=== PATIENT | female | born 1955 | race Caucasian/White ===

== ENCOUNTER 2017-12-07 12:10 | Outpatient (REF) | payer MEDICAID, SELFPAY | END 2017-12-07 12:11 | LOC: NCHCN 12:10 | PROVIDERS: PCP Family Medicine; Visit Provider Specialist/Technologist Athletic Trainer | DX: J02.9 Acute pharyngitis, unspecified (principal) | CPT/HCPCS: 87070 ==

== ENCOUNTER 2017-12-08 08:52 | Emergency (ER) | payer MEDICAID, SELFPAY ==
[2017-12-08] VITALS (8 sets, daily range): BP systolic 107–135; BP diastolic 59–111; PULSE 76–85; RESP 12–20; TEMP 36.7–36.8; O2SAT 95–99
--- NOTE | 2017-12-08 09:26 | ED.GENADUL ---
Disposition Clinical Impression: Peritonsillar abscess Disposition: HOME Condition: Good Instructions: Peritonsillar Abscess (ED) Additional Instructions: Please continue taking the Augmentin that you are prescribed by your primary care provider yesterday. Do not miss any doses.. Please take the Tylenol and Motrin for pain. Please follow-up with Dr. Davis at your scheduled appointment on Wednesday 12/13 at 10:45 AM. If you notice any worsening of your symptoms whatsoever, any difficulty drinking, swallowing, breathing, or controlling her secretions, any fever or chills please return to the nearest emergency department immediately for reevaluation. If you notice any worsening of your symptoms, or any new symptoms such as vomiting, diarrhea, fever, chills, shortness of breath, chest pain, numbness, weakness, or fainting , please return immediately to the emergency department for reevaluation. Please follow up with your primary care provider as soon as possible for reassessment and reevaluation. As always, it was a pleasure participating in your medical care today. Prescriptions: Acetaminophen [Tylenol Extra Strength] 1,000 mg PO Q6H 5 Days #60 tab Ibuprofen [Motrin Ib] 600 mg PO Q6H 5 Days #60 tablet Referrals: Adrián Davis DO [OSTEOPATHIC DOCTOR] - Krunal Sanchez MD [ [facility]FF PHYSICIAN] - Forms: Work Release Medical Decision Making - Medical Decision Making This is a 62-year-old female with a past medical history significant for tobacco use, cervical cancer and a radical hysterectomy, as well as potential peritonsillar infections in the past, although she states she has never had surgery for peritonsillar abscess. The patient is a poor historian. Patient has had a sore throat for the last 5 days, she received Rocephin IM, and Augmentin prescription by her PCP yesterday and has had 3 doses. She has been having worsening of her pain ever since. She has difficulty swallowing any solids, but has been able to get down a small amount of liquids. Physical exam demonstrates notable erythema and some swelling in the left peritonsillar region. She did have a strep test that was negative by her PCP yesterday. And concern for potential peritonsillar abscess. We will get an IV, start the patient on Unasyn, control her pain, and get a CT scan to evaluate for abscess. 11:[address] scan does show evidence of a notable 2.7 cm x 2 cm abscess in the left peritonsillar region. These findings were conveyed to me by the radiologist. No other acute findings. Since the patient has seen Dr. Sanchez in the past, we did contact his office and discussed the case with Dr. Davis. He agreed with the need for prompt incision and drainage, and also recommended close follow-up with his clinic. We then discussed with the patient the risks and benefits of having the procedure performed here at bedside, versus potential transfer for the procedure. The patient made it very clear that she would like to have it done here in the ED rather than driving or being transferred to another location for the procedure. Unasyn was started on the patient for treatment of the infection. Procedure note: Peritonsillar abscess drainage Timeout was completed, the patient's left peritonsillar region was numbed with viscous bupivacaine, and then further anesthetized with 3 mL's of 2% lidocaine with epinephrine. Patient tolerated this well. Backups were available at bedside including tools for intubation, airway securement, respiratory therapy, to suction catheters, emergency cric capabilities, and RSI medications. These were all there as a precaution, with a low likelihood of need. After the patient achieved good anesthesia the area was incised with an 11 blade scalpel with a tape bumper attached 2 cm proximally on the shaft. A fairly large amount of purulent drainage was removed from the abscess and suctioned adequately. The area was then massaged with a soft fingertip, and continued drainage was noted. After 5 minutes of massage and suction no additional drainage was noted. Reevaluation of the posterior oropharynx demonstrated no uvular deviation, and no asymmetry in swelling between the 2 sides. Patient had near complete resolution of her initial pain and symptomatology. Patient tolerated procedure well and had no continued bleeding. Less than 3 mL's of total blood loss. The patient tolerated the procedure well. We will observe her for the next hour to note any changes, and make sure she does well post procedurally. We did contact Dr. Davis's office for follow-up with an appointment at 10:45 AM on 12/13. I had a long discussion with her regarding red flags for which to return, including signs and symptoms of infection, airway compromise, worsening difficulty with breathing or drinking. We will do a p.o. trial prior to discharge. 11:54 AM The patient is doing very well. Her pain is nearly resolved post procedurally. She feels much better at this time. I did have her drink fluids in front of me and she did this well without any complications, which is a start change from when she first arrived. With normal vital signs, reassuring labs, and he well tolerated procedure I feel that she can be safely discharged home. I again reiterated the red flags for which she would need to return the patient understands, as well as the importance of follow-up and continued antibiotics with Tylenol and Motrin. I discussed this with her the importance of a soft diet and she understands. I have extensively reviewed the treatment plan and discharge instructions with the patient and their family. I have addressed all patient concerns at this time. The patient and family was made aware of what symptoms to monitor for that would warrant a return to the emergency department. Discussed the plan with the patient and family, they demonstrate verbal understanding and agreement with our assessment and plan at this time. History of Present Illness - General Chief complaint: Sorethroat Stated complaint: SORE THROAT Time Seen by Provider: 12/08/17 09:12 - History of Present Illness Initial comments: This is a 62-year-old female with a past medical history of cervical cancer, radical hysterectomy, left knee surgery, right shoulder surgery, as well as a peritonsillar infection in the past for which she sees . She presents today for sore throat. The patient states that 4 days ago she developed symptoms of sore throat on the left hand side, her symptoms have gradually worsened. She has had a very minimal cough, and some occasional chills and subjective fever at home yesterday. She has had difficulty eating, and has been unable to swallow solids, but has been able to swallow some liquids with notable difficulty. She did see her primary care provider yesterday who gave a shot of ceftriaxone, and a prescription for Augmentin. She has taken 3 doses of Augmentin. She has been taking naproxen for home pain control, but has had no improvement of her symptoms since then. Pain is located in her left throat, and left proximal neck. She denies any headache or vision changes. She does have complaint of mild trismus on the left jaw. Patient is able to move her neck but does have some pain with this. She denies any shortness of breath, difficulty controlling secretions, posterior duct repair, vomiting, diarrhea. Patient does smoke regularly. She denies any IV or illicit drug use. She has no other complaints at this time. She denies any pertinent family history. - Related Data Duloxetine HCl [Cymbalta] 120 mg PO DAILY tab-cap 09/14/12 Calcium Carbonate [Tums] 2 tab PO PRN PRN 07/28/14 Loratadine 10 mg PO DAILY PRN 01/20/16 Acetaminophen [Tylenol Extra Strength] 1,500 mg PO PRN PRN 04/17/17 Estradiol [Estrace] 1 gm VG .1-2 X WEEK 04/17/17 Acetaminophen [Tylenol Extra Strength] 1,000 mg PO Q6H 5 Days #60 tab 12/08/17 Ibuprofen [Motrin Ib] 600 mg PO Q6H 5 Days #60 tablet 12/08/17 Allergies Allergy/AdvReac Type Severity Reaction Status Date / Time morphine Allergy Severe Swelling/Ed Verified 12/08/17 09:03 lisa Sulfa (Sulfonamide Allergy Intermediate Hives Verified 12/08/17 09:03 Antibiotics) azithromycin Allergy Unknown Unverified 12/08/17 09:03 nitrofurantoin Allergy Unknown Unverified 12/08/17 09:03 [From Macrobid] fentanyl AdvReac Severe go crazy Unverified 12/08/17 09:03 nicotine [From Nicorette] AdvReac Intermediate Vomiting Unverified 12/08/17 09:03 bupropion HCl AdvReac Verified 12/08/17 09:03 [From Wellbutrin] prednisone AdvReac Verified 12/08/17 09:03 Review of Systems Other: 10 point review of systems was performed, pertinent positives and negatives are noted in the history of present illness. Past Medical History - Past Medical History Medical history: GERD seehpi Surgical history: hysterectomy, other (TKA, right shoulder surgery) - Social History Alcohol use: occasionally Drug use: none General Exam - Other Other exam information: 1.Const: Well-nourished, Well-developed, appearing stated age 2.Eyes: PERRL, no conjunctival injection, and symmetrical lids. 3.ENT: Atraumatic external nose and ears. Dry MM. Trachea is midline. The patient does demonstrate notable erythema in the left peritonsillar region. Uvula does appear to be midline. There is some swelling in the left peritonsillar region. Tenderness on the left submandibular region. No significant swelling. No evidence of otitis media or externa. Mild trismus on exam. Airway is clear and patent. Secretions are well controlled. 4.CVS: +S1/S2, No murmurs or gallops. Peripheral pulses 2+ and equal in all extremities. Brisk capillary refill in all extremities. 5.RESP: Unlabored respiratory effort. Clear to auscultation bilaterally. No wheezes rales or rhonchi 6.GI: Soft, Nontender/Nondistended, No hepatosplenomegaly. No guarding or rebound. 7.MSK: Normocephalic/Atraumatic, Extremities w/o deformity or ttp No cyanosis or clubbing, Normal movement of all extremities 8.Skin: Warm, Dry. No rashes or lesions. 9.Neuro: waste cotton cleaner II-XII grossly intact. Sensation grossly intact, no focal neurologic deficits. 10.Psych: (AAO) x3. Appropriate mood and affect Course Vital Signs - 24 hr 12/08/17 08:57 Temperature 36.8 C Pulse 81 Respiratory 16 Rate Blood Pressure 131/84 Pulse Oximetry 96
[2017-12-08] MEDS: Ketorolac 30 MG/ML VIAL IM (09:33)
[2017-12-08 09:35] LABS: Abs Immature Grans 0.01 k/cumm (0.0-0.09); Absolute Basophil Count 0.02 k/cumm (0.0-0.2); Absolute Eosinophil Count 0.29 k/cumm (0.0-0.7); Absolute Lymphocyte Count 1.34 k/cumm (1.2-3.4); Absolute Neutrophil Count 7.58 k/cumm (1.2-6.7); Basophils % 0.2; Eosinophils % 2.9; HCT 45.7 % (36.0-46.0); Immature Grans % 0.1; Lymphocytes % 13.2; Mean Corp. HGB Concentration 32.8 g/dL (32.0-36.0); Mean Corpuscular Hemoglobin 29.6 pg (27.0-33.0); Mean Corpuscular Volume 90.1 fL (80-95); Mean Platelet Volume 10.9 fL (8.0-11.0); Monocytes % 8.9; Neutrophils % 74.7; Platelet Count 173 x1000/uL (130-400); RBC 5.07 m/cumm (4.00-5.20); RBC Distribution Width 13.2 % (11.7-14.6); White Blood Cell Count 10.14 k/cumm (4.4-10.8)
[2017-12-08] MEDS: Lidocaine 2% Viscous 15 ML CUP PO (09:35)
[2017-12-08 09:50] LABS: ALT 27 U/L (12-78); AST 23 U/L (15-37); Albumin 3.9 g/dL (3.4-5.0); Alkaline Phosphatase 100 U/L (46-116); Anion Gap 6.3 mmol/L (3-11); BUN 18 mg/dL (7-18); Bilirubin, Total 0.9 mg/dL (0.2-1.0); CO2 27.7 mmol/L (21.0-32.0); CREATININE 0.75 mg/dL (0.55-1.02); Calcium 9.2 mg/dL (8.5-10.1); Chloride 104 mmol/L (98-107); Glucose 104 mg/dL (70-100); Potassium 3.8 mmol/L (3.5-5.1); Sodium 138 mmol/L (136-145); Total Protein 7.9 g/dL (6.4-8.2)
--- NOTE | 2017-12-08 09:56 | DI.RPTCT_ITS ---
SYMPTOM/DIAGNOSIS: LT PERITONSILLAR SWELLING, ? ABSCESS NECK CT: CT scan of the neck was performed following the uneventful administration of intravenous contrast material. Comparison is made with 11/29/15. There is a 2.7 by 2 by 1.9 cm. rim enhancing fluid collection in the left peritonsillar region most consistent with a peritonsillar abscess. There is mild narrowing of the airway at this level and rightward displacement of the uvula. The nasopharynx, oropharynx, hypopharynx and larynx are otherwise unremarkable. The retropharyngeal space is unremarkable. The thyroid gland is enlarged with multiple hypodense lesions present, the largest appears to be on the right and measures 1.6 cm. Mildly enlarged lymph nodes are seen in the left neck. The largest lies posterior to the left submandibular gland and measures 1.5 cm. These are likely reactive. The submandibular and parotid glands are unremarkable. No other focal fluid collections are seen in the neck. The visualized intracranial structures are unremarkable as are the orbits and retro-orbital soft tissues. The visualized paranasal sinuses are clear. The mastoid air cells are well pneumatized. Mild centrilobular emphysematous changes are seen in the lung apices. There is a 2 mm. calcification seen in the soft tissues inferior to the peritonsillar abscess. This may represent a ductal stone/tonsilolith. IMPRESSION: 1. 2.7 cm. left rim enhancing fluid collection most suggestive of a left peritonsillar abscess. 2. Multiple thyroid nodules. Outpatient non emergent follow up is recommended. 3. There is a 2 mm. calcification seen in the soft tissues inferior to the peritonsillar abscess. This may represent a ductal stone/tonsilolith. These findings were discussed with Dr Ragsdale of the ER on the date of the examination.
[2017-12-08] MEDS: ACETAMINOPHEN 1,000 MG/100 ML BTL 400 MG IVPB (10:02)
[2017-12-08] MEDS: Omnipaque 350 MG/ML 100 ML BTL IJ (10:03)
[2017-12-08] MEDS: AMPICILLIN/SULBACTAM 3 GM in Normal Saline 100 ML IVPB (10:13)
[2017-12-08] MEDS: Normal Saline 1,000 ML 1000 ML IV (10:30)
[2017-12-08] MEDS: Benzocaine 20% Gel 30 GM JAR MM (10:30)
[2017-12-08] MEDS: Benzocaine 20% 60 ML CAN (10:40)
[2017-12-08] MEDS: LORazepam 2 MG/ML VIAL 0.5 MG IVP (10:44)
--- NOTE | 2017-12-08 10:52 | NUR.NOTE ---
Addendum entered by Elvira Vergara 12/08/17 11:17: Staff present at time of Time Out were: Matilde Schneider RN, Vandana RT, Marcel Vergara RN (insurance writer), Dr. Ragsdale. present during timeout and procedure Original Note: Nursing Note: Time out conducted by Dr. Ragsdale at 1050; procedure drainage of peritonsilar abscess
--- NOTE | 2017-12-08 11:17 | RESPIRATORY ---
This RT was at bedside for airway management, if needed, during incision and drainage of peritonsilar abscess. Pt tolerated well, no intervention needed.
--- NOTE | 2017-12-08 14:28 | NUR.NOTE ---
Nursing Note: Faxed to [facility], [place], [place] the physician note and the CT report. Patient has follow up appt. Dec.13 @ 10:45. . Muna Lassiter.
== END 2017-12-08 12:22 | disposition home or self-care (01) ==
LOC: ER 12-09 10:14
PROVIDERS: Emergency Provider Student in an Organized Health Care Education/Training Program; PCP Family Medicine
DX: J36 Peritonsillar abscess (principal)
CPT/HCPCS: 36415; 42700; 70491; 80053; 96361; 96365; 96375; 99285; 85025; J0131; J0295; J1885; J2060; J3490

== ENCOUNTER 2018-01-30 12:37 | Outpatient (REF) | payer OTHER, SELFPAY ==
[2018-01-30 20:06] LABS: Alkaline Phosphatase 97 U/L (46-116); C-Reactive Protein 0.23 mg/dL (0.0-0.3); Glucose 87 mg/dL (70-100); TSH (W/Ref FT4) 0.53 uIU/mL (0.358-3.74)
[2018-01-30 20:38] LABS: Abs Immature Grans 0.01 k/cumm (0.0-0.09); Absolute Basophil Count 0.04 k/cumm (0.0-0.2); Absolute Eosinophil Count 0.21 k/cumm (0.0-0.7); Absolute Lymphocyte Count 2.11 k/cumm (1.2-3.4); Absolute Monocyte Count 0.42 k/cumm (0.11-0.7); Absolute Neutrophil Count 1.92 k/cumm (1.2-6.7); Basophils % 0.8; Eosinophils % 4.5; HCT 44.4 % (36.0-46.0); HGB 14.7 g/dL (12.0-15.5); Immature Grans % 0.2; Lymphocytes % 44.8; Mean Corp. HGB Concentration 33.1 g/dL (32.0-36.0); Mean Corpuscular Hemoglobin 29.6 pg (27.0-33.0); Mean Corpuscular Volume 89.3 fL (80-95); Mean Platelet Volume 12.2 fL (8.0-11.0); Monocytes % 8.9; Neutrophils % 40.8; Platelet Count 219 x1000/uL (130-400); RBC 4.97 m/cumm (4.00-5.20); RBC Distribution Width 13.3 % (11.7-14.6); White Blood Cell Count 4.71 k/cumm (4.4-10.8)
[2018-01-30 22:03] LABS: ESR 23 MM/HR (0-30)
[2018-02-01 13:58] LABS: ANA Interpretation Positive (NEGAT); ANA Titer Pattern 1:80 Speckled
== END 2018-01-30 12:57 ==
LOC: NCHCN 12:37
PROVIDERS: PCP Family Medicine; Visit Provider Family Medicine
DX: M25.50 Pain in unspecified joint (principal); M79.669 Pain in unspecified lower leg
CPT/HCPCS: 82947; 85652; 84075; 84443; 85025; 86038; 86140

== ENCOUNTER 2018-03-29 15:31 | Outpatient (REF) | payer OTHER, SELFPAY | END 2018-03-29 15:51 | LOC: NCHCN 15:31 | PROVIDERS: PCP Family Medicine; Visit Provider Family Medicine | DX: R30.0 Dysuria (principal) | CPT/HCPCS: 87086 ==

== ENCOUNTER 2018-07-05 10:31 | Outpatient (CLI) | payer OTHER, SELFPAY ==
--- NOTE | 2018-07-05 10:34 | DI.RAD_ITS ---
SYMPTOMS/DIAGNOSIS: F/U LT TOTAL KNEE LEFT KNEE: The patient is status post TKR. The prosthesis in good position surrounding bone intact with no appreciable interval change when compared with the post operative examination dating back to 01/20/16.
== END 2018-07-05 10:51 ==
PROVIDERS: PCP Family Medicine; Visit Provider Orthopaedic Surgery
DX: Z96.652 Presence of left artificial knee joint (principal); Z47.1 Aftercare following joint replacement surgery
CPT/HCPCS: 73560

== ENCOUNTER 2018-07-05 10:59 | Outpatient (CLI) | payer OTHER, SELFPAY ==
[2018-07-05 12:34] LABS: C-Reactive Protein 0.28 mg/dL (0.0-0.3)
[2018-07-05 12:46] LABS: ESR 18 MM/HR (0-30)
[2018-07-06 11:10] LABS: ANA Interpretation Positive (NEGAT); ANA Titer Pattern 1:80 Speckled
[2018-07-06 11:17] LABS: Rheumatoid Factor 8 IU/mL (<12.5)
== END 2018-07-05 11:19 ==
PROVIDERS: PCP Family Medicine; Visit Provider Orthopaedic Surgery
DX: M25.50 Pain in unspecified joint (principal)
CPT/HCPCS: 36415; 85652; 86038; 86140; 86431

== ENCOUNTER 2018-07-30 11:56 | Outpatient (CLI) | payer OTHER, SELFPAY ==
--- NOTE | 2018-07-30 11:36 | DI.RAD_ITS ---
SYMPTOMS/DIAGNOSIS: ACUTE BRONCHIECTASIS WITH BRONCHOSPASM, J20.9 PA AND LATERAL CHEST: Comparison is made with . The heart size is normal. The lungs appear clear. No infiltrate, effusion or pulmonary edema is seen. IMPRESSION: Negative chest x-ray.
== END 2018-07-30 12:16 ==
PROVIDERS: PCP Family Medicine; Visit Provider Physician Assistant Medical
DX: J20.9 Acute bronchitis, unspecified (principal); J47.0 Bronchiectasis with acute lower respiratory infection
CPT/HCPCS: 71046

== ENCOUNTER 2018-08-24 15:10 | Outpatient (REF) | payer OTHER, SELFPAY | END 2018-08-24 15:30 | LOC: NCHCN 15:10 | PROVIDERS: PCP Family Medicine; Visit Provider Physician Assistant Medical | DX: R30.0 Dysuria (principal) | CPT/HCPCS: 87077; 87086; 87186 ==

== ENCOUNTER 2018-12-17 13:19 | Outpatient (REF) | payer MEDICAID, SELFPAY | END 2018-12-17 13:39 | LOC: NCHCN 13:19 | PROVIDERS: PCP Family Medicine; Visit Provider Physician Assistant Medical | DX: N39.0 Urinary tract infection, site not specified (principal) | CPT/HCPCS: 87086 ==

== ENCOUNTER 2018-12-20 00:57 | Outpatient (CLI) | payer MEDICAID, SELFPAY ==
--- NOTE | 2018-12-20 14:44 | DI.US_ITS ---
SYMPTOMS/DIAGNOSIS: DYSURIA, R30.0, H/O CHRONIC BLADDER INFECTIONS, MIDLINE BLADDER PAIN S/P BLADDER SLING, S/P HYSTERECTOMY RENAL ULTRASOUND: The kidneys are normal in size and shape and there is no evidence of hydronephrosis or nephrolithiasis. Urinary bladder is grossly unremarkable in appearance with prevoid and postvoid urinary bladder volume measurements 99 cc and 22 cc. Ureteral jets were visualized bilaterally. Incidental note is made of increased hepatic echogenicity consistent with hepatic steatosis.
--- NOTE | 2018-12-20 15:13 | DI.RAD_ITS ---
SYMPTOMS/DIAGNOSIS: RIGHT HIP PAIN, M25.551 RIGHT HIP AND PELVIS: Two views were obtained. There are multiple vascular clips of the pelvis. Cartilaginous joint spaces of both hips are fairly well maintained. Mild hypertrophic changes of the acetabula noted bilaterally. No other significant bony abnormality seen. CONCLUSION: Mild DJD, both hips.
== END 2018-12-20 01:17 ==
PROVIDERS: PCP Family Medicine; Visit Provider Physician Assistant Medical
DX: R30.0 Dysuria (principal); R39.89 Other symptoms and signs involving the genitourinary system; K76.0 Fatty (change of) liver, not elsewhere classified; Z98.890 Other specified postprocedural states; M25.551 Pain in right hip; M16.0 Bilateral primary osteoarthritis of hip
CPT/HCPCS: 76770; 73502

== ENCOUNTER 2019-01-15 12:16 | Outpatient (CLI) | payer MEDICAID, SELFPAY ==
--- NOTE | 2019-01-15 13:00 | DI.US_ITS ---
EXAM: US PELVIS AND TRANSVAGINAL CLINICAL HISTORY: right pelvic pain R10.2. TECHNIQUE: Ultrasound performed using standard protocol. COMPARISON: US renal from 12/20/2018 FINDINGS: The patient is status post hysterectomy and left oophorectomy. The right ovary measures 1.4 x 0.9 x 0.9 cm. No free fluid is seen. There is no evidence of right ovarian mass or cyst. IMPRESSION: Normal right ovary. Status post hysterectomy and left oophorectomy.
== END 2019-01-15 12:36 ==
PROVIDERS: PCP Family Medicine; Visit Provider Nurse Practitioner Gerontology
DX: R10.2 Pelvic and perineal pain (principal); Z90.721 Acquired absence of ovaries, unilateral; Z90.710 Acquired absence of both cervix and uterus
CPT/HCPCS: 76830; 76856

== ENCOUNTER 2019-01-15 12:27 | Outpatient (REF) | payer MEDICAID, SELFPAY | END 2019-01-15 12:47 | LOC: LBN 12:27 | PROVIDERS: PCP Family Medicine; Visit Provider Nurse Practitioner Gerontology | DX: N39.0 Urinary tract infection, site not specified (principal) | CPT/HCPCS: 87077; 87086; 87186 ==

== ENCOUNTER 2019-02-01 16:12 | Outpatient (REF) | payer MEDICAID, SELFPAY | END 2019-02-01 16:32 | LOC: LBN 16:12 | PROVIDERS: PCP Family Medicine; Visit Provider Nurse Practitioner Gerontology | DX: N30.10 Interstitial cystitis (chronic) without hematuria (principal); N39.0 Urinary tract infection, site not specified; R10.2 Pelvic and perineal pain | CPT/HCPCS: 87086 ==

== ENCOUNTER 2019-04-17 20:50 | Outpatient (REF) | payer MEDICAID, SELFPAY ==
[2019-04-17 20:59] LABS: Abs Immature Grans 0.01 k/cumm (0.0-0.09); Absolute Basophil Count 0.06 k/cumm (0.0-0.2); Absolute Eosinophil Count 0.36 k/cumm (0.0-0.7); Absolute Lymphocyte Count 2.47 k/cumm (1.2-3.4); Absolute Monocyte Count 0.59 k/cumm (0.11-0.7); Absolute Neutrophil Count 3.41 k/cumm (1.2-6.7); Basophils % 0.9; Eosinophils % 5.2; HCT 46.2 % (36.0-46.0); HGB 15.1 g/dL (12.0-15.5); Immature Grans % 0.1 %; Lymphocytes % 35.8; Mean Corp. HGB Concentration 32.7 g/dL (32.0-36.0); Mean Corpuscular Hemoglobin 29.5 pg (27.0-33.0); Mean Corpuscular Volume 90.4 fL (80-95); Mean Platelet Volume 11.9 fL (8.0-11.0); Monocytes % 8.6; Neutrophils % 49.4; Platelet Count 243 x1000/uL (130-400); RBC 5.11 m/cumm (4.00-5.20); RBC Distribution Width 13.3 % (11.7-14.6)
[2019-04-17 21:08] LABS: ALT 33 U/L (14-59); AST 33 U/L (15-37); Albumin 4.2 g/dL (3.4-5.0); Alkaline Phosphatase 106 U/L (46-116); Amylase 84 U/L (25-115); BUN 23 mg/dL (7-18); Bilirubin, Total 0.2 mg/dL (0.2-1.0); Calcium 9.6 mg/dL (8.5-10.1); Chloride 105 mmol/L (98-107); Glucose 100 mg/dL (74-106); Lipase 204 U/L (73-393); Magnesium 1.9 mg/dL (1.8-2.4); Potassium 4.1 mmol/L (3.5-5.1); Sodium 142 mmol/L (136-145); Total Protein 7.4 g/dL (6.4-8.2)
== END 2019-04-17 21:10 ==
LOC: NCHCN 20:50
PROVIDERS: PCP Family Medicine; Visit Provider Physician Assistant Medical
DX: R19.02 Left upper quadrant abdominal swelling, mass and lump (principal); N30.10 Interstitial cystitis (chronic) without hematuria; M79.605 Pain in left leg
CPT/HCPCS: 80053; 83690; 82150; 83735; 85025

== ENCOUNTER 2019-05-06 01:36 | Outpatient (CLI) | payer MEDICAID, SELFPAY ==
[2019-05-06] MEDS: Breeza Beverage 473 ML BTL PO ×2 (07:29)
[2019-05-06] MEDS: Omnipaque 350 MG/ML 50 ML BTL IJ (07:30)
[2019-05-06] MEDS: Omnipaque 350 MG/ML 100 ML BTL IJ (08:35)
--- NOTE | 2019-05-06 08:36 | DI.CT_ITS ---
EXAM: CT ABDOMEN PELVIS W CLINICAL HISTORY: LUQ ABD MASS, R19.02, INTERSTITIAL CYSTITIS, N30.10 TECHNIQUE: Post IV and oral contrast. COMPARISON: No exams were available for comparison FINDINGS: The liver shows mild fatty infiltration. The spleen is normal in size. The gallbladder, pancreas, adrenals, and kidneys are unremarkable. The patient is status post hysterectomy. There is contour d eformity of the bladder which may be secondary to surgery. The right ovary appears normal. Multiple surgical clips are seen along the spine and iliac vessels. No adenopathy is seen. There is no evid ence of a left upper quadrant mass. The aorta shows mild calcification and is normal in diameter. T here is a minimal amount of fat in the umbilicus. No left upper quadrant hernias are seen. The lung bases show minimal scarring or atelectasis. There is no bowel dilatation or inflammatory change. T here is a moderate quantity of stool. There are a few sigmoid diverticula. Degenerative changes are seen in the spine. IMPRESSION: No acute abnormality. No evidence of left upper quadrant mass.
== END 2019-05-06 01:56 ==
PROVIDERS: PCP Family Medicine; Visit Provider Physician Assistant Medical
DX: R19.02 Left upper quadrant abdominal swelling, mass and lump (principal); N30.10 Interstitial cystitis (chronic) without hematuria; K76.0 Fatty (change of) liver, not elsewhere classified
CPT/HCPCS: 74177; J3490; Q9967

== ENCOUNTER 2019-08-19 16:36 | Outpatient (REF) | payer MEDICAID, SELFPAY ==
[2019-08-19 19:59] LABS: Bilirubin Negative (Negative); Blood Negative (Negative); Clarity Clear (Clear); Glucose Negative (Negative); Ketones Negative (Negative); Leukocyte Esterase Negative (Negative); Nitrite Negative (Negative); Specific Gravity 1.025 (1.005-1.025); Urobilinogen 0.2 EU/dL (Up TO 0.2); pH 5.5 (5-8)
== END 2019-08-19 16:56 ==
LOC: NCHCN 16:36
PROVIDERS: PCP Family Medicine; Visit Provider Family Medicine
DX: R30.0 Dysuria (principal)
CPT/HCPCS: 81003; 87086

== ENCOUNTER 2019-10-15 07:49 | Outpatient (CLI) | payer MEDICAID, SELFPAY ==
[2019-10-15 22:41] LABS: COVID-19 RT-PCR UVMMC Result Negative (Negative)
== END 2019-10-15 08:09 ==
PROVIDERS: PCP Family Medicine; Visit Provider Podiatrist
DX: Z01.818 Encounter for other preprocedural examination (principal); Z11.59 Encounter for screening for other viral diseases
CPT/HCPCS: U0003

== ENCOUNTER 2019-10-21 15:54 | Outpatient (REF) | payer MEDICAID, SELFPAY ==
[2019-10-23 11:43] LABS: Lyme Ab w Rflx to Lyme Confirm Negative (Negative)
[2019-10-24 01:50] LABS: Anaplasma phagocytophilum Negative (Negative); B. miyamotoi PCR Negative (Negative); Babesia divergens/MO-1 Negative (Negative); Babesia duncani Negative (Negative); Babesia microti Negative (Negative); Ehrlichia chaffeensis Negative (Negative); Ehrlichia ewingii/canis Negative (Negative); Ehrlichia muris eauclairensis Negative (Negative)
== END 2019-10-21 16:14 ==
LOC: NCHCN 15:54
PROVIDERS: PCP Family Medicine; Visit Provider Nurse Practitioner Family
DX: R21 Rash and other nonspecific skin eruption (principal)
CPT/HCPCS: 87798; 86618

== ENCOUNTER 2019-11-15 15:06 | Outpatient (REF) | payer MEDICAID, SELFPAY | END 2019-11-15 15:26 | LOC: NCHCN 15:06 | PROVIDERS: PCP Family Medicine; Visit Provider Family Medicine | DX: R35.0 Frequency of micturition (principal) | CPT/HCPCS: 87077; 87086; 87186 ==

== ENCOUNTER 2019-12-10 17:14 | Outpatient (REF) | payer MEDICAID, SELFPAY ==
[2019-12-10 19:35] LABS: Bilirubin Negative (Negative); Blood Negative (Negative); Clarity Clear (Clear); Glucose Negative (Negative); Ketones Negative (Negative); Leukocyte Esterase Large (Negative); Nitrite Negative (Negative); Specific Gravity 1.015 (1.005-1.025); Urobilinogen 0.2 EU/dL (Up TO 0.2); pH 5.5 (5-8)
[2019-12-10 20:04] LABS: Bacteria Rare HPF (Negative); C & S Indicated? Yes; Crystals Negative HPF (Negative); Epithelial Cells Many HPF (Negative); Mucus Negative (Negative); Other Cells Mod Transitional (Negative); RBC 0-2 HPF (0-2)
== END 2019-12-10 17:34 ==
LOC: NCHCN 17:14
PROVIDERS: PCP Family Medicine; Visit Provider Family Medicine
DX: R35.0 Frequency of micturition (principal); N30.10 Interstitial cystitis (chronic) without hematuria
CPT/HCPCS: 81003; 81015; 87086

== ENCOUNTER 2019-12-23 16:13 | Outpatient (REF) | payer MEDICAID, SELFPAY ==
--- NOTE | 2019-12-23 15:52 | SKI_PTH ---
PATIENT: Dana Muñiz LOC: [facility] U#:[id number] AGE/SX: 64/F ROOM: RE12/23/[address]: Adrián Davis DO : 1955 BED: DIS: 12/23/2019 SPEC #: [id number] RECD: 12/23/19 18:31 STATUS: LUIZ REMango #: [id number] MONTY: 12/23/19 15:[address]: Adrián Davis DEPT: Surgical Specimen RECD BY: Mirlande Sweeney ENTERED: 12/23/19 18:31 SP TYPE: MAURICE DE PAZ DR: Juana Syed V Tissues: 1 - SKIN BIOPSY(SHAVE/PUNCH) Procedures: SKIN LEVEL 4 Comments: [id number]
== END 2019-12-23 16:33 ==
LOC: LBN 16:13
PROVIDERS: PCP Family Medicine; Visit Provider Otolaryngology Otolaryngology/Facial Plastic Surgery
DX: L57.0 Actinic keratosis (principal)
CPT/HCPCS: 88305

== ENCOUNTER 2019-12-30 02:50 | Outpatient (CLI) | payer MEDICAID, SELFPAY ==
--- NOTE | 2019-12-30 11:00 | NS.NUTBLAN_ITS ---
Dana presented for Medical Nutrition Therapy for weight loss and recoccuring interstitial cystitis. 5'2 190 lbs 34.5 IBW: 120-130 lbs, Goal Wt: 160 lbs. Reports has UTI every other month for last year. Diet recall indicates erratic meal schedule, low amount of lean protein and high amounts of simple sugars. Poor intake of fluid reported. Reviewed ways to follow balanced meal plan with emphasis on lean protein, non starchy vegetables, fruits, complex carbs and adequate fluid. Reviewed need to consume yogurt on regular basis if taking abx to provide healthy probiotics s/p abx dosage. Explained relationship with diet and immune system. Goal is for 5 lbs weight loss per month to goal weight of 160 lbs. Follow up planned on 01/28/20 at 11 am.
== END 2019-12-30 03:10 ==
PROVIDERS: PCP Family Medicine; Visit Provider Dietitian, Registered
DX: E66.3 Overweight (principal); N30.10 Interstitial cystitis (chronic) without hematuria; Z71.3 Dietary counseling and surveillance
CPT/HCPCS: 97802

== ENCOUNTER 2020-01-02 10:56 | Outpatient (CLI) | payer MEDICAID, SELFPAY ==
--- NOTE | 2020-01-02 10:15 | DI.RAD_ITS ---
EXAM: XR KNEE LT 2V AP,LAT CLINICAL HISTORY: left TKA; pain. TECHNIQUE: 2D digital imaging was performed. COMPARISON: CR XR CHEST 2V PA LATERAL from 07/30/2018 FINDINGS: BONES: There are stable post operative changes present. No fracture or dislocation. JOINTS: The joint spaces are well maintained. Small joint effusion. SOFT TISSUE: Normal. IMPRESSION: Stable postoperative changes. DATA REPOSITORY: RADIATION DOSE DELIVERED:
--- NOTE | 2020-01-02 10:15 | DI.RAD_ITS ---
EXAM: XR HIP RT COMPLETE AP PELVIS INDICATION: right hip pain. COMPARISON: CR XR hip RT complete AP pelvis from 12/20/2018 TECHNIQUE: 2D digital imaging was performed. FINDINGS: There are mild degenerative changes of the right hip. The bones are intact and normally mineralized. Surgical clips are seen in the pelvis. The soft tissues are otherwise unremarkable. IMPRESSION: DATA REPOSITORY: RADIATION DOSE DELIVERED:
== END 2020-01-02 11:16 ==
PROVIDERS: PCP Family Medicine; Referring Provider Family Medicine; Visit Provider Physician Assistant
DX: M25.562 Pain in left knee (principal); Z96.652 Presence of left artificial knee joint; M16.11 Unilateral primary osteoarthritis, right hip
CPT/HCPCS: 73502; 73560

== ENCOUNTER 2020-01-08 01:59 | Outpatient (CLI) | payer MEDICAID, SELFPAY ==
--- NOTE | 2020-01-08 06:45 | DI.NM_ITS ---
EXAM: NM BONE SCAN 3 PHASE CLINICAL HISTORY: painful L TKA,T84.84XA,Z96.652,PAIN. TECHNIQUE: Injected Dose: 25 mCi Tc-99m MDP COMPARISON: CR XR KNEE LT 2V AP,LAT from 01/02/2020 FINDINGS: Perfusion: Symmetric. Blood Pool: Symmetric. Delayed: 3.5 hours. Whole body images and spot views of the knees were performed. There is increase d activity seen in the medial and posterior tibial plateau directly adjacent to the prosthesis of the left knee. There is also increased activity in the patella and a small amount of increased activity in the distal femur. There is a small focus of increased activity in the left distal femoral shaft corresponding to the enchondroma seen on plain films. Minimally increased activity is noted in the right knee and left 1st MTP joint. IMPRESSION: 1. Areas of increased activity surrounding the left knee prosthesis, greatest at the medial tibial pl ateau, suspicious for loosening. DATA REPOSITORY:
== END 2020-01-08 02:19 ==
PROVIDERS: PCP Family Medicine; Visit Provider Student in an Organized Health Care Education/Training Program
DX: T84.84XA Pain due to internal orthopedic prosthetic devices, implants and grafts, initial encounter (principal); Z96.652 Presence of left artificial knee joint
CPT/HCPCS: 78315

== ENCOUNTER 2020-01-08 05:29 | Outpatient (CLI) | payer MEDICAID, SELFPAY ==
[2020-01-08 08:59] LABS: C-Reactive Protein 0.13 mg/dL (0.0-0.3)
[2020-01-08 09:27] LABS: ESR 18 mm/hr (0-30)
== END 2020-01-08 05:49 ==
PROVIDERS: PCP Family Medicine; Visit Provider Student in an Organized Health Care Education/Training Program
DX: T84.84XA Pain due to internal orthopedic prosthetic devices, implants and grafts, initial encounter (principal); Z96.652 Presence of left artificial knee joint
CPT/HCPCS: 85652; 86140

== ENCOUNTER 2020-01-23 01:37 | Outpatient (CLI) | payer MEDICAID, SELFPAY ==
--- NOTE | 2020-01-23 08:15 | DI.RAD_ITS ---
EXAM: RF JOINT INJECTION FLUORO GUID CLINICAL HISTORY: RT HIP TROCHANTERIC BURSITIS,M70.61 TECHNIQUE: 2D and realtime digital imaging was performed. CONTRAST MATERIAL: Refer to procedure report. COMPARISON: No exams were available for comparison FINDINGS: Fluoroscopy was provided for Dr. Sarmiento during the performance of a right hip injection. Please r efer to the procedure report for complete details. Fluoro time: 6 seconds IMPRESSION:
[2020-01-23] MEDS: Bupivacaine 0.5% Pres-Free 10 ML VIAL 5 ML IJ (15:02)
[2020-01-23] MEDS: methylPREDNISolone ACETATE 80 MG/ML VIAL IM (15:03)
--- NOTE | 2020-01-23 22:48 | W.PROCNOTE ---
Date of service: 01/23/20 Time of Service: 14:01 Procedure Note Date of procedure: 01/23/20 Procedure: Right Hip Injection with Fluoroscopic Guidance Surgeon/Proceduralist/Physician: Santos Sarmiento Procedure Diagnosis: Right Hip Pain Procedure Indications: Dana has had persistent pain of the RIGHT hip and groin. Noninvasive measures have been tried. To serve as both diagnostic and therapeutic, an injection under fluoroscopy was recommended. I had discussed the risks of the procedure and the patient elected to proceed. Procedure Description: Dana was greeted in the flouroscopy room. The correct side was identified and the consent was reviewed with the patient and signed. The patient was then placed in the supine position on the fluoroscopy table. The RIGHT hip was then prepped with Chloraprep. The anterolateral injection starting point was identiifed by bony landmarks and fluoroscopy. The skin and soft tissue in the tract of the injection was anesthetized with 1% Lidocaine. A spinal needle was then inserted deep into the hip joint at the level of the lateral femoral neck under fluoroscopic guidance. A small amount of Omnipaque solution was injected to confirm intraarticular placement. Once confirmed, the hip was injected with 6cc of 0.5% Bupivicaine and 80mg of Depo-Medrol. A bandaid was placed on the injection site. The patient tolerated the procedure well and noted improvement in pre-injection pain.
== END 2020-01-23 01:57 ==
PROVIDERS: PCP Family Medicine; Visit Provider Student in an Organized Health Care Education/Training Program
DX: M25.551 Pain in right hip (principal); R10.31 Right lower quadrant pain
CPT/HCPCS: 20610; 77002; J1040

== ENCOUNTER 2020-02-06 18:45 | Outpatient (REF) | payer MEDICAID, SELFPAY ==
[2020-02-06 19:14] LABS: Bilirubin Negative (Negative); Blood Negative (Negative); Clarity Clear (Clear); Glucose Negative (Negative); Ketones Negative (Negative); Leukocyte Esterase Trace (Negative); Nitrite Negative (Negative); Specific Gravity 1.025 (1.005-1.025); Urobilinogen 0.2 EU/dL (Up TO 0.2); pH 5.5 (5-8)
[2020-02-06 19:31] LABS: Bacteria Rare HPF (Negative); C & S Indicated? Yes; Casts Negative LPF (Negative); Crystals Negative HPF (Negative); Epithelial Cells Few HPF (Negative); Mucus Negative (Negative); Other Cells Rare Renal (Negative); RBC Negative HPF (0-2)
== END 2020-02-06 19:05 ==
LOC: NCHCN 18:45
PROVIDERS: PCP Family Medicine; Visit Provider Family Medicine
DX: N30.10 Interstitial cystitis (chronic) without hematuria (principal)
CPT/HCPCS: 81003; 81015; 87086

== ENCOUNTER 2020-05-27 19:21 | Outpatient (REF) | payer MEDICAID, SELFPAY ==
[2020-05-27 20:13] LABS: Abs Immature Grans 0.01 10^3/uL (0.0-0.06); Absolute Basophil Count 0.11 10^3/uL (0.0-0.2); Absolute Eosinophil Count 0.36 10^3/uL (0.0-0.7); Absolute Lymphocyte Count 2.27 10^3/uL (1.2-3.4); Absolute Monocyte Count 0.44 10^3/uL (0.1-0.8); Absolute Neutrophil Count 3.72 10^3/uL (1.2-6.7); Basophils % 1.6; Eosinophils % 5.2; HGB 15.4 g/dL (11.2-15.7); Immature Grans % 0.1; Lymphocytes % 32.9; MCHC 32.1 % (32.0-36.0); MCV 90.4 fL (80-95); MPV 12.2 fL (8.0-11.0); Monocytes % 6.4; Neutrophils % 53.8; Nucleated RBC 0 %; Platelet Count 211 10^3/uL (130-400); RBC 5.31 10^6/uL (3.93-5.22); RDW 12.5 % (11.7-14.6); RDW-SD 41.5 fL; WBC 6.91 10^3/uL (4.4-10.8)
[2020-05-27 20:30] LABS: Anion Gap 7.3 mmol/L (3-11); BUN 21 mg/dL (7-18); CO2 27.7 mmol/L (21.0-32.0); CREATININE 0.8 mg/dL (0.55-1.02); Calcium 9.4 mg/dL (8.5-10.1); Chloride 107 mmol/L (98-107); Glucose 97 mg/dL (74-106); HDL Cholesterol 66 mg/dL (40-60); LDL CHOLESTEROL 102 mg/dL (<100); Potassium 4.3 mmol/L (3.5-5.1); Sodium 142 mmol/L (136-145); TSH 0.33 uIU/mL (0.36-3.74)
[2020-05-29 15:31] LABS: COVID-19 RT-PCR UVMMC Result Negative (Negative)
== END 2020-05-27 19:22 | disposition home or self-care (01) ==
LOC: NCHCN 19:21
PROVIDERS: PCP Family Medicine; Visit Provider Nurse Practitioner Family
DX: R06.02 Shortness of breath (principal); R05 Cough; R30.0 Dysuria
CPT/HCPCS: 80048; 83721; U0003; 83718; 84443; 85025; 87086

== ENCOUNTER 2020-06-11 20:29 | Outpatient (REF) | payer MEDICAID, SELFPAY ==
[2020-06-11 19:15] LABS: FREE T4 1.01 ng/dL (0.76-1.46); TSH 0.33 uIU/mL (0.36-3.74)
== END 2020-06-11 20:30 | disposition home or self-care (01) ==
LOC: NCHCN 20:29
PROVIDERS: PCP Family Medicine; Visit Provider Family Medicine
DX: E23.0 Hypopituitarism (principal)
CPT/HCPCS: 84439; 84443

== ENCOUNTER 2020-06-17 02:39 | Outpatient (CLI) | payer MEDICAID, SELFPAY ==
--- NOTE | 2020-06-17 | DI.MAMMO_ITS ---
EXAM: MG MAMMO SCREENING CLINICAL HISTORY: SCREENING,[facility],Z00.00 TECHNIQUE: Bilateral full field digital CC and MLO mammographic images were obtained with 3D tomosyn thesis and utilizing computer aided detection (CAD). COMPARISON: Available for comparison. FINDINGS: Masses/Architectural Distortion: None seen. Microcalcifications: No suspicious pleomorphic-type are seen. Skin Thickening/Nipple Retraction: None. IMPRESSION: 1. No significant interval change with no specific features of malignancy noted. 2. Unless there is more urgent need, screening mammography is recommended, as per [employer] guidelines. BI-RADS Category 1 - Negative Breast Density - Category B - Scattered areas of fibroglandular density Breast density category C or D implies that the patient has dense breast tissue. Dense breast tissue is very common and is not abnormal but dense breast tissue can make it harder to find cancer on a ma mmogram. Also, dense breast tissue may increase their breast cancer risk. This information about the result of the mammogram report was provided to the patient to raise their awareness. Use this report when you speak with the patient about their risks for breast cancer, which includes their family hist ory. At that time, you may recommend for more screening tests (Ultrasound or MRI) as they might be us eful based on their risk. A negative radiographic report should not delay biopsy if a dominant or clinically suspicious mass is present. Up to ten percent of cancers are not identified on mammography. A negative report may reinforce clinical impression. Adenosis and dense breasts may obscure an underlying neoplasm. False positive reports average 6 to 10%. Patient will receive a letter notifying them of these results.
--- NOTE | 2020-06-17 | DI.US_ITS ---
EXAM: US ABDOMEN CLINICAL HISTORY: UPPER ABD PAIHN, R10.10, INTERMITTENT TECHNIQUE: Ultrasound abdomen performed using standard protocol. COMPARISON: No exams were available for comparison FINDINGS: ABDOMINAL AORTA AND IVC: Visualized portions normal caliber. PANCREAS: Normal where visualized. LIVER: Increased echogenicity of the liver consistent with fatty infiltration. The liver measures 16 .3 cm in length. Hepatopedal flow in the Portal Vein. GALLBLADDER: Cholelithiasis. No evidence of wall thickening. No pericholecystic fluid identified. BILIARY SYSTEM: Common bile duct measures < 7 mm. No intrahepatic biliary ductal dilation. WRIGHT'S SIGN: Negative. KIDNEYS: Kidneys are symmetric in size. No evidence of renal calculi. No evidence of hydronephrosis. No renal mass or cyst identified. SPLEEN: Not enlarged. ASCITES: None seen. IMPRESSION: 1. Hepatic steatosis. 2. Cholelithiasis. No evidence of acute cholecystitis. DATA REPOSITORY:
== END 2020-06-17 02:59 ==
PROVIDERS: PCP Family Medicine; Visit Provider Family Medicine
DX: Z12.31 Encounter for screening mammogram for malignant neoplasm of breast (principal); R10.10 Upper abdominal pain, unspecified; K76.0 Fatty (change of) liver, not elsewhere classified; K80.20 Calculus of gallbladder without cholecystitis without obstruction
CPT/HCPCS: 77063; 77067; 76700

== ENCOUNTER 2020-06-17 02:39 | Outpatient (CLI) | payer MEDICAID, SELFPAY ==
--- NOTE | 2020-06-17 08:00 | DI.US_ITS ---
EXAM: US PELVIS TRANSVAGINAL CLINICAL HISTORY: right pelvic pain,R10.2. TECHNIQUE: Transabdominal and transvaginal pelvic ultrasound was performed using standard protocol. COMPARISON: US US PELVIS TRANSVAGINAL from 01/15/2019 FINDINGS: UTERUS: Status post hysterectomy. OVARIES: Status post left oophorectomy. Right: 2.1 x 1.2 x 1.1 cm Cyst or mass: None. DOPPLER: Color: Symmetric and uniform flow to the right ovary. No hyperemia. No evidence of torsion. Duplex: Normal ovarian arterial waveform visualized. CUL-DE-SAC: Free fluid: None. Other: None. IMPRESSION: 1. Status post hysterectomy and left oophorectomy. 2. Unremarkable right ovary. No evidence of torsion. DATA REPOSITORY:
== END 2020-06-17 02:59 ==
PROVIDERS: PCP Family Medicine; Visit Provider Nurse Practitioner Gerontology
DX: R10.2 Pelvic and perineal pain (principal); Z90.710 Acquired absence of both cervix and uterus; Z90.721 Acquired absence of ovaries, unilateral
CPT/HCPCS: 76830; 76856

== ENCOUNTER 2020-07-06 02:37 | Outpatient (CLI) | payer MEDICAID, SELFPAY ==
--- NOTE | 2020-07-06 08:15 | DI.MRI_ITS ---
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 COMPARISON: CR XR knee LT 2V AP,lat from 07/05/2018 CR XR HIP RT COMPLETE AP PELVIS from 01/02/2020 CR XR KNEE LT 2V AP,LAT from 01/02/2020 FINDINGS: MARROW:There is bunion artifact from the components of the left knee prosthesis. In the distal femoral diaphysis there is benign-appearing intraosseous signal abnormality at the junc tion of the diaphysis and metaphysis and corresponding to finding on the recent x-rays. Appearance i s probably that of a bone infarct or other benign entity, given that there is minimal if any signific ant surrounding marrow edema. No cortical breakthrough. MUSCLES: There is no evidence of abnormal signal nor mass in the visualized muscles. EXTRAMUSCULAR SOFT TISSUES: No abnormal signal, mass, or fluid collection. OTHER: None. IMPRESSION: 1. Probable benign-appearing bone lesion versus infarct in the distal diaphysis of the femur.. This is no surrounding marrow edema. 2. Appropriate follow-up is repeat MRI in 6 months to ensure stability 3. Artifact from the ipsilateral knee prosthesis noted. DATA REPOSITORY:
== END 2020-07-06 02:57 ==
PROVIDERS: PCP Family Medicine; Visit Provider Student in an Organized Health Care Education/Training Program
DX: D16.22 Benign neoplasm of long bones of left lower limb (principal); M85.862 Other specified disorders of bone density and structure, left lower leg; Z96.652 Presence of left artificial knee joint
CPT/HCPCS: 73718

== ENCOUNTER 2020-07-13 04:11 | Outpatient (CLI) | payer MEDICAID, SELFPAY ==
[2020-07-13 09:30] LABS: Source Nasal/Nares
[2020-07-13 12:13] LABS: COVID-19 PCR Negative (Negative)
== END 2020-07-13 04:12 | disposition home or self-care (01) ==
LOC: LBO 04:11
PROVIDERS: PCP Family Medicine; Visit Provider Surgery
DX: Z20.822 Contact with and (suspected) exposure to COVID-19 (principal); Z01.818 Encounter for other preprocedural examination
CPT/HCPCS: 87635

== ENCOUNTER 2020-07-13 04:49 | Outpatient (CLI) | payer MEDICAID, SELFPAY ==
--- NOTE | 2020-07-13 10:00 | NS.NUTBLAN_ITS ---
Dana returns for medical nutrition therapy for fatty liver disease. Wt: 188 lbs, down 10 lbs in last 6 months. recent labs indicate normal liver function tests and lipids, glucose wnl. Dana reports having gall bladder removed tomorrow and that she has been having a lot of GI symptoms and abdominal pain in last couple of weeks. Session today reviewed types of foods to eat and avoid s/p lap dieudonne. Provided written material. Dana scheduled appt. for 07/28/20 to discuss digestion and how to maximize optimal nutrition and continue to lose weight. Goal is to lose 5-10 lbs per month, with goal weight of 150 lbs. Encouraged continued walking daily with goal of 7 miles per week.
== END 2020-07-13 04:50 | disposition home or self-care (01) ==
LOC: DS 04:49
PROVIDERS: PCP Family Medicine; Visit Provider Dietitian, Registered
DX: K76.0 Fatty (change of) liver, not elsewhere classified (principal); Z71.3 Dietary counseling and surveillance
CPT/HCPCS: 97803

== ENCOUNTER 2020-07-14 16:10 | Observation (INO) | payer MEDICAID, SELFPAY ==
[2020-07-14] VITALS (14 sets, daily range): BP systolic 94–125; BP diastolic 50–75; PULSE 51–66; RESP 12–18; TEMP 36–36.4; O2SAT 92–99
[2020-07-14] MEDS: Acetaminophen 500 MG TAB 1000 MG PO (09:41)
[2020-07-14] MEDS: Gabapentin 300 MG CAP PO (09:41)
[2020-07-14] MEDS: Lactated Ringers 1,000 ML 100 ML IV (09:41)
[2020-07-14] MEDS: CLINDAMYCIN 600 MG/50 ML BAG 100 MG IVPB (12:46)
[2020-07-14] MEDS: Bupivacaine 0.25% Pres-Free 30 ML VIAL (12:56)
[2020-07-14] MEDS: Tranexamic Acid 1,000 MG/10 ML VIAL 1000 MG (13:26)
--- NOTE | 2020-07-14 13:53 | GB_PTH ---
PATIENT: Dana Muñiz LOC: U#:[id number] AGE/SX: 64/F ROOM: RE07/14/[address]: Bernie Lin : 1955 BED: A DIS: 07/15/2020 SPEC #: [id number] RECD: 07/14/20 16:39 STATUS: LUIZ REQ #: [id number] MONTY: 07/14/20 13:[address]: Bernie Lin DEPT: Surgical Specimen RECD BY: Mirlande Sweeney ENTERED: 07/14/20 16:40 SP TYPE: GB OTHR DR: Juana Syed V Tissues: 1 - GALLBLADDER Procedures: GROSS AND MICRO LEVEL 3 Comments: [id number]
[2020-07-14] MEDS: Lactated Ringers 1,000 ML 80 ML IV (14:30)
[2020-07-14] MEDS: Ketorolac 15 MG/ML VIAL IVP ×2 (15:23→22:29)
--- NOTE | 2020-07-14 15:24 | W.PM.DSUDISC ---
Discharge Plan Disposition Patient Disposition: HOME Condition: Good Discharge Details Reason For Visit: gallbladder removal Attending Provider: Bernie Lin Primary Care Provider: Juana Syed V Home Meds and New Rx's Prescriptions: New ibuprofen 600 mg tablet 600 mg PO Q6H PRNQty: 90 RF: 3 tramadol [Ultram] 50 mg tablet 50 mg PO Q4H PRNQty: 14 RF: 0 ondansetron HCl [Zofran] 4 mg tablet 4 mg PO Q6H PRN (Reason: nausea and vomiting) Qty: 4 RF: 0 Continued oxybutynin chloride 5 mg tablet extended release 24hr 5 mg PO DAILY Qty: 90 RF: 0 duloxetine [Cymbalta] 60 MG capsule,delayed release(DR/EC) 120 mg PO DAILY RF: 0 cholecalciferol (vitamin D3) 50 mcg (2,000 unit) capsule 50 mcg PO DAILY RF: 0 nicotine (polacrilex) [Nicorette] 2 mg gum 2 mg buccal Q2H RF: 0 ascorbic acid (vitamin C) 1,000 mg tablet 1 g PO DAILY RF: 0 famotidine 20 mg tablet 20 mg PO DAILY RF: 0 triamcinolone acetonide 0.1 % cream 1 applic topical BID PRNRF: 0 calcium carbonate [Tums] 200 MG tablet,chewable 2 tab PO PRN PRNRF: 0 acetaminophen [Mapap Extra Strength] 500 MG tablet 1,000 mg PO Q6H 5 Days Qty: 60 RF: 0 Discharge Instructions Additional Instructions: Care after Gallbladder Surgery -You should walk frequently, gradually, increasing the distance. You may climb stairs, just go slowly. -You can take Advil 600mg 4 times a day with food for the first week for pain; you may take your prescription medication as prescribed-in addition to the Advil. Discontinue Advil if it hurts your stomach. Do not take Advil if you are intolerant to aspirin products or have stomach problems. ? Use an ice bag for the first 72 hours. This helps to decrease swelling, which causes pain. It is normal to be more sore/painful and swollen towards the end of the day and first thing in the morning. ? Gallbladder surgery can make you very nauseated; use Zofran for nausea, for the first 24 hours. The nausea generally stops after 24 hours. ? Use milk of magnesia or prune juice to prevent constipation (this is a particular side effect of pain medication). Do not allow yourself to become constipated. ? Avoid fatty or greasy foods; introduce these slowly, with care, after about 1 month. Follow the low-fat diet sheet that will be given to you at the office or hospital. ? Start out eating very small, bland amounts of food. Do not take pain pills on an empty stomach. - You can remove the Band-Aids and take a shower 24 hours after surgery. There will be some narrow white strips of tape across your incisions (under the Band-Aids). DO NOT REMOVE THESE. It is all right if they get wet. They will be removed in the doctor?s office. ? Do not go swimming or sit in a hot tube for two weeks. ? There are no stitches to remove. ? Do not drive your car x72hrs and then only if you have no pain and can move freely. Do not drive if you are taking pain narcotic pain medications. ? You may resume sexual activity whenever pain and soreness subside, usually in 2 weeks. ? Do no lift anything over 5 lbs. for the first 10 days. Minimize strenuous activity for the next two weeks. ? You may return to work in one week, or when you feel able, provided you do not have to do any heavy lifting or prolonged standing. ? You should return to Dr. Lin?s office for a post-op appointment about two week after surgery. Please call the Surgical [facility] at: [phone] to schedule an appointment. My Medications for pain and nausea are: ibuprofen and ultram and zofran When to Call the Office: ? If the incision becomes red or swollen, or there is more than a little drainage from it. ? If you develop a temperature higher than 100.5 F. ? If your eyes turn yellow ? Vomiting and can?t keep fluids down Activity:: see above Remove Dressings/Wound Care:: 24 hours Shower/Bathe:: 24 hours Diet:: low fat for the next 2 weeks Discharge Orders Discharge Orders: Discharge Order (Routine); Ordered 07/14/20 Ordered By: Bernie Lin DS: Diagnosis Discharge Diagnosis (1) Smoker: Status: Acute
[2020-07-14] MEDS: Scopolamine 1 MG/3 DAYS PATCH TD (15:35)
[2020-07-14] MEDS: Ondansetron 4 MG/2 ML VIAL (15:49)
--- NOTE | 2020-07-14 16:06 | W.PM.OP ---
Date of service: 07/14/20 Time of Service: 16:06 Operative Note Operative Note DATE OF PROCEDURE: 07/14/20 PRE-OP DIAGNOSIS: symp gallstones POST-OP DIAGNOSIS: same PROCEDURE: lap dieudonne SURGEON: Bernie Booker DOCUMENTATION SPECIALIST: Candida Suarez ANESTHESIA TYPE: Local By Surgeon and General LMA/ETT Refer to Anesthesia Record ESTIMATED BLOOD LOSS: 10 PATHOLOGY: other COMPLICATIONS: None Patient was transported to: PACU Patient's condition: stable Procedure Description: INDICATIONS: The pt is seen at the request of there PCP regarding acute on chronic cholecystitis, cholelithiasis. The pt has failed outpt conservative medical measures and is here today for laparoscopic cholecystectomy. Informed consent was obtained, explaining risks and benefits of the procedure including but not limited to bleeding, infection, pneumonia, blood clots, possible damage to bowel, bladder, blood vessels, bile ducts, possible open procedure, complications of general anesthesia and other unforetold complications. PROCEDURE: The patient agrees and is brought to the operative room suite and placed in supine position. Anesthesia was administered per the Department of Anesthesia. The patient did receive IV antibiotics. NG tube and Shepherd catheter are placed. The patient was prepped and draped in the usual sterile fashion using DuraPrep scrub solution. Pause for the cause was done. 20 mL of quarter percent Marcaine plain is used for local esthesia. She has had 2 previous laparotomy incisions. A 1 inch incision is made in the through the old vertical midline incision at the umbilicus. Electrocautery is used to provide hemostasis. She has very dense adhesions from the omentum up to the anterior abdominal wall and there is no bowel. These are taken down with a combination of cautery and blunt dissection. Stay sutures were placed in the fascia with 0 Vicryl. Clark is inserted into the abdomen and secured. Insufflation is begun. Visualization of this area once pneumoperitoneum is established does indeed show that all the adhesions are omentum and there is no bowel that is adhesed up to the anterior abdominal wall. She still has extremely dense adhesions from the omentum along the underside of her old laparotomy incision. The camera was inserted through the port and shows no damage to underlying structures. A 10 mm port was then placed in the epigastric position under direct visualization following creation of local field blocks as well as two 5 mm ports in the right upper quadrant. There is omentum dense Slee adhered up to the gallbladder. This is taken down with a combination of blunt dissection and electrocautery. The gallbladder fundus was grasped and retracted towards the right shoulder. Infundibulum was grasped and retracted laterally. The hepat-duodenal ligament is entered. The cystic duct and artery are dissected out and the most inferior portion of the gallbladder plate is removed from the liver and the critical view of safety was obtained after clearing away all fatty material. Endo Clips were placed across the duct and artery and these structures are divided. The remainder of the gallbladder was excised from the liver bed. The gallbladder was placed in a bag and brought out. Examination of the gallbladder shows indeed the cystic duct and artery to have been divided. The remainder of the abdomen was copiously irrigated with a liter of saline. All saline is removed. There is no bleeding or bile leakage from the liver bed or the clips sites. An EndoClose needle was used to close the 10 mm port site with an 0 Vicryl. All ports and instruments are removed. SPonge and needle counts are correct. Pneumoperitoneum is evacuated and the port sites are monitored to make sure there is no bleeding at the time of desufflation. The fascia is closed under the Clark port with figure 8-0 Vicryl. The deep tissues approximated with 0 Vicryl as well. Skin is closed with Monocryl in a running subcuticular pattern. All port sites are irrigated prior to closure. Port sites are irrigated and the skin is closed with 4-0 Monocryl in a running subcuticular fashion. Skin glue sterile dressings are applied. The patient tolerated the procedure well without complications, transferred to the recovery room in stable condition. BERNIE BOOKER DO
[2020-07-14] MEDS: Droperidol 5 MG/2 ML VIAL 1.25 MG IVP ×2 (17:02→22:29)
[2020-07-14] MEDS: Normal Saline Flush 10 ML SYR IV ×2 (17:03→22:30)
[2020-07-14] MEDS: Lactated Ringers 1,000 ML 125 ML IV (21:11)
--- NOTE | 2020-07-14 21:32 | W.PM.PROGNOT ---
Date of Service Date of service: 07/14/20 Time of Service: 16:30 Assessment and Plan Assessment and plan (1) Gallstones: Status: Acute Assessment and plan: (2) Fatty liver disease, nonalcoholic: Status: Acute (3) Smoker: Status: Acute Subjective Subjective Interval history since last seen: The patient is doing well post-op. Their pain is well controlled. She is still very nauceous.. The pt is not having any chest pain or SOB, productive cough; no calf pain or swelling. She is also c/o shoulder pain- we d/w the importance of walking postOP. The pt is making good urine. The pt pain is adequately controlled. The case was discussed with nursing and patient?s progress reviewed. All of the pt's home medications were addressed and adjusted accordingly for their oral intact status. HEENT: no jaundice. no eye pain/drainage/redness/swelling. Mild sore throat Cardio- NSR no chest pain, BP stable. Pulm: no sob or productive cough. no hemoptysis Incision- clean/dry. Dressing intact no excessive bleeding or drainage I discussed with the patient about the findings in surgery and the pt's progress. We reviewed expectations for progress in the hospital; what the pt could expect for recovery time and length of stay. We discussed the importance of walking and pulmonary toilet to avoid blood clots and pneumonia. Continue current plans for pulmonary toilet, GI and DVT prophylaxis. We shall continue the current plan for pain management as it is at an appropriate level, and working well for the pt. Appropriate measures will be taken for constipation prevention, and this was also reviewed with the pt. The wound care plan was reviewed with nursing as well. see orders Objective Last Vital Signs Temp 36 C L 07/14/20 16:52 Pulse 56 L 07/14/20 16:52 Resp 18 07/14/20 16:52 BP 97/57 L 07/14/20 16:52 Pulse Ox 94 07/14/20 16:52
[2020-07-15] MEDS: Acetaminophen 325 MG TAB 1000 MG PO (00:20)
[2020-07-15] MEDS: Droperidol 5 MG/2 ML VIAL 1.25 MG IVP ×2 (04:14→09:09)
[2020-07-15] MEDS: Normal Saline Flush 10 ML SYR IV (04:15)
[2020-07-15] MEDS: Ketorolac 15 MG/ML VIAL IVP ×2 (04:15→09:08)
[2020-07-15] MEDS: Lactated Ringers 1,000 ML 125 ML IV (05:04)
[2020-07-15 07:32] VITALS: BP 113/74; PULSE 50; RESP 18; TEMP 36.5; O2SAT 94
--- NOTE | 2020-07-15 09:00 | W.PM.PROGNOT ---
Documented by User: MYRA Mackey 07/15/20 09:03 Date of Service Date of service: 07/15/20 Time of Service: 09:00 Assessment and Plan Assessment and plan (1) Gallstones: Status: Acute Assessment and plan: POD #1 s/p laparoscopic Cholecystectomy. Tolerating regular diet. Pain is well controlled. Nausea and vomiting has resolved. Will ensure she tolerates breakfast this morning. D/C home later today. (2) Fatty liver disease, nonalcoholic: Status: Acute (3) Smoker: Status: Acute Subjective Subjective Interval history since last seen: Patient reports feeling very well this morning. Denies having any nausea, vomiting or abdominal pain this morning. She states she is hungry. Exam Const General: cooperative, healthy appearing and comfortable Orientation: alert, awake and oriented x3 Resp Effort & Inspection: normal respiratory effort, no audible wheezes and no cough GI Inspection: normal to inspection Palpation: soft, not firm, no guarding and nontender Objective Last Vital Signs Temp 36.5 C 07/15/20 07:32 Pulse 50 L 07/15/20 07:32 Resp 18 07/15/20 07:32 BP 113/74 07/15/20 07:32 Pulse Ox 94 07/15/20 07:32 Documented by User: Jennifer Ovalle MD 07/15/20 11:11
--- NOTE | 2020-07-15 09:04 | DSE_ITS ---
Documented by User: MYRA Mackey 07/15/20 09:07 Date of service: 07/15/20 Time of Service: 09:04 DS: Diagnosis Discharge Diagnosis (1) Gallstones: Status: Acute (2) Fatty liver disease, nonalcoholic: Status: Acute (3) Smoker: Status: Acute Discharge Plan Disposition Patient Disposition: HOME Condition: Good Discharge Details Reason For Visit: S/P LAP DAGMAR. PONV/LOW SATS Admit Date/Time: 07/14/20 16:10 Admit Provider: Bernie Lin Attending Provider: Bernie Lin Primary Care Provider: Juana Syed V Hospital Course Hospital Course: 64 y/o female with a history of gallstones was admitted overnight following laparoscopic cholecystectomy secondary to post-operative nausea and vomiting. These symptoms resolved over night and was able to tolerate a post-op diet. Her pain has been well controlled as well. No fevers overnight. She will d/c home and be seen in the Surgical Clinic in follow up with Dr. Lin in 1-2 weeks. Home Meds and New Rx's Prescriptions: New ibuprofen 600 mg tablet 600 mg PO Q6H PRNQty: 90 RF: 3 tramadol [Ultram] 50 mg tablet 50 mg PO Q4H PRNQty: 14 RF: 0 ondansetron HCl [Zofran] 4 mg tablet 4 mg PO Q6H PRN (Reason: nausea and vomiting) Qty: 4 RF: 0 Continued oxybutynin chloride 5 mg tablet extended release 24hr 5 mg PO DAILY Qty: 90 RF: 0 duloxetine [Cymbalta] 60 MG capsule,delayed release(DR/EC) 120 mg PO DAILY RF: 0 cholecalciferol (vitamin D3) 50 mcg (2,000 unit) capsule 50 mcg PO DAILY RF: 0 nicotine (polacrilex) [Nicorette] 2 mg gum 2 mg buccal Q2H RF: 0 ascorbic acid (vitamin C) 1,000 mg tablet 1 g PO DAILY RF: 0 famotidine 20 mg tablet 20 mg PO DAILY RF: 0 triamcinolone acetonide 0.1 % cream 1 applic topical BID PRNRF: 0 calcium carbonate [Tums] 200 MG tablet,chewable 2 tab PO PRN PRNRF: 0 acetaminophen [Mapap Extra Strength] 500 MG tablet 1,000 mg PO Q6H 5 Days Qty: 60 RF: 0 Discharge Instructions Instructions: Laparoscopic Cholecystectomy (DC) Additional Instructions: Care after Gallbladder Surgery -You should walk frequently, gradually, increasing the distance. You may climb stairs, just go slowly. -You can take Advil 600mg 4 times a day with food for the first week for pain; you may take your prescription medication as prescribed-in addition to the Advil. Discontinue Advil if it hurts your stomach. Do not take Advil if you are intolerant to aspirin products or have stomach problems. ? Use an ice bag for the first 72 hours. This helps to decrease swelling, which causes pain. It is normal to be more sore/painful and swollen towards the end of the day and first thing in the morning. ? Gallbladder surgery can make you very nauseated; use Zofran for nausea, for the first 24 hours. The nausea generally stops after 24 hours. ? Use milk of magnesia or prune juice to prevent constipation (this is a particular side effect of pain medication). Do not allow yourself to become constipated. ? Avoid fatty or greasy foods; introduce these slowly, with care, after about 1 month. Follow the low-fat diet sheet that will be given to you at the office or hospital. ? Start out eating very small, bland amounts of food. Do not take pain pills on an empty stomach. - You can remove the Band-Aids and take a shower 24 hours after surgery. There will be some narrow white strips of tape across your incisions (under the Band-Aids). DO NOT REMOVE THESE. It is all right if they get wet. They will be removed in the doctor?s office. ? Do not go swimming or sit in a hot tube for two weeks. ? There are no stitches to remove. ? Do not drive your car x72hrs and then only if you have no pain and can move freely. Do not drive if you are taking pain narcotic pain medications. ? You may resume sexual activity whenever pain and soreness subside, usually in 2 weeks. ? Do no lift anything over 5 lbs. for the first 10 days. Minimize strenuous activity for the next two weeks. ? You may return to work in one week, or when you feel able, provided you do not have to do any heavy lifting or prolonged standing. ? You should return to Dr. Lin?s office for a post-op appointment about two week after surgery. Please call the Surgical Clinic at: [phone] to schedule an appointment. My Medications for pain and nausea are: ibuprofen and ultram and zofran When to Call the Office: ? If the incision becomes red or swollen, or there is more than a little drainage from it. ? If you develop a temperature higher than 100.5 F. ? If your eyes turn yellow ? Vomiting and can?t keep fluids down Stand Alone Forms: Nursing Discharge Form Referrals: Bernie Lin, [OSTEOPATHIC DOCTOR] - 07/30/20 10:00 am Activity:: Activity as Tolerated Equipment/Supplies:: No Equipment Needed Diet:: low fat for the next 2 weeks Discharge Orders Discharge Orders: Discharge Order (Routine); Ordered 07/14/20 Ordered By: Bernie Lin DS: Summary Time Spent with Patient providing and/or coordinating discharge services: Less than 30 minutes Status at Discharge Functional status at discharge: independent ambulation Overall status at discharge: patient is back to baseline Mental Status: mental status grossly normal Speech and Movement: speech and movement normal Mood: congruent mood Affect: normal affect Exam Psych Mental Status: mental status grossly normal Speech and Movement: speech and movement normal Mood: congruent mood Affect: normal affect DS: Data Vitals/I&O Vitals and I&O: Vital Signs Temperature 36.5 C 07/15/20 07:32 Temperature Source Tympanic 07/15/20 07:32 Pulse 50 L 07/15/20 07:32 Pulse Rhythm Regular 07/15/20 02:59 Respiratory Rate 18 07/15/20 07:32 Respiratory Effort 07/15/20 02:59 Respiratory Depth Shallow 07/15/20 02:59 Respiratory Pattern Normal 07/15/20 02:59 Blood Pressure 113/74 07/15/20 07:32 Pulse Oximetry 94 07/15/20 07:32 Respiratory End-tidal CO2 32 07/14/20 16:10 Oxygen Delivery Method Room Air 07/15/20 07:32 Oxygen Flow Rate 0 07/15/20 07:32 Pain Level 4 07/15/20 04:15 Intake & Output 07/14/20 07/15/20 07/15/20 18:59 06:59 18:59 Intake Total 1311.667 / 3282.501 1970.834 / 3282.501 Output Total 1100 / 1100 Balance 1311.667 / 2182.501 870.834 / 2182.501 Weight 84.1 kg Intake: IV 831.667 / 2802.501 1969.834 / 2802.501 Oral 480 / 480 Output: Urine 1100 / 1100 Other: Urine Color Yellow Urine Appearance Clear Urine Odor Normal Emesis Description None Voiding Methods Toilet PFSH Medical History Abdominal pain Acne rosacea Allergic rhinitis due to allergen cervical carcinoma Chronic cough Chronic maxillary sinusitis Chronic rhinitis Fatty liver disease, nonalcoholic Gallstones GERD (gastroesophageal reflux disease) Hypertension Interstitial cystitis Left upper quadrant pain Low TSH level OAB (overactive bladder) Painful total knee replacement, left Pelvic pain Recurrent UTI Smoker Surgical History Abdominal hysterectomy Arthroplasty of knee Colonoscopy - IV Sedation Hx of rotator cuff surgery Hx of tonsillectomy Oophrectomy, Left Replacement of total knee joint (01/20/16) LEFT/DR. PIERRE S/P total abdominal hysterectomy TOT (Incontinence sling) Social History Smoking/Tobacco Use Status: Current every day Tobacco Type: cigarettes Smoking risk assessment performed?: Yes Alcohol Intake: current Alcohol Intake frequency: a few times a month Alcohol type: wine Drug use: Occasionally Substance use type: marijuana Current gender identity: female Do you feel safe at home: Yes Do you feel safe in your relationship?: Yes Documented by User: Jennifer Ovalle MD 07/15/20 11:11 Discharge Plan Disposition Patient Disposition: HOME Condition: Good Discharge Details Reason For Visit: S/P VIOLA DAGMAR. PONV/NETO SATS Admit Date/Time: 07/14/20 16:10 Admit Provider: Bernie Lin Attending Provider: Bernie Lin Primary Care Provider: Juana Syed V Hospital Course Hospital Course: 64 y/o female with a history of gallstones was admitted overnight following laparoscopic cholecystectomy secondary to post-operative nausea and vomiting. These symptoms resolved over night and was able to tolerate a post-op diet. Her pain has been well controlled as well. No fevers overnight. She will d/c home and be seen in the Surgical Clinic in follow up with Dr. Lin in 1-2 weeks. Home Meds and New Rx's Prescriptions: New ibuprofen 600 mg tablet 600 mg PO Q6H PRNQty: 90 RF: 3 tramadol [Ultram] 50 mg tablet 50 mg PO Q4H PRNQty: 14 RF: 0 ondansetron HCl [Zofran] 4 mg tablet 4 mg PO Q6H PRN (Reason: nausea and vomiting) Qty: 4 RF: 0 Continued oxybutynin chloride 5 mg tablet extended release 24hr 5 mg PO DAILY Qty: 90 RF: 0 duloxetine [Cymbalta] 60 MG capsule,delayed release(DR/EC) 120 mg PO DAILY RF: 0 cholecalciferol (vitamin D3) 50 mcg (2,000 unit) capsule 50 mcg PO DAILY RF: 0 nicotine (polacrilex) [Nicorette] 2 mg gum 2 mg buccal Q2H RF: 0 ascorbic acid (vitamin C) 1,000 mg tablet 1 g PO DAILY RF: 0 famotidine 20 mg tablet 20 mg PO DAILY RF: 0 triamcinolone acetonide 0.1 % cream 1 applic topical BID PRNRF: 0 calcium carbonate [Tums] 200 MG tablet,chewable 2 tab PO PRN PRNRF: 0 acetaminophen [Mapap Extra Strength] 500 MG tablet 1,000 mg PO Q6H 5 Days Qty: 60 RF: 0 Discharge Instructions Instructions: Laparoscopic Cholecystectomy (DC) Additional Instructions: Care after Gallbladder Surgery -You should walk frequently, gradually, increasing the distance. You may climb stairs, just go slowly. -You can take Advil 600mg 4 times a day with food for the first week for pain; you may take your prescription medication as prescribed-in addition to the Advil. Discontinue Advil if it hurts your stomach. Do not take Advil if you are intolerant to aspirin products or have stomach problems. ? Use an ice bag for the first 72 hours. This helps to decrease swelling, which causes pain. It is normal to be more sore/painful and swollen towards the end of the day and first thing in the morning. ? Gallbladder surgery can make you very nauseated; use Zofran for nausea, for the first 24 hours. The nausea generally stops after 24 hours. ? Use milk of magnesia or prune juice to prevent constipation (this is a particular side effect of pain medication). Do not allow yourself to become constipated. ? Avoid fatty or greasy foods; introduce these slowly, with care, after about 1 month. Follow the low-fat diet sheet that will be given to you at the office or hospital. ? Start out eating very small, bland amounts of food. Do not take pain pills on an empty stomach. - You can remove the Band-Aids and take a shower 24 hours after surgery. There will be some narrow white strips of tape across your incisions (under the Band-Aids). DO NOT REMOVE THESE. It is all right if they get wet. They will be removed in the doctor?s office. ? Do not go swimming or sit in a hot tube for two weeks. ? There are no stitches to remove. ? Do not drive your car x72hrs and then only if you have no pain and can move freely. Do not drive if you are taking pain narcotic pain medications. ? You may resume sexual activity whenever pain and soreness subside, usually in 2 weeks. ? Do no lift anything over 5 lbs. for the first 10 days. Minimize strenuous activity for the next two weeks. ? You may return to work in one week, or when you feel able, provided you do not have to do any heavy lifting or prolonged standing. ? You should return to Dr. Lin?s office for a post-op appointment about two week after surgery. Please call the Surgical Clinic at: [phone] to schedule an appointment. My Medications for pain and nausea are: ibuprofen and ultram and zofran When to Call the Office: ? If the incision becomes red or swollen, or there is more than a little draina ge from it. ? If you develop a temperature higher than 100.5 F. ? If your eyes turn yellow ? Vomiting and can?t keep fluids down Stand Alone Forms: Nursing Discharge Form Referrals: Bernie Lin DO [OSTEOPATHIC DOCTOR] - 07/30/20 10:00 am Activity:: Activity as Tolerated Equipment/Supplies:: No Equipment Needed Diet:: low fat for the next 2 weeks Discharge Orders Discharge Orders: Discharge Order (Routine); Ordered 07/14/20 Ordered By: Bernie Lin [facility] Medical History Abdominal pain Acne rosacea Allergic rhinitis due to allergen cervical carcinoma Chronic cough Chronic maxillary sinusitis Chronic rhinitis Fatty liver disease, nonalcoholic Gallstones GERD (gastroesophageal reflux disease) Hypertension Interstitial cystitis Left upper quadrant pain Low TSH level OAB (overactive bladder) Painful total knee replacement, left Pelvic pain Recurrent UTI Smoker Surgical History Abdominal hysterectomy Arthroplasty of knee Colonoscopy - IV Sedation Hx of rotator cuff surgery Hx of tonsillectomy Oophrectomy, Left Replacement of total knee joint (01/20/16) LEFT/DR. PIERRE S/P total abdominal hysterectomy TOT (Incontinence sling) Social History Smoking/Tobacco Use Status: Current every day Tobacco Type: cigarettes Smoking risk assessment performed?: Yes Alcohol Intake: current Alcohol Intake frequency: a few times a month Alcohol type: wine Drug use: Occasionally Substance use type: marijuana Current gender identity: female Do you feel safe at home: Yes Do you feel safe in your relationship?: Yes
[2020-07-15] MEDS: Acetaminophen 500 MG TAB 1000 MG PO (09:10)
[2020-07-15] MEDS: Milk of Magnesia 30 ML CUP PO (09:11)
[2020-07-15] MEDS: Oxybutynin-CR 5 MG TABCR PO (09:11)
[2020-07-15] MEDS: DULoxetine 30 MG CAP 120 MG PO (09:11)
[2020-07-15] MEDS: Famotidine 20 MG TAB PO (09:11)
== END 2020-07-15 11:27 | disposition home or self-care (01) ==
LOC: MS 16:39
PROVIDERS: Admitting Provider Surgery; PCP Family Medicine; Visit Provider Surgery
PROC: 0FT44ZZ Resection of Gallbladder, Percutaneous Endoscopic Approach (ICD-10-PCS; CPT 47562; principal; 2020-07-14 11:00)
DX: K80.10 Calculus of gallbladder with chronic cholecystitis without obstruction (principal); K76.0 Fatty (change of) liver, not elsewhere classified; F17.210 Nicotine dependence, cigarettes, uncomplicated; F41.9 Anxiety disorder, unspecified; F32.9 Major depressive disorder, single episode, unspecified; R05 Cough
CPT/HCPCS: 47562; 99232; 99238; NC; 88304; G0378; J1100; J1790; J1885; J2001; J2370; J2405; J2704; J3490

== ENCOUNTER 2020-07-28 03:07 | Outpatient (CLI) | payer MEDICAID, SELFPAY ==
--- NOTE | 2020-07-28 14:00 | NS.NUTBLAN_ITS ---
Dana returns for Medical Nutrition Therapy for weight loss and fatty liver disease s/p lap dieudonne. Wt: 182 lbs, down another 6 lbs in last month. Diet record indicates erratic meals, continues to follow very low fat diet with intakes of popsicles, rice cakes and cereal with skim milk. Reports no appetite, regular BM daily, some bloating and fullness. Encouraged Dana to start including more variety into meal plan and to increase calorie intake to [id number] kcal, with 50-60 g protein, 40-50 g fat. Meal plans provided. Reviewed importance of exercise daily- 30min walk to increase lean body mass while she continues to lose weight. Reviewed importance of meeting nutrient and fluid requirements for overall wellness. Goal: 5-10 lbs weight loss per month with goal weight of 150 lbs follow up appt. scheduled for 08/25/20 at 10 am.
== END 2020-07-28 03:08 | disposition home or self-care (01) ==
LOC: DS 03:07
PROVIDERS: PCP Family Medicine; Visit Provider Dietitian, Registered
DX: K76.0 Fatty (change of) liver, not elsewhere classified (principal); E66.3 Overweight; Z71.3 Dietary counseling and surveillance
CPT/HCPCS: 97803

== ENCOUNTER 2020-08-06 15:09 | Outpatient (REF) | payer MEDICAID, SELFPAY ==
[2020-08-06 15:34] LABS: HCT 44.8 % (36.0-46.0); HGB 14.6 g/dL (11.2-15.7); MCH 28.6 pg (27.0-33.0); MCHC 32.6 % (32.0-36.0); MCV 87.8 fL (80-95); MPV 12.1 fL (8.0-11.0); Platelet Count 245 10^3/uL (130-400); RDW 12.3 % (11.7-14.6)
[2020-08-06 16:45] LABS: ALT 31 U/L (14-59); AST 26 U/L (15-37); Alkaline Phosphatase 109 U/L (46-116); Anion Gap 10.4 mmol/L (3-11); BUN 24 mg/dL (7-18); Bilirubin, Total 0.4 mg/dL (0.2-1.0); CO2 27.6 mmol/L (21.0-32.0); CREATININE 0.8 mg/dL (0.55-1.02); Calcium 9.5 mg/dL (8.5-10.1); Chloride 104 mmol/L (98-107); Glucose 87 mg/dL (74-106); Lipase 90 U/L (73-393); Potassium 4.4 mmol/L (3.5-5.1); Sodium 142 mmol/L (136-145)
== END 2020-08-06 15:10 | disposition home or self-care (01) ==
LOC: LBN 15:09
PROVIDERS: PCP Family Medicine; Visit Provider Surgery
DX: F17.200 Nicotine dependence, unspecified, uncomplicated (principal); R05 Cough; R07.89 Other chest pain; K76.0 Fatty (change of) liver, not elsewhere classified; Z90.49 Acquired absence of other specified parts of digestive tract
CPT/HCPCS: 80053; 83690; 85027

== ENCOUNTER 2020-08-25 03:40 | Outpatient (CLI) | payer MEDICAID, SELFPAY ==
--- NOTE | 2020-08-25 11:00 | NS.NUTBLAN_ITS ---
Dana returns for Medical Nutrition Therapy for follow up on weight management for non alcoholic fatty liver disease and s/p lap dieudonne. Wt: 178 lbs, down 12 lbs in last 6 months. Dana reports diarrhea/digestive problems with high fat foods continues, unable to tolerate red meat, cheese, mclaughlin and full fat dairy. Has made improvements in eating multiple times daily and incorporating more protein, complex carbs and non starchy vegetables. Continues to walk daily 30-45 minutes. Goal weight: 150 lbs Overall, Dana has lost significant amount of weight to help improve non fatty liver disease and continues to need to limit fat intake s/p lap dieudonne. Expect should be able to include higher fat foods going foward. No follow at this time. Will be available prn.
== END 2020-08-25 03:41 | disposition home or self-care (01) ==
LOC: DS 03:40
PROVIDERS: PCP Family Medicine; Visit Provider Dietitian, Registered
DX: E66.3 Overweight (principal); K76.0 Fatty (change of) liver, not elsewhere classified; Z90.49 Acquired absence of other specified parts of digestive tract; Z71.3 Dietary counseling and surveillance
CPT/HCPCS: 97803

== ENCOUNTER 2020-09-21 02:20 | Outpatient (CLI) | payer MEDICAID, SELFPAY ==
[2020-09-21 08:55] LABS: HCT 47.4 % (36.0-46.0); HGB 15.3 g/dL (11.2-15.7); MCH 28.7 pg (27.0-33.0); MCHC 32.3 % (32.0-36.0); MCV 88.9 fL (80-95); MPV 10.8 fL (8.0-11.0); Platelet Count 202 10^3/uL (130-400); RBC 5.33 10^6/uL (3.93-5.22); RDW 12.9 % (11.7-14.6); RDW-SD 42.5 fL; WBC 6.16 10^3/uL (4.4-10.8)
[2020-09-21 09:41] LABS: Anion Gap 11.6 mmol/L (3-11); BUN 20 mg/dL (7-18); CO2 25.4 mmol/L (21.0-32.0); CREATININE 0.7 mg/dL (0.55-1.02); Calcium 9.6 mg/dL (8.5-10.1); Chloride 105 mmol/L (98-107); Glucose 98 mg/dL (74-106); Potassium 4.3 mmol/L (3.5-5.1); Sodium 142 mmol/L (136-145)
[2020-09-21 11:32] LABS: Source Nasal/Nares
[2020-09-21 17:56] LABS: COVID-19 PCR Negative (Negative)
== END 2020-09-21 02:21 | disposition home or self-care (01) ==
LOC: LBO 02:20
PROVIDERS: PCP Family Medicine; Visit Provider Student in an Organized Health Care Education/Training Program
DX: T84.033A Mechanical loosening of internal left knee prosthetic joint, initial encounter (principal); Z20.822 Contact with and (suspected) exposure to COVID-19; Z01.818 Encounter for other preprocedural examination; Z01.812 Encounter for preprocedural laboratory examination; Z96.652 Presence of left artificial knee joint
CPT/HCPCS: 36415; 80048; 85027; 87635

== ENCOUNTER 2020-09-22 13:17 | Inpatient (IN) | payer MEDICAID, SELFPAY ==
[2020-09-22] VITALS (9 sets, daily range): BP systolic 87–130; BP diastolic 47–80; PULSE 60–73; RESP 14–23; TEMP 36.1–36.7; O2SAT 92–95; BMI 34.2
--- NOTE | 2020-09-22 10:32 | PDOC.DSDIS_ITS ---
Discharge Plan Disposition Patient Disposition: HOME Condition: Stable Discharge Details Reason For Visit: Left Total Knee Revision Admit Date/Time: 09/22/20 13:17 Admit Provider: Santos Sarmiento Attending Provider: Santos Sarmiento Primary Care Provider: Juana Syed V Hospital Course Hospital Course: Patient was admitted to the medical/surgical floor following the procedure. The surgery was tolerated well without any notable medical, surgical, or anesthetic complications. Mobilization began postoperatively. She was voiding spontaneously. Vitals were stable. Physical therapy worked with the patient and was cleared for discharge home. No acute medical issues. Pain was controlled on oral regimen. Home Meds and New Rx's Prescriptions: New aspirin 81 mg tablet,delayed release (DR/EC) 81 mg PO BID Qty: 60 RF: 0 celecoxib [Celebrex] 200 mg capsule 200 mg PO BID Qty: 60 RF: 0 gabapentin 300 mg capsule 300 mg PO QHS Qty: 14 RF: 0 pantoprazole [Protonix] 40 mg tablet,delayed release (DR/EC) 40 mg PO DAILY Qty: 30 RF: 0 acetaminophen [Tylenol Extra Strength] 500 mg tablet 500 mg PO Q6H PRNQty: 90 RF: 0 tramadol 50 mg tablet 50 mg PO Q6H PRNQty: 18 RF: 0 Continued duloxetine [Cymbalta] 60 MG capsule,delayed release(DR/EC) 120 mg PO DAILY RF: 0 cholecalciferol (vitamin D3) 50 mcg (2,000 unit) capsule 50 mcg PO DAILY RF: 0 ascorbic acid (vitamin C) 1,000 mg tablet 1 g PO DAILY RF: 0 famotidine 20 mg tablet 20 mg PO DAILY RF: 0 triamcinolone acetonide 0.1 % cream 1 applic topical BID PRNRF: 0 calcium carbonate [Tums] 200 MG tablet,chewable 2 tab PO PRN PRNRF: 0 multivitamin Tablet 1 tab PO DAILY RF: 0 fiber Capsule 3 cap PO DAILY RF: 0 Discontinued acetaminophen [Mapap Extra Strength] 500 MG tablet 1,000 mg PO Q6H 5 Days Qty: 60 RF: 0 ibuprofen 600 mg tablet 600 mg PO Q6H PRNQty: 90 RF: 3 Discharge Instructions Additional Instructions: Total Knee Discharge Instructions Activity: The most important activity is to walk. You should try to take short walks a few times a day. It is important that when resting you work on keeping the knee straight. Avoid putting a pillow behind the knee as this will encourage flexion. Work on range of motion exercises as provided by Physical Therapy. - Start outpatient physical therapy within 2 weeks. - You should wear the GRIFFIN hose on both legs for 2 weeks. You may remove these at night. You may also use any compression sock in place of the GRIFFIN hose. Dressing: You may remove the Lenin wrap on your leg 2 days after your surgery and put on the GRIFFIN stocking given to you from the hospital. Keep the surgical dressing (underneath the LENIN wrap) in place for at least one week. After the first week it may be removed and replaced with light gauze and tape or nothing. The wound and dressing may get wet after 3 days but avoid soaking the dressing or otherwise it will need to be changed. Many people prefer covering the dressing with cling wrap (saran wrap) to minimize it from getting soaked. If it gets wet, just pat dry. If it starts to peel off then it will need to be changed. Medications: - You should take Tylenol and anti-inflammatory Celebrex as your primary pain control medications. If the Celebrex is too expensive or not covered, please call the office for another alternative (Advil/Ibuprofen or Naproxen/Aleve) - You have been prescribed a stronger pain medication Tramadol for breakthrough pain, take as needed as prescribed. - You have also been prescribed a stomach acid reduction agent Pantoprozole to help reduce stomach acid and reflux. - You have been prescribed Gabapentin to take at night for restlessness and n erve pain. - You will be taking Aspirin 81mg twice a day for DVT prevention unless instructed otherwise. - If you have constipation you should take Colace or Miralax (both [id number]). It takes most people 3-4 days to have a bowel movement. Follow-up: 2 weeks If you have any acute concerns or questions, please do not hesitate to contact the office at [phone]. You may contact Dr. Sarmiento with any questions after hours through the hospital at [phone] or on his cell phone at [phone]. Stand Alone Forms: Nursing Discharge Form Referrals: Santos Sarmiento MD [ [facility] STAFF PHYSICIAN] - 10/05/20 10:00 am Activity:: Activity as Tolerated Equipment/Supplies:: Walker Diet:: As Tolerated Discharge Orders Discharge Orders: Discharge Order (Routine); Ordered 09/23/20 Ordered By: Luiz Valentin Discharge Data Discharge Date/Time-TO BE ENTERED AT DEPARTURE: 09/23/20 15:00 DS: Diagnosis Discharge Diagnosis (1) Loosening of prosthesis of left total knee replacement: Status: Acute
[2020-09-22] MEDS: Celecoxib 200 MG CAP 400 MG PO (11:29)
[2020-09-22] MEDS: Acetaminophen 500 MG TAB 1000 MG PO ×2 (11:29→21:51)
[2020-09-22] MEDS: Gabapentin 300 MG CAP PO ×2 (11:30→21:50)
[2020-09-22] MEDS: Lactated Ringers 1,000 ML 80 ML IV ×2 (11:39→15:31)
--- NOTE | 2020-09-22 11:54 | W.ANESPRE ---
General Info Date of Service Date Performed: 09/22/20 Height: 5 ft 0.5 in Weight: 80.739 kg Body Mass Index (BMI): 34.2 Surgical Procedure: Operation Date: 09/22/20 14:10 Proposed Procedures Side Surgeon p Knee Total Revision Left Santos Sarmiento MD Meds Allergies and Home Medications Allergies Allergy/AdvReac Type Severity Reaction Status Date / Time morphine Allergy Severe Swelling/Ed Verified 09/22/20 10:57 lisa sulfamethoxazole Allergy Severe Hives Unverified 09/22/20 10:57 [From Bactrim] trimethoprim [From Bactrim] Allergy Severe Hives Unverified 09/22/20 10:57 amoxicillin [From Augmentin] Allergy Intermediate nausea, Unverified 09/22/20 10:57 hives clavulanic acid Allergy Intermediate Other (See Unverified 09/22/20 10:57 [From Augmentin] Comment) Sulfa (Sulfonamide Allergy Intermediate Hives Verified 09/22/20 10:57 Antibiotics) levofloxacin [From Levaquin] Allergy Unknown Other (See Unverified 09/22/20 10:57 Comment) fentanyl AdvReac Severe go crazy Verified 09/22/20 10:57 nicotine [From Nicorette] AdvReac Intermediate Vomiting Verified 09/22/20 10:57 azithromycin AdvReac Unknown Nausea Verified 09/22/20 10:57 nitrofurantoin AdvReac Unknown Nausea Verified 09/21/20 11:08 [From Macrobid] bupropion HCl AdvReac Nausea, Verified 09/21/20 11:08 [From Wellbutrin] thought I was going crazy prednisone AdvReac Nausea, Verified 09/21/20 11:08 thought I was going crazy I get get Home Medication Medication Instructions Recorded duloxetine [Cymbalta] 120 mg PO DAILY tab-cap 09/14/12 calcium carbonate [Tums] 2 tab PO PRN PRN 07/28/14 ascorbic acid (vitamin C) 1,000 mg 1 g PO DAILY tab 02/24/20 tablet cholecalciferol (vitamin D3) 50 50 mcg PO DAILY 02/24/20 mcg (2,000 unit) capsule famotidine 20 mg tablet 20 mg PO DAILY 02/24/20 triamcinolone acetonide 0.1 % 1 applic TOPICAL BID PRN 02/24/20 topical cream fiber 3 cap PO DAILY 09/21/20 multivitamin 1 tab PO DAILY 09/21/20 acetaminophen [Tylenol Extra 500 mg PO Q6H PRN #90 tab 09/22/20 Strength] aspirin 81 mg PO BID #60 tab 09/22/20 celecoxib [Celebrex] 200 mg PO BID #60 cap 09/22/20 gabapentin 300 mg PO QHS #14 cap 09/22/20 pantoprazole [Protonix] 40 mg PO DAILY #30 tab 09/22/20 tramadol 50 mg PO Q6H PRN #18 tab 09/22/20 Current Visit Medications: Current Medications Generic Name Dose Route Start Last Admin Trade Name Freq PRN Reason Stop Dose Admin Acetaminophen 1,000 mg 09/22/20 06:00 09/22/20 11:29 Acetaminophen 500 Mg Tab PO 09/22/20 23:59 1,000 mg PREOP JUAN Administration Acetaminophen 1,000 mg 09/22/20 16:00 Acetaminophen 500 Mg Tab PO TID JUAN Aspirin 81 mg 09/22/20 20:00 Aspirin E.C. 81 Mg Tabec PO BID JUAN Celecoxib 400 mg 09/22/20 06:00 09/22/20 11:29 Celecoxib 200 Mg Cap PO 09/22/20 23:59 400 mg PREOP JUAN Administration Celecoxib 200 mg 09/22/20 20:00 Celecoxib 200 Mg Cap PO BID JUAN Gabapentin 300 mg 09/22/20 06:00 09/22/20 11:30 Gabapentin 300 Mg Cap PO 09/22/20 23:59 300 mg PREOP JUAN Administration Gabapentin 300 mg 09/22/20 22:00 Gabapentin 300 Mg Cap PO HS JUAN Hydromorphone HCl 0.5 mg 09/22/20 10:29 Hydromorphone 2 Mg/Ml Vial IVP Q2H PRN PRN Tranexamic Acid 1,000 mg/ 60 mls @ 360 mls/hr 09/22/20 06:00 Sodium Chloride IVPB 09/22/20 23:59 PREOP JUAN Tranexamic Acid 1,000 mg/ 60 mls @ 360 mls/hr 09/22/20 06:00 Sodium Chloride IVPB 09/22/20 23:59 DIRECTED JUAN Ringer's Solution 1,000 mls @ 80 mls/hr 09/22/20 06:00 09/22/20 11:39 IV 10/21/20 23:59 80 mls/hr INFUSION JUAN Administration Cefazolin Sodium/Dextrose 2 gm in 50 mls @ 100 mls/hr 09/22/20 06:00 Ancef Duplex IVPB 09/22/20 23:59 PREOP JUAN Cefazolin Sodium/Dextrose 1 gm in 50 mls @ 100 mls/hr 09/22/20 19:00 Ancef Duplex IVPB 09/23/20 11:29 Q8H JUAN IV Miscellaneous Supplies 1 each 09/22/20 06:00 Iv Access IV 10/21/20 23:59 DIRECTED JUAN Ondansetron HCl 4 mg 09/22/20 10:29 Ondansetron 4 Mg/2 Ml Vial IVP Q6H PRN PRN Nausea Oxycodone HCl 0 mg 09/22/20 10:29 Oxycodone 5 Mg Tab PO Q3H PRN PRN Pain Sodium Chloride 0 ml 09/22/20 06:00 Normal Saline Flush 10 Ml Syr IV 10/21/20 23:59 PRN PRN Sodium Chloride 0 ml 09/22/20 06:00 Normal Saline 10 Ml Vial IJ 10/21/20 23:59 DIRECTED PRN Sterile Water 0 ml 09/22/20 06:00 Water,Injection,Sterile 10 Ml Vial IJ 10/21/20 23:59 DIRECTED PRN PFSH Active Problems Active Problems: Problem Status Onset Code Primary osteoarthritis of right knee 04/23/15 M17.11 Peritonsillar cellulitis 12/03/15 J36 Aftercare following joint replacement surgery Z47.1 Pelvic pain in female R10.2 Trochanteric bursitis, right hip M70.61 Femoroacetabular impingement of right hip M25.851 Post-nasal drip R09.82 Actinic keratosis L57.0 Loosening of prosthesis of left total knee replacement T84.033A S/P laparoscopic cholecystectomy Z90.49 Right-sided chest wall pain R07.89 Fatty liver disease, nonalcoholic K76.0 Allergic rhinitis due to allergen J30.9 Smoker F17.200 Chronic cough R05 Interstitial cystitis N30.10 Painful total knee replacement, left T84.84XA, Z96.652 Chronic rhinitis J31.0 Chronic maxillary sinusitis J32.0 OAB (overactive bladder) N32.81 Medical History Medical History Abdominal pain Acne rosacea Allergic rhinitis due to allergen cervical carcinoma Chronic cough Chronic maxillary sinusitis Chronic rhinitis Fatty liver disease, nonalcoholic Fibromyalgia GERD (gastroesophageal reflux disease) Hypertension pt. denies this Interstitial cystitis Left upper quadrant pain Low TSH level OAB (overactive bladder) Painful total knee replacement, left Pelvic pain Recurrent UTI Smoker Surgical History Surgical History Abdominal hysterectomy Arthroplasty of knee Colonoscopy - IV Sedation Hx of rotator cuff surgery Hx of tonsillectomy Oophrectomy, Left Replacement of total knee joint (01/20/16) LEFT/DR. PIERRE S/P total abdominal hysterectomy Status post cholecystectomy (~07/14/20) TOT (Incontinence sling) Tobacco Smoking/Tobacco Use Status: Current every day Tobacco Type: cigarettes Alcohol Alcohol Intake: current Alcohol intake frequency: a few times a month Alcohol type: wine Substance Use Substance use: Occasionally Substance use type: marijuana Vital Signs and Lab Results Vital Signs Most Recent Vital Signs in EMR: Most Recent Vital Signs Temp Pulse Resp BP Pulse Ox 36.4 C L 60 16 130/80 95 09/22/20 11:00 09/22/20 11:00 09/22/20 11:00 09/22/20 11:00 09/22/20 11:00 Lab Results Blood Type / Crossmatch: No Data to Display Complete Blood Count: White Blood Count 6.16 10^3/uL (4.4-10.8) 09/21/20 07:41 09/21/20 Red Blood Count 5.33 10^6/uL (3.93-5.22) H 09/21/20 07:41 09/21/20 Hemoglobin 15.3 g/dL (11.2-15.7) 09/21/20 07:41 09/21/20 Hematocrit 47.4 % (36.0-46.0) H 09/21/20 07:41 09/21/20 Platelet Count 202 10^3/uL (130-400) 09/21/20 07:41 09/21/20 Complete Metabolic Panel: Sodium Level 142 mmol/L (136-145) 09/21/20 07:41 09/21/20 Potassium Level 4.3 mmol/L (3.5-5.1) 09/21/20 07:41 09/21/20 Chloride Level 105 mmol/L (98-107) 09/21/20 07:41 09/21/20 Carbon Dioxide Level 25.4 mmol/L (21.0-32.0) 09/21/20 07:41 09/21/20 Blood Urea Nitrogen 20 mg/dL (7-18) H 09/21/20 07:41 09/21/20 Creatinine 0.7 mg/dL (0.55-1.02) 09/21/20 07:41 09/21/20 Calcium Level 9.6 mg/dL (8.5-10.1) 09/21/20 07:41 09/21/20 Glucose Level 98 mg/dL (74-106) 09/21/20 07:41 09/21/20 Liver Function Panel: No Data to Display Coagulation Panel: No Data to Display Cardiac Panel: No Data to Display Arterial Blood Gas: No Data to Display Venous Blood Gas: No Data to Display Pancreas Panel: No Data to Display Thyroid Panel: No Data to Display Infectious Disease: Coronavirus (COVID-19)(PCR) Negative (Negative) 09/21/20 08:51 09/21/20 Coronavirus 2019 Source Nasal/nares 09/21/20 08:51 09/21/20 Blood Cultures: No Data to Display Toxicology Panel: No Data to Display Anesthesia Assessment and Plan Anesthesia History Personal History: PONV Family History: No Family History of Anesthesia Complications Exercise Tolerance Exercise Tolerance: Metabolic Equivalents>4 Pertinent Negatives Pertinent Negatives: No Symptoms of GERD Cardiac & Pulmonary Exam Cardiac Exam: Normal S1/S2 Heart Sounds Pulmonary Exam: Clear Bilateral Breath Sounds Airway Exam Known Difficult Airway: No Mallampati Class: 2 Mouth Opening: Normal (> 3cm) Thyromental Distance: Greater than 3 cm Neck Range of Motion: Full ROM Neck Circumference: Normal Teeth Condition: Normal Dentition ASA Classification ASA Score: ASA 2 Emergency Case?: No NPO Status NPO Status: NPO Clears >2 hours, Solids >8 hours Anesthesia Plan Resuscitation Status: Full Code Anesthesia Technique: Spinal Anesthesia Airway Planned: Natural Airway Pain Management: Surgeon and patient request nerve block Monitors Used: Standard Monitors
[2020-09-22] MEDS: ceFAZolin 2 GM/50 ML BAG IVPB (13:36)
--- NOTE | 2020-09-22 13:58 | W.ANESNERVE ---
Nerve Block Single Injection Procedure Date and Time Date Performed: 09/22/20 Procedure Start: 12:54 Location Where Procedure Performed Procedure Location: PACU Reason Performed: Postoperative Analgesia Requesting Provider: Santos Sarmiento Timeout Performed Timeout Performed: Yes Monitoring Used ECG, Blood Pressure and SpO2 Sterility Sterility: Hand Hygiene, Surgical Cap, Surgical Mask, Sterile Gloves and Chlorhexidine Sedation Given During Procedure Sedation Given (Indicate Dose Given): No Sedation given Patient Mental Status Patient Mental Status: Awake Nerve Block 1st Nerve Block: Laterality: Left Block Type: Adductor Canal Needle / Catheter Used: 100mm SonoPlex II Local Anesthetic Bolus (Indicate Dose Given): Lidocaine used for local infiltration of skin, Injected in 3-5ml increments after negative blood aspiration and Bupivacaine 0.25% Dose:: 20 cc Additives (Indicate Dose Given): None Ultrasound: Sterile probe cover and gel used Ultrasound Image Saved?: Yes Nerve Stimulator: Not Used Paresthesia: None Procedure Tolerated: No Complications and Patient tolerated well Procedure Outcome: Successful Performed By: Serina Churchill Supervised By: Gildardo Moreno
[2020-09-22] MEDS: Normal Saline 20 ML VIAL (14:14)
[2020-09-22] MEDS: Ketorolac 30 MG/ML VIAL (14:14)
[2020-09-22] MEDS: Bupivacaine 0.25% Pres-Free 30 ML VIAL (14:14)
--- NOTE | 2020-09-22 17:38 | W.ANESPOSTOP ---
Postoperative Evaluation Date, Time and Location Date Performed: 09/22/20 Time Performed: 17:38 Patient Location: PACU Vital Signs Most Recent Imported Vital Signs: Most Recent Vital Signs Temp Pulse Resp BP Pulse Ox 36.5 C 64 16 87/47 L 94 09/22/20 17:37 09/22/20 17:37 09/22/20 17:37 09/22/20 17:37 09/22/20 17:37 Pain Score Most Recent Pain Score: Most Recent Pain Score Pain Level 0 09/22/20 17:37 Assessment Mental Status: Awake (Alert & Oriented to Patient Baseline) Airway and Respiratory Function: Patent airway with normal (patient baseline) respiratory exam Cardiovascular Function: Hemodynamically Stable Hydration Status: Adequately Hydrated Nausea & Vomiting: No Nausea or Vomiting Pain: Pt. Denies Any Pain Peripheral Nerve Block: Patient did not receive a nerve block
--- NOTE | 2020-09-22 17:45 | DI.RAD_ITS ---
Exam(s) EXAM: CLINICAL HISTORY: . TECHNIQUE: 2D digital imaging was performed. COMPARISON: CR XR KNEE LT 2V AP,LAT from 01/02/2020 FINDINGS: Postop portable AP and cross-table lateral views of the left knee compared to 01/02/2020. There has been revision. Longer stem femoral and tibial components are now evident. No fracture or loosening evident. No radiographic evidence of osteomyelitis. Signature IMPRESSION: DATA REPOSITORY: RADIATION DOSE DELIVERED:
--- NOTE | 2020-09-22 20:02 | W.PM.OP ---
Date of service: 09/22/20 Time of Service: 17:03 Operative Note Operative Note DATE OF PROCEDURE: 09/22/20 PRE-OP DIAGNOSIS: Painful Left Prosthetic Knee with Loosening POST-OP DIAGNOSIS: same PROCEDURE: Left Knee Revision Arthroplasty SURGEON: Santos Sarmiento DISTILLERY LABORER: Juana Majano ANESTHESIA TYPE: Spinal Refer to Anesthesia Record ESTIMATED BLOOD LOSS: 250 PATHOLOGY: none sent TOURNIQUET TIME: 44 COMPLICATIONS: None Patient was transported to: PACU Patient's condition: stable Implants: FEMUR: Depuy Attune Revision Femoral Component, Size 5 4mm Posterior Augment, Medial AND Lateral [id number] Pressfit Stem TIBIA: Depuy Attune Revision Rotating Platform Tibial Component, Size 4 29mm Pressfit Sleeve [id number] Pressfit Stem 5x12mm CRS, Rotating Poly Indications: I have seen Dana in clinic for symptoms of RIGHT knee pain after knee replacement. Infection was ruled out and bone scan with serial xrays confirmed loosening as likely diagnosis. She has exhausted nonoperative methods and was having significant limitations in daily function and desired better function and less pain. I discussed the technical details of a revision knee replacement. I explained the risks of the procedure to include, but not limited to, bleeding, infection, pain, stiffness, fracture, damage to nerves and vessels, damage to muscles and tendons, loosening, need for repeat procedure, blood clot and cardiopulmonary demise. Despite these risks, Dana elected to proceed. Findings: The tibial component had apparently subsided and there was loosening of the tibial component. The posterior aspect of the femur also appeared to be loose but otherwise was well fixed anteriorly. In removing the implants the majority the cement stayed with the bone indicative of poor cement integration onto the implant. A revision arthroplasty was performed with a stem component on the femur and the stem and sleeve construct on the tibia. Procedure Description: Dana was greeted in the preoperative holding area where the correct side was identified and marked. The consent was reviewed with the patient and signed. The history and physical was updated. All questions were answered. Preoperative mediacations were administered: Acetaminophen 1000mg, Celebrex 400mg, and Gabapentin 300mg. An adductor canal block was then administered by the anesthesia team in the PACU. She was taken back to the operating room. A spinal anesthestic was then administered. The patient was placed into the supine position on the operating room table. A nonsterile tourniquet was placed high onto the leg but only used for cementing. Posts were placed for positioning during the procedure. All bony prominences were well padded. Prophylactic antibiotics in the form of Cefazolin were administered. 1g of Tranxemic Acid was given intravenously within 30 minutes of incision. The left leg was then prepped with Chloraprep and draped in a standard fashion with impervious stockinette. A second prep with Chloraprep was performed prior to application of Iodine impregnated skin protection. A timeout to confirm correct identity, side and site, procedure, allergies, anesthesia, and medical concerns was performed. With the knee in some flexion, a midline incision was made overlying the knee using the previous incision. Full thickness skin flaps were raised once the extensor mechanism was encountered. These were raised medially and laterally. Any bleeding was controlled with electrocautery. Once the extensor mechanism was fully exposed, a medial parapatellar arthrotomy was performed in a flexed position. All bleeding from the arthrotomy and the geniculate arteries was coagulated. A medial subperiosteal peel was performed with electrocautery to the midcoronal plane. There was notable prominence of bone over the medial tibia covering the medial aspect of the implant. This bone was removed with a rongeur for better visualization. The fat pad was removed while keeping the patellar tendon protected. The anterior distal femur synovium was removed for later visualization. The remaining contents of the notch were also removed with electrocautery. The knee was then flexed with the patella everted. Starting with the tibia remove any bone obscuring the interface between the cement and the implant. I used a series of chisels to separate the bone cement interface. The medial aspect of the tibia was notably loose. There was some mild shuck of the tibia. However, there seem to be some fixation as it was not grossly loose and able to remove without some work. Using the chisels I all of the interface to the implant. I also performed an aggressive debridement and resection of soft tissue surrounding the tibia implant such that the entire periphery of the implant was visible. Once was completed the tibia subluxed forward and was able to be removed out difficulty. There is very minimal bone that came with the implant. The majority the cement was left on the bone. Using the chisels I then marked the cement in cruciate form which help separate the cement from the underlying bone. The cement was removed. The intramedullary space the tibia was cannulated. The knee was irrigated multiple times to ensure that all the cement was removed. There is no significant bone loss seen and there is no unconstrained defects. Attention was then turned to the femur. Using flexible chisels I was able to remove the implant without any significant difficulty. There is some minor bone loss at the anterior flange medially. The posterior part of the implant had no significant adherence to the bone. Using a bone tamp I was able to remove the implant with minimal bone still attached. Any excess cement remaining on the femur was removed with the flexible osteotome and a rongeur. Turning back to the tibia, I then began the preparation process by reaming. The plan was for a 60 mm stem with sleeve. The 16mm reamer provided good cortical contact and engagement. Using this I then prepared the proximal tibia with a reamer and then with the broach up to the 29 mm sleeve. This was left in place and a freshening cut was made over the proximal tibia using the broach as the cut guide. A trial size 4 attune revision tibial tray was then placed, rotated to the medial one third of the tibial tubercle, and locked in position. The flanges were prepped and punched. Attention was then turned to the femur. The femoral canal was cannulated. Once again, the plan was for a press-fit stem, 110 mm, and no sleeve given that there was intact bone. The reaming was performed up to a size 18 mm stem. I then used this to make the distal cut, removing approximate 2 mm medially set at a 5 degree valgus angle. The conventional cut guide was then placed against the distal end of the femur. Using the gap director career services tool I brought the leg out into extension where 12 mm seem to provide excellent extension is also good tension of the medial collateral ligaments. There is no significant asymmetry. Bring the leg back into flexion, there seem to be some laxity both medially and laterally with a 12 mm. Therefore, I increased to the size 5 femur to gain more implant posteriorly. With this placed, I checked the gaps which tightened up significantly by going to the size 5 femur with the 12 mm spacer block. I pinned the conventional cut guide in place with the spacer block placed on the tibia at 90 degrees to set rotation. This seemed to provide increase in external rotation when compared to the previous implant. Inspecting the posterior cut, neither posterior condyle was close to the 0 cut so I placed 2 - 4 mm augments by cutting through the 4 mm posterior slot. The posterior chamber is also prepared. The anterior cut was also made. Additionally, the notch guide was placed and the notch was performed with the reciprocating saw. The trial components were assembled for the femur and this was impacted onto the surface with excellent fixation into the femur. The knee was taken through range of motion had excellent range of motion. The patella was tracking without any lateral pole. The knee had full extension and greater than 125 degrees of flexion. Controlling for rotation, the gaps appear to be nicely balanced and firm 125 degrees. There may been some slight lateral opening and flexion and therefore I decided to use the CRS polyethylene. The trial components were removed. The final components, except for the polyethylene were opened on the back table. On the back table, the implants were assembled with a stem and sleeve of the tibia and a sleeve for the femur. The periosteal and capsular tissues, especially posteriorly, around the knee were then systematically injected with a periarticular cocktail consisting of 50cc 0.25% Marcaine, 30mg Ketorolac, 20cc of Exparal and 50cc of injectable saline. The tourniquet was then inflated to 275mmHg. The knee was thoroughly irrigated with a pulse lavage and dried. Once the implants were prepared, the cement was mixed. 1 batch of antibiotic laden high viscosity cement were prepared with vacuum assistance. After the cement was ready a small amount was placed on to the backside of the tibial component at the keel. A small amount was placed onto the posterior flange of the femur. Cement was manual pressurized and impregnated into the cut surface of the tibia. The tibial component was then inserted into the cut surface and impacted into position making sure to have the sleeve perfectly lined up before implanting. Excess cement was removed and the component was reimpacted. Again, excess cement was removed and our attention was then turned to the femur. The femoral cut surface was once again dried and cement was manually impacted into the cut surface. The femoral component was lined and impacted. Excess cement was removed. It was ensured to be down against the cut surface. The trial polyethylene was then inserted and the leg was brought out into full extension for the duration of the cement curing process, approximately 15min. While the cement was hardening, the knee was irrigated with Irrisept chlorhexadine solution. This was allowed to sit in the knee for 3 minutes. After the cement had finally cured, the knee was taken through range of motion. A size 12mm CRS polyethylene component provided the best range of motion and stability with less than 2mm gapping with medial and lateral stress and full extension without significant hyperextension. The patella was tracking with a no-thumbs technique. The trial poly was removed and once again the knee was checked for any loose, excess, or errant cement. The poly component was then inserted into position after cleaning and drying the tibial tray. The capsule was then reapproximated with a No. 1 Vicryl at multiple locations. The capsule was finally closed with a No. 2 Stratafix, barbed suture. The tourniquet was then released and the arthrotomy appeared watertight without significant bleeding. The second dose of 1g TXA was started. Deep tissues were then reapproximated with 0 Vicryl and 2-0 Vicryl. The skin was closed with a running 3-0 Monocryl in a subcuticular fashion. This was reinforced with skin glue. A Mepilex silver dressing was applied along with a [id number] BOBBY wrap. A CryoCuff was applied. Dana was transferred to the hospital bed without difficulty an suffering no apparent complication. She has a good prognosis. Physical therapy will start today and without restrictions, weight-bearing as tolerated. Aspirin 81mg BID will be used for DVT prophylaxis.
[2020-09-22] MEDS: ceFAZolin 1 GM/50 ML BAG IVPB (21:45)
[2020-09-22] MEDS: Aspirin E.C. 81 MG TABEC PO (21:50)
[2020-09-22] MEDS: Celecoxib 200 MG CAP PO (21:50)
[2020-09-23] MEDS: Lactated Ringers 1,000 ML 80 ML IV (02:39)
[2020-09-23 03:22] VITALS: BP 103/61; PULSE 65; RESP 17; TEMP 36.3; O2SAT 94
[2020-09-23] MEDS: ceFAZolin 1 GM/50 ML BAG IVPB ×2 (04:49→12:00)
[2020-09-23 07:29] VITALS: BP 109/65; PULSE 53; RESP 20; TEMP 36.4; O2SAT 94
[2020-09-23] MEDS: Acetaminophen 500 MG TAB 1000 MG PO ×2 (08:13→13:54)
[2020-09-23] MEDS: Celecoxib 200 MG CAP PO (08:14)
[2020-09-23] MEDS: Aspirin E.C. 81 MG TABEC PO (08:14)
--- NOTE | 2020-09-23 09:52 | IN_ITS ---
Date of service: 09/23/20 Time of Service: 09:52 PT Notes Visit Reasons: Left Total Knee Revision Physical Therapy Inpatient Initial Evaluation Date: 09/23/2020 Referring Doctor: MYRA Liu PT Orders: PT CONSULT: Status post Ortho surgery Precautions: Fall. Standard. WBAT on left LE with AD. Patient Profile/Admitting Diagnosis: Noemi is a 64-year-old female who is status post revision total knee arthroplasty on the left side due to left TKA prosthesis loosening on postoperative day 1. PMHX: Medical History Abdominal pain Acne rosacea Allergic rhinitis due to allergen cervical carcinoma Chronic cough Chronic maxillary sinusitis Chronic rhinitis Fatty liver disease, nonalcoholic GERD (gastroesophageal reflux disease) Hypertension Interstitial cystitis Left upper quadrant pain Low TSH level OAB (overactive bladder) Painful total knee replacement, left Pelvic pain Recurrent UTI Smoker Surgical History Abdominal hysterectomy Arthroplasty of knee Colonoscopy - IV Sedation Hx of rotator cuff surgery Hx of tonsillectomy Oophrectomy, Left Replacement of total knee joint (01/20/16) LEFT/DR. PIERRE S/P total abdominal hysterectomy Status post cholecystectomy (~07/14/20) TOT (Incontinence sling) Social History/Home Situation: Lives with family in a private home with 1-2 steps to enter with 1 rail. is has a L BKA but is independent with mobility performance. Patient does a lot of gardening. 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 Complains of stretching and burning sensation in the back of her L knee during ambulation activity. Objective: General Observation: Supine in bed. Cryocuff in L knee. BOBBY wraps to L knee. Mental Status: Alert and oriented as to person, place, time, and purpose. Able to pay attention, focus, and respond appropriately. Pain: 3-4/10 in L knee after ambulation activities ROM: Right Upper Extremity: Shoulder Flexion WFL. Shoulder abduction WFL. Shoulder ER/IR WFL. Elbow flexion WFL. Forearm pronation/supination WFL. Wrist flexion WFL. Opening and closing of hand WFL. Left Upper Extremity: Shoulder Flexion WFL. Shoulder abduction WFL. Shoulder ER/IR WFL. Elbow flexion WFL. Forearm pronation/supination WFL. Wrist flexion WFL. Opening and closing of hand WFL. Right Lower Extremity: Hip flexion WFL. Hip abduction WFL. Hip ER/IR WFL. Knee flexion WFL. Knee extension. Ankle dorsiflexion/eversion WFL. Ankle plantarflexion/inversion WFL. Left Lower Extremity: Hip flexion WFL. Hip abduction WFL. Hip ER/IR WFL. Knee flexion 20 degrees to 110 degrees. Knee extension -20 degrees. Ankle dorsiflexion WFL. Ankle plantarflexion WFL. Strength: Right Upper Extremity: Shoulder flexors 5/5. Shoulder abductors 5/5. Shoulder ER 5/5. Shoulder IR 5/5. Forearm pronators 5/5. Forearm supinators 5/5. Elbow flexors 5/5. Elbow extensors 5/5. Ct Technologist strong. Left Upper Extremity: Shoulder flexors 5/5. Shoulder abductors 5/5. Shoulder ER 5/5/ Shoulder IR 5/5. Forearm pronators 5/5. Forearm supinators 5/5. Elbow flexors 5/5. Elbow extensors 5/5. Ct Technologist strong. Right Lower Extremity: Hip flexors 5/5. Hip abductors 5/5. Hip external rotators 5/5. Hip internal rotators 5/5. Knee flexors 5/5. Knee extensors 5/5. Ankle dorsiflexors/evertors 5/5. Ankle plantarflexors/invertors 5/5. Left Lower Extremity: Hip flexors 4/5. Hip abductors 4/5. Hip external rotators 4/5. HIp internal rotators 4/5. Knee flexors 3-/5. Knee extensors 3-/5. Ankle dorsiflexors/evertors 5/5. Ankle plantarflexors/invertors 5/5. Bed Mobility/Transfers: Rolling independent Supine to sit independent Sit to supine independent Sit to stand contact-guard assist Stand to sit standby assist Bed to chair standby assist Chair to bed standby assist Gait: Distance of 260 feet +40 feet requiring standby assist. Cynthia decreased. Step height on the left side decreased. Step length on the left side decreased. Reports stretching and burning sensation and left popliteal area with ambulation that subsided with rest. Minimal verbal cues for gait pattern provided. Balance: Static Sitting: Normal Dynamic Sitting: Normal Static Standing: Fair Dynamic Standing: Fair Special Tests: Mobility Limitations Standardized Measure [facility] AM-PAC 6 clicks Basic Mobility Inpatient Short Form: Raw Score: 22 CMS Score: 21% deficit Informed Consent/Education: Patient was instructed in purpose of PT consult and plan of care. Agreeable to proceed with established PT POC to achieve personal goals. Assessment: Noemi requires the use of a front wheeled walker for all mobility ADL performance in order to maximize independence and reduce fall risk. Patient presents with clinical signs and symptoms consistent with current/admitting diagnoses that have resulted to mobility limitations, gait instability, generalized weakness, and impairment of motor control as demonstrated by the following impairment level findings: 1. Decreased strength to left knee major muscle groups 2. Impaired sitting/standing balance 3. Impaired activity tolerance 4. Limitation of joint range of motion in left knee Impairments are contributing to the following functional limitations: 1. Inability to safely ambulate without assistive device 2. Increase completion time for mobility ADL performance 3. Increased fall risk 4. Inability to negotiate steps alone safely 5. Inability to return to prior living environment at this time Patient is assessed as a 26959 moderate complexity based on the following: History: 64-year-old female with past medical history as indicated above Examination: Demonstrable impairment in strength, balance, and mobility level with underlying impairments and functional limitations as exhibited above as well as deficit score of 21% utilizing the [facility] Mobility Inpatient Short Form Presentation: Stable Decision Makin moderate complexity Goals: Goals X1 week 1. Supine-Sit independent 2. Sit-Supine independent 3. Sit-Stand independent 4. Stand-Sit independent 5. Bed-Chair independent 6. Chair-Bed independent 7. Independent gait on level surface with use of front wheeled walker for at least 500 feet without report of pain nor dyspnea 8. Independent stair negotiation while holding onto 1 rail for at least 3 steps without report of pain nor dyspnea 9. Independent with home exercise program 10. Good static and dynamic standing balance/tolerance Plan of Care/Treatment Plan: 1-2x/day, 7 days/week x 1 week. Plan of care has been reviewed with the DUMPSTER OPERATOR providing the service under Physical Therapy direction. Initiate Physical Therapy intervention for pain management as needed, strengthening, bed mobility, transfers, gait, stairs, balance training, and use of assistive device. DISCHARGE RECOMMENDATIONS: Home when medically cleared by orthopedic surgeon. Outpatient PT services in order to regain independent community ambulation without an assistive device. TREATMENT CODE/TIME: 88139 x 25 minutes, 57173 x 25 minutes beginning at 9:52 AM. Thank you for the opportunity to participate in the care of this patient. Cindy Alcala PT, DPT, CLT [facility] [place], [place]
--- NOTE | 2020-09-23 10:52 | W.PM.PROGNOT ---
Date of Service Date of service: 09/23/20 Time of Service: 10:41 Assessment and Plan Assessment and plan (1) Loosening of prosthesis of left total knee replacement: Status: Acute Assessment and plan: Dana is a 64-year-old who is postop day #1 status post revision left knee arthroplasty. She is doing well. Preoperative pain that she had is much better. She already is happy with her range of motion. She has no signs of complication. Her pain seems to be controlled. Therefore, we will discharge her to home today. Remove Shepherd catheter and DC IV fluids. Follow with me in 2 weeks. Restart physical therapy in the next 1 to 2 weeks. Qualifiers: Encounter type: subsequent encounter Qualified Code(s): T84.033D - Mechanical loosening of internal left knee prosthetic joint, subsequent encounter Subjective Subjective Interval history since last seen: Dana reports be doing very well. She is very happy with the early progress she has made. She no longer has the same pain in her knee that she had before. She also feels that she is able to bend the knee already better than she was from before the surgery. She has had minimal pain, controlled with tramadol. She has been up with nursing as well as with physical therapy. No chest pain or shortness of breath. No fevers or chills. Vital signs been stable overnight. Exam Narrative Exam Narrative: Walking with physical therapy. Stable on the left leg. Lenin wrap is clean dry and intact. Objective Last Vital Signs Temp 36.6 C 09/23/20 11:03 Pulse 59 L 09/23/20 11:03 Resp 20 09/23/20 11:03 BP 100/65 09/23/20 11:03 Pulse Ox 94 09/23/20 11:03
[2020-09-23] MEDS: traMADol 50 MG TAB PO (11:01)
[2020-09-23 11:03] VITALS: BP 100/65; PULSE 59; RESP 20; TEMP 36.6; O2SAT 94
--- NOTE | 2020-09-23 11:25 | DSE_ITS ---
Documented by User: MYRA Haider 09/23/20 11:30 DS: Diagnosis Discharge Diagnosis (1) Loosening of prosthesis of left total knee replacement: Status: Acute Discharge Plan Disposition Patient Disposition: HOME Condition: Stable Discharge Details Reason For Visit: Left Total Knee Revision Admit Date/Time: 09/22/20 10:28 Admit Provider: Santos Sarmiento Attending Provider: Santos Sarmiento Primary Care Provider: Juana Syed V Hospital Course Hospital Course: Patient was admitted to the medical/surgical floor following the procedure. The surgery was tolerated well without any notable medical, surgical, or anesthetic complications. Mobilization began postoperatively. She was voiding spontaneously. Vitals were stable. Physical therapy worked with the patient and was cleared for discharge home. No acute medical issues. Pain was controlled on oral regimen. Home Meds and New Rx's Prescriptions: New aspirin 81 mg tablet,delayed release (DR/EC) 81 mg PO BID Qty: 60 RF: 0 celecoxib [Celebrex] 200 mg capsule 200 mg PO BID Qty: 60 RF: 0 gabapentin 300 mg capsule 300 mg PO QHS Qty: 14 RF: 0 pantoprazole [Protonix] 40 mg tablet,delayed release (DR/EC) 40 mg PO DAILY Qty: 30 RF: 0 acetaminophen [Tylenol Extra Strength] 500 mg tablet 500 mg PO Q6H PRNQty: 90 RF: 0 tramadol 50 mg tablet 50 mg PO Q6H PRNQty: 18 RF: 0 Continued duloxetine [Cymbalta] 60 MG capsule,delayed release(DR/EC) 120 mg PO DAILY RF: 0 cholecalciferol (vitamin D3) 50 mcg (2,000 unit) capsule 50 mcg PO DAILY RF: 0 ascorbic acid (vitamin C) 1,000 mg tablet 1 g PO DAILY RF: 0 famotidine 20 mg tablet 20 mg PO DAILY RF: 0 triamcinolone acetonide 0.1 % cream 1 applic topical BID PRNRF: 0 calcium carbonate [Tums] 200 MG tablet,chewable 2 tab PO PRN PRNRF: 0 multivitamin Tablet 1 tab PO DAILY RF: 0 fiber Capsule 3 cap PO DAILY RF: 0 Discontinued acetaminophen [Mapap Extra Strength] 500 MG tablet 1,000 mg PO Q6H 5 Days Qty: 60 RF: 0 ibuprofen 600 mg tablet 600 mg PO Q6H PRNQty: 90 RF: 3 Discharge Instructions Additional Instructions: Total Knee Discharge Instructions Activity: The most important activity is to walk. You should try to take short walks a few times a day. It is important that when resting you work on keeping the knee straight. Avoid putting a pillow behind the knee as this will encourage flexion. Work on range of motion exercises as provided by Physical Therapy. - Start outpatient physical therapy within 2 weeks. - You should wear the GRIFFIN hose on both legs for 2 weeks. You may remove these at night. You may also use any compression sock in place of the GRIFFIN hose. Dressing: You may remove the Lenin wrap on your leg 2 days after your surgery and put on the GRIFFIN stocking given to you from the hospital. Keep the surgical dressing (underneath the LENIN wrap) in place for at least one week. After the first week it may be removed and replaced with light gauze and tape or nothing. The wound and dressing may get wet after 3 days but avoid soaking the dressing or otherwise it will need to be changed. Many people prefer covering the dressing with cling wrap (saran wrap) to minimize it from getting soaked. If it gets wet, just pat dry. If it starts to peel off then it will need to be changed. Medications: - You should take Tylenol and anti-inflammatory Celebrex as your primary pain control medications. If the Celebrex is too expensive or not covered, please call the office for another alternative (Advil/Ibuprofen or Naproxen/Aleve) - You have been prescribed a stronger pain medication Tramadol for breakthrough pain, take as needed as prescribed. - You have also been prescribed a stomach acid reduction agent Pantoprozole to help reduce stomach acid and reflux. - You have been prescribed Gabapentin to take at night for restlessness and nerve pain. - You will be taking Aspirin 81mg twice a day for DVT prevention unless instructed otherwise. - If you have constipation you should take Colace or Miralax (both [id number]). It takes most people 3-4 days to have a bowel movement. Follow-up: 2 weeks If you have any acute concerns or questions, please do not hesitate to contact the office at [phone]. You may contact Dr. Sarmiento with any questions after hours through the hospital at [phone] or on his cell phone at [phone]. Stand Alone Forms: Nursing Discharge Form Referrals: Santos Sarmiento MD [ [facility] STAFF PHYSICIAN] - 10/05/20 10:00 am Activity:: Activity as Tolerated Equipment/Supplies:: Walker Diet:: As Tolerated Discharge Orders Discharge Orders: Discharge Order (Routine); Ordered 09/23/20 Ordered By: Luiz Valentin DS: Summary Time Spent with Patient providing and/or coordinating discharge services: Less than 30 minutes Status at Discharge Functional status at discharge: independent ambulation Overall status at discharge: patient is progressing back to baseline Mental Status: mental status grossly normal Speech and Movement: speech and movement normal Mood: congruent mood Affect: normal affect Exam Psych Mental Status: mental status grossly normal Speech and Movement: speech and movement normal Mood: congruent mood Affect: normal affect DS: Data Vitals/I&O Vitals and I&O: Vital Signs Temperature 97.9 F 09/23/20 11:03 Temperature Source Tympanic 09/23/20 11:03 Pulse 59 L 09/23/20 11:03 Pulse Rhythm Regular 09/23/20 06:00 Respiratory Rate 20 09/23/20 11:03 Respiratory Effort Non-Labored 09/23/20 06:00 Respiratory Depth Normal 09/23/20 06:00 Respiratory Pattern Normal 09/23/20 06:00 Blood Pressure 100/65 09/23/20 11:03 Pulse Oximetry 94 09/23/20 11:03 Respiratory End-tidal CO2 33 09/22/20 17:52 Oxygen Delivery Method Room Air 09/23/20 11:03 Oxygen Flow Rate 0 09/23/20 11:03 Pain Level 5 09/23/20 11:01 Intake & Output 09/22/20 09/23/20 09/23/20 18:59 06:59 18:59 Intake Total 1210 / 2288 1078 / 2288 240 / 240 Output Total 450 / 1325 875 / 1325 800 / 800 Balance 760 / 963 203 / 963 -560 / -560 Weight 177 lb 15.984 oz Intake: IV 1210 / 2048 838 / 2048 Oral 240 / 240 240 / 240 Output: Urine 200 / 1075 875 / 1075 800 / 800 Estimated Blood Loss 250 / 250 Other: Urine Color Yellow Yellow Urine Appearance Clear Clear Emesis Description None PFSH Medical History Abdominal pain Acne rosacea Allergic rhinitis due to allergen cervical carcinoma Chronic cough Chronic maxillary sinusitis Chronic rhinitis Fatty liver disease, nonalcoholic Fibromyalgia GERD (gastroesophageal reflux disease) Hypertension pt. denies this Interstitial cystitis Left upper quadrant pain Low TSH level OAB (overactive bladder) Painful total knee replacement, left Pelvic pain Recurrent UTI Smoker Surgical History Abdominal hysterectomy Arthroplasty of knee Colonoscopy - IV Sedation Hx of rotator cuff surgery Hx of tonsillectomy Oophrectomy, Left Replacement of total knee joint (01/20/16) LEFT/DR. PIERRE S/P total abdominal hysterectomy Status post cholecystectomy (~07/14/20) TOT (Incontinence sling) Social History Smoking/Tobacco Use Status: Current every day Tobacco Type: cigarettes Smoking risk assessment performed?: Yes Alcohol Intake: current Alcohol Intake frequency: a few times a month Alcohol type: wine Drug use: Occasionally Substance use type: marijuana Current gender identity: female Do you feel safe at home: Yes Do you feel safe in your relationship?: Yes Documented by User: Santos Sarmiento MD 09/23/20 13:35 Date of service: 09/23/20 Time of Service: 13:34 Discharge Plan Disposition Patient Disposition: HOME Condition: Stable Discharge Details Reason For Visit: Left Total Knee Revision Admit Date/Time: 09/22/20 10:28 Admit Provider: Santos Sarmiento Attending Provider: Santos Sarmiento Primary Care Provider: Juana Syed V Hospital Course Hospital Course: Patient was admitted to the medical/surgical floor following the procedure. The surgery was tolerated well without any notable medical, surgical, or anesthetic complications. Mobilization began postoperatively. She was voiding spontaneously. Vitals were stable. Physical therapy worked with the patient and was cleared for discharge home. No acute medical issues. Pain was controlled on oral regimen. Home Meds and New Rx's Prescriptions: New aspirin 81 mg tablet,delayed release (DR/EC) 81 mg PO BID Qty: 60 RF: 0 celecoxib [Celebrex] 200 mg capsule 200 mg PO BID Qty: 60 RF: 0 gabapentin 300 mg capsule 300 mg PO QHS Qty: 14 RF: 0 pantoprazole [Protonix] 40 mg tablet,delayed release (DR/EC) 40 mg PO DAILY Qty: 30 RF: 0 acetaminophen [Tylenol Extra Strength] 500 mg tablet 500 mg PO Q6H PRNQty: 90 RF: 0 tramadol 50 mg tablet 50 mg PO Q6H PRNQty: 18 RF: 0 Continued duloxetine [Cymbalta] 60 MG capsule,delayed release(DR/EC) 120 mg PO DAILY RF: 0 cholecalciferol (vitamin D3) 50 mcg (2,000 unit) capsule 50 mcg PO DAILY RF: 0 ascorbic acid (vitamin C) 1,000 mg tablet 1 g PO DAILY RF: 0 famotidine 20 mg tablet 20 mg PO DAILY RF: 0 triamcinolone acetonide 0.1 % cream 1 applic topical BID PRNRF: 0 calcium carbonate [Tums] 200 MG tablet,chewable 2 tab PO PRN PRNRF: 0 multivitamin Tablet 1 tab PO DAILY RF: 0 fiber Capsule 3 cap PO DAILY RF: 0 Discontinued acetaminophen [Mapap Extra Strength] 500 MG tablet 1,000 mg PO Q6H 5 Days Qty: 60 RF: 0 ibuprofen 600 mg tablet 600 mg PO Q6H PRNQty: 90 RF: 3 Discharge Instructions Additional Instructions: Total Knee Discharge Instructions Activity: The most important activity is to walk. You should try to take short walks a few times a day. It is important that when resting you work on keeping the knee straight. Avoid putting a pillow behind the knee as this will encourage flexion. Work on range of motion exercises as provided by Physical Therapy. - Start outpatient physical therapy within 2 weeks. - You should wear the GRIFFIN hose on both legs for 2 weeks. You may remove these at night. You may also use any compression sock in place of the GRIFFIN hose. Dressing: You may remove the Lenin wrap on your leg 2 days after your surgery and put on the GRIFFIN stocking given to you from the hospital. Keep the surgical dressing (underneath the LENIN wrap) in place for at least one week. After the first week it may be removed and replaced with light gauze and tape or nothing. The wound and dressing may get wet after 3 days but avoid soaking the dressing or otherwise it will need to be changed. Many people prefer covering the dressing with cling wrap (saran wrap) to minimize it from getting soaked. If it gets wet, just pat dry. If it starts to peel off then it will need to be changed. Medications: - You should take Tylenol and anti-inflammatory Celebrex as your primary pain control medications. If the Celebrex is too expensive or not covered, please call the office for another alternative (Advil/Ibuprofen or Naproxen/Aleve) - You have been prescribed a stronger pain medication Tramadol for breakthrough pain, take as needed as prescribed. - You have also been prescribed a stomach acid reduction agent Pantoprozole to help reduce stomach acid and reflux. - You have been prescribed Gabapentin to take at night for restlessness and nerve pain. - You will be taking Aspirin 81mg twice a day for DVT prevention unless instructed otherwise. - If you have constipation you should take Colace or Miralax (both [id number]). It takes most people 3-4 days to have a bowel movement. Follow-up: 2 weeks If you have any acute concerns or questions, please do not hesitate to contact the office at [phone]. You may contact Dr. Sarmiento with any questions after hours through the hospital at [phone] or on his cell phone at [phone]. Stand Alone Forms: Nursing Discharge Form Referrals: Santos Sarmiento MD [ [facility] STAFF PHYSICIAN] - 10/05/20 10:00 am Activity:: Activity as Tolerated Equipment/Supplies:: Walker Diet:: As Tolerated Discharge Orders Discharge Orders: Discharge Order (Routine); Ordered 09/23/20 Ordered By: Luiz Valentin REPLACED BY [facility] Medical History Abdominal pain Acne rosacea Allergic rhinitis due to allergen cervical carcinoma Chronic cough Chronic maxillary sinusitis Chronic rhinitis Fatty liver disease, nonalcoholic Fibromyalgia GERD (gastroesophageal reflux disease) Hypertension pt. denies this Interstitial cystitis Left upper quadrant pain Low TSH level OAB (overactive bladder) Painful total knee replacement, left Pelvic pain Recurrent UTI Smoker Surgical History Abdominal hysterectomy Arthroplasty of knee Colonoscopy - IV Sedation Hx of rotator cuff surgery Hx of tonsillectomy Oophrectomy, Left Replacement of total knee joint (01/20/16) LEFT/DR. PIERRE S/P total abdominal hysterectomy Status post cholecystectomy (~07/14/20) TOT (Incontinence sling) Social History Smoking/Tobacco Use Status: Current every day Tobacco Type: cigarettes Smoking risk assessment performed?: Yes Alcohol Intake: current Alcohol Intake frequency: a few times a month Alcohol type: wine Drug use: Occasionally Substance use type: marijuana Current gender identity: female Do you feel safe at home: Yes Do you feel safe in your relationship?: Yes
--- NOTE | 2020-09-23 13:16 | PT.INTREAT ---
Date of service: 09/23/20 Time of Service: 12:50 PT Notes Visit Reasons: Left Total Knee Revision Inpatient Physical Therapy Treatment Note [facility] Date: 09/23/2020 PRECAUTIONS: Fall, WBAT L SUBJECTIVE: Dana states that she is feeling ready to discharge to home. She reports increased pain in popliteal area of left knee during PT session. OBJECTIVE: PAIN: Patient reports L popliteal pain with ther ex and gait training BED MOBILITY/TRANSFERS Sit-stand: S Stand-sit: S GAIT Assistive Device: FWW Weight bearing: WBAT L Assist: S Distance: 200' Deviation: Step-to - step-through, pain in popliteal area THEREX: Patient was instructed in a LE strengthening and stabilization program, completed in both long-sitting and seated positions, as per flow sheet. Issued and reviewed knee packet, including HEP for LE strengthening and stabilization. ASSESSMENT: Patient tolerated session well, although with c/o increase pain in popliteal region of L knee. PLAN: Patient to discharge to home today, with outpatient PT follow up. TREATMENT CODE/TIME: 25 minutes; 11698, [id number] (12:50)
--- NOTE | 2020-09-23 14:19 | CHAPLAIN ---
Dana was sitting up the chair when I visited. She had walked with PT and was looking forward to more work with PT and then going home.
--- NOTE | 2020-09-25 08:17 | PT.INDS ---
Date of service: 09/25/20 Time of Service: 08:17 PT Notes Visit Reasons: Left Total Knee Revision Physical Therapy Inpatient Discharge Summary Date: 09/25/2020 Dates of Service: 09/23/2020 only This is a clinical summary of care provided for the duration of dates listed above. No charge was made in the completion of this documentation. Referring Doctor: MYRA Liu PT Orders: PT CONSULT: Status post Ortho surgery Precautions: Fall. Standard. WBAT on left LE with AD. Patient Profile/Admitting Diagnosis: Noemi is a 64-year-old female who is status post revision total knee arthroplasty on the left side due to left TKA prosthesis loosening on postoperative day 1. PMHX: Medical History Abdominal pain Acne rosacea Allergic rhinitis due to allergen cervical carcinoma Chronic cough Chronic maxillary sinusitis Chronic rhinitis Fatty liver disease, nonalcoholic GERD (gastroesophageal reflux disease) Hypertension Interstitial cystitis Left upper quadrant pain Low TSH level OAB (overactive bladder) Painful total knee replacement, left Pelvic pain Recurrent UTI Smoker Surgical History Abdominal hysterectomy Arthroplasty of knee Colonoscopy - IV Sedation Hx of rotator cuff surgery Hx of tonsillectomy Oophrectomy, Left Replacement of total knee joint (01/20/16) LEFT/DR. PIERRE S/P total abdominal hysterectomy Status post cholecystectomy (~07/14/20) TOT (Incontinence sling) Social History/Home Situation: Lives with family in a private home with 1-2 steps to enter with 1 rail. is has a L BKA but is independent with mobility performance. Patient does a lot of gardening. Equipment Owned/DME: [facility], [facility] Subjective: NT. See most recent [facility] [employer] notes. Objective: General Observation: NT. See most recent [facility] [employer] notes. Mental Status: NT. See most recent [facility] notes. Pain: NT. See most recent [employer] notes. ROM: Right Upper Extremity: Shoulder Flexion WFL. Shoulder abduction WFL. Shoulder ER/IR WFL. Elbow flexion WFL. Forearm pronation/supination WFL. Wrist flexion WFL. Opening and closing of hand WFL. Left Upper Extremity: Shoulder Flexion WFL. Shoulder abduction WFL. Shoulder ER/IR WFL. Elbow flexion WFL. Forearm pronation/supination WFL. Wrist flexion WFL. Opening and closing of hand WFL. Right Lower Extremity: Hip flexion WFL. Hip abduction WFL. Hip ER/IR WFL. Knee flexion WFL. Knee extension. Ankle dorsiflexion/eversion WFL. Ankle plantarflexion/inversion WFL. Left Lower Extremity: Hip flexion WFL. Hip abduction WFL. Hip ER/IR WFL. Knee flexion 20 degrees to 110 degrees. Knee extension -20 degrees. Ankle dorsiflexion WFL. Ankle plantarflexion WFL. Strength: Right Upper Extremity: Shoulder flexors 5/5. Shoulder abductors 5/5. Shoulder ER 5/5. Shoulder IR 5/5. Forearm pronators 5/5. Forearm supinators 5/5. Elbow flexors 5/5. Elbow extensors 5/5. Site Leader strong. Left Upper Extremity: Shoulder flexors 5/5. Shoulder abductors 5/5. Shoulder ER 5/5/ Shoulder IR 5/5. Forearm pronators 5/5. Forearm supinators 5/5. Elbow flexors 5/5. Elbow extensors 5/5. Site Leader strong. Right Lower Extremity: Hip flexors 5/5. Hip abductors 5/5. Hip external rotators 5/5. Hip internal rotators 5/5. Knee flexors 5/5. Knee extensors 5/5. Ankle dorsiflexors/evertors 5/5. Ankle plantarflexors/invertors 5/5. Left Lower Extremity: Hip flexors 4/5. Hip abductors 4/5. Hip external rotators 4/5. HIp internal rotators 4/5. Knee flexors 3-/5. Knee extensors 3-/5. Ankle dorsiflexors/evertors 5/5. Ankle plantarflexors/invertors 5/5. Bed Mobility/Transfers: Rolling independent Supine to sit independent Sit to supine independent Sit to stand supervision Stand to sit supervision Bed to chair supervision Chair to bed supervision Gait: Distance of 200 feet requiring supervisiont. Cynthia decreased. Step height on the left side decreased. Step length on the left side decreased. Reports stretching and burning sensation and left popliteal area with ambulation that subsided with rest. Minimal verbal cues for gait pattern provided. Balance: Static Sitting: Normal Dynamic Sitting: Normal Static Standing: Fair Dynamic Standing: Fair Assessment: Noemi requires the use of a front wheeled walker for all mobility ADL performance in order to maximize independence and reduce fall risk. Patient presents with clinical signs and symptoms consistent with current/admitting diagnoses that have resulted to mobility limitations, gait instability, generalized weakness, and impairment of motor control as demonstrated by the following impairment level findings: 1. Decreased strength to left knee major muscle groups 2. Impaired standing balance 3. Impaired activity tolerance 4. Limitation of joint range of motion in left knee Impairments are contributing to the following functional limitations: 1. Inability to safely ambulate without assistive device 2. Increase completion time for mobility ADL performance 3. Increased fall risk 4. Inability to negotiate steps alone safely 5. Inability to return to prior living environment at this time Goals: Goals X1 week 1. Supine-Sit independent NOT MET 2. Sit-Supine independent NOT MET 3. Sit-Stand independent NOT MET 4. Stand-Sit independent NOT MET 5. Bed-Chair independent NOT MET 6. Chair-Bed independent NOT MET 7. Independent gait on level surface with use of front wheeled walker for at least 500 feet without report of pain nor dyspnea NOT MET 8. Independent stair negotiation while holding onto 1 rail for at least 3 steps without report of pain nor dyspnea NOT MET 9. Independent with home exercise program NOT MET 10. Good static and dynamic standing balance/tolerance NOT MET DISCHARGE RECOMMENDATIONS: Home when medically cleared by orthopedic surgeon. Outpatient PT services in order to regain independent community ambulation without an assistive device. TREATMENT CODE/TIME: MI Thank you for the opportunity to participate in the care of this patient. Cindy Alcala PT, DPT, CLT [facility] [place], [place]
== END 2020-09-23 15:00 | disposition home or self-care (01) | DRG 468 ==
LOC: MS 09-23 11:34 → SUR 09-23 16:46 → PDS 09-23 16:47 → SUR 09-23 16:48 → MS 09-23 16:48 → SUR 09-23 16:49 → MS 09-23 16:50
PROVIDERS: Admitting Provider Student in an Organized Health Care Education/Training Program; PCP Family Medicine; Visit Provider Student in an Organized Health Care Education/Training Program
PROC: 0SPD0JZ Removal of Synthetic Substitute from Left Knee Joint, Open Approach (ICD-10-PCS; CPT 27487; principal; 2020-09-22 14:00)
DX: T84.033A Mechanical loosening of internal left knee prosthetic joint, initial encounter (principal); J32.0 Chronic maxillary sinusitis; L71.9 Rosacea, unspecified; J30.89 Other allergic rhinitis; K75.81 Nonalcoholic steatohepatitis (NASH); K21.9 Gastro-esophageal reflux disease without esophagitis; I10 Essential (primary) hypertension; N32.81 Overactive bladder; F17.210 Nicotine dependence, cigarettes, uncomplicated
CPT/HCPCS: 27487; 76942; 97110; 97162; 97530; 73560; 94667; J0690; J1100; J1885; J2001; J2250; J2370; J2405

== ENCOUNTER 2020-10-05 10:16 | Outpatient (CLI) | payer MEDICAID, SELFPAY ==
--- NOTE | 2020-10-05 09:45 | DI.RAD_ITS ---
Exam(s) XR KNEE LT 2V AP,LAT EXAM: XR KNEE LT 2V AP,LAT CLINICAL HISTORY: Revision LTKA. TECHNIQUE: 2D digital imaging was performed. COMPARISON: CR XR KNEE LT 2V AP,LAT from 09/22/2020 FINDINGS: There is satisfactory position alignment of the recently placed longstanding components of the left k nee prosthesis. There is no fracture or loosening. No radiographic evidence of osteomyelitis. IMPRESSION: DATA REPOSITORY: RADIATION DOSE DELIVERED:
== END 2020-10-05 10:17 | disposition home or self-care (01) ==
LOC: DIORS 10:17
PROVIDERS: PCP Family Medicine; Referring Provider Family Medicine; Visit Provider Physician Assistant
DX: Z96.651 Presence of right artificial knee joint (principal)
CPT/HCPCS: 73560

== ENCOUNTER 2020-12-17 10:53 | Outpatient (CLI) | payer MEDICAID, SELFPAY ==
--- NOTE | 2020-12-17 10:30 | DI.RAD_ITS ---
Exam(s) XR KNEE LT 2V AP,LAT EXAM: XR KNEE LT 2V AP,LAT CLINICAL HISTORY: s/p revision of left TKA. TECHNIQUE: 2D digital imaging was performed. COMPARISON: CR XR KNEE LT 2V AP,LAT from 10/05/2020 FINDINGS: There is continued satisfactory position alignment of long stem components of the left knee prosthesi s. No fracture or loosening evident. No radiographic evidence of osteomyelitis. Appearance is basi jaycob unchanged from 10/05/2020. IMPRESSION: DATA REPOSITORY: RADIATION DOSE DELIVERED:
== END 2020-12-17 10:54 | disposition home or self-care (01) ==
LOC: DIORS 10:54
PROVIDERS: PCP Family Medicine; Referring Provider Family Medicine; Visit Provider Physician Assistant
DX: Z96.652 Presence of left artificial knee joint (principal); Z98.890 Other specified postprocedural states
CPT/HCPCS: 73560

== ENCOUNTER 2021-02-10 09:38 | Outpatient (CLI) | payer MEDICAID, SELFPAY ==
--- NOTE | 2021-02-10 09:30 | DI.RAD_ITS ---
Exam(s) XR SHOULDER RT COMPLETE 2+V EXAM: XR SHOULDER RT COMPLETE 2+V CLINICAL HISTORY: right shoulder pain. TECHNIQUE: 2D digital imaging was performed. COMPARISON: CR LEFT SHOULDER COMPLETE from 06/05/2013 FINDINGS: Limited two view study of the right shoulder submitted for interpretation. Grashey view and axillary view. There is no evidence of fracture nor dislocation. No calcifications in the subacromial space. There are some degenerative changes in the glenohumeral joint. Small osteophyte is noted on the inferior articular surface of the humeral head. There is a 6 x 5 millimeter lucency in the proximal diaphysis of the humerus. This may be a biceps tenodesis site or small peripherally sclerotic bone lesion. C orrelation with past surgical history recommended. Some degenerative cysts are noted in the posterio r lateral humeral head. IMPRESSION: Findings as above. Correlation any past history including biceps tenodesis is recommended. DATA REPOSITORY: RADIATION DOSE DELIVERED:
== END 2021-02-10 09:39 | disposition home or self-care (01) ==
LOC: DIORS 09:39
PROVIDERS: PCP Family Medicine; Referring Provider Family Medicine; Visit Provider Student in an Organized Health Care Education/Training Program
DX: M25.511 Pain in right shoulder (principal); M85.811 Other specified disorders of bone density and structure, right shoulder
CPT/HCPCS: 73030

== ENCOUNTER 2021-04-24 17:48 | Emergency (ER) | payer MEDICAID, SELFPAY ==
[2021-04-24 17:54] VITALS: BP 158/84; PULSE 76; RESP 16; TEMP 36.2; O2SAT 97
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
--- NOTE | 2021-04-24 18:15 | RT.EKG_ITS ---
APPROVED REPORT Exam: Resting ECG Reason for Exam: epigastric pain Patient Location: E HR:67 bpm ECG Measurements Heart Rate 67 AXIS AR 131 P 66 QRSd 86 QRS 58 QT 399 T 43 QTc 422 Conclusion Sinus rhythm...normal P axis, V-rate 60- 99. Sinus. No STEMI. I have reviewed and interpreted ECG and agree with software generated interpretation.
--- NOTE | 2021-04-24 18:15 | DI.CT_ITS ---
Exam(s) CT THORAX ABD/PEL CTA EXAM: CT THORAX ABD/PEL CTA CLINICAL HISTORY: epigastric abd pain, rad to back, r/o AAA rupture. TECHNIQUE: Imaging Protocol: Axial computed tomography images with coronal and sagittal reformatted images were created and reviewed CONTRAST MATERIAL: Intravenous: Omnipaque 350 Contrast volume:100 ml Oral: None COMPARISON: CT CT ABDOMEN PELVIS W from 05/06/2019 FINDINGS: CHEST: AORTA: Thoracic aorta appears unremarkable. Aortic arch anatomy is conventional. No tight stenosis at the origin the great vessels off of the aortic arch. Mild calcified plaque on the anterior aspect of rig ht brachia 0 cephalic artery origin but no tight stenosis at this level. Diameter of the ascending t horacic aorta is normal, measuring 3 cm. There is no dissection. No intramural hematoma. Diameter of the aortic arch and descending thoracic aorta are normal. Diameter of the descending thoracic aor ta is 2.2 cm. And does not appear ectatic. There is no evidence of aortic dissection. No pericardi al effusion. In the abdomen the aorta exhibits normal diameter. No aneurysm nor dissection. Maximum diameter is 2.2 cm. There is no evidence of significant atherosclerotic narrowing at the origin of the celiac an d SMA vessels nor of the renal arteries. The inferior mesenteric artery is also patent. There is no evidence of significant atherosclerotic narrowing of the aortic bifurcation nor of the aortoiliac se gments. Both common femoral arteries are also unremarkable and both SFA origins are also patent. LUNGS: Mild infiltrates are noted in anterior segments of both upper lobes as well as in the medial s egment of the right middle lobe and lingular segment of the left lung. Also platelike atelectasis in the anterior basal segment of the right lower lobe. No ominous pulmonary nodules. There are no ple ural effusions.. There are no significant focal findings in the trachea and mainstem bronchi. MEDIASTINUM: There is no hilar nor mediastinal adenopathy. There are multiple nodules in both thyroid lobes. CARDIAC: Heart size is normal. There is no pericardial effusion. ABDOMEN: There is no evidence of abdominal aortic aneurysm nor dissection.There is no aneurysmal dilatation of the common iliac arteries.The celiac and superior mesenteric arteries are patent. There is no ascites. LIVER: Liver is hypodense implying steatosis but there are no discrete focal hepatic lesions. GALLBLADDER/BILIARY: Gallbladder surgically absent. CBD is not dilated. PANCREAS: No evidence of pancreatic mass nor dilatation of the pancreatic duct. SPLEEN: Spleen is not enlarged. There are no intrasplenic lesions. Splenic and portal veins are beltran nt. ADRENALS: There are no significant adrenal masses. KIDNEYS: No cysts evident. No calculi nor hydronephrosis. No solid renal masses. LYMPH NODES: There is no retroperitoneal nor para-aortic adenopathy. No obvious mesenteric masses. ABDOMINAL WALL: No evidence of significant anterior abdominal wall hernia. GI: There is no evidence of bowel obstruction, free air, nor abscess. PELVIS: Multiple surgical clips are again noted in both sides of the pelvis. There is no intrapelvic adenopa thy. There are again noted a few slightly enlarged lymph nodes in the left inguinal region which rem ain unchanged. Largest of these is again noted be just medial to the left common femoral vein and me asures 1.6 x 1.2 cm, unchanged. No lymph nodes evident in the right groin. LYMPH NODES: As above. GI: No evidence of appendicitis.There sigmoid diverticuli but no evidence of acute diverticulitis. URINARY BLADDER: No calculi nor masses evident REPRODUCTIVE: The uterus is again noted be surgically absent. OSSEOUS: No significant osseous lesions. IMPRESSION: 1. There is no evidence of thoracic nor abdominal aneurysm. No dissection. Aortoiliac segments also appear unremarkable. 2. Increased lung markings bilaterally as described above, not associated with pleural effusions nor intrathoracic adenopathy. 2. Slightly prominent shoddy left inguinal lymph nodes which are unchanged from 05/06/2019 CT scan. No enlarged lymph nodes in the right groin. 3. Uterus is again noted be surgically absent. Ovaries are not identified and presumed to also be corado rgically absent. No abnormal adnexal masses nor free fluid in the pelvis nor in the abdomen. 4. Sigmoid diverticuli but no evidence of acute diverticulitis. 5. Gallbladder surgically absent. No dilatation of the biliary tree evident. Hepatic steatosis evident. No discrete focal hepatic lesions. Multiple surgical clips in the pelvis both sides. No intrapelvic adenopathy evident. No para-aortic adenopathy. RADIATION DOSE DELIVERED: 1,098.24mGy.cm Total DLP DATA REPOSITORY: All CT scans at this facility are submitted to the National Radiology Data Registry (NRDR) Dose Index Registry (DIR) with the [employer] (ACR). RADIATION OPTIMIZATION: All CT scans at this facility use at least one of these dose optimization te chniques: automated exposure control; mA and/or kV adjustment per patient size (includes targeted exa ms where dose is matched to clinical indication); or iterative reconstruction.
[2021-04-24 18:20] LABS: Abs Immature Grans 0.02 10^3/uL (0.0-0.06); Absolute Basophil Count 0.08 10^3/uL (0.0-0.2); Absolute Eosinophil Count 0.34 10^3/uL (0.0-0.7); Absolute Lymphocyte Count 2.13 10^3/uL (1.2-3.4); Absolute Monocyte Count 0.54 10^3/uL (0.1-0.8); Absolute Neutrophil Count 5.08 10^3/uL (1.2-6.7); Eosinophils % 4.2; HCT 46.4 % (36.0-46.0); HGB 14.9 g/dL (11.2-15.7); Immature Grans % 0.2; MCH 29.3 pg (27.0-33.0); MCHC 32.1 % (32.0-36.0); MCV 91.3 fL (80-95); MPV 10.3 fL (8.0-11.0); Monocytes % 6.6; Nucleated RBC 0 %; Platelet Count 210 10^3/uL (130-400); RBC 5.08 10^6/uL (3.93-5.22); RDW 13.2 % (11.7-14.6); RDW-SD 45.4 fL; WBC 8.19 10^3/uL (4.4-10.8)
[2021-04-24 18:38] LABS: ALT 30 U/L (14-59); AST 36 U/L (15-37); Alkaline Phosphatase 120 U/L (46-116); Anion Gap 5.7 mmol/L (3-11); BUN 22 mg/dL (7-18); Bilirubin, Total 0.4 mg/dL (0.2-1.0); CO2 31.3 mmol/L (21.0-32.0); CREATININE 0.7 mg/dL (0.55-1.02); Calcium 9.5 mg/dL (8.5-10.1); Chloride 102 mmol/L (98-107); Glucose 111 mg/dL (74-106); Lipase 376 U/L (73-393); Magnesium 1.6 mg/dL (1.8-2.4); Potassium 3.2 mmol/L (3.5-5.1); Sodium 139 mmol/L (136-145); Total Protein 7.7 g/dL (6.4-8.2); Troponin I < 50 ng/L (<or=60)
[2021-04-24] MEDS: Omnipaque 350 MG/ML 100 ML BTL IJ (18:49)
[2021-04-24] MEDS: Ondansetron 4 MG/2 ML VIAL IVP (18:51)
[2021-04-24] MEDS: Normal Saline 250 ML IV (18:59)
[2021-04-24] MEDS: FAMOTIDINE 20 MG/50 ML BAG 200 MG IVPB (18:59)
--- NOTE | 2021-04-24 19:20 | DI.VRAD_ITS ---
PROCEDURE INFORMATION: Exam: CTA Chest With Contrast Exam date and time: 04/24/2021 6:22 PM Age: 65 years old Clinical indication: Other: Epigastric abd pain, rad to back, R/O aaa rupture TECHNIQUE: Imaging protocol: Computed tomographic angiography of the chest with contrast. 3D rendering (Not supervised by radiologist): MIP and/or 3D reconstructed images were created by the technologist. Contrast material: 350; Contrast volume: 80 ml; Contrast route: INTRAVENOUS (IV); COMPARISON: CT ABDOMEN PELVIS W 05/06/2019 8:36 AM FINDINGS: Pulmonary arteries: Normal caliber main pulmonary artery. No large central pulmonary emboli; phase of contrast injection/scanning precludes optimal evaluation. Aorta: Motion and streak artifact partially obscure the ascending aorta; within limits of the exam, no thoracic aortic aneurysm, pseudoaneurysm, intramural hematoma, penetrating atherosclerotic ulcer, or dissection. Little or no calcified atherosclerosis. Thyroid: Nodular thyroid gland, which can be further assessed by ultrasound when clinically appropriate. Lungs: Unremarkable. No consolidation. No masses. Pleural spaces: Unremarkable. No pneumothorax. No pleural effusion. Heart: Unremarkable. No cardiomegaly. No pericardial effusion. Mediastinal space: No mediastinal hematoma. No periaortic fluid. Lymph nodes: Unremarkable. No enlarged lymph nodes. Bones/joints: Degenerative change of the spine Soft tissues: Unremarkable. IMPRESSION: 1. Motion and streak artifact partially obscures the ascending aorta; within limits of the exam, no thoracic aortic aneurysm, pseudoaneurysm, intramural hematoma, penetrating atherosclerotic ulcer, or dissection. 2. Nodular thyroid gland, which can be further assessed by ultrasound when clinically appropriate. PROCEDURE INFORMATION: Exam: CTA Abdomen and Pelvis With Contrast Exam date and time: 04/24/2021 6:22 PM Age: 65 years old Clinical indication: Other: Epigastric abd pain, rad to back, R/O aaa rupture TECHNIQUE: Imaging protocol: Computed tomographic angiography of the abdomen and pelvis with contrast material. 3D rendering (Not supervised by radiologist): MIP and/or 3D reconstructed images were created by the technologist. Contrast material: 350; Contrast volume: 80 ml; Contrast route: INTRAVENOUS (IV); COMPARISON: CT ABDOMEN PELVIS W 05/06/2019 8:36 AM FINDINGS: Limitations: Assessment of solid organs is limited by arterial phase timing of contrast bolus. Abdominal examination is markedly limited by motion. Aorta: No thoracic aortic aneurysm, pseudoaneurysm, intramural hematoma, penetrating atherosclerotic ulcer, or dissection. Little or no calcified atherosclerosis. Celiac trunk and mesenteric arteries: No occlusion or significant stenosis. Renal arteries: No occlusion or significant stenosis. Right iliac arteries: No occlusion or significant stenosis. Left iliac arteries: No occlusion or significant stenosis. Liver: The liver is unremarkable. Gallbladder and bile ducts: Post cholecystectomy. No abnormal biliary ductal dilation. Pancreas: The pancreas is unremarkable. Spleen: The spleen is unremarkable. Adrenal glands: The adrenal glands are unremarkable. Kidneys and ureters: No hydronephrosis or nephrolithiasis. Stomach and bowel: No evidence of bowel obstruction. No pericolonic inflammatory stranding. Minimal colonic diverticulosis. Appendix: No evidence of appendicitis. Intraperitoneal space: Pelvic surgical clips. Lymph nodes: Top-normal sized left inguinal nodes, nonspecific, may be reactive. Urinary bladder: No focal wall thickening of the urinary bladder. Reproductive: Post hysterectomy. Bones/joints: Degenerative change of the spine The sclerosis of the superior L4 vertebral body endplate evident on the April 2019 study has increased, likely degenerative. Mild degenerative change of the hips. Soft tissues: Rectus diastasis. IMPRESSION: 1. No thoracic aortic aneurysm, pseudoaneurysm, intramural hematoma, penetrating atherosclerotic ulcer, or dissection. 2. No acute abdominopelvic process or detectable etiology for radiating epigastric pain. Motion artifact on the abdominal exam and particular likely limits sensitivity for detection gastric antral and duodenal inflammatory change. 3. Top-normal sized left inguinal nodes, nonspecific, may be reactive. 4. The findings were verbally communicated via telephone conference at 7:16 PM EST on 04/24/2021 with gerri champion. 5. The findings were acknowledged and understood. Dictated and Authenticated by: Jenifer Maldonado MD. Ordering:ESPERANZA Hanson MD
[2021-04-24] MEDS: Magnesium Oxide 400 MG TAB PO (20:13)
--- NOTE | 2021-04-24 20:13 | NUR.NOTE ---
Referral faxed to [facility] to be seen in two weeks for epigastric pain and consideration of egd.Nursing Note:
[2021-04-24] MEDS: Sucralfate 1 GM TAB PO (20:14)
[2021-04-24] MEDS: Potassium Chloride 20 MEQ TABCR 40 MEQ PO (20:14)
[2021-04-24] MEDS: Ondansetron O.D.T. 4 MG TABEF, 3 TABS/BTL PO (20:15)
[2021-04-24 20:23] VITALS: BP 111/62; PULSE 66; RESP 16; TEMP 36.2; O2SAT 97
[2021-04-24] MEDS: Sucralfate 1 GM TAB 3 GM PO (20:25)
== END 2021-04-24 20:34 | disposition home or self-care (01) ==
PROVIDERS: Emergency Provider Physician Assistant; PCP Family Medicine
DX: R10.13 Epigastric pain (principal); R11.0 Nausea; M54.9 Dorsalgia, unspecified
CPT/HCPCS: 36415; 71275; 74177; 80053; 83690; 93005; 96361; 96365; 96375; 99285; 83735; 84484; 85025; 93010; 99284; J2405; J3490

== ENCOUNTER 2021-05-03 02:09 | Outpatient (CLI) | payer MEDICAID, SELFPAY ==
--- NOTE | 2021-05-03 06:54 | DI.MRI_ITS ---
Exam(s) MR UPPER JOINT RT WO EXAM: MR UPPER JOINT RT WO CLINICAL HISTORY: R SHOULDER PAIN,primary oa,bursitis,m19.011,m75.51 TECHNIQUE: Multiplanar multisequence MRI of the shoulder was performed. COMPARISON: CR XR SHOULDER RT COMPLETE 2+V from 02/10/2021 FINDINGS: MARROW:No evidence of fracture, Hill-Sachs deformity bony Bankart lesion nor ominous osseous lesions. There are fastener channels in the lateral humeral head consistent with prior rotator cuff surgery. Degenerative subarticular cysts are seen in the greater tuberosity ROTATOR CUFF MECHANISM: AC JOINT/ACROMIUM: No prominent degenerative changes the AC joint. There is no evidence of os acromiale. Supraspinatus: There is atrophy of the supraspinatus muscle. However, the tendon still appears intac t. No high-grade tear. No retraction. Infraspinatus: Intact. No evidence of tear nor muscle atrophy. Teres Minor: Intact. No evidence of tear nor muscle atrophy. Subscapularis/anterior cuff: Intact. No abnormal signal at the level of the multipennate insertional fibers. No significant tear nor atrophy. BICEPS TENDON: Not evident within the intertubercular groove. Also not evident at the level of the a nchor. Either related to tenodesis which is not seen in the field of view this study 4 tear with significant retraction at of the field of view. LABRUM: Biceps tendon is not seen attaching to the anterosuperior labrum. No prominent labral tearin g. No evidence of paralabral cyst. No bony Bankart lesion seen. GLENOHUMERAL JOINT: There are moderate degenerative changes in the glenohumeral joint including some cartilage loss and osteophyte on the inferior articular surface of humeral [id number]. No d egenerative subarticular cysts in the osseous glenoid. No evidence of capsular tear. The inferior g lenohumeral ligament is intact. QUADRILATERAL SPACE: No evidence of mass in the region of the axillary nerve and dorsal circumflex hu meral vessels. Visualized triceps muscle at this level appears unremarkable. IMPRESSION: 1. Evidence of previous rotator cuff surgery. There is atrophy of the supraspinatus muscle belly but no high-grade tear of the supraspinatus tendon. Contains only mild increased signal. Infraspinatus and other muscles rotator cuff mechanism appear unremarkable and without atrophy. 2. Degenerative changes in the AC joint. 3. Biceps tendon not seen consistent with prior tear. Cannot identify tenodesis site on this study. 4. There are moderate degenerative changes of glenohumeral joint, including osteophyte on the inferi or articular surface of the humeral head. DATA REPOSITORY:
== END 2021-05-03 02:29 ==
PROVIDERS: PCP Family Medicine; Visit Provider Student in an Organized Health Care Education/Training Program
DX: M19.011 Primary osteoarthritis, right shoulder (principal); M75.51 Bursitis of right shoulder; M25.511 Pain in right shoulder; Z98.890 Other specified postprocedural states
CPT/HCPCS: 73221

== ENCOUNTER 2021-05-31 01:49 | Outpatient (CLI) | payer MEDICAID, SELFPAY ==
--- NOTE | 2021-05-31 14:00 | DI.US_ITS ---
Exam(s) US THYROID EXAM: US THYROID CLINICAL HISTORY: THYROID NODULE, E04.1. TECHNIQUE: Ultrasound thyroid performed using standard protocol. COMPARISON: CT scan 04/24/2021 was reviewed FINDINGS: Thyroid lobes are upper normal size, right slightly larger than left. Numerous bilateral nodules in both thyroid lobes. There are 6 nodules in the right lobe, 1 in the right side of the isthmus, and 7 nodules in left lobe. RIGHT THYROID LOBE: Measures 2.4 cm AP x 0.4 cm wide x 5.4 cm craniocaudal. Will first discussed the largest nodule in the right thyroid lobe which will require ultrasound-guide d FNA. This dominant nodule measures 3.3 cm in largest dimension (craniocaudal). In the transverse plane it measures 2.4 cm wide by 2 cm AP and is therefore wider than taller in the transverse plane (no point s) Composition: Mixed [id number]-[id number]-9 point Echogenicity: Solid components of this nodule are hypoechoic compared to surrounding parenchyma (2 po ints) Shape: Wider than taller-0 points Margin: Lobulated-2 point Echogenic Foci: None-0 points Total Points for this nodule: 5 ACR Ti-Rads Category: TR4. This nodule will require ultrasound-guided FNA as it is greater than 1.5 cm size. The 2nd nodule worth mentioning is located laterally in the right lobe. In the transverse plane it is wider than tall (0 points), measuring 1.1 cm wide by 0.6 cm AP by 0.8 c m craniocaudal. Composition: Solid-2 points Echogenicity: Hypoechoic- 2 points Shape: Wider than taller- 0 points Margin: Margins are irregular-3 points Echogenic Foci: None-0 points Total points for this nodule: 7 ACR Ti-Rads Category: TR5 This nodule will require ultrasound-guided FNA as it measures slightly larger than 1 cm Other nodules in the right lobe can be followed. ISTHMUS: There is a solid nodule in the right side of the isthmus which is wider than taller in the t ransverse plane, measuring 8 millimeters wide by 5 millimeters AP by 9 millimeters craniocaudal. Thi s nodule is solid (2 points). It is isoechoic compared to surrounding parenchyma (1 point). It does not contain echogenic foci (0 points). However, it is slightly elevates the anterior contour of the gland (3 points). Total points for this nodule= 6 TiRads 4 This can be followed given that it measures less than 1.5 cm. LEFT THYROID LOBE: Measures 1.8 cm AP x 1.9 wide x 4.4 cm craniocaudal There are multiple nodules in the left lobe. Will discuss the dominant 2 nodules. Nodule #1 . this is a solid nodule which measures 1.5 cm AP by 1.3 cm wide, being taller than wider in the transverse plane (3 points). It measures 1.3 cm craniocaudal. Composition: Solid-2 points Echogenicity: Isoechoic to surrounding parenchyma-1 points Margin: Mildly irregular-2 points Echogenic Foci: None-0 points Total points for this nodule: 8 ACR Ti-Rads Category: 5 This nodule requires ultrasound-guided FNA at this it is greater than 1 cm. The 2nd nodule is located just below the above nodules and measures 1.6 cm craniocaudal by 1.1 cm AP by 1.1 cm wide. Is not taller than wider in the transverse plane (0 points) Composition: Mixed solid-cystic (1 point) Echogenicity: Very hypoechoic-3 point Margin: Smooth-0 points Echogenic Foci: Contains punctate echogenic foci (3 points) Total Points for this nodule: 7 ACR Ti-Rads Category: 5 This nodule also requires ultrasound-guided FNA as it is larger than 1 cm. LYMPH NODES: There is no significant adenopathy. IMPRESSION: 1. There are multiple (greater than 10) thyroid nodules in the thyroid lobes as well as a single nodu le in the right side of the isthmus. The dominant nodules are discussed above. Two nodules in the right lobe will require ultrasound-guided FNA Two nodules in left lobe will require ultrasound-guided FNA. 2. The nodule in the right side of the isthmus is TiRads 4 classification and can be followed, given that it measures less than 1.5 cm. 3. There is no significant lymphadenopathy. DATA REPOSITORY:
== END 2021-05-31 02:09 ==
PROVIDERS: PCP Family Medicine; Visit Provider Family Medicine
DX: E04.2 Nontoxic multinodular goiter (principal); E07.89 Other specified disorders of thyroid
CPT/HCPCS: 76536

== ENCOUNTER 2021-07-16 08:32 | Emergency (ER) | payer MEDICAID, SELFPAY ==
[2021-07-16 09:16] VITALS: BP 126/80; PULSE 79; RESP 18; TEMP 36.4; O2SAT 95
[2021-07-16 09:30] LABS: Bilirubin Negative (Negative); Blood Trace-intact (Negative); Clarity Cloudy (Clear); Glucose Negative (Negative); Ketones Negative (Negative); Leukocyte Esterase Large (Negative); Nitrite Positive (Negative); Specific Gravity 1.025 (1.005-1.025); Urobilinogen 0.2 EU/dL (Up TO 0.2)
[2021-07-16 09:36] LABS: Bacteria Moderate HPF (Negative); C & S Indicated? Yes; Casts 0-2 Hyaline LPF (Negative); Crystals Negative HPF (Negative); Epithelial Cells Few HPF (Negative); Mucus Negative (Negative); RBC 0-2 HPF (0-2); WBC >50 HPF (0-5)
--- NOTE | 2021-07-16 10:01 | W.ED.GENAD ---
Discharge Plan Disposition Patient Disposition: HOME Condition: Stable Discharge Details Clinical Impression: UTI (urinary tract infection) Primary Care Provider: Juana Syed V ED Provider: Paris Sanchez Home Meds and New Rx's Prescriptions: New ciprofloxacin HCl 500 mg tablet 500 mg PO BID 7 Days Qty: 14 0RF phenazopyridine [Pyridium] 100 mg tablet 100 mg PO TID PRNQty: 6 0RF No Action pantoprazole [Protonix] 40 mg tablet,delayed release (DR/EC) 40 mg PO DAILY Qty: 30 12RF zinc sulfate [Orazinc] 50 mg zinc (220 mg) capsule 50 mg PO DAILY 0RF duloxetine [Cymbalta] 60 MG capsule,delayed release(DR/EC) 120 mg PO DAILY 0RF cholecalciferol (vitamin D3) 50 mcg (2,000 unit) capsule 50 mcg PO DAILY 0RF ascorbic acid (vitamin C) 1,000 mg tablet 1 g PO DAILY 0RF Label Comments: not taking triamcinolone acetonide 0.1 % cream 1 applic topical BID PRN0RF calcium carbonate [Tums] 200 MG tablet,chewable 2 tab PO PRN PRN0RF Label Comments: not taking multivitamin Tablet 1 tab PO DAILY 0RF Label Comments: not currently taking acetaminophen [Tylenol Extra Strength] 500 mg tablet 500 mg PO Q6H PRNQty: 90 0RF ondansetron 4 mg tablet,disintegrating 4 mg PO TID PRN (Reason: nausea and vomiting) Qty: 6 0RF Discharge Instructions Instructions: Urinary Tract Infection in Women (ED) Additional Instructions: 1. At this time it is unclear why she is having recurrent urinary tract infections may be related to be interstitial cystitis. Please take the full course of the antibiotic as prescribed twice daily for the next 7 days. You are given the first dose here in the IV. Take the Pyridium only as needed. It will turn your urine bright orange and may stain your clothes. Follow up with primary care provider in 3-5 days. Return to ED sooner if any worsening or concerns. Increase oral fluids. Please take Tylenol or Ibuprofen with food every 4-6 hours as needed for pain and swelling. Referrals: Juana Syde MD [Primary Care Provider] - Discharge Data Discharge Date/Time-TO BE ENTERED AT DEPARTURE: 07/16/21 13:48 Medical Decision Making 65 year old female with a past medical history of interstitial cystitis, recurrent UTIs, pelvic pain, fibromyalgia, GERD, hypertension presents to ED with CC of suprapubic tenderness, dysuria, frequency, nausea which began 6 days ago. She reports that she did take Zofran prior to arrival today. She denies any other associated symptoms. She reports that pain is constant waxes and wanes no radiation. Upon medical chart review it is noted that she was prescribed doxycycline on May 2021, was prescribed Cipro February 2021 and Cipro again August 2020. She reports that she is due to take the antibiotic intermittently for symptoms. She also states that she began taking surgery antibiotic she has adverse reaction so she will stop. Patient is requesting IV antibiotic. Ciprofloxacin for mammogram IV piggyback ordered, patient was given Pyridium per milligrams here in department and a prescription for Pyridium. She was prescribed ciprofloxacin time 7 days. Patient was instructed to take a higher course of antibiotic even when feeling better. She verbalizes understanding and is in agreement with the plan. Discussed follow-up care And strict return should. She remained hemodynamically stable throughout stay. This text was generated using [employer] system, please disregard any oddities of phrase or misspellings. Medical Records Medical records reviewed: Yes I reviewed the patient's medical records. HPI General Mode of arrival: ambulatory. Date/Time Provider Initiated Documentation: 07/16/21 09:17. Limitations to Documentation: no limitations. Information obtained by: patient, RN notes reviewed and old records reviewed. HPI Narrative: 65 year old female with a past medical history of interstitial cystitis, recurrent UTIs, pelvic pain, fibromyalgia, GERD, hypertension presents to ED with CC of suprapubic tenderness, dysuria, frequency, nausea which began 6 days ago. She reports that she did take Zofran prior to arrival today. She denies any other associated symptoms. She reports that pain is constant waxes and wanes no radiation. Upon medical chart review it is noted that she was prescribed doxycycline on May 2021, was prescribed Cipro February 2021 and Cipro again August 2020. She reports that she is due to take the antibiotic intermittently for symptoms. She also states that she began taking surgery antibiotic she has adverse reaction so she will stop. Related Data Home Medications Medication Instructions Recorded Confirmed duloxetine 60 mg capsule,delayed 120 mg PO DAILY tab-cap 09/14/12 07/16/21 release (Cymbalta) calcium carbonate 200 mg calcium 2 tab PO PRN PRN 07/28/14 05/24/21 (500 mg) chewable tablet (Tums) ascorbic acid (vitamin C) 1,000 mg 1 g PO DAILY tab 02/24/20 05/24/21 tablet cholecalciferol (vitamin D3) 50 50 mcg PO DAILY 02/24/20 07/16/21 mcg (2,000 unit) capsule triamcinolone acetonide 0.1 % 1 applic TOPICAL BID PRN 02/24/20 07/16/21 topical cream multivitamin 1 tab PO DAILY 09/21/20 05/24/21 acetaminophen 500 mg tablet 500 mg PO Q6H PRN #90 tab 09/22/20 07/16/21 (Tylenol Extra Strength) zinc sulfate 50 mg zinc (220 mg) 50 mg PO DAILY 02/10/21 05/24/21 capsule (Orazinc) ondansetron 4 mg disintegrating 4 mg PO TID PRN #6 tab 04/24/21 07/16/21 tablet pantoprazole 40 mg tablet,delayed 40 mg PO DAILY #30 tab 05/10/21 07/16/21 release (Protonix) ciprofloxacin HCl 500 mg tablet 500 mg PO BID 7 Days #14 tab 07/16/21 phenazopyridine 100 mg tablet 100 mg PO TID PRN #6 tab 07/16/21 (Pyridium) Previous Rx's Medication Instructions Recorded acetaminophen 500 mg tablet 500 mg PO Q6H PRN #90 tab 09/22/20 (Tylenol Extra Strength) ondansetron 4 mg disintegrating 4 mg PO TID PRN #6 tab 04/24/21 tablet pantoprazole 40 mg tablet,delayed 40 mg PO DAILY #30 tab 05/10/21 release (Protonix) ciprofloxacin HCl 500 mg tablet 500 mg PO BID 7 Days #14 tab 07/16/21 phenazopyridine 100 mg tablet 100 mg PO TID PRN #6 tab 07/16/21 (Pyridium) Allergies Allergy/AdvReac Type Severity Reaction Status Date / Time morphine Allergy Severe Swelling/Ed Verified 07/16/21 09:29 lisa sulfamethoxazole Allergy Severe Hives Unverified 07/16/21 09:29 [From Bactrim] trimethoprim [From Bactrim] Allergy Severe Hives Unverified 07/16/21 09:29 amoxicillin [From Augmentin] Allergy Intermediate nausea, Unverified 07/16/21 09:29 hives clavulanic acid Allergy Intermediate nausea and Unverified 07/16/21 09:29 [From Augmentin] hives Sulfa (Sulfonamide Allergy Intermediate Hives Verified 07/16/21 09:29 Antibiotics) levofloxacin [From Levaquin] Allergy Unknown Other (See Unverified 07/16/21 09:29 Comment) fentanyl AdvReac Severe go crazy Verified 07/16/21 09:29 doxycycline AdvReac Intermediate headache Unverified 07/16/21 09:29 and vomiting nicotine [From Nicorette] AdvReac Intermediate Vomiting Verified 07/16/21 09:29 azithromycin AdvReac Unknown Nausea Verified 07/16/21 09:29 nitrofurantoin AdvReac Unknown Nausea Verified 07/16/21 09:29 [From Macrobid] bupropion HCl AdvReac Nausea, Verified 07/16/21 09:29 [From Wellbutrin] thought I was going crazy prednisone AdvReac Nausea, Verified 07/16/21 09:29 thought I was going crazy I get get General Stated Complaint: Urinary CAROL: 3 Review of Systems All systems reviewed & are unremarkable except as noted in HPI and below Gastrointestinal Gastrointestinal: Denies diarrhea, Reports nausea and Denies vomiting Genitourinary Genitourinary: Reports as per HPI, Reports difficulty voiding and Reports urinary urgency PFSH All Active Problems (Updated 07/16/21 @ 11:12 by Paris Sanchez) UTI (urinary tract infection) (Acute) Rotator cuff tear, right (Acute) Chemical gastritis (Acute) Chronic GERD (Acute) Status post arthroscopy of right shoulder (Acute 11/03/08) Debridement, PASTA repair, subacromial decompression with acromioplasty, distal clavicle resection, open subpectoral biceps tenodesis Bursitis of right shoulder (Acute) Primary osteoarthritis, right shoulder (Acute) Superficial laceration of skin (Acute 10/31/20) left mccray History of revision of total replacement of left knee joint (Acute 09/22/20) History of total left knee replacement (Acute) Primary osteoarthritis of right knee (Acute 04/23/15) Peritonsillar cellulitis (Acute 12/03/15) Aftercare following joint replacement surgery (Acute) Pelvic pain in female (Acute) Trochanteric bursitis, right hip (Acute) Femoroacetabular impingement of right hip (Acute) Post-nasal drip (Acute) Actinic keratosis (Acute) Loosening of prosthesis of left total knee replacement (Acute) S/P laparoscopic cholecystectomy (Acute) Right-sided chest wall pain (Acute) Fatty liver disease, nonalcoholic (Acute) Allergic rhinitis due to allergen (Acute) Smoker (Acute) Chronic cough (Acute) Interstitial cystitis (Acute) Painful total knee replacement, left (Acute) Chronic rhinitis (Acute) Chronic maxillary sinusitis (Acute) OAB (overactive bladder) (Acute) Medical History (Updated 07/16/21 @ 11:12 by Paris Sanchez) Abdominal pain Acne rosacea cervical carcinoma Fibromyalgia GERD (gastroesophageal reflux disease) Hypertension pt. denies this Left upper quadrant pain Low TSH level Pelvic pain Recurrent UTI Surgical History (Updated 04/27/21 @ 14:11 by Bernie Davenport) Abdominal hysterectomy Arthroplasty of knee Colonoscopy - IV Sedation Hx of rotator cuff surgery Hx of tonsillectomy Oophrectomy, Left S/P total abdominal hysterectomy Status post cholecystectomy (~07/14/20) TOT (Incontinence sling) Social History Smoking/Tobacco Use Status: Current every day Tobacco Type: cigarettes Smoking risk assessment performed?: Yes Alcohol Intake: current Alcohol Intake frequency: holidays/special occasions only Alcohol type: wine Drug use: Occasionally Substance use type: marijuana Details: currently on a quit smoking program Current gender identity: female Do you feel safe at home: Yes Do you feel safe in your relationship?: Yes Exam Narrative Exam Narrative: Constitutional: Alert and oriented x3. Appears stated age. Normal body habitus. Head: Normocephalic, no trauma. Eyes: Pupils PERRL, EOM's intact. Eyelids symmetrical without lesions, discharge, or swelling. Chest: RRR, Normal S1, S2, distal pulses intact. Resp: Lungs clear to auscultation bilaterally, no wheezes, rales, or rhonchi. Abdomen: Soft, non-distended, Normoactive bowel sounds all 4 quads. Musculoskeletal: Normal gait, 5/5 strength to all four extremities. Skin: No suspicious rashes or lesions. Capillary refill less than 2 sec. Neurologic: Cranial nerves II-XII intact. Alert and oriented x 3. Motor: No deficits noted. Sensory: Intact bilaterally all 4 extremities. Hematologic/Lymphatic: No ecchymosis, no lymphadenopathy. Course Vital Signs Vital signs: Vital Signs Temperature 36.4 C L 07/16/21 09:16 Pulse 79 07/16/21 09:16 Respiratory Rate 18 07/16/21 09:16 Blood Pressure 126/80 07/16/21 09:16 Pulse Oximetry 95 07/16/21 09:16 Temperature 36.4 C L 07/16/21 09:16 Temperature Source Skin 07/16/21 09:16 Pulse 79 07/16/21 09:16 Respiratory Rate 18 07/16/21 09:16 Respiratory Effort 07/16/21 09:33 Blood Pressure 126/80 07/16/21 09:16 Blood Pressure Position Supine 07/16/21 09:16 Pulse Oximetry 95 07/16/21 09:16 Oxygen Delivery Method Room Air 07/16/21 09:16 Oxygen Flow Rate 0 07/16/21 09:16 Pain Level 5 07/16/21 09:16 Comment 07/16/21 09:16 Lab/Test Results Lab/Test Results: 07/16/21 09:20 Urine - Reflex from Ua Urine Culture - Pending Laboratory Tests Range/Units 07/16/21 09:20 Urine Color (Yellow) Yellow Urine Clarity (Clear) Cloudy Urine pH (5-8) 6.0 Ur Specific Red [place] (1.005-1.025) 1.025 Urine Protein (Negative) mg/dL Trace H Urine Ketones (Negative) mg/dL Negative Urine Blood (Negative) Trace-intact H Urine Nitrite (Negative) Positive H Urine Bilirubin (Negative) Negative Urine Urobilinogen (Up TO 0.2) EU/dL 0.2 Ur Leukocyte Esterase (Negative) Large H Urine RBC (0-2) HPF 0-2 Urine WBC (0-5) HPF >50 H Ur Epithelial Cells (Negative) HPF Few Urine Crystals (Negative) HPF Negative Urine Bacteria (Negative) HPF Moderate Urine Casts (Negative) LPF 0-2 Hyaline Urine Mucus (Negative) Negative Ur Culture Indicated? Yes Urine Glucose (Negative) mg/dL Negative PAWSS Have you Been Recently Intoxicated or Drunk Within the Last 30 days?: No Have you Ever Experienced Previous Episodes of Alcohol Withdrawal?: No Have you ever Experienced Withdrawal Seizures?: No Have you ever Experienced Delirium Tremens(DT)s?: No Have you ever undergone Alcohol Rehabilitation Treatment (i.e, inpt ot outpatient treatment programs)?: No Have you ever Experienced Blackouts?: No Have you ever Combined Alcohol with other Downers within the last 90 days?: No Have you ever Combined Alcohol with any other Substance of Abuse during the last 90 days?: No Positive Blood Alcohol level on Presentation? [PCS.BAL]: No Evidence of Increased Autonomic Activity (i.e. HR>120, tremor, sweating, agitation, nausea)?: No Result: 0
[2021-07-16] MEDS: Phenazopyridine 100 MG TAB PO (10:41)
[2021-07-16] MEDS: CIPROFLOXACIN 400 MG/200 ML BAG 200 MG IVPB (10:41)
[2021-07-16] MEDS: Phenazopyridine 100 MG TAB, 2 TABS/BTL PO (12:03)
[2021-07-16 12:15] VITALS: BP 121/83; PULSE 70; RESP 17; TEMP 36.8; O2SAT 95
== END 2021-07-16 13:48 | disposition home or self-care (01) ==
PROVIDERS: Emergency Provider Registered Nurse Emergency; PCP Family Medicine
DX: N39.0 Urinary tract infection, site not specified (principal); B96.20 Unspecified Escherichia coli [E. coli] as the cause of diseases classified elsewhere; I10 Essential (primary) hypertension
CPT/HCPCS: 87077; 96365; 99284; 81003; 81015; 87086; 87186; J0744

== ENCOUNTER 2021-09-23 10:45 | Outpatient (CLI) | payer MEDICAID, SELFPAY ==
--- NOTE | 2021-09-23 10:30 | DI.RAD_ITS ---
Exam(s) XR KNEE LT 2V AP,LAT EXAM: XR KNEE LT 2V AP,LAT CLINICAL HISTORY: ANNUAL F/U REVISION L TKA. TECHNIQUE: 2D digital imaging was performed. COMPARISON: CR XR KNEE LT 2V AP,LAT from 12/17/2020 FINDINGS: Two views Stable position alignment of the components of the prosthesis. No fracture or loosening. IMPRESSION: DATA REPOSITORY: RADIATION DOSE DELIVERED:
== END 2021-09-23 10:46 | disposition home or self-care (01) ==
LOC: DIORS 10:45
PROVIDERS: PCP Family Medicine; Referring Provider Family Medicine; Visit Provider Student in an Organized Health Care Education/Training Program
DX: Z96.652 Presence of left artificial knee joint (principal)
CPT/HCPCS: 73560

== ENCOUNTER 2021-10-28 19:23 | Outpatient (REF) | payer MEDICAID, SELFPAY ==
[2021-10-30 10:36] LABS: COVID-19 RT-PCR UVMMC Result Negative (Negative)
== END 2021-10-28 19:24 | disposition home or self-care (01) ==
LOC: LBN 19:23
PROVIDERS: PCP Family Medicine; Visit Provider Nurse Practitioner Family
DX: R09.89 Other specified symptoms and signs involving the circulatory and respiratory systems (principal); Z20.822 Contact with and (suspected) exposure to COVID-19
CPT/HCPCS: U0003

== ENCOUNTER 2021-11-27 12:23 | Emergency (ER) | payer MEDICAID, SELFPAY ==
[2021-11-27] VITALS (7 sets, daily range): BP systolic 92–143; BP diastolic 62–86; PULSE 66–72; RESP 11–21; TEMP 36.2–37; O2SAT 95–99
--- NOTE | 2021-11-27 12:30 | RT.EKG_ITS ---
APPROVED REPORT Exam: Resting ECG Reason for Exam: low calcium Patient Location: E HR:71 bpm ECG Measurements Heart Rate 71 AXIS OR 115 P -24 QRSd 68 QRS 52 QT 397 T 41 QTc 421 Conclusion Sinus rhythm...normal P axis, V-rate 60- 99 Ventricular premature complex...V complex w/ short R-R interval. Sinus. Normal axis. PVCs. No STEMI. I have reviewed and interpreted ECG and agree with software generated interpretation.
[2021-11-27 13:24] LABS: Abs Immature Grans 0.03 10^3/uL (0.0-0.06); Absolute Basophil Count 0.09 10^3/uL (0.0-0.2); Absolute Eosinophil Count 0.73 10^3/uL (0.0-0.7); Absolute Lymphocyte Count 2.85 10^3/uL (1.2-3.4); Absolute Monocyte Count 0.66 10^3/uL (0.1-0.8); Absolute Neutrophil Count 5.05 10^3/uL (1.2-6.7); Eosinophils % 7.8; HCT 43.9 % (36.0-46.0); HGB 14.4 g/dL (11.2-15.7); Immature Grans % 0.3; Lymphocytes % 30.3; MCH 29.1 pg (27.0-33.0); MCHC 32.8 % (32.0-36.0); MCV 89 fL (80-95); MPV 10.3 fL (8.0-11.0); Neutrophils % 53.6; Platelet Count 221 10^3/uL (130-400); RBC 4.94 10^6/uL (3.93-5.22); RDW 13.5 % (11.7-14.6); RDW-SD 43.8 fL; WBC 9.41 10^3/uL (4.4-10.8)
[2021-11-27 13:49] LABS: ALT 518 U/L (14-59); AST 186 U/L (15-37); Albumin 3.6 g/dL (3.4-5.0); Alkaline Phosphatase 133 U/L (46-116); Anion Gap 9.5 mmol/L (3-11); BUN 22 mg/dL (7-18); Bilirubin, Total 0.3 mg/dL (0.2-1.0); CO2 29.5 mmol/L (21.0-32.0); CREATININE 0.7 mg/dL (0.55-1.02); Calcium 7.9 mg/dL (8.5-10.1); Chloride 102 mmol/L (98-107); Glucose 95 mg/dL (74-106); Magnesium 1.4 mg/dL (1.8-2.4); PHOSPHORUS 5.4 mg/dL (2.6-4.7); Potassium 3.8 mmol/L (3.5-5.1); Sodium 141 mmol/L (136-145); Total Protein 7.7 g/dL (6.4-8.2)
--- NOTE | 2021-11-27 14:03 | ED.GENADUL_ITS ---
Discharge Plan Disposition Patient Disposition: HOME Condition: Stable Discharge Details Clinical Impression: Hypocalcemia, Hypomagnesemia, Elevated LFTs Primary Care Provider: Juana Syed V ED Provider: Joseph Prasad Home Meds and New Rx's Prescriptions: New Calcium 600 + D(3) 600 mg-5 mcg (200 unit) capsule 1 cap PO DAILY AM Qty: 30 0RF Continued duloxetine [Cymbalta] 60 MG capsule,delayed release(DR/EC) 120 mg PO DAILY triamcinolone acetonide 0.1 % cream 1 applic topical BID PRN ondansetron 4 mg tablet,disintegrating 4 mg PO TID PRN (Reason: nausea and vomiting) Qty: 6 0RF Held cholecalciferol (vitamin D3) 50 mcg (2,000 unit) capsule 50 mcg PO DAILY Hold Instructions: Until you meet with your software configuration analyst calcium carbonate [Tums] 200 MG tablet,chewable 2 tab PO PRN PRN Hold Instructions: Until you meet with your software configuration analyst Label Comments: not taking acetaminophen [Tylenol Extra Strength] 500 mg tablet 500 mg PO Q6H PRNQty: 90 0RF Hold Instructions: Due to your elevated liver function test please limit the amount of acetaminophen and you may do a small trial of ibuprofen/Motrin to see if this helps your pain and discomfort. Discontinued phenazopyridine [Pyridium] 100 mg tablet 100 mg PO TID PRNQty: 6 0RF No Action levothyroxine [Euthyrox] 112 mcg tablet 112 mcg QDAY Label Comments: TAKE 1 TABLET BY MOUTH ONCE DAILY Nicotrol 10 mg Cartridge 10 mg inhalation Q2H PRN PRNQty: 168 0RF calcium citrate 200 mg (950 mg) Tablet 1,425 mg PO TID Qty: 90 0RF Mag 64 64 mg Tablet,Delayed Release (Dr/Ec) 64 mg PO BID Qty: 60 0RF lorazepam 1 mg tablet 1 mg PO TID PRNQty: 20 0RF calcitriol 0.25 mcg Capsule 0.5 mcg PO TID Qty: 180 0RF Discharge Instructions Instructions: Hypocalcemia (ED), Hypomagnesemia (ED) Additional Instructions: Take medication as discussed and please follow-up with your software configuration analyst at [facility] within the next week. If you develop any new or significant worsening of your symptoms return immediately to the emergency department for recheck of your labs. Referrals: [facility] [Outside] - 1 week (Please call the software configuration analyst office on Monday for arrangement of your follow-up appointment.) Discharge Data Discharge Date/Time-TO BE ENTERED AT DEPARTURE: 11/27/21 15:27 Medical Decision Making Patient presenting to the emergency department for concern of elevated calcium. Patient had thyroidectomy 2 days ago and this morning she is now stating some slight tingling around her mouth and both of her hands. She does report history of anxiety but also was informed that this could be a symptom of low calcium. Patient has been in contact with her surgeon at [facility] who increased her oral calcium at home but due to persistent symptoms recommended her to come to the emergency department. Patient denies any chest pain or discomfort, abdominal pain, muscle spasms, headache, confusion. Physical exam is unremarkable except for positive for bilateral hand spasms finding with blood pressure cuff application. We will plan on checking labs and EKG. Please see physician interpretation note for full EKG report but patient is in sinus rhythm, no prolonged QT is noted, no obvious worrisome ST changes are appreciated on my review. Reviewed patient's labs and CBC is unremarkable, CMP does show calcium of 7.9, magnesium of 1.4, and elevated phosphorus. Patient also has elevated LFTs. Discussed with patient the elevated liver function test which she states that she has been taking acetaminophen after her surgery but states no more than 3000 mg in 1 day, does report history of fatty liver disease and that she has been told her labs were abnormal in the past. Patient continues to deny any abdominal pain. Encourage patient to reduce amount of Tylenol, avoid alcohol, and take Motrin as needed for pain. I did page [facility] and spoke to patient's software configuration analyst. Reviewed all of patient's labs and was given the recommendation for patient to be started on 600 mg elemental calcium with vitamin D3 otherwise at this time labs are none worrisome. Did inform the endocrinology of patient physical exam finding but they stated that this was not worrisome at this time due to patient lab level but they give patient a call return precautions and have patient check in with endocrinology office on Monday for arranging follow-up appointment. Discussed these recommendations with patient and also gave patient oral magnesium and calcium. Patient was agreeable to this recommendation and she stated preference to go home but clearly understood to return for any new or worsening symptoms. I did add on send out for parathyroid hormone and vitamin D3 level. Patient otherwise have repeat labs performed by endocrinology later this week. After discussion of diagnosis and plan of care patient has no further needs, questions, or concerns and states clear understanding to return to the emergency department for any worsening symptoms. This documentation was generated using [employer] dictation system, please disregard any oddities of phrase or misspellings. Lab Data Lab results reviewed: Yes I reviewed the patient's lab results. HPI General Mode of arrival: ambulatory . Date/Time Provider Initiated Documentation: 11/27/21 12:34 . Limitations to Documentation: no limitations . Information obtained by: patient and RN notes reviewed . History of Present Illness 65 year old F presents to the emergency department with the chief complaint of Low Ca, Quality is described as other (denies pain), Patient started experiencing this day(s) (1) and it has been constant. No relieving factors improve symptom(s), No exacerbating factors reported . Patient notes no other symptoms.. Patient did receive the following treatments prior to arrival, other (Ca tablets) Related Data Home Medications Medication Instructions Recorded Confirmed duloxetine 60 mg capsule,delayed 120 mg PO DAILY 09/14/12 11/28/21 release (Cymbalta) calcium carbonate 200 mg calcium 2 tab PO PRN PRN 07/28/14 11/28/21 (500 mg) chewable tablet (Tums) cholecalciferol (vitamin D3) 50 50 mcg PO DAILY 02/24/20 11/28/21 mcg (2,000 unit) capsule triamcinolone acetonide 0.1 % 1 applic topical BID PRN 02/24/20 09/29/21 topical cream acetaminophen 500 mg tablet 500 mg PO Q6H PRN #90 tabs 09/22/20 11/28/21 (Tylenol Extra Strength) ondansetron 4 mg disintegrating 4 mg PO TID PRN nausea and 04/24/21 11/28/21 tablet vomiting #6 tabs calcium carbonate 600 mg-vitamin 1 cap PO DAILY AM #30 caps 11/27/21 11/28/21 D3 5 mcg (200 unit) capsule (Calcium 600 + D(3)) levothyroxine 112 mcg tablet 112 mcg QDAY 11/28/21 11/28/21 (Euthyrox) calcium citrate 200 mg (950 mg) 1,425 mg PO TID #90 tabs 11/29/21 tablet lorazepam 1 mg tablet 1 mg PO TID PRN #20 tabs 11/29/21 magnesium chloride 64 mg 64 mg PO BID #60 tabs 11/29/21 (magnesium chloride) tablet,delayed release (Mag 64) nicotine 10 mg inhalation 10 mg inhalation Q2H PRN PRN #168 11/29/21 cartridge (Nicotrol) ea calcitriol 0.25 mcg capsule 0.5 mcg PO TID #180 caps 11/30/21 Previous Rx's Medication Instructions Recorded acetaminophen 500 mg tablet 500 mg PO Q6H PRN #90 tabs 09/22/20 (Tylenol Extra Strength) ondansetron 4 mg disintegrating 4 mg PO TID PRN nausea and 04/24/21 tablet vomiting #6 tabs calcium carbonate 600 mg-vitamin 1 cap PO DAILY AM #30 caps 11/27/21 D3 5 mcg (200 unit) capsule (Calcium 600 + D(3)) calcium citrate 200 mg (950 mg) 1,425 mg PO TID #90 tabs 11/29/21 tablet lorazepam 1 mg tablet 1 mg PO TID PRN #20 tabs 11/29/21 magnesium chloride 64 mg 64 mg PO BID #60 tabs 11/29/21 (magnesium chloride) tablet,delayed release (Mag 64) nicotine 10 mg inhalation 10 mg inhalation Q2H PRN PRN #168 11/29/21 cartridge (Nicotrol) ea calcitriol 0.25 mcg capsule 0.5 mcg PO TID #180 caps 11/30/21 Allergies Allergy/AdvReac Type Severity Reaction Status Date / Time morphine Allergy Severe Swelling/Ed Verified 11/28/21 05:48 lisa sulfamethoxazole Allergy Severe Hives Unverified 11/28/21 05:48 [From Bactrim] trimethoprim [From Bactrim] Allergy Severe Hives Unverified 11/28/21 05:48 amoxicillin [From Augmentin] Allergy Intermediate nausea, Unverified 11/28/21 05:48 hives clavulanic acid Allergy Intermediate nausea and Unverified 11/28/21 05:48 [From Augmentin] hives Sulfa (Sulfonamide Allergy Intermediate Hives Verified 11/28/21 05:48 Antibiotics) levofloxacin [From Levaquin] Allergy Unknown Other (See Unverified 11/28/21 05:48 Comment) fentanyl AdvReac Severe go crazy Verified 11/28/21 05:48 doxycycline AdvReac Intermediate headache Unverified 11/28/21 05:48 and vomiting nicotine [From Nicorette] AdvReac Intermediate Vomiting Verified 11/28/21 05:48 azithromycin AdvReac Unknown Nausea Verified 11/28/21 05:48 nitrofurantoin AdvReac Unknown Nausea Verified 11/28/21 05:48 [From Macrobid] bupropion HCl AdvReac Nausea, Verified 11/28/21 05:48 [From Wellbutrin] thought I was going crazy prednisone AdvReac Nausea, Verified 11/28/21 05:48 thought I was going crazy I get get General Stated Complaint: GenMedical CAROL: 2 Review of Systems Constitutional Constitutional: Denies body ache(s), Denies chills and Denies fever(s) Cardiovascular Cardiovascular: Denies chest pain and Denies dyspnea Respiratory Respiratory: Denies dyspnea Gastrointestinal Gastrointestinal: Denies abdominal pain, Denies nausea and Denies vomiting Musculoskeletal Musculoskeletal: Denies muscle cramps and Reports tingling (bilateral hands and around mouth) Integumentary/Breasts Skin/Breast: Denies rash Neurologic Neurologic: Denies confusion, Denies sensory deficit and Reports tingling (bilateral hands and around mouth) Psychiatric Psychiatric: Denies confusion PFSH All Active Problems Hypocalcemia (Acute) Hypomagnesemia (Acute) Elevated LFTs (Acute) Generalized weakness (Acute) Chronic GERD (Acute) Fatty liver disease, nonalcoholic (Acute) Allergic rhinitis due to allergen (Acute) Smoker (Acute) Chronic cough (Acute) Medical History Abdominal pain Acne rosacea Actinic keratosis Aftercare following joint replacement surgery Bursitis of right shoulder cervical carcinoma Chemical gastritis Chronic maxillary sinusitis Chronic rhinitis Femoroacetabular impingement of right hip Fibromyalgia GERD (gastroesophageal reflux disease) 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 denies this Interstitial cystitis Left upper quadrant pain Loosening of prosthesis of left total knee replacement Low TSH level OAB (overactive bladder) Painful total knee replacement, left Pelvic pain Pelvic pain in female Peritonsillar cellulitis (12/03/15) Post-nasal drip Primary osteoarthritis of right knee (04/23/15) Primary osteoarthritis, right shoulder Recurrent UTI Right-sided chest wall pain Rotator cuff tear, right Superficial laceration of skin (10/31/20) left mccray Trochanteric bursitis, right hip DEPO MEDROL 09/23/21 Surgical History Abdominal hysterectomy Arthroplasty of knee Colonoscopy - IV Sedation History of total left knee replacement Hx of rotator cuff surgery Hx of tonsillectomy Oophrectomy, Left Replacement of total knee joint (01/20/16) LEFT/DR. PIERRE S/P laparoscopic cholecystectomy S/P total abdominal hysterectomy Status post arthroscopy of right shoulder (11/03/08) Debridement, PASTA repair, subacromial decompression with acromioplasty, distal clavicle resection, open subpectoral biceps tenodesis Status post cholecystectomy (~07/14/20) TOT (Incontinence sling) Social History Smoking/Tobacco Use Status: Current every day Tobacco Type: cigarettes Smoking risk assessment performed?: Yes Alcohol Intake: current Alcohol Intake frequency: holidays/special occasions only Alcohol type: wine Drug use: Occasionally Substance use type: marijuana Details: currently on a quit smoking program Current gender identity: female Do you feel safe at home: Yes Do you feel safe in your relationship?: Yes Exam Const General: cooperative, no acute distress and not ill appearing Orientation: alert, awake and oriented x3 HENMT Mouth: moist mucous membranes Resp Effort & Inspection: normal respiratory effort, able to speak in complete sentences and no respiratory distress Cardio Rate: regular rate Rhythm: regular rhythm Heart Sounds: S1 normal and S2 normal Pulses: normal peripheral pulses Skin General skin exam: no rashes or lesions noted Neuro General: patient alert, patient awake, patient oriented x3, moves all extremities and no focal motor deficits Sensory Exam: no sensory deficits noted Extrem General: normal exam except as noted and other (Positive Trousseau sign with blood pressure cuff) Course Vital Signs Vital signs: Vital Signs Temperature 37 C 11/27/21 12:34 Pulse 70 11/27/21 12:34 Respiratory Rate 18 11/27/21 12:34 Blood Pressure 92/62 L 11/27/21 12:34 Pulse Oximetry 99 11/27/21 12:34 Temperature 37 C 11/27/21 12:34 Temperature Source Temporal Artery Scan 11/27/21 12:34 Pulse 68 11/27/21 13:27 Pulse 66 11/27/21 13:30 Respiratory Rate 16 11/27/21 13:30 Respiratory Effort 11/27/21 13:34 Respiratory Depth Normal 11/27/21 13:28 Respiratory Pattern Normal 11/27/21 13:28 Blood Pressure 143/85 H 11/27/21 13:27 Blood Pressure Mean 100 11/27/21 13:27 Blood Pressure Position Supine 11/27/21 12:34 Pulse Oximetry 96 11/27/21 13:30 Oxygen Delivery Method Room Air 11/27/21 12:34 Oxygen Flow Rate 0 11/27/21 12:34 Pain Level 0 11/27/21 12:34 Lab/Test Results Lab/Test Results: Laboratory Tests Range/Units 11/27/21 11/27/21 13:14 13:14 WBC (4.4-10.8) 10^3/uL 9.41 RBC (3.93-5.22) 10^6/uL 4.94 Hgb (11.2-15.7) g/dL 14.4 Hct (36.0-46.0) % 43.9 MCV (80-95) fL 89 MCH (27.0-33.0) pg 29.1 MCHC (32.0-36.0) % 32.8 RDW (11.7-14.6) % 13.5 Plt Count (130-400) 10^3/uL 221 MPV (8.0-11.0) fL 10.3 Immature Gran % 0.3 Neutrophils % 53.6 Lymphocytes % 30.3 Monocytes % 7.0 Eosinophils % 7.8 Basophils % 1.0 Nucleated RBC % (0.0-0.3) % 0.0 Absolute Neutrophils (1.2-6.7) 10^3/uL 5.05 Absolute Lymphocytes (1.2-3.4) 10^3/uL 2.85 Absolute Monocytes (0.1-0.8) 10^3/uL 0.66 Absolute Eosinophils (0.0-0.7) 10^3/uL 0.73 H Absolute Basophils (0.0-0.2) 10^3/uL 0.09 Sodium (136-145) mmol/L 141 Potassium (3.5-5.1) mmol/L 3.8 Chloride (98-107) mmol/L 102 Carbon Dioxide (21.0-32.0) mmol/L 29.5 Anion Gap (3-11) mmol/L 9.5 BUN (7-18) mg/dL 22 H Creatinine (0.55-1.02) mg/dL 0.7 Estimated GFR/1.73 m2 (mL/min/1.73m2) >= 60.00 Glucose (74-106) mg/dL 95 Calcium (8.5-10.1) mg/dL 7.9 L Phosphorus (2.6-4.7) mg/dL 5.4 H Magnesium (1.8-2.4) mg/dL 1.4 L Total Bilirubin (0.2-1.0) mg/dL 0.3 AST (15-37) U/L 186 H ALT (14-59) U/L 518 H Alkaline Phosphatase (46-116) U/L 133 H Total Protein (6.4-8.2) g/dL 7.7 Albumin (3.4-5.0) g/dL 3.6 PAWSS Have you Been Recently Intoxicated or Drunk Within the Last 30 days?: No Have you Ever Experienced Previous Episodes of Alcohol Withdrawal?: No Have you ever Experienced Withdrawal Seizures?: No Have you ever Experienced Delirium Tremens(DT)s?: No Have you ever undergone Alcohol Rehabilitation Treatment (i.e, inpt ot outpatient treatment programs)?: No Have you ever Experienced Blackouts?: No Have you ever Combined Alcohol with other Downers within the last 90 days?: No Have you ever Combined Alcohol with any other Substance of Abuse during the last 90 days?: No Positive Blood Alcohol level on Presentation? [PCS.BAL]: No Evidence of Increased Autonomic Activity (i.e. HR>120, tremor, sweating, agitation, nausea)?: No Result: 0
[2021-11-27] MEDS: Magnesium Oxide 400 MG TAB PO ×2 (14:49→15:24)
[2021-11-27] MEDS: Calcium 600mg/Vit D 200U TAB 1 TAB PO (14:50)
[2021-11-29 13:27] LABS: Parathyroid Hormone,Intact <6 pg/mL (19-88)
[2021-12-03 13:12] LABS: 25-Hydroxy D Total 43 ng/mL; 25-Hydroxy D2 <4.0 ng/mL; 25-Hydroxy D3 43 ng/mL
== END 2021-11-27 15:27 | disposition home or self-care (01) ==
PROVIDERS: Emergency Provider Nurse Practitioner Family; PCP Family Medicine
DX: E83.51 Hypocalcemia (principal); E83.42 Hypomagnesemia; E83.39 Other disorders of phosphorus metabolism; R79.89 Other specified abnormal findings of blood chemistry; I10 Essential (primary) hypertension; F17.210 Nicotine dependence, cigarettes, uncomplicated; Z79.899 Other long term (current) drug therapy
CPT/HCPCS: 80053; 82306; 93005; 99283; 83735; 83970; 84100; 84443; 85025; 93010; 99284

== ENCOUNTER 2021-11-28 05:39 | Observation (INO) | payer MEDICAID, SELFPAY ==
[2021-11-28] VITALS (26 sets, daily range): BP systolic 115–136; BP diastolic 73–99; PULSE 60–96; RESP 15–21; TEMP 35.9–36.9; O2SAT 92–96
--- NOTE | 2021-11-28 05:45 | RT.EKG_ITS ---
APPROVED REPORT Exam: Resting ECG Reason for Exam: electrolyte abnormality Patient Location: E HR:67 bpm ECG Measurements Heart Rate 67 AXIS OK 126 P -9 QRSd 67 QRS 56 QT 403 T 40 QTc 425 Conclusion Sinus rhythm...normal P axis, V-rate 60- 99 Physician: no stemi, intervals stable, no Qt or QRS prolongation
--- NOTE | 2021-11-28 06:05 | W.ED.GENAD ---
Discharge Plan Disposition Patient Disposition: STILL A PATIENT Discharge Details Clinical Impression: Hypomagnesemia, Hypocalcemia, Weakness, Tetany Primary Care Provider: Juana Syed V ED Provider: Joe Ragsdale Home Meds and New Rx's Prescriptions: No Action pantoprazole [Protonix] 40 mg tablet,delayed release (DR/EC) 40 mg PO DAILY Qty: 30 12RF duloxetine [Cymbalta] 60 MG capsule,delayed release(DR/EC) 120 mg PO DAILY cholecalciferol (vitamin D3) 50 mcg (2,000 unit) capsule 50 mcg PO DAILY Hold Instructions: Until you meet with your gas appliance servicer triamcinolone acetonide 0.1 % cream 1 applic topical BID PRN calcium carbonate [Tums] 200 MG tablet,chewable 2 tab PO PRN PRN Hold Instructions: Until you meet with your gas appliance servicer Label Comments: not taking acetaminophen [Tylenol Extra Strength] 500 mg tablet 500 mg PO Q6H PRNQty: 90 0RF Hold Instructions: Due to your elevated liver function test please limit the amount of acetaminophen and you may do a small trial of ibuprofen/Motrin to see if this helps your pain and discomfort. ondansetron 4 mg tablet,disintegrating 4 mg PO TID PRN (Reason: nausea and vomiting) Qty: 6 0RF Calcium 600 + D(3) 600 mg-5 mcg (200 unit) capsule 1 cap PO DAILY AM Qty: 30 0RF Medical Decision Making This is a 65-year-old female with a past medical history of GERD, hypertension, recent partial thyroidectomy now on levothyroxine, hysterectomy, appendectomy, cholecystectomy, previous peritonsillar abscess, who presents today for evaluation of weakness, and feeling generally ill. Patient states that she has been feeling slightly ill since her thyroidectomy 3 days ago at [facility]. She presented to the ER just yesterday, where she was evaluated and found to be hypomagnesemic, and hypocalcemic, in conjunction with transaminitis which is new for her. Unfortunately at the time of this ED visit the emergency department note from the prior visit was not completed, and so no additional history can be ascertained from there. However the patient does state that she was given oral magnesium and calcium and was feeling better after that. However she returns now after still feeling very poorly, and is requesting assistance. She denies any chest pain or shortness of breath. She admits to generalized feelings of weakness, tremor, and fatigue. She denies any other complaints at this time. Physical exam demonstrates a subjectively poorly feeling female, however clinically she does not demonstrate toxic appearance currently. Vital signs are stable, no focal neurologic deficits. She does have a negative Chvostek sign, but does have a positive Trousseau sign. Since she was given oral medications, I suspect that her electrolyte values are still low and potentially causative for her symptoms. We will evaluate for thyroid function as well. Patient did have notable hepatitis on her earlier visit, and she was scheduled for close follow-up with this. We will add a viral hepatitis panel. Uncertain as to why she has this as she is not seemingly had any significant elevation in her transaminases on review of her labs here. The patient is on Cymbalta, this could be a potential causative agent. Screening EKG that has been performed here stable with stable intervals. We will recheck the patient's electrolyte status, give IV magnesium and calcium, monitor closely and reassess. 7:12 AM Patient's calcium is unfortunately lower, corrected calcium level is 7.0. Magnesium is 1.5. Transaminases are slightly improving. TSH level normal. Potassium and sodium normal. Phosphorus level stable. Symptoms likely secondary to parathyroid hormone disruption secondary to surgery. Supplemental calcium has been administered 4.65 mill equivalents of IV calcium and 2 g of magnesium are still being administered. Patient is feeling better. The spasms and tingling has improved. We will get repeat levels of calcium and magnesium once supplementation is completed. My colleague Dr. Hurst will follow up on this for reassessment. HPI General Date/Time Provider Initiated Documentation: 11/28/21 05:42. HPI Narrative: This is a 65-year-old female with a past medical history of GERD, hypertension, recent partial thyroidectomy now on levothyroxine, hysterectomy, appendectomy, cholecystectomy, previous peritonsillar abscess, who presents today for evaluation of weakness, and feeling generally ill. Patient states that she has been feeling slightly ill since her thyroidectomy 3 days ago at [facility]. She presented to the ER just yesterday, where she was evaluated and found to be hypomagnesemic, and hypocalcemic, in conjunction with transaminitis which is new for her. Unfortunately at the time of this ED visit the emergency department note from the prior visit was not completed, and so no additional history can be ascertained from there. However the patient does state that she was given oral magnesium and calcium and was feeling better after that. However she returns now after still feeling very poorly, and is requesting assistance. She denies any chest pain or shortness of breath. She admits to generalized feelings of weakness, tremor, and fatigue. She denies any other complaints at this time. Related Data Home Medications Medication Instructions Recorded Confirmed duloxetine 60 mg capsule,delayed 120 mg PO DAILY 09/14/12 11/28/21 release (Cymbalta) calcium carbonate 200 mg calcium 2 tab PO PRN PRN 07/28/14 11/28/21 (500 mg) chewable tablet (Tums) cholecalciferol (vitamin D3) 50 50 mcg PO DAILY 02/24/20 11/28/21 mcg (2,000 unit) capsule triamcinolone acetonide 0.1 % 1 applic topical BID PRN 02/24/20 09/29/21 topical cream acetaminophen 500 mg tablet 500 mg PO Q6H PRN #90 tabs 09/22/20 11/28/21 (Tylenol Extra Strength) ondansetron 4 mg disintegrating 4 mg PO TID PRN nausea and 04/24/21 11/28/21 tablet vomiting #6 tabs pantoprazole 40 mg tablet,delayed 40 mg PO DAILY #30 tabs 05/10/21 11/28/21 release (Protonix) calcium carbonate 600 mg-vitamin 1 cap PO DAILY AM #30 caps 11/27/21 11/28/21 D3 5 mcg (200 unit) capsule (Calcium 600 + D(3)) Previous Rx's Medication Instructions Recorded acetaminophen 500 mg tablet 500 mg PO Q6H PRN #90 tabs 09/22/20 (Tylenol Extra Strength) ondansetron 4 mg disintegrating 4 mg PO TID PRN nausea and 04/24/21 tablet vomiting #6 tabs pantoprazole 40 mg tablet,delayed 40 mg PO DAILY #30 tabs 05/10/21 release (Protonix) calcium carbonate 600 mg-vitamin 1 cap PO DAILY AM #30 caps 11/27/21 D3 5 mcg (200 unit) capsule (Calcium 600 + D(3)) Allergies Allergy/AdvReac Type Severity Reaction Status Date / Time morphine Allergy Severe Swelling/Ed Verified 11/28/21 05:48 lisa sulfamethoxazole Allergy Severe Hives Unverified 11/28/21 05:48 [From Bactrim] trimethoprim [From Bactrim] Allergy Severe Hives Unverified 11/28/21 05:48 amoxicillin [From Augmentin] Allergy Intermediate nausea, Unverified 11/28/21 05:48 hives clavulanic acid Allergy Intermediate nausea and Unverified 11/28/21 05:48 [From Augmentin] hives Sulfa (Sulfonamide Allergy Intermediate Hives Verified 11/28/21 05:48 Antibiotics) levofloxacin [From Levaquin] Allergy Unknown Other (See Unverified 11/28/21 05:48 Comment) fentanyl AdvReac Severe go crazy Verified 11/28/21 05:48 doxycycline AdvReac Intermediate headache Unverified 11/28/21 05:48 and vomiting nicotine [From Nicorette] AdvReac Intermediate Vomiting Verified 11/28/21 05:48 azithromycin AdvReac Unknown Nausea Verified 11/28/21 05:48 nitrofurantoin AdvReac Unknown Nausea Verified 11/28/21 05:48 [From Macrobid] bupropion HCl AdvReac Nausea, Verified 11/28/21 05:48 [From Wellbutrin] thought I was going crazy prednisone AdvReac Nausea, Verified 11/28/21 05:48 thought I was going crazy I get get General Stated Complaint: Recheck CAROL: 3 Review of Systems All systems reviewed & are unremarkable except as noted in HPI and below PFSH All Active Problems (Updated 11/28/21 @ 07:18 by Joe Rgasdale DO) Hypocalcemia (Acute) Hypomagnesemia (Acute) Elevated LFTs (Acute) Hypomagnesemia (Acute) Hypocalcemia (Acute) Weakness (Acute) Tetany (Acute) Rotator cuff tear, right (Acute) Chemical gastritis (Acute) Chronic GERD (Acute) Status post arthroscopy of right shoulder (Acute 11/03/08) Debridement, PASTA repair, subacromial decompression with acromioplasty, distal clavicle resection, open subpectoral biceps tenodesis Bursitis of right shoulder (Acute) Primary osteoarthritis, right shoulder (Acute) Superficial laceration of skin (Acute 10/31/20) left mccray History of revision of total replacement of left knee joint (Acute 09/22/20) History of total left knee replacement (Acute) Primary osteoarthritis of right knee (Acute 04/23/15) Peritonsillar cellulitis (Acute 12/03/15) Aftercare following joint replacement surgery (Acute) Pelvic pain in female (Acute) Trochanteric bursitis, right hip (Acute) DEPO MEDROL 09/23/21 Femoroacetabular impingement of right hip (Acute) Post-nasal drip (Acute) Actinic keratosis (Acute) Loosening of prosthesis of left total knee replacement (Acute) S/P laparoscopic cholecystectomy (Acute) Right-sided chest wall pain (Acute) Fatty liver disease, nonalcoholic (Acute) Allergic rhinitis due to allergen (Acute) Smoker (Acute) Chronic cough (Acute) Interstitial cystitis (Acute) Painful total knee replacement, left (Acute) Chronic rhinitis (Acute) Chronic maxillary sinusitis (Acute) OAB (overactive bladder) (Acute) Medical History Abdominal pain Acne rosacea cervical carcinoma Fibromyalgia GERD (gastroesophageal reflux disease) Hypertension pt. denies this Left upper quadrant pain Low TSH level Pelvic pain Recurrent UTI Surgical History Abdominal hysterectomy Arthroplasty of knee Colonoscopy - IV Sedation Hx of rotator cuff surgery Hx of tonsillectomy Oophrectomy, Left S/P total abdominal hysterectomy Status post cholecystectomy (~07/14/20) TOT (Incontinence sling) Social History Smoking/Tobacco Use Status: Current every day Tobacco Type: cigarettes Smoking risk assessment performed?: Yes Alcohol Intake: current Alcohol Intake frequency: holidays/special occasions only Alcohol type: wine Drug use: Occasionally Substance use type: marijuana Details: currently on a quit smoking program Current gender identity: female Do you feel safe at home: Yes Do you feel safe in your relationship?: Yes Exam Narrative Exam Narrative: 1.Const: Well-nourished, Well-developed, appearing stated age 2.Eyes: PERRL, no conjunctival injection, and symmetrical lids. 3.ENT: Atraumatic external nose and ears. Moist MM. Neck: Symmetric, trachea midline, No thyromegaly. 4.CVS: +S1/S2, No murmurs or gallops. Peripheral pulses 2+ and equal in all extremities. Brisk capillary refill in all extremities. 5.RESP: Unlabored respiratory effort. Clear to auscultation bilaterally. No wheezes rales or rhonchi 6.GI: Soft, Nontender/Nondistended, No hepatosplenomegaly. No guarding or rebound. 7.MSK: Normocephalic/Atraumatic, Extremities w/o deformity or ttp No cyanosis or clubbing, Normal movement of all extremities. Patient does have a positive Trousseau sign, but a negative Chvostek sign. No hyperreflexia. Patellar reflexes are +1 bilaterally. No clonus. No asterixis. 8.Skin: Warm, Dry. No rashes or lesions. 9.Neuro: wet washer machine II-XII grossly intact. Sensation grossly intact, no focal neurologic deficits. 10.Psych: (AAO) x3. Appropriate mood and affect Course Vital Signs Vital signs: Vital Signs Temperature 36.1 C L 11/28/21 05:45 Pulse 79 11/28/21 05:45 Respiratory Rate 16 11/28/21 05:45 Blood Pressure 118/99 H 11/28/21 05:45 Pulse Oximetry 96 11/28/21 05:45 Temperature 36.1 C L 11/28/21 05:45 Temperature Source Skin 11/28/21 05:45 Pulse 79 11/28/21 05:45 Respiratory Rate 16 11/28/21 05:45 Respiratory Effort Non-Labored 11/28/21 05:50 Blood Pressure 118/99 H 11/28/21 05:45 Blood Pressure Position Sitting 11/28/21 05:45 Pulse Oximetry 96 11/28/21 05:45 Oxygen Delivery Method Room Air 11/28/21 05:45 Oxygen Flow Rate 0 11/28/21 05:45
[2021-11-28] MEDS: Normal Saline 50 ML 200 ML (06:27)
[2021-11-28] MEDS: MAGNESIUM SULFATE 2 GM/50 ML BAG IVPB (06:27)
[2021-11-28] MEDS: Calcium Gluconate 4.65 MEQ/10 ML VIAL 4.65 MG IVP ×3 (06:27→23:40)
[2021-11-28 06:31] LABS: Abs Immature Grans 0.02 10^3/uL (0.0-0.06); Absolute Eosinophil Count 0.77 10^3/uL (0.0-0.7); Absolute Lymphocyte Count 2.04 10^3/uL (1.2-3.4); Absolute Monocyte Count 0.77 10^3/uL (0.1-0.8); Absolute Neutrophil Count 4.48 10^3/uL (1.2-6.7); Basophils % 1.2; Eosinophils % 9.4; HCT 44.2 % (36.0-46.0); HGB 14.7 g/dL (11.2-15.7); Immature Grans % 0.2; Lymphocytes % 24.9; MCH 29.5 pg (27.0-33.0); MCHC 33.3 % (32.0-36.0); MCV 89 fL (80-95); MPV 10.3 fL (8.0-11.0); Monocytes % 9.4; Neutrophils % 54.9; Platelet Count 219 10^3/uL (130-400); RBC 4.99 10^6/uL (3.93-5.22); RDW 13.6 % (11.7-14.6); RDW-SD 44.2 fL; WBC 8.18 10^3/uL (4.4-10.8)
[2021-11-28 06:48] LABS: Ammonia 20 umol/L (11-32)
[2021-11-28 06:50] LABS: ALT 393 U/L (14-59); AST 99 U/L (15-37); Albumin 3.6 g/dL (3.4-5.0); Alkaline Phosphatase 132 U/L (46-116); Anion Gap 8.3 mmol/L (3-11); BUN 23 mg/dL (7-18); Bilirubin, Total 0.3 mg/dL (0.2-1.0); CO2 31.7 mmol/L (21.0-32.0); CREATININE 0.7 mg/dL (0.55-1.02); Calcium 7.1 mg/dL (8.5-10.1); Chloride 102 mmol/L (98-107); Glucose 113 mg/dL (74-106); Lipase 104 U/L (73-393); Magnesium 1.5 mg/dL (1.8-2.4); PHOSPHORUS 4.8 mg/dL (2.6-4.7); Potassium 3.9 mmol/L (3.5-5.1); Sodium 142 mmol/L (136-145); Total Protein 7.5 g/dL (6.4-8.2)
[2021-11-28 06:55] LABS: Troponin I < 50 ng/L (<or=60)
[2021-11-28 07:00] LABS: TSH (W/Ref FT4) 0.82 uIU/mL (0.36-3.74)
[2021-11-28] MEDS: Normal Saline 500 ML IV (07:40)
[2021-11-28 07:57] LABS: Anion Gap 8.6 mmol/L (3-11); BUN 24 mg/dL (7-18); CO2 28.4 mmol/L (21.0-32.0); CREATININE 0.6 mg/dL (0.55-1.02); Calcium 7.7 mg/dL (8.5-10.1); Chloride 103 mmol/L (98-107); Glucose 110 mg/dL (74-106); Magnesium 2.5 mg/dL (1.8-2.4); Potassium 4.1 mmol/L (3.5-5.1); Sodium 140 mmol/L (136-145)
--- NOTE | 2021-11-28 08:16 | ED.PROG_ITS ---
Date of service: 11/28/21 Time of Service: 08:00 Medical Decision Making 0800 -- please see Dr. Ragsdale's note for initial presentation, exam and plan. Patient is a 65-year-old female who is 3 days status post total thyroidectomy at [facility] for thyroid neoplasm who has now presented 2 days in a row here to the ED for feeling generally unwell with generalized weakness, nausea and tingling in her head, back and extremities. She was noted to have hypocalcemia of 7.9 and hypomagnesemia of 1.4 on yesterday's ED visit and was given oral supplementation of both calcium and magnesium and was discharged home. She represented this morning for continuing to feel unwell with tingling in her back and legs. Positive Trousseau's sign on exam. On repeat labs in the ED this morning, calcium 7.1 and magnesium 1.5. She was given IV supplementation of both calcium and magnesium and plan is to follow-up on repeat labs after supplementation. Per discussion with Dr. Ragsdale, recommended likely admission for continued monitoring of electrolytes and replenishment as needed. 929 --Case discussed with patient's endocrinology surgeon Dr. Link --she is recommending a loading dose of Tums at 4000 mg in addition to calcium citrate or carbonate p.o. 1500 mg 3 times daily and calcitriol 0.5 mcg p.o. twice daily. S he is recommended to continue the calcium citrate and calcitriol upon discharge until her post-op appointment. 944 --Case discussed with hospitalist who accepts patient for admission. Medical Records Medical records reviewed: Yes I reviewed the patient's medical records. Lab Data Lab results reviewed: Yes I reviewed the patient's lab results. ECG Data Attestation: I personally reviewed and interpreted this ECG (s) as follows: Interpretation: rate of 67, sinus, normal axis, normal QRS and QT, no stemi. Sign Out Sign Out Data: Sign Out Comment: Recently here yesterday, returned because of feeling unwell. Hypomagnesemia and hypocalcemia present. Follow-up on repeat labs. Last updated by Joe Ragsdale DO at 11/28/21 07:44 Discharge Plan Disposition Patient Disposition: [facility] INPAT[facility] Discharge Details Clinical Impression: Hypocalcemia, Hypomagnesemia, Tetany, Paresthesias, Generalized weakness, Transaminitis Primary Care Provider: Juana Syed V ED Provider: Margie Hurst Home Meds and New Rx's Prescriptions: No Action pantoprazole [Protonix] 40 mg tablet,delayed release (DR/EC) 40 mg PO DAILY Qty: 30 12RF duloxetine [Cymbalta] 60 MG capsule,delayed release(DR/EC) 120 mg PO DAILY cholecalciferol (vitamin D3) 50 mcg (2,000 unit) capsule 50 mcg PO DAILY Hold Instructions: Until you meet with your boatwright triamcinolone acetonide 0.1 % cream 1 applic topical BID PRN calcium carbonate [Tums] 200 MG tablet,chewable 2 tab PO PRN PRN Hold Instructions: Until you meet with your boatwright Label Comments: not taking acetaminophen [Tylenol Extra Strength] 500 mg tablet 500 mg PO Q6H PRNQty: 90 0RF Hold Instructions: Due to your elevated liver function test please limit the amount of acetaminophen and you may do a small trial of ibuprofen/Motrin to see if this helps your pain and discomfort. ondansetron 4 mg tablet,disintegrating 4 mg PO TID PRN (Reason: nausea and vomiting) Qty: 6 0RF Calcium 600 + D(3) 600 mg-5 mcg (200 unit) capsule 1 cap PO DAILY AM Qty: 30 0RF
[2021-11-28] MEDS: Calcium Citrate 950 MG TAB 1425 MG PO ×2 (09:59→17:28)
[2021-11-28] MEDS: Calcitriol 0.25 MCG CAP 0.5 MCG PO ×2 (09:59→17:16)
[2021-11-28] MEDS: Calcium Carbonate *TUMS* 500 MG CHEW 4000 MG PO (10:16)
[2021-11-28] MEDS: Acetaminophen 325 MG TAB PO (10:17)
[2021-11-28 10:29] LABS: Source Nasal/Nares
[2021-11-28 11:11] LABS: COVID-19 PCR Negative (Negative)
[2021-11-28 11:15] LABS: Acetaminophen < 2 ug/mL (10-30)
[2021-11-28] MEDS: Ondansetron O.D.T. 4 MG TABEF PO (11:49)
[2021-11-28 16:16] LABS: Anion Gap 7.2 mmol/L (3-11); BUN 22 mg/dL (7-18); CO2 30.8 mmol/L (21.0-32.0); CREATININE 0.8 mg/dL (0.55-1.02); Calcium 7.4 mg/dL (8.5-10.1); Chloride 101 mmol/L (98-107); Glucose 96 mg/dL (74-106); Sodium 139 mmol/L (136-145)
--- NOTE | 2021-11-28 17:07 | W.PM.HP.N ---
Date of service: 11/28/21 Time of Service: 17:07 Assessment and Plan Assessment and plan (1) Hypocalcemia: Status: Acute Assessment and plan: Thyroidectomy 11/25 @ [facility] - Calcium returned to the ED today 7.1 - rec'd 1 gm calcium gluconate; 0.5 mcg calcitriol; and calcium citrate 1425 mg. Recheck was 7.7. Rechecked at 1600 -7.4 - repeated calcium gluconate 1 gm, calcitriol 0.5 mcg, and calcium citrate 1425 mg. (2) Tetany: Status: Acute Assessment and plan: Monitor calcium - as above (3) Generalized weakness: Status: Acute Assessment and plan: as above (4) Elevated LFTs: Status: Acute Assessment and plan: Hx fatty liver; AST 99 [id number] Alk Phos 132 Will recheck 11/29 (5) Chronic GERD: Status: Acute Assessment and plan: Stable - continue pantoprazole History of Present Illness History of Present Illness Chief Complaint: Low calcium Narrative: This is a 65-year-old female patient with a past medical history of thyroidectomy on 11/25/2021, GERD, chronic cough, and fatty liver disease, presented to the [facility] emergency room on 11/27/2021 with the chief complaint of feeling weak and slight tingling around her mouth and both hands. She had already spoken with her surgeon at [facility] [place], who advised her to increase her oral calcium at home, which she did. Due to persistent symptoms, her surgeon recommended she come to the emergency department. The patient denied any chest pain or discomfort, abdominal pain, headache, or confusion. Physical exam was unremarkable except for positive bilateral hand spasms with blood pressure cuff application. EKG was sinus rhythm, no prolonged QT, and no noticeable worrisome ST changes. CBC was unremarkable; CMP did show calcium of 7.9, magnesium of 1.4, and elevated phosphorus. The patient also had elevated LFTs. The ED provider discussed the elevated liver function test with the patient, in which she stated she has been taking acetaminophen after her surgery but states no more than 3000 mg in 1 day; she has been told her liver labs were abnormal in the past and she has a fatty liver. The patient continued to deny any abdominal pain. The provider in the emergency department contacted her java lead developer and was given the recommendation for the patient to be started on 600 mg elemental calcium with vitamin D3; otherwise, at that time, labs were not worrisome. She was discharged home. She returned today with the chief complaint of continued weakness and overall feeling of not well. The patient's calcium was, unfortunately, lower. The corrected calcium level was 7.0. Magnesium was 1.5. Transaminases are slightly improving. TSH level normal. Potassium and sodium are normal?phosphorus levels are stable. Symptoms are likely secondary to parathyroid hormone disruption secondary to surgery. Supplemental calcium was administered 1 gram of IV calcium gluconate, and 2 g of magnesium was also administered. The patient was feeling better. The spasms and tingling improved. Repeat labs weren't much better. She was placed on observation on the medical unit to monitor and treat hypocalcemia. Discussed with Dr Holm Review of Systems All systems reviewed & are unremarkable except as noted in HPI and below PFSH All Active Problems (Updated 11/28/21 @ 17:23 by Jayna Roman NP) Hypocalcemia (Acute) Hypomagnesemia (Acute) Elevated LFTs (Acute) Tetany (Acute) Paresthesias (Acute) Generalized weakness (Acute) Transaminitis (Acute) Chronic GERD (Acute) Fatty liver disease, nonalcoholic (Acute) Allergic rhinitis due to allergen (Acute) Smoker (Acute) Chronic cough (Acute) Medical History (Updated 11/28/21 @ 17:23 by Jayna Roman NP) Abdominal pain Acne rosacea Actinic keratosis Aftercare following joint replacement surgery Bursitis of right shoulder cervical carcinoma Chemical gastritis Chronic maxillary sinusitis Chronic rhinitis Femoroacetabular impingement of right hip Fibromyalgia GERD (gastroesophageal reflux disease) 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 denies this Interstitial cystitis Left upper quadrant pain Loosening of prosthesis of left total knee replacement Low TSH level OAB (overactive bladder) Painful total knee replacement, left Pelvic pain Pelvic pain in female Peritonsillar cellulitis (12/03/15) Post-nasal drip Primary osteoarthritis of right knee (04/23/15) Primary osteoarthritis, right shoulder Recurrent UTI Right-sided chest wall pain Rotator cuff tear, right Superficial laceration of skin (10/31/20) left mccray Trochanteric bursitis, right hip DEPO MEDROL 09/23/21 Surgical History (Updated 11/28/21 @ 17:23 by Jayna Roman NP) Abdominal hysterectomy Arthroplasty of knee Colonoscopy - IV Sedation History of total left knee replacement Hx of rotator cuff surgery Hx of tonsillectomy Oophrectomy, Left Replacement of total knee joint (01/20/16) LEFT/DR. PIERRE S/P laparoscopic cholecystectomy S/P total abdominal hysterectomy Status post arthroscopy of right shoulder (11/03/08) Debridement, PASTA repair, subacromial decompression with acromioplasty, distal clavicle resection, open subpectoral biceps tenodesis Status post cholecystectomy (~07/14/20) TOT (Incontinence sling) Social History Smoking/Tobacco Use Status: Current every day Tobacco Type: cigarettes Smoking risk assessment performed?: Yes Alcohol Intake: current Alcohol Intake frequency: holidays/special occasions only Alcohol type: wine Drug use: Occasionally Substance use type: marijuana Details: currently on a quit smoking program Current gender identity: female Do you feel safe at home: Yes Do you feel safe in your relationship?: Yes Meds Allergies and Home Medications Allergies Allergy/AdvReac Type Severity Reaction Status Date / Time morphine Allergy Severe Swelling/Ed Verified 11/28/21 05:48 lisa sulfamethoxazole Allergy Severe Hives Unverified 11/28/21 05:48 [From Bactrim] trimethoprim [From Bactrim] Allergy Severe Hives Unverified 11/28/21 05:48 amoxicillin [From Augmentin] Allergy Intermediate nausea, Unverified 11/28/21 05:48 hives clavulanic acid Allergy Intermediate nausea and Unverified 11/28/21 05:48 [From Augmentin] hives Sulfa (Sulfonamide Allergy Intermediate Hives Verified 11/28/21 05:48 Antibiotics) levofloxacin [From Levaquin] Allergy Unknown Other (See Unverified 11/28/21 05:48 Comment) fentanyl AdvReac Severe go crazy Verified 11/28/21 05:48 doxycycline AdvReac Intermediate headache Unverified 11/28/21 05:48 and vomiting nicotine [From Nicorette] AdvReac Intermediate Vomiting Verified 11/28/21 05:48 azithromycin AdvReac Unknown Nausea Verified 11/28/21 05:48 nitrofurantoin AdvReac Unknown Nausea Verified 11/28/21 05:48 [From Macrobid] bupropion HCl AdvReac Nausea, Verified 11/28/21 05:48 [From Wellbutrin] thought I was going crazy prednisone AdvReac Nausea, Verified 11/28/21 05:48 thought I was going crazy I get get Home Medications Medication Instructions Recorded Confirmed Type duloxetine 60 mg capsule,delayed 120 mg PO DAILY 09/14/12 11/28/21 History release (Cymbalta) calcium carbonate 200 mg calcium 2 tab PO PRN PRN 07/28/14 11/28/21 History (500 mg) chewable tablet (Tums) cholecalciferol (vitamin D3) 50 50 mcg PO DAILY 02/24/20 11/28/21 History mcg (2,000 unit) capsule triamcinolone acetonide 0.1 % 1 applic topical BID PRN 02/24/20 09/29/21 History topical cream acetaminophen 500 mg tablet 500 mg PO Q6H PRN #90 tabs 09/22/20 11/28/21 Rx (Tylenol Extra Strength) ondansetron 4 mg disintegrating 4 mg PO TID PRN nausea and 04/24/21 11/28/21 Rx tablet vomiting #6 tabs pantoprazole 40 mg tablet,delayed 40 mg PO DAILY #30 tabs 05/10/21 11/28/21 Rx release (Protonix) calcium carbonate 600 mg-vitamin 1 cap PO DAILY AM #30 caps 11/27/21 11/28/21 Rx D3 5 mcg (200 unit) capsule (Calcium 600 + D(3)) levothyroxine 112 mcg tablet 112 mcg QDAY 11/28/21 11/28/21 History (Euthyrox) Exam Narrative Exam Narrative: 1.Const: Well-nourished, Well-developed, appearing stated age 2.Eyes: PERRL, no conjunctival injection, and symmetrical lids. 3.ENT: Atraumatic external nose and ears. Moist MM. Neck: Symmetric, trachea midline, bandage over incision from thyroidectomy 11/25 - clean and dry - not removed. 4.CVS: +S1/S2, No murmurs or gallops. Peripheral pulses 2+ and equal in all extremities. Brisk capillary refill in all extremities. 5.RESP: Unlabored respiratory effort. Clear to auscultation bilaterally. No wheezes rales or rhonchi occasional smokers cough 6.GI: Soft, Nontender/Nondistended, No hepatosplenomegaly. No guarding or rebound. 7.MSK: Normocephalic/Atraumatic, Extremities w/o deformity, No cyanosis or clubbing, Normal movement of all extremities. Patient does have a positive Trousseau sign, but a negative Chvostek sign. No hyperreflexia. Patellar reflexes are +2 bilaterally. No clonus. No asterixis. 8.Skin: Warm, Dry. No rashes or lesions. 9.Neuro: merchant tailor II-XII grossly intact. Sensation grossly intact, no focal neurologic deficits. 10.Psych: (AAO) x3. Appropriate mood and affect Results Labs Result diagrams: 11/28/21 06:23 11/28/21 15:59 Labs: Laboratory Results - last 24 hr 11/28/21 11/28/21 11/28/21 06:23 06:23 06:23 WBC 8.18 RBC 4.99 Hgb 14.7 Hct 44.2 MCV 89 MCH 29.5 MCHC 33.3 RDW 13.6 Plt Count 219 MPV 10.3 Immature Gran % 0.2 Neutrophils % 54.9 Lymphocytes % 24.9 Monocytes % 9.4 Eosinophils % 9.4 Basophils % 1.2 Nucleated RBC % 0.0 Absolute Neutrophils 4.48 Absolute Lymphocytes 2.04 Absolute Monocytes 0.77 Absolute Eosinophils 0.77 H Absolute Basophils 0.10 Sodium 142 Potassium 3.9 Chloride 102 Carbon Dioxide 31.7 Anion Gap 8.3 BUN 23 H Creatinine 0.7 Estimated GFR/1.73 m2 >= 60.00 Glucose 113 H Calcium 7.1 L Phosphorus 4.8 H Magnesium 1.5 L Total Bilirubin 0.3 AST 99 H ALT 393 H Alkaline Phosphatase 132 H Ammonia 20 Troponin I Total Protein 7.5 Albumin 3.6 Lipase 104 TSH Acetaminophen COVID-19 Source SARS-CoV-2 (PCR) 11/28/21 11/28/21 11/28/21 06:23 06:23 07:43 WBC RBC Hgb Hct MCV MCH MCHC RDW Plt Count MPV Immature Gran % Neutrophils % Lymphocytes % Monocytes % Eosinophils % Basophils % Nucleated RBC % Absolute Neutrophils Absolute Lymphocytes Absolute Monocytes Absolute Eosinophils Absolute Basophils Sodium 140 Potassium 4.1 Chloride 103 Carbon Dioxide 28.4 Anion Gap 8.6 BUN 24 H Creatinine 0.6 Estimated GFR/1.73 m2 >= 60.00 Glucose 110 H Calcium 7.7 L Phosphorus Magnesium 2.5 H Total Bilirubin AST ALT Alkaline Phosphatase Ammonia Troponin I < 50 Total Protein Albumin Lipase TSH 0.82 Acetaminophen COVID-19 Source SARS-CoV-2 (PCR) 11/28/21 11/28/21 11/28/21 10:20 10:27 15:59 WBC RBC Hgb Hct MCV MCH MCHC RDW Plt Count MPV Immature Gran % Neutrophils % Lymphocytes % Monocytes % Eosinophils % Basophils % Nucleated RBC % Absolute Neutrophils Absolute Lymphocytes Absolute Monocytes Absolute Eosinophils Absolute Basophils Sodium 139 Potassium 4.0 Chloride 101 Carbon Dioxide 30.8 Anion Gap 7.2 BUN 22 H Creatinine 0.8 Estimated GFR/1.73 m2 >= 60.00 Glucose 96 Calcium 7.4 L Phosphorus Magnesium Total Bilirubin AST ALT Alkaline Phosphatase Ammonia Troponin I Total Protein Albumin Lipase TSH Acetaminophen < 2 COVID-19 Source Nasal/Nares SARS-CoV-2 (PCR) Negative Last Vital Signs Temp 36.9 C 11/28/21 15:40 Pulse 72 11/28/21 15:40 Resp 16 11/28/21 15:40 BP 115/77 11/28/21 15:40 Pulse Ox 96 11/28/21 15:40
[2021-11-28] MEDS: Normal Saline 50 ML 400 ML (18:07)
[2021-11-28 22:25] LABS: Calcium 7.5 mg/dL (8.5-10.1)
[2021-11-28] MEDS: Normal Saline 50 ML 100 ML (23:43)
[2021-11-29] VITALS (17 sets, daily range): BP systolic 121–150; BP diastolic 75–94; PULSE 60–71; RESP 16–18; TEMP 36.3–37.1; O2SAT 92–96
[2021-11-29] MEDS: Levothyroxine 112 MCG TAB PO (05:48)
[2021-11-29 06:47] LABS: ALT 261 U/L (14-59); AST 55 U/L (15-37); Albumin 3.3 g/dL (3.4-5.0); Alkaline Phosphatase 116 U/L (46-116); Anion Gap 7.6 mmol/L (3-11); BUN 19 mg/dL (7-18); Bilirubin, Direct 0.1 mg/dL (0.0-0.2); Bilirubin, Total 0.5 mg/dL (0.2-1.0); CO2 32.4 mmol/L (21.0-32.0); CREATININE 0.7 mg/dL (0.55-1.02); Calcium 7.7 mg/dL (8.5-10.1); Chloride 102 mmol/L (98-107); Glucose 99 mg/dL (74-106); Magnesium 1.6 mg/dL (1.8-2.4); Potassium 4.1 mmol/L (3.5-5.1); Sodium 142 mmol/L (136-145); Total Protein 7.2 g/dL (6.4-8.2)
[2021-11-29] MEDS: Calcium Citrate 950 MG TAB 1425 MG PO ×4 (07:35→20:11)
[2021-11-29] MEDS: DULoxetine 30 MG CAP 120 MG PO (07:36)
[2021-11-29] MEDS: Cholecalciferol (Vitamin D3) 1,000 UNIT TAB 2000 UNITS PO (07:36)
[2021-11-29] MEDS: Calcitriol 0.25 MCG CAP 0.5 MCG PO ×2 (07:37→20:12)
[2021-11-29] MEDS: Magnesium Chloride 64 MG TABCR PO ×2 (08:02→20:11)
[2021-11-29] MEDS: Normal Saline Flush 10 ML SYR IVP ×4 (08:04→17:33)
[2021-11-29] MEDS: MAGNESIUM SULFATE 2 GM/50 ML BAG IVPB (08:04)
[2021-11-29] MEDS: Pantoprazole 40 MG TABCR PO (08:04)
--- NOTE | 2021-11-29 09:20 | W.PM.PROGNOT ---
Date of Service Date of service: 11/29/21 Time of Service: 09:21 Assessment and Plan Assessment and plan (1) Hypocalcemia: Status: Acute Assessment and plan: Thyroidectomy 11/25 @ [facility] [place] - today her corrected calcium is 8.0 (2) [place]: Status: Resolved Assessment and plan: Monitor calcium - as above continues to have intermittant carpopedal spasm ; upper extremity > lower (3) Generalized weakness: Status: Acute Assessment and plan: as above Continues to feel weak, however is able to walk independently in the matos without dizziness or need for a rest. She has no diff breathing and no chest pain. (4) Elevated LFTs: Status: Acute Assessment and plan: Hx fatty liver; Normalizing (5) Chronic GERD: Status: Acute Assessment and plan: Stable - discontinued pantroprazole at direction of needleworker at [facility] [place] Dr Link Subjective Subjective Patient reports: no new complaints Interval history since last seen: Continues to have tetany and anxiety, no chest pain, no difficulty breathing. I spoke with Dr Link endocrinology @ [facility] [place]; she recommended increasing calcitriol to three times a day and calcium citrate three times a day - I called her pharmacy and changed the prescription to three times a day Exam Narrative Exam Narrative: Const General: no acute distress Nutritional Appearance: average body habitus [facility] Head: normocephalic Ears: external ears normal and no periauricular adenopathy General nose exam: nasal mucous membranes and turbinates normal Face and sinus: sinuses nontender Mouth: oropharynx normal and moist mucous membranes Teeth and gingiva: dentition normal Eyes General: appearance normal, both eyes and all related structures Pupils: PERRL Neck Neck: normal visual inspection and no lymphadenopathy Chest Chest: normal inspection of the chest Resp Effort & Inspection: normal respiratory effort Auscultation: no rales, no rhonchi and no wheezes Cardio Rate: 70's Rhythm: regular rhythm Heart Sounds: S1 normal, S2 normal and no murmurs Pulses: radial pulses present bilaterally GI Inspection: normal to inspection BS present x 4 Palpation: soft Skin General skin exam: no rashes or lesions noted Neuro General: patient alert, patient awake and patient oriented x3 Extrem General: no clubbing, cyanosis or edema, positive trousseau's sign, negative Chvotstek's Psych Mental Status: mental status grossly normal Affect: normal affect Attitude: cooperative Objective Last Vital Signs Temp 36.6 C 11/29/21 07:29 Pulse 66 11/29/21 07:29 Resp 16 11/29/21 07:29 BP 121/79 11/29/21 07:29 Pulse Ox 93 11/29/21 07:29 Laboratory Results - last 24 hr 11/28/21 11/28/21 11/28/21 10:20 10:27 15:59 Sodium 139 Potassium 4.0 Chloride 101 Carbon Dioxide 30.8 Anion Gap 7.2 BUN 22 H Creatinine 0.8 Estimated GFR/1.73 m2 >= 60.00 Glucose 96 Calcium 7.4 L Magnesium Total Bilirubin Conjugated Bilirubin AST ALT Alkaline Phosphatase Total Protein Albumin Acetaminophen < 2 COVID-19 Source Nasal/Nares SARS-CoV-2 (PCR) Negative 11/28/21 11/29/21 22:12 05:45 Sodium 142 Potassium 4.1 Chloride 102 Carbon Dioxide 32.4 H Anion Gap 7.6 BUN 19 H Creatinine 0.7 Estimated GFR/1.73 m2 >= 60.00 Glucose 99 Calcium 7.5 L 7.7 L Magnesium 1.6 L Total Bilirubin 0.5 Conjugated Bilirubin 0.1 AST 55 H ALT 261 H Alkaline Phosphatase 116 Total Protein 7.2 Albumin 3.3 L Acetaminophen COVID-19 Source SARS-CoV-2 (PCR)
[2021-11-29 12:38] LABS: Albumin 3.6 g/dL (3.4-5.0); Anion Gap 7.1 mmol/L (3-11); BUN 18 mg/dL (7-18); CO2 33.9 mmol/L (21.0-32.0); CREATININE 0.7 mg/dL (0.55-1.02); Calcium 7.5 mg/dL (8.5-10.1); Chloride 100 mmol/L (98-107); Glucose 102 mg/dL (74-106); Potassium 3.6 mmol/L (3.5-5.1); Sodium 141 mmol/L (136-145)
[2021-11-29] MEDS: LORazepam 20 MG/10 ML VIAL IVP (14:06)
--- NOTE | 2021-11-29 14:38 | W.PM.DS.N ---
Date of service: 11/30/21 Time of Service: 10:00 DS: Diagnosis Discharge Diagnosis (1) Hypocalcemia: Status: Acute (2) [place]: Status: Acute (3) Generalized weakness: Status: Acute (4) Elevated LFTs: Status: Acute (5) Chronic GERD: Status: Acute (6) DVT prophylaxis: Status: Acute (7) Discharge planning issues: Status: Acute Discharge Plan Disposition Patient Disposition: HOME Condition: Improving Discharge Details Reason For Visit: Symptomatic Hypocalcemia Admit Date/Time: 11/28/21 09:54 Admit Provider: Yuly Holm Attending Provider: Yuly Holm Primary Care Provider: Juana Syed V Home Meds and New Rx's Prescriptions: New calcitriol 0.25 mcg Capsule 0.5 mcg PO BID Qty: 60 0RF Nicotrol 10 mg Cartridge 10 mg inhalation Q2H PRN PRNQty: 168 0RF calcium citrate 200 mg (950 mg) Tablet 1,425 mg PO TID Qty: 90 0RF Mag 64 64 mg Tablet,Delayed Release (Dr/Ec) 64 mg PO BID Qty: 60 0RF lorazepam 1 mg tablet 1 mg PO TID PRNQty: 20 0RF Continued duloxetine [Cymbalta] 60 MG capsule,delayed release(DR/EC) 120 mg PO DAILY cholecalciferol (vitamin D3) 50 mcg (2,000 unit) capsule 50 mcg PO DAILY Hold Instructions: Until you meet with your retail training manager triamcinolone acetonide 0.1 % cream 1 applic topical BID PRN calcium carbonate [Tums] 200 MG tablet,chewable 2 tab PO PRN PRN Hold Instructions: Until you meet with your retail training manager Label Comments: not taking acetaminophen [Tylenol Extra Strength] 500 mg tablet 500 mg PO Q6H PRNQty: 90 0RF Hold Instructions: Due to your elevated liver function test please limit the amount of acetaminophen and you may do a small trial of ibuprofen/Motrin to see if this helps your pain and discomfort. levothyroxine [Euthyrox] 112 mcg tablet 112 mcg QDAY Label Comments: TAKE 1 TABLET BY MOUTH ONCE DAILY ondansetron 4 mg tablet,disintegrating 4 mg PO TID PRN (Reason: nausea and vomiting) Qty: 6 0RF Calcium 600 + D(3) 600 mg-5 mcg (200 unit) capsule 1 cap PO DAILY AM Qty: 30 0RF Discontinued pantoprazole [Protonix] 40 mg tablet,delayed release (DR/EC) 40 mg PO DAILY Qty: 30 12RF Discharge Instructions Instructions: Hypocalcemia (DC), Hypothyroidism (DC) Additional Instructions: [facility] [place] you to set up an appointment. If you haven't heard from them by Monday, give them a call. Referrals: Juana Syed MD [Primary Care Provider] - 12/14/21 9:00 am (Also keep your telephone visit with Dr. Syed tomorrow.) Activity:: Activity as Tolerated Equipment/Supplies:: No Equipment Needed Diet:: As Tolerated DS: Data Vitals/I&O Vitals and I&O: Vital Signs Temperature 36.7 C 11/29/21 11:45 Temperature Source Tympanic 11/29/21 11:45 Pulse 61 11/29/21 11:45 Pulse Rhythm Regular 11/29/21 09:22 Pulse 64 11/28/21 07:10 Respiratory Rate 17 11/29/21 11:45 Respiratory Effort Non-Labored 11/29/21 09:22 Respiratory Depth Normal 11/29/21 09:22 Respiratory Pattern Normal 11/29/21 09:22 Blood Pressure 138/79 11/29/21 11:45 Blood Pressure Position Sitting 11/28/21 05:45 Pulse Oximetry 93 11/29/21 11:45 Oxygen Delivery Method Room Air 11/29/21 11:45 Oxygen Flow Rate 0 11/29/21 11:45 Pain Level 0 11/29/21 04:50 Intake & Output 11/28/21 11/29/21 11/29/21 23:59 11:59 23:59 Intake Total 250 / 813.75 50 / 50 Balance 250 / 813.75 50 / 50 Intake: IV 50 / 50 Oral 250 / 250 Other: Urine Color Yellow Urine Appearance Clear Comment patient voids independently Voiding Methods Toilet Toilet Data Completed and Pending Labs on day of discharge: Labs from last 24 hours 11/29/21 11/29/21 11/28/21 12:20 05:45 22:12 Sodium 141 142 Potassium 3.6 4.1 Chloride 100 102 Carbon Dioxide 33.9 H 32.4 H Anion Gap 7.1 7.6 BUN 18 19 H Creatinine 0.7 0.7 Estimated GFR/1.73 m2 >= 60.00 >= 60.00 Glucose 102 99 Calcium 7.5 L 7.7 L 7.5 L Magnesium 1.6 L Total Bilirubin 0.5 Conjugated Bilirubin 0.1 AST 55 H ALT 261 H Alkaline Phosphatase 116 Total Protein 7.2 Albumin 3.6 3.3 L 11/28/21 15:59 Sodium 139 Potassium 4.0 Chloride 101 Carbon Dioxide 30.8 Anion Gap 7.2 BUN 22 H Creatinine 0.8 Estimated GFR/1.73 m2 >= 60.00 Glucose 96 Calcium 7.4 L Magnesium Total Bilirubin Conjugated Bilirubin AST ALT Alkaline Phosphatase Total Protein Albumin PFSH All Active Problems (Updated 11/29/21 @ 10:35 by Jayna Roman NP) Discharge planning issues (Acute) DVT prophylaxis (Acute) Hypocalcemia (Acute) Hypomagnesemia (Acute) Elevated LFTs (Acute) Tetany (Acute) Paresthesias (Acute) Generalized weakness (Acute) Transaminitis (Acute) Chronic GERD (Acute) Fatty liver disease, nonalcoholic (Acute) Allergic rhinitis due to allergen (Acute) Smoker (Acute) Chronic cough (Acute) Medical History (Updated 11/29/21 @ 10:35 by Jayna Roman NP) Abdominal pain Acne rosacea Actinic keratosis Aftercare following joint replacement surgery Bursitis of right shoulder cervical carcinoma Chemical gastritis Chronic maxillary sinusitis Chronic rhinitis Femoroacetabular impingement of right hip Fibromyalgia GERD (gastroesophageal reflux disease) 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 denies this Interstitial cystitis Left upper quadrant pain Loosening of prosthesis of left total knee replacement Low TSH level OAB (overactive bladder) Painful total knee replacement, left Pelvic pain Pelvic pain in female Peritonsillar cellulitis (12/03/15) Post-nasal drip Primary osteoarthritis of right knee (04/23/15) Primary osteoarthritis, right shoulder Recurrent UTI Right-sided chest wall pain Rotator cuff tear, right Superficial laceration of skin (10/31/20) left mccray Trochanteric bursitis, right hip DEPO MEDROL 09/23/21 Surgical History (Updated 11/28/21 @ 17:23 by Jayna Roman NP) Abdominal hysterectomy Arthroplasty of knee Colonoscopy - IV Sedation History of total left knee replacement Hx of rotator cuff surgery Hx of tonsillectomy Oophrectomy, Left Replacement of total knee joint (01/20/16) LEFT/DR. PIERRE S/P laparoscopic cholecystectomy S/P total abdominal hysterectomy Status post arthroscopy of right shoulder (11/03/08) Debridement, PASTA repair, subacromial decompression with acromioplasty, distal clavicle resection, open subpectoral biceps tenodesis Status post cholecystectomy (~07/14/20) TOT (Incontinence sling) Social History Smoking/Tobacco Use Status: Current every day Tobacco Type: cigarettes Smoking risk assessment performed?: Yes Alcohol Intake: current Alcohol Intake frequency: holidays/special occasions only Alcohol type: wine Drug use: Occasionally Substance use type: marijuana Details: currently on a quit smoking program Current gender identity: female Do you feel safe at home: Yes Do you feel safe in your relationship?: Yes
--- NOTE | 2021-11-29 15:55 | PDOC.CMIN ---
- If Service Date Differs Date of service: 11/29/21 Time of Service: 15:55 Care Management Initial Assess REASON FOR HOSPITALIZATION:: symptomatic hypocalcemia PAST MEDICAL HISTORY/PAST SURGICAL HISTORY:: All Active Problems. Hypocalcemia (Acute). Hypomagnesemia (Acute). Elevated LFTs (Acute). Tetany (Acute). Paresthesias (Acute). Generalized weakness (Acute). Transaminitis (Acute). Chronic GERD (Acute). Fatty liver disease, nonalcoholic (Acute). Allergic rhinitis due to allergen (Acute). Smoker (Acute). Chronic cough (Acute). Medical History. Abdominal pain. Acne rosacea. Actinic keratosis. Aftercare following joint replacement surgery. Bursitis of right shoulder. cervical carcinoma. Chemical gastritis. Chronic maxillary sinusitis. Chronic rhinitis. Femoroacetabular impingement of right hip. Fibromyalgia. GERD (gastroesophageal reflux disease). 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 Hypertension. pt. denies this. Interstitial cystitis. Left upper quadrant pain. Loosening of prosthesis of left total knee replacement. Low TSH level. OAB (overactive bladder). Painful total knee replacement, left. Pelvic pain. Pelvic pain in female. Peritonsillar cellulitis (12/03/15). Post-nasal drip. Primary osteoarthritis of right knee (04/23/15). Primary osteoarthritis, right shoulder. Recurrent UTI. Right-sided chest wall pain. Rotator cuff tear, right. Superficial laceration of skin (10/31/20). left mccray. Trochanteric bursitis, right hip. DEPO MEDROL 09/23/21. Surgical History. Abdominal hysterectomy. Arthroplasty of knee. Colonoscopy - IV Sedation. History of total left knee replacement. Hx of rotator cuff surgery. Hx of tonsillectomy. Oophrectomy, Left. Replacement of total knee joint (01/20/16). LEFT/DR. PIERRE. S/P laparoscopic cholecystectomy. S/P total abdominal hysterectomy. Status post arthroscopy of right shoulder (11/03/08). Debridement, PASTA repair, subacromial decompression with acromioplasty, distal clavicle resection, open subpectoral biceps tenodesis. Status post cholecystectomy (~07/14/20). TOT (Incontinence sling) PREVIOUS FUNCTIONAL STATUS/SOCIAL/FAMILY SUPPORTS:: Dana lives in [place] with her , Johnny. 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. She is independent at baseline. CURRENT FUNCTIONAL STATUS:: Dana was lying in bed when CM met with her. She reported that the provider is contacting her MD at [facility] to consult about her plan. Depending on the outcome of that conversation, she may be able to return home today. She expressed frustration about being in the hospital, and stated that she is hoping to return home soon. She does not anticipate the need of any services at this time. CM will continue to follow. ADVANCE DIRECTIVES:: Not on file. Has patient been provided with info about the portal/API?: Yes Did the patient sign up for the portal?: Yes (active) CODE STATUS:: Full Code INSURANCE COVERAGE / FINANCIAL ISSUES:: [employer] CURRENT HOME/COMMUNITY SERVICES/EQUIPMENT:: No current services or equipment. PRIMARY CARE PHYSICIAN:: Juana Syed POTENTIAL DISCHARGE NEEDS:: follow up appointments. PATIENT/FAMILY EDUCATION NEEDS:: Review discharge instructions and limitations, discussion of self care needs including ask me three. ANTICIPATED BARRIERS TO DISCHARGE:: None. TRANSPORTATION:: via private vehicle by her . PLAN:: Anticipate Dana will return home when medically cleared. Her spouse will drive her home via private vehicle. She will follow up with her PCP and discharge plan of care. CM will continue to follow.
--- NOTE | 2021-11-29 16:15 | PDOC.CMDIS ---
- If Service Date Differs Date of service: 11/29/21 Time of Service: 16:15 LACE Index Scoring Tool - Questions: Length of Stay (in days): 1 Acuity (Admit via E.D.?): Yes E.D. Visits: 4 - Answers: Total Score: 8 Risk of Readmission: Low Risk Care Management Discharge Reason for Hospitalization: symptomatic hypocalcemia Discharge Plan: Dana will return home today with no additional services. Her spouse will drive her home via private vehicle. She will follow up with her PCP and discharge plan of care. CM called her pharmacy at the provider's request, and found that the Calcitriol will have a $1 copay. She is happy to be going home. Patient/Family Education Needs: Review discharge instructions and limitations, discussion of self care needs including ask me three.
[2021-11-29 17:10] LABS: Anion Gap 9.5 mmol/L (3-11); BUN 19 mg/dL (7-18); CO2 30.5 mmol/L (21.0-32.0); CREATININE 0.9 mg/dL (0.55-1.02); Calcium 7.6 mg/dL (8.5-10.1); Chloride 100 mmol/L (98-107); Glucose 121 mg/dL (74-106); Potassium 4.2 mmol/L (3.5-5.1); Sodium 140 mmol/L (136-145)
[2021-11-29 17:32] LABS: Lab Add On Test DONE
[2021-11-29] MEDS: CALCIUM GLUCONATE in NaCl 1 GM/50 ML BAG IVPB (17:33)
[2021-11-29 17:52] LABS: Albumin 3.5 g/dL (3.4-5.0); PHOSPHORUS 7.2 mg/dL (2.6-4.7)
[2021-11-30 03:20] VITALS: BP 134/75; PULSE 63; RESP 18; TEMP 36.7; O2SAT 94
[2021-11-30] MEDS: Normal Saline Flush 10 ML SYR IVP ×4 (03:27→11:41)
[2021-11-30] MEDS: LORazepam 20 MG/10 ML VIAL IVP ×2 (03:27→10:38)
[2021-11-30] MEDS: Levothyroxine 112 MCG TAB PO (05:45)
[2021-11-30 07:09] VITALS: PULSE 61
[2021-11-30] MEDS: Cholecalciferol (Vitamin D3) 1,000 UNIT TAB 2000 UNITS PO (07:52)
[2021-11-30] MEDS: DULoxetine 30 MG CAP 120 MG PO (07:52)
[2021-11-30] MEDS: Calcium Citrate 950 MG TAB 1425 MG PO ×2 (07:53→13:37)
[2021-11-30] MEDS: Calcitriol 0.25 MCG CAP 0.5 MCG PO ×2 (07:53→13:37)
[2021-11-30] MEDS: Magnesium Chloride 64 MG TABCR PO (07:53)
[2021-11-30 08:04] VITALS: BP 110/71; PULSE 68; RESP 14; TEMP 36.8; O2SAT 95
[2021-11-30 08:14] LABS: Lab Add On Test DONE
[2021-11-30 08:20] LABS: Albumin 3.4 g/dL (3.4-5.0); Anion Gap 8.6 mmol/L (3-11); BUN 19 mg/dL (7-18); CO2 31.4 mmol/L (21.0-32.0); CREATININE 0.6 mg/dL (0.55-1.02); Calcium 7.8 mg/dL (8.5-10.1); Chloride 100 mmol/L (98-107); Glucose 91 mg/dL (74-106); Magnesium 1.6 mg/dL (1.8-2.4); Potassium 3.8 mmol/L (3.5-5.1); Sodium 140 mmol/L (136-145)
[2021-11-30 10:44] VITALS: BP 143/84; PULSE 76; RESP 16; TEMP 37.3; O2SAT 93
[2021-11-30 10:59] LABS: Hepatitis A Antibody IgM Negative (Negative); Hepatitis B Core Antibody Negative (Negative); Hepatitis B surface Ag Negative (Negative); Hepatitis C Ab w Rflx HCV PCR Negative (Negative)
[2021-11-30] MEDS: MAGNESIUM SULFATE 2 GM/50 ML BAG IVPB (11:40)
[2021-11-30] MEDS: Normal Saline 500 ML 30 ML IV (11:41)
--- NOTE | 2021-11-30 13:16 | DSE_ITS ---
Date of service: 11/30/21 Time of Service: 13:16 DS: Diagnosis Discharge Diagnosis (1) Hypocalcemia: Status: Acute (2) Tetany: Status: Resolved (3) Generalized weakness: Status: Acute (4) Elevated LFTs: Status: Acute (5) Chronic GERD: Status: Acute Discharge Plan Disposition Patient Disposition: HOME Condition: Improving Discharge Details Reason For Visit: Symptomatic Hypocalcemia Admit Date/Time: 11/28/21 09:54 Admit Provider: Yuly Holm Attending Provider: Yuly Holm Primary Care Provider: Juana Syed V Hospital Course Hospital Course: This is a 65-year-old female patient with a past medical history of thyroidectomy on 11/25/2021, GERD, chronic cough, and fatty liver disease,? presented to the [facility] emergency room on 11/27/2021 with the chief complaint of feeling weak and slight tingling around her mouth and both hands. she was found to be hypocalcemic and hypomagnesemic. Her case was discussed with her naphtha washing system operator and repletion recommendations and medication changes provided. She was referred to observation and her symptoms improved. She continued to remain very anxious and depressed and should follow up with her pcp for further management of these symptoms. She will follow up outpatient with endocrinology or return here sooner for new or worsening symptoms. They have placed order for outpatient labs on Dec 04, 2021. discussed with DR Holm Home Meds and New Rx's Prescriptions: New Nicotrol 10 mg Cartridge 10 mg inhalation Q2H PRN PRNQty: 168 0RF calcium citrate 200 mg (950 mg) Tablet 1,425 mg PO TID Qty: 90 0RF Mag 64 64 mg Tablet,Delayed Release (Dr/Ec) 64 mg PO BID Qty: 60 0RF lorazepam 1 mg tablet 1 mg PO TID PRNQty: 20 0RF calcitriol 0.25 mcg Capsule 0.5 mcg PO TID Qty: 180 0RF Continued duloxetine [Cymbalta] 60 MG capsule,delayed release(DR/EC) 120 mg PO DAILY cholecalciferol (vitamin D3) 50 mcg (2,000 unit) capsule 50 mcg PO DAILY Hold Instructions: Until you meet with your naphtha washing system operator triamcinolone acetonide 0.1 % cream 1 applic topical BID PRN calcium carbonate [Tums] 200 MG tablet,chewable 2 tab PO PRN PRN Hold Instructions: Until you meet with your naphtha washing system operator Label Comments: not taking acetaminophen [Tylenol Extra Strength] 500 mg tablet 500 mg PO Q6H PRNQty: 90 0RF Hold Instructions: Due to your elevated liver function test please limit the amount of acetaminophen and you may do a small trial of ibuprofen/Motrin to see if this helps your pain and discomfort. levothyroxine [Euthyrox] 112 mcg tablet 112 mcg QDAY Label Comments: TAKE 1 TABLET BY MOUTH ONCE DAILY ondansetron 4 mg tablet,disintegrating 4 mg PO TID PRN (Reason: nausea and vomiting) Qty: 6 0RF Calcium 600 + D(3) 600 mg-5 mcg (200 unit) capsule 1 cap PO DAILY AM Qty: 30 0RF Discontinued pantoprazole [Protonix] 40 mg tablet,delayed release (DR/EC) 40 mg PO DAILY Qty: 30 12RF Discharge Instructions Instructions: Hypothyroidism (DC), Hypocalcemia (DC) Additional Instructions: [facility] [place] will call you to set up an appointment. If you haven't heard from them by Monday, give them a call. Stand Alone Forms: Nursing Discharge Form Referrals: Alayna Link [ NON-[facility] STAFF PHYSICIAN] - (OFFICE WILL CALL YOU WITH APPOINTMENT) Juana Syed MD [Primary Care Provider] - 12/14/21 9:00 am (Also keep your telephone visit with Dr. Syed tomorrow.) Activity:: Activity as Tolerated Equipment/Supplies:: No Equipment Needed Diet:: As Tolerated Discharge Orders Discharge Orders: Discharge Order (Routine); Ordered 11/30/21 Ordered By: Josi Dixon Other Ambulatory Orders: Comprehensive Metabolic Panel (Routine) Timeframe: 20211207 Location: None Selected Ordered By: Josi Dixon Magnesium (Routine) Timeframe: 20211207 Location: None Selected Ordered By: Josi Dixon Discharge Data Discharge Date/Time-TO BE ENTERED AT DEPARTURE: 11/30/21 15:19 DS: Summary Time Spent with Patient providing and/or coordinating discharge services: Less than 30 minutes Status at Discharge Functional status at discharge: independent ambulation Overall status at discharge: patient is back to baseline Mental Status: mental status grossly normal Speech and Movement: speech and movement normal Mood: anxious mood Affect: blunted Exam Const General: cooperative, healthy appearing, comfortable and no acute distress Nutritional Appearance: overweight Orientation: alert, awake and oriented x3 HENMT Head: normal to inspection, normocephalic and atraumatic Mouth: oral mucosae normal Neck Neck: full ROM Thyroid: other (dressing intact, no drainage, no surrounding erythema) Resp Effort & Inspection: normal respiratory effort Auscultation: clear to auscultation bilaterally Cardio Rate: regular rate Rhythm: regular rhythm Skin Lesions: lesion noted (surgical wound over anterior neck with dry dressing, no surrounding redness) Rashes: no rashes Neuro General: patient alert, patient awake, patient oriented x3, tone normal, moves all extremities and no focal motor deficits Extrem General: normal to inspection, full ROM and no pedal edema Psych Appearance: grossly normal Mental Status: mental status grossly normal Speech and Movement: speech and movement normal Mood: anxious mood Affect: blunted Attitude: cooperative Insight: fair Judgment: fair DS: Data Vitals/I&O Vitals and I&O: Vital Signs Temperature 37.3 C 11/30/21 10:44 Temperature Source Tympanic 11/30/21 10:44 Pulse 76 11/30/21 10:44 Pulse Rhythm Regular 11/30/21 08:05 Pulse 64 11/28/21 07:10 Respiratory Rate 16 11/30/21 10:44 Respiratory Effort Non-Labored 11/30/21 08:05 Respiratory Depth Normal 11/30/21 08:05 Respiratory Pattern Normal 11/30/21 08:05 Blood Pressure 143/84 H 11/30/21 10:44 Blood Pressure Position Sitting 11/28/21 05:45 Pulse Oximetry 93 11/30/21 10:44 Oxygen Delivery Method Room Air 11/30/21 10:44 Oxygen Flow Rate 0 11/30/21 10:44 Pain Level 0 11/30/21 10:44 Intake & Output 11/29/21 11/30/21 11/30/21 23:59 11:59 23:59 Intake Total 250 / 300 Balance 250 / 300 Intake: Oral 250 / 250 Other: Urine Appearance Clear Clear Comment patient voids independently Voiding Methods Toilet Toilet Data Completed and Pending Labs on day of discharge: Labs from last 24 hours 11/30/21 11/30/21 11/30/21 06:15 06:15 06:15 Sodium 140 Potassium 3.8 Chloride 100 Carbon Dioxide 31.4 Anion Gap 8.6 BUN 19 H Creatinine 0.6 Estimated GFR/1.73 m2 >= 60.00 Glucose 91 Calcium 7.8 L Phosphorus Magnesium 1.6 L Albumin Cancelled 3.4 Hepatitis A IgM Ab Hep Bs Antigen Hep B Core Total Ab Hepatitis C Antibody Add-On Test Request DONE 11/29/21 11/29/21 11/29/21 16:54 16:54 16:54 Sodium 140 Potassium 4.2 Chloride 100 Carbon Dioxide 30.5 Anion Gap 9.5 BUN 19 H Creatinine 0.9 Estimated GFR/1.73 m2 >= 60.00 Glucose 121 H Calcium 7.6 L Phosphorus 7.2 H Magnesium Albumin 3.5 Hepatitis A IgM Ab Hep Bs Antigen Hep B Core Total Ab Hepatitis C Antibody Add-On Test Request DONE 11/28/21 06:23 Sodium Potassium Chloride Carbon Dioxide Anion Gap BUN Creatinine Estimated GFR/1.73 m2 Glucose Calcium Phosphorus Magnesium Albumin Hepatitis A IgM Ab Negative Hep Bs Antigen Negative Hep B Core Total Ab Negative Hepatitis C Antibody Negative Add-On Test Request PFSH All Active Problems Hypocalcemia (Acute) Hypomagnesemia (Acute) Elevated LFTs (Acute) Generalized weakness (Acute) Chronic GERD (Acute) Fatty liver disease, nonalcoholic (Acute) Allergic rhinitis due to allergen (Acute) Smoker (Acute) Chronic cough (Acute) Medical History Abdominal pain Acne rosacea Actinic keratosis Aftercare following joint replacement surgery Bursitis of right shoulder cervical carcinoma Chemical gastritis Chronic maxillary sinusitis Chronic rhinitis Femoroacetabular impingement of right hip Fibromyalgia GERD (gastroesophageal reflux disease) 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 denies this Interstitial cystitis Left upper quadrant pain Loosening of prosthesis of left total knee replacement Low TSH level OAB (overactive bladder) Painful total knee replacement, left Pelvic pain Pelvic pain in female Peritonsillar cellulitis (12/03/15) Post-nasal drip Primary osteoarthritis of right knee (04/23/15) Primary osteoarthritis, right shoulder Recurrent UTI Right-sided chest wall pain Rotator cuff tear, right Superficial laceration of skin (10/31/20) left mccray Trochanteric bursitis, right hip DEPO MEDROL 09/23/21 Surgical History Abdominal hysterectomy Arthroplasty of knee Colonoscopy - IV Sedation History of total left knee replacement Hx of rotator cuff surgery Hx of tonsillectomy Oophrectomy, Left Replacement of total knee joint (01/20/16) LEFT/DR. PIERRE S/P laparoscopic cholecystectomy S/P total abdominal hysterectomy Status post arthroscopy of right shoulder (11/03/08) Debridement, PASTA repair, subacromial decompression with acromioplasty, distal clavicle resection, open subpectoral biceps tenodesis Status post cholecystectomy (~07/14/20) TOT (Incontinence sling) Social History Smoking/Tobacco Use Status: Current every day Tobacco Type: cigarettes Smoking risk assessment performed?: Yes Alcohol Intake: current Alcohol Intake frequency: holidays/special occasions only Alcohol type: wine Drug use: Occasionally Substance use type: marijuana Details: currently on a quit smoking program Current gender identity: female Do you feel safe at home: Yes Do you feel safe in your relationship?: Yes
== END 2021-11-30 15:19 | disposition home or self-care (01) ==
LOC: ER 10:07 → MS 11:18
PROVIDERS: Nurse Practitioner Family; Student in an Organized Health Care Education/Training Program; Admitting Provider Internal Medicine; Emergency Provider Physician Assistant; PCP Family Medicine; Visit Provider Internal Medicine
DX: E83.51 Hypocalcemia (principal); E83.42 Hypomagnesemia; I10 Essential (primary) hypertension; K21.9 Gastro-esophageal reflux disease without esophagitis; E89.0 Postprocedural hypothyroidism; R53.1 Weakness; R74.01 Elevation of levels of liver transaminase levels; Z96.652 Presence of left artificial knee joint; K76.0 Fatty (change of) liver, not elsewhere classified; J30.89 Other allergic rhinitis; F17.210 Nicotine dependence, cigarettes, uncomplicated; R05.3 Chronic cough; J32.0 Chronic maxillary sinusitis; N32.81 Overactive bladder; Z20.822 Contact with and (suspected) exposure to COVID-19; Z79.899 Other long term (current) drug therapy
CPT/HCPCS: 36415; 80048; 80053; 80076; 83690; 86704; 86709; 86803; 87340; 87635; 93005; 96361; 96365; 96366; 96374; 96375; 96376; 99285; 80329; 82040; 82140; 82310; 83735; 84100; 84443; 84484; 85025; 93010; 99217; 99219; 99225; G0378; J0610; J3490

== ENCOUNTER 2021-12-06 11:00 | Emergency (ER) | payer MEDICAID, SELFPAY ==
[2021-12-06] VITALS (10 sets, daily range): BP systolic 111–152; BP diastolic 77–114; PULSE 79–90; RESP 12–17; TEMP 36.4–36.9; O2SAT 90–95
--- NOTE | 2021-12-06 11:39 | W.ED.GENAD ---
Discharge Plan Disposition Patient Disposition: HOME Condition: Stable Discharge Details Clinical Impression: Hypomagnesemia Primary Care Provider: Juana Syed V ED Provider: Natacha Vergara Home Meds and New Rx's Prescriptions: Continued duloxetine [Cymbalta] 60 MG capsule,delayed release(DR/EC) 120 mg PO DAILY cholecalciferol (vitamin D3) 50 mcg (2,000 unit) capsule 50 mcg PO DAILY Hold Instructions: Until you meet with your emergency medical service coordinator triamcinolone acetonide 0.1 % cream 1 applic topical BID PRN calcium carbonate [Tums] 200 MG tablet,chewable 2 tab PO PRN PRN Hold Instructions: Until you meet with your emergency medical service coordinator Label Comments: not taking acetaminophen [Tylenol Extra Strength] 500 mg tablet 500 mg PO Q6H PRNQty: 90 0RF Hold Instructions: Due to your elevated liver function test please limit the amount of acetaminophen and you may do a small trial of ibuprofen/Motrin to see if this helps your pain and discomfort. levothyroxine [Euthyrox] 112 mcg tablet 112 mcg QDAY Label Comments: TAKE 1 TABLET BY MOUTH ONCE DAILY Nicotrol 10 mg Cartridge 10 mg inhalation Q2H PRN PRNQty: 168 0RF calcium citrate 200 mg (950 mg) Tablet 1,425 mg PO TID Qty: 90 0RF Mag 64 64 mg Tablet,Delayed Release (Dr/Ec) 64 mg PO BID Qty: 60 0RF lorazepam 1 mg tablet 1 mg PO TID PRNQty: 20 0RF calcitriol 0.25 mcg Capsule 0.5 mcg PO TID Qty: 180 0RF ondansetron 4 mg tablet,disintegrating 4 mg PO TID PRN (Reason: nausea and vomiting) Qty: 6 0RF Calcium 600 + D(3) 600 mg-5 mcg (200 unit) capsule 1 cap PO DAILY AM Qty: 30 0RF Discharge Instructions Instructions: Hypomagnesemia (ED) Additional Instructions: Your labs were signficant for slightly low magnesium. However, this level does not account for all of your symptoms. Calcium was within normal limits. Your symptoms may be associated with postoperative changes, medications, stress/anxiety, fatigue. Please keep you appointments with endocrinology and general surgery. Please follow up with primary care in [facility] next week. Please keep a journal of your symptoms and what tends to worsen them or improve them. Please encourage hydration. If you develop dificulty breathing, shortness of breath, worsening spasms or other new/worsening symptoms please seek care urgently once again. Referrals: Juana Syed MD [Primary Care Provider] - Discharge Data Discharge Date/Time-TO BE ENTERED AT DEPARTURE: 12/06/21 15:33 Medical Decision Making Patient is a pleasant 66-year-old female, accompanied by significant other, presenting today with chief complaint of lethargy, cramping, diminished appetite. Patient was recently admitted with hypomagnesemia and hypocalcemia patient reports that the symptoms remain the same. She underwent thyroidectomy at [facility] on the . Was admitted here for the electrolyte abnormalities on the . She has not yet followed up with her general surgeon. She reports her general surgery team is scheduled to see her in January. Patient not have repeat laboratory evaluation. When patient was admitted here last time her calcium was 7.1, magnesium 1.4. When admitted, she was having some tetany. At the time she was discharged, her symptoms had greatly improved. She reports the symptoms that she is experiencing today are the same as when she had them last time. on exam, patient appears anxious and fatigued. Initial blood pressure seems abnormal with a narrow pulse pressure but repeat seems much more likely. Normal cardiac exam, lungs are clear. Normal reflexes but with the blood pressure cuff on patient does have some abduction of the thumb and patient reports is involuntary. Kd presents with having cramping in the lower extremities. She does have some erythema in the posterior oropharynx and 1 small area of exudate, no midline shift or any evidence of abscess. She states that she has been having some pain with swallowing. Will obtain a rapid strep test. She also has very focal area of urticaria which patient reports is nontender and quite itchy around the incision from her recent thyroidectomy. She reports that this was covered with adhesive which came off yesterday. Labs reviewed. No leukocytosis, stable H&H. Magnesium is barely low at 1.6, her calcium is high normal at 9.7. Her mag has been low historically. Discussed fidnings with the patient. Will discus with PCP. Questioning if this is associated with her transition to synthroid in kulwant postoperative period. Waiting call back from PCP. quesitoning if this could be panic attacks. He states that she has hx of anxiety, gets very anxious and has numbness in hands and associated with cramping in the hands. This certainly could be the cause. She and her would like to go home and do not want to wait for call back. At this time, there is no evidence of emergent pathology. She has normal electrolytes- the mag was slightly low and replenished. She has a benign exam. No evidence of ACS with normal ECG and troponin. I advised that she f/u with PCP and general surgery team. She has scheduled f/u appointments with both. Encouraged journaling of symptoms for continued discussions. Advised she focus on MH as well as general health. She was given strict return precautions. All of her quesitons and cocnerns were addressed, she is in agreement with this plan. Spoke with PCP after she was d/c'ed, Mary Heath, who is covering for Dr. Syed. [facility] General Date/Time Provider Initiated Documentation: 12/06/21 11:39. Limitations to Documentation: no limitations. Information obtained by: patient, family () and RN notes reviewed. History of Present Illness 66 year old F presents to the emergency department with the chief complaint of cramping, fatigue, described as moderate and similar to prior episodes, Quality is described as other (not endorsing pain currently), and is localized to the lower extremity (cramping more in feet/calf, some in hands). Patient started experiencing this week(s) and it has been constant (has been worsening since recent discharge). No relieving factors improve symptom(s), No exacerbating factors reported . Patient notes loss of appetite and malaise; denies confusion (fatigued and spacy but not frankly confused), chest pain, cough, diaphoresis, fever/chills, nausea/vomiting, rash, shortness of breath, syncope and weakness (no focal weakness). Patient did receive the following treatments prior to arrival, other (on mag and calcium supplementation) Related Data Home Medications Medication Instructions Recorded Confirmed duloxetine 60 mg capsule,delayed 120 mg PO DAILY 09/14/12 12/06/21 release (Cymbalta) calcium carbonate 200 mg calcium 2 tab PO PRN PRN 07/28/14 12/06/21 (500 mg) chewable tablet (Tums) cholecalciferol (vitamin D3) 50 50 mcg PO DAILY 02/24/20 12/06/21 mcg (2,000 unit) capsule triamcinolone acetonide 0.1 % 1 applic topical BID PRN 02/24/20 12/06/21 topical cream acetaminophen 500 mg tablet 500 mg PO Q6H PRN #90 tabs 09/22/20 12/06/21 (Tylenol Extra Strength) ondansetron 4 mg disintegrating 4 mg PO TID PRN nausea and 04/24/21 12/06/21 tablet vomiting #6 tabs calcium carbonate 600 mg-vitamin 1 cap PO DAILY AM #30 caps 11/27/21 12/06/21 D3 5 mcg (200 unit) capsule (Calcium 600 + D(3)) levothyroxine 112 mcg tablet 112 mcg QDAY 11/28/21 12/06/21 (Euthyrox) calcium citrate 200 mg (950 mg) 1,425 mg PO TID #90 tabs 11/29/21 12/06/21 tablet lorazepam 1 mg tablet 1 mg PO TID PRN #20 tabs 11/29/21 12/06/21 magnesium chloride 64 mg 64 mg PO BID #60 tabs 11/29/21 12/06/21 (magnesium chloride) tablet,delayed release (Mag 64) nicotine 10 mg inhalation 10 mg inhalation Q2H PRN PRN #168 11/29/21 12/06/21 cartridge (Nicotrol) ea calcitriol 0.25 mcg capsule 0.5 mcg PO TID #180 caps 11/30/21 12/06/21 Previous Rx's Medication Instructions Recorded acetaminophen 500 mg tablet 500 mg PO Q6H PRN #90 tabs 09/22/20 (Tylenol Extra Strength) ondansetron 4 mg disintegrating 4 mg PO TID PRN nausea and 04/24/21 tablet vomiting #6 tabs calcium carbonate 600 mg-vitamin 1 cap PO DAILY AM #30 caps 11/27/21 D3 5 mcg (200 unit) capsule (Calcium 600 + D(3)) calcium citrate 200 mg (950 mg) 1,425 mg PO TID #90 tabs 11/29/21 tablet lorazepam 1 mg tablet 1 mg PO TID PRN #20 tabs 11/29/21 magnesium chloride 64 mg 64 mg PO BID #60 tabs 11/29/21 (magnesium chloride) tablet,delayed release (Mag 64) nicotine 10 mg inhalation 10 mg inhalation Q2H PRN PRN #168 11/29/21 cartridge (Nicotrol) ea calcitriol 0.25 mcg capsule 0.5 mcg PO TID #180 caps 11/30/21 Allergies Allergy/AdvReac Type Severity Reaction Status Date / Time morphine Allergy Severe Swelling/Ed Verified 12/06/21 11:24 lisa sulfamethoxazole Allergy Severe Hives Unverified 12/06/21 11:24 [From Bactrim] trimethoprim [From Bactrim] Allergy Severe Hives Unverified 12/06/21 11:24 amoxicillin [From Augmentin] Allergy Intermediate nausea, Unverified 12/06/21 11:24 hives clavulanic acid Allergy Intermediate nausea and Unverified 12/06/21 11:24 [From Augmentin] hives Sulfa (Sulfonamide Allergy Intermediate Hives Verified 12/06/21 11:24 Antibiotics) levofloxacin [From Levaquin] Allergy Unknown Other (See Unverified 12/06/21 11:24 Comment) fentanyl AdvReac Severe go crazy Verified 12/06/21 11:24 doxycycline AdvReac Intermediate headache Unverified 12/06/21 11:24 and vomiting nicotine [From Nicorette] AdvReac Intermediate Vomiting Verified 12/06/21 11:24 azithromycin AdvReac Unknown Nausea Verified 12/06/21 11:24 nitrofurantoin AdvReac Unknown Nausea Verified 12/06/21 11:24 [From Macrobid] bupropion HCl AdvReac Nausea, Verified 12/06/21 11:24 [From Wellbutrin] thought I was going crazy prednisone AdvReac Nausea, Verified 12/06/21 11:24 thought I was going crazy I get get General Stated Complaint: GenMedical CAROL: 3 Review of Systems Constitutional Constitutional: Reports as per HPI Cardiovascular Cardiovascular: Reports as per HPI, Denies dyspnea and Denies dyspnea on exertion Respiratory Respiratory: Reports as per HPI, Denies cough, Denies dyspnea and Denies dyspnea on exertion Gastrointestinal Gastrointestinal: Reports as per HPI, Denies abdominal pain, Denies diarrhea, Denies nausea and Denies vomiting Musculoskeletal Musculoskeletal: Reports as per HPI Integumentary/Breasts Skin/Breast: Reports as per HPI and Denies rash Neurologic Neurologic: Reports as per HPI PFSH All Active Problems (Updated 12/06/21 @ 15:24 by MYRA Segovia) Hypocalcemia (Acute) Hypomagnesemia (Acute) Elevated LFTs (Acute) Generalized weakness (Acute) Chronic GERD (Acute) Fatty liver disease, nonalcoholic (Acute) Allergic rhinitis due to allergen (Acute) Smoker (Acute) Chronic cough (Acute) Medical History Abdominal pain Acne rosacea Actinic keratosis Aftercare following joint replacement surgery Bursitis of right shoulder cervical carcinoma Chemical gastritis Chronic maxillary sinusitis Chronic rhinitis Femoroacetabular impingement of right hip Fibromyalgia GERD (gastroesophageal reflux disease) 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 denies this Interstitial cystitis Left upper quadrant pain Loosening of prosthesis of left total knee replacement Low TSH level OAB (overactive bladder) Painful total knee replacement, left Pelvic pain Pelvic pain in female Peritonsillar cellulitis (12/03/15) Post-nasal drip Primary osteoarthritis of right knee (04/23/15) Primary osteoarthritis, right shoulder Recurrent UTI Right-sided chest wall pain Rotator cuff tear, right Superficial laceration of skin (10/31/20) left mccray Trochanteric bursitis, right hip DEPO MEDROL 09/23/21 Surgical History Abdominal hysterectomy Arthroplasty of knee Colonoscopy - IV Sedation History of total left knee replacement Hx of rotator cuff surgery Hx of tonsillectomy Oophrectomy, Left Replacement of total knee joint (01/20/16) LEFT/DR. PIERRE S/P laparoscopic cholecystectomy S/P total abdominal hysterectomy Status post arthroscopy of right shoulder (11/03/08) Debridement, PASTA repair, subacromial decompression with acromioplasty, distal clavicle resection, open subpectoral biceps tenodesis Status post cholecystectomy (~07/14/20) TOT (Incontinence sling) Social History Smoking/Tobacco Use Status: Current every day Tobacco Type: cigarettes Smoking risk assessment performed?: Yes Alcohol Intake: current Alcohol Intake frequency: holidays/special occasions only Alcohol type: wine Drug use: Occasionally Substance use type: marijuana Details: currently on a quit smoking program Current gender identity: female Do you feel safe at home: Yes Do you feel safe in your relationship?: Yes Exam Const General: cooperative, healthy appearing, comfortable, no acute distress and well developed Nutritional Appearance: average body habitus and well nourished Orientation: alert, awake and oriented x3 HENMT Head: normal to inspection Ears: hearing grossly normal bilaterally Mouth: moist mucous membranes Resp Effort & Inspection: normal respiratory effort, able to speak in complete sentences and no respiratory distress Auscultation: clear to auscultation bilaterally, no rales, no rhonchi and no wheezes Cardio Rate: regular rate Rhythm: regular rhythm Heart Sounds: S1 normal and S2 normal GI Inspection: normal to inspection, no edema and non-distended Palpation: soft, no hepatosplenomegaly, not firm, no guarding, not rigid and nontender Auscultation: normal bowel sounds Skin General skin exam: no rashes or lesions noted Trauma: no lacerations or abrasions Neuro General: patient alert, patient awake and patient oriented x3 Cranial Nerves: CN's II-XI intact bilaterally Cognition: normal cognition Speech: speech normal Gait: normal gait Motor: muscle tone normal throughout and strength 5/5 throughout DTR's: Rt Biceps: 2+, Lt Biceps: 2+, Rt Brachioradialis: 2+, Lt Brachioradialis: 2+, Rt Patellar: 2+ and Lt Patellar: 2+ Extrem General: normal to inspection, capillary refill normal, no pedal edema, no calf tenderness and normal gait Psych Appearance: grossly normal and well kempt Mental Status: mental status grossly normal Speech and Movement: speech and movement normal Course Vital Signs Vital signs: Vital Signs Temperature 36.9 C 12/06/21 11:19 Pulse 84 12/06/21 11:19 Respiratory Rate 17 12/06/21 11:19 Blood Pressure 129/114 H 12/06/21 11:19 Pulse Oximetry 93 12/06/21 11:19 Temperature 36.9 C 12/06/21 11:19 Temperature Source Temporal Artery Scan 12/06/21 11:19 Pulse 84 12/06/21 11:19 Respiratory Rate 17 12/06/21 11:19 Respiratory Effort Non-Labored 12/06/21 11:23 Blood Pressure 129/114 H 12/06/21 11:19 Blood Pressure Position Sitting 12/06/21 11:19 Pulse Oximetry 93 12/06/21 11:19 Oxygen Delivery Method Room Air 12/06/21 11:19 Oxygen Flow Rate 0 12/06/21 11:19 Pain Level 0 12/06/21 11:19 PAWSS Have you Been Recently Intoxicated or Drunk Within the Last 30 days?: No Have you Ever Experienced Previous Episodes of Alcohol Withdrawal?: No Have you ever Experienced Withdrawal Seizures?: No Have you ever Experienced Delirium Tremens(DT)s?: No Have you ever undergone Alcohol Rehabilitation Treatment (i.e, inpt ot outpatient treatment programs)?: No Have you ever Experienced Blackouts?: No Have you ever Combined Alcohol with other Downers within the last 90 days?: No Have you ever Combined Alcohol with any other Substance of Abuse during the last 90 days?: No Result: 0
--- NOTE | 2021-12-06 12:00 | RT.EKG_ITS ---
APPROVED REPORT Exam: Resting ECG Reason for Exam: electrolyte abnormalities Patient Location: E HR:80 bpm ECG Measurements Heart Rate 80 AXIS MI 121 P -32 QRSd 71 QRS 55 QT 361 T 38 QTc 416 Conclusion Sinus rhythm...normal P axis, V-rate 60- 99 no STEMI I have reviewed and interpreted ECG and agree with software generated interpretation.
[2021-12-06 13:08] LABS: TSH (W/Ref FT4) 1.18 uIU/mL (0.36-3.74); Troponin I < 50 ng/L (<or=60)
[2021-12-06 13:15] LABS: ALT 53 U/L (14-59); AST 23 U/L (15-37); Albumin 3.5 g/dL (3.4-5.0); Alkaline Phosphatase 114 U/L (46-116); Anion Gap 9.1 mmol/L (3-11); BUN 26 mg/dL (7-18); Bilirubin, Total 0.3 mg/dL (0.2-1.0); CO2 28.9 mmol/L (21.0-32.0); CREATININE 0.7 mg/dL (0.55-1.02); Calcium 9.7 mg/dL (8.5-10.1); Chloride 103 mmol/L (98-107); Estimated GFR 96.52 (mL/min/1.73m2); Glucose 102 mg/dL (74-106); Magnesium 1.6 mg/dL (1.8-2.4); Sodium 141 mmol/L (136-145); Total Protein 7.8 g/dL (6.4-8.2)
[2021-12-06 13:20] LABS: FREE T4 1.16 ng/dL (0.76-1.46)
[2021-12-06 13:31] LABS: HCT 42.8 % (36.0-46.0); HGB 14.2 g/dL (11.2-15.7); MCH 29.1 pg (27.0-33.0); MCHC 33.2 % (32.0-36.0); MCV 88 fL (80-95); MPV 11.4 fL (8.0-11.0); Platelet Count 245 10^3/uL (130-400); RBC 4.88 10^6/uL (3.93-5.22); RDW 12.6 % (11.7-14.6); RDW-SD 40.3 fL; WBC 8.59 10^3/uL (4.4-10.8)
[2021-12-06 13:33] LABS: Vitamin D 25 Total 36.1 ng/mL (30-100)
[2021-12-06] MEDS: Magnesium Oxide 400 MG TAB PO (14:22)
[2021-12-08 11:18] LABS: Parathyroid Hormone,Intact 8 pg/mL (19-88)
== END 2021-12-06 15:33 | disposition home or self-care (01) ==
PROVIDERS: Emergency Provider Physician Assistant; PCP Family Medicine
DX: E83.42 Hypomagnesemia (principal); E83.51 Hypocalcemia; L50.0 Allergic urticaria; J39.2 Other diseases of pharynx; I10 Essential (primary) hypertension; F17.210 Nicotine dependence, cigarettes, uncomplicated
CPT/HCPCS: 80053; 82306; 85027; 87880; 93005; 99283; 83735; 83970; 84439; 84443; 84484; 87081; 93010; 99284

== ENCOUNTER 2021-12-14 17:20 | Outpatient (REF) | payer MEDICAID, SELFPAY ==
[2021-12-14 16:01] LABS: ALT 25 U/L (14-59); AST 22 U/L (15-37); Albumin 3.7 g/dL (3.4-5.0); Alkaline Phosphatase 114 U/L (46-116); Anion Gap 7.2 mmol/L (3-11); BUN 27 mg/dL (7-18); Bilirubin, Total 0.2 mg/dL (0.2-1.0); CO2 29.8 mmol/L (21.0-32.0); CREATININE 0.9 mg/dL (0.55-1.02); Calcium 9.9 mg/dL (8.5-10.1); Chloride 104 mmol/L (98-107); Estimated GFR 71.39 (mL/min/1.73m2); Glucose 100 mg/dL (74-106); Magnesium 1.8 mg/dL (1.8-2.4); Potassium 4.3 mmol/L (3.5-5.1); Sodium 141 mmol/L (136-145); Total Protein 7.8 g/dL (6.4-8.2)
[2021-12-14 16:22] LABS: Hemoglobin A1C 5.9 % (<5.7)
== END 2021-12-14 17:21 | disposition home or self-care (01) ==
LOC: NCHCN 17:20
PROVIDERS: PCP Family Medicine; Visit Provider Physician Assistant Medical
DX: E83.51 Hypocalcemia (principal); E83.42 Hypomagnesemia
CPT/HCPCS: 80053; 83036; 83735

== ENCOUNTER 2021-12-21 16:21 | Outpatient (CLI) | payer MEDICAID, SELFPAY ==
[2021-12-21 15:51] LABS: ALT 24 U/L (14-59); AST 31 U/L (15-37); Albumin 3.8 g/dL (3.4-5.0); Alkaline Phosphatase 108 U/L (46-116); Anion Gap 8.2 mmol/L (3-11); BUN 27 mg/dL (7-18); Bilirubin, Total 0.3 mg/dL (0.2-1.0); CO2 29.8 mmol/L (21.0-32.0); CREATININE 0.8 mg/dL (0.55-1.02); Calcium 10.4 mg/dL (8.5-10.1); Chloride 100 mmol/L (98-107); Estimated GFR 82.23 (mL/min/1.73m2); FREE T4 1.21 ng/dL (0.76-1.46); Glucose 91 mg/dL (74-106); Magnesium 1.6 mg/dL (1.8-2.4); Potassium 3.7 mmol/L (3.5-5.1); Sodium 138 mmol/L (136-145)
[2021-12-22 12:33] LABS: Parathyroid Hormone,Intact 13 pg/mL (19-88)
[2021-12-23 10:05] LABS: Vitamin D 25 Total 37.8 ng/mL (30-100)
== END 2021-12-21 16:22 | disposition home or self-care (01) ==
LOC: LBO 16:23
PROVIDERS: PCP Family Medicine; Visit Provider Student in an Organized Health Care Education/Training Program
DX: D49.7 Neoplasm of unspecified behavior of endocrine glands and other parts of nervous system (principal); E83.51 Hypocalcemia
CPT/HCPCS: 36415; 80053; 82306; 83735; 83970; 84439; 84443

== ENCOUNTER 2022-02-17 04:41 | Outpatient (CLI) | payer MEDICAID, SELFPAY ==
[2022-02-17 12:49] LABS: FREE T4 1.28 ng/dL (0.76-1.46); TSH 0.97 uIU/mL (0.36-3.74)
[2022-02-17 22:09] LABS: T3,Free 3.4 pg/mL (2.8-5.3)
== END 2022-02-17 04:42 | disposition home or self-care (01) ==
LOC: LBO 04:41
PROVIDERS: PCP Family Medicine; Visit Provider Surgery
DX: E89.0 Postprocedural hypothyroidism (principal)
CPT/HCPCS: 36415; 84439; 84443; 84481

== ENCOUNTER 2022-02-20 15:10 | Emergency (ER) | payer MEDICAID, SELFPAY ==
[2022-02-20 15:14] VITALS: BP 143/88; PULSE 79; RESP 18; TEMP 36; O2SAT 98
--- NOTE | 2022-02-20 15:38 | W.ED.GENAD ---
Discharge Plan Disposition Patient Disposition: HOME Condition: Stable Discharge Details Clinical Impression: Conjunctival hemorrhage, right eye Primary Care Provider: Juana Syed V ED Provider: Josue Taylor Home Meds and New Rx's Prescriptions: Continued duloxetine [Cymbalta] 60 MG capsule,delayed release(DR/EC) 120 mg PO DAILY cholecalciferol (vitamin D3) 50 mcg (2,000 unit) capsule 50 mcg PO DAILY Hold Instructions: Until you meet with your wheel cleaner triamcinolone acetonide 0.1 % cream 1 applic topical BID PRN calcium carbonate [Tums] 200 MG tablet,chewable 2 tab PO PRN PRN Hold Instructions: Until you meet with your wheel cleaner Label Comments: not taking acetaminophen [Tylenol Extra Strength] 500 mg tablet 500 mg PO Q6H PRNQty: 90 0RF Hold Instructions: Due to your elevated liver function test please limit the amount of acetaminophen and you may do a small trial of ibuprofen/Motrin to see if this helps your pain and discomfort. levothyroxine [Euthyrox] 112 mcg tablet 112 mcg QDAY Label Comments: TAKE 1 TABLET BY MOUTH ONCE DAILY Nicotrol 10 mg Cartridge 10 mg inhalation Q2H PRN PRNQty: 168 0RF calcium citrate 200 mg (950 mg) Tablet 1,425 mg PO TID Qty: 90 0RF Mag 64 64 mg Tablet,Delayed Release (Dr/Ec) 64 mg PO BID Qty: 60 0RF lorazepam 1 mg tablet 1 mg PO TID PRNQty: 20 0RF calcitriol 0.25 mcg Capsule 0.5 mcg PO TID Qty: 180 0RF ondansetron 4 mg tablet,disintegrating 4 mg PO TID PRN (Reason: nausea and vomiting) Qty: 6 0RF Calcium 600 + D(3) 600 mg-5 mcg (200 unit) capsule 1 cap PO DAILY AM Qty: 30 0RF Discharge Instructions Additional Instructions: You appear to have a subconjunctival hemorrhage on exam which is a self limited bleeding of the surface of the eye if not starting to improve within a week have the eye evaluated with your interactive digital media specialist if you have severe changes in vision, severe worsening pain or if you feel more ill return to the emergency department Medical Decision Making 66 yo female with hx of thyroidectomy in November, who comes in with cc of right eye redness. She states she noticed it on the right lateral eye when she woke up yesterday, denies any trauma or known foreign bodies. She feels the redness worsened today and has some discomfort in the eye so came here. She arrives stable, caox4 speaking clearly. She has redness of her right lateral conjunctiva that appears to be a subconjunctival hemorrhage, perrl, eomi, no pain with eye movements, no periorbital swelling. She has no visible foreign body on the surface of the eye and none under the eyelids. Her vision is 20/50 in both eyes. She has a history of macular degeneration and cataracts and states vision feels at baseline. She has no corneal abrasions on fluorescein staining and no evidence of globe rupture, negative aurora's sign. Discussed findings with pt and she understands this normally resolves and is self limited. She will f/u with her interactive digital media specialist if not improving and return precautions given Differential Diagnosis Differential Diagnosis: subconjunctival hemorrhage, corneal abrasion HPI General Mode of arrival: ambulatory. Date/Time Provider Initiated Documentation: 02/20/22 15:11. Limitations to Documentation: no limitations. Information obtained by: patient. History of Present Illness 66 year old F presents to the emergency department with the chief complaint of right eye redness, Patient started experiencing this day(s) (1) and it has been constant. No relieving factors improve symptom(s), No exacerbating factors reported . Patient did receive the following treatments prior to arrival, none Related Data Home Medications Medication Instructions Recorded Confirmed duloxetine 60 mg capsule,delayed 120 mg PO DAILY 09/14/12 12/06/21 release (Cymbalta) calcium carbonate 200 mg calcium 2 tab PO PRN PRN 07/28/14 12/06/21 (500 mg) chewable tablet (Tums) cholecalciferol (vitamin D3) 50 50 mcg PO DAILY 02/24/20 12/06/21 mcg (2,000 unit) capsule triamcinolone acetonide 0.1 % 1 applic topical BID PRN 02/24/20 12/06/21 topical cream acetaminophen 500 mg tablet 500 mg PO Q6H PRN #90 tabs 09/22/20 12/06/21 (Tylenol Extra Strength) ondansetron 4 mg disintegrating 4 mg PO TID PRN nausea and 04/24/21 12/06/21 tablet vomiting #6 tabs calcium carbonate 600 mg-vitamin 1 cap PO DAILY AM #30 caps 11/27/21 12/06/21 D3 5 mcg (200 unit) capsule (Calcium 600 + D(3)) levothyroxine 112 mcg tablet 112 mcg QDAY 11/28/21 12/06/21 (Euthyrox) calcium citrate 200 mg (950 mg) 1,425 mg PO TID #90 tabs 11/29/21 12/06/21 tablet lorazepam 1 mg tablet 1 mg PO TID PRN #20 tabs 11/29/21 12/06/21 magnesium chloride 64 mg 64 mg PO BID #60 tabs 11/29/21 12/06/21 (magnesium chloride) tablet,delayed release (Mag 64) nicotine 10 mg inhalation 10 mg inhalation Q2H PRN PRN #168 11/29/21 12/06/21 cartridge (Nicotrol) ea calcitriol 0.25 mcg capsule 0.5 mcg PO TID #180 caps 11/30/21 12/06/21 Previous Rx's Medication Instructions Recorded acetaminophen 500 mg tablet 500 mg PO Q6H PRN #90 tabs 09/22/20 (Tylenol Extra Strength) ondansetron 4 mg disintegrating 4 mg PO TID PRN nausea and 04/24/21 tablet vomiting #6 tabs calcium carbonate 600 mg-vitamin 1 cap PO DAILY AM #30 caps 11/27/21 D3 5 mcg (200 unit) capsule (Calcium 600 + D(3)) calcium citrate 200 mg (950 mg) 1,425 mg PO TID #90 tabs 11/29/21 tablet lorazepam 1 mg tablet 1 mg PO TID PRN #20 tabs 11/29/21 magnesium chloride 64 mg 64 mg PO BID #60 tabs 11/29/21 (magnesium chloride) tablet,delayed release (Mag 64) nicotine 10 mg inhalation 10 mg inhalation Q2H PRN PRN #168 11/29/21 cartridge (Nicotrol) ea calcitriol 0.25 mcg capsule 0.5 mcg PO TID #180 caps 11/30/21 Allergies Allergy/AdvReac Type Severity Reaction Status Date / Time morphine Allergy Severe Swelling/Ed Verified 12/06/21 11:24 lisa sulfamethoxazole Allergy Severe Hives Unverified 12/06/21 11:24 [From Bactrim] trimethoprim [From Bactrim] Allergy Severe Hives Unverified 12/06/21 11:24 amoxicillin [From Augmentin] Allergy Intermediate nausea, Unverified 12/06/21 11:24 hives clavulanic acid Allergy Intermediate nausea and Unverified 12/06/21 11:24 [From Augmentin] hives Sulfa (Sulfonamide Allergy Intermediate Hives Verified 12/06/21 11:24 Antibiotics) levofloxacin [From Levaquin] Allergy Unknown Other (See Unverified 12/06/21 11:24 Comment) fentanyl AdvReac Severe go crazy Verified 12/06/21 11:24 doxycycline AdvReac Intermediate headache Unverified 12/06/21 11:24 and vomiting nicotine [From Nicorette] AdvReac Intermediate Vomiting Verified 12/06/21 11:24 azithromycin AdvReac Unknown Nausea Verified 12/06/21 11:24 nitrofurantoin AdvReac Unknown Nausea Verified 12/06/21 11:24 [From Macrobid] bupropion HCl AdvReac Nausea, Verified 12/06/21 11:24 [From Wellbutrin] thought I was going crazy prednisone AdvReac Nausea, Verified 12/06/21 11:24 thought I was going crazy I get get General Stated Complaint: EyeProblem CAROL: 3 Review of Systems All systems reviewed & are unremarkable except as noted in HPI and below Constitutional Constitutional: Denies chills, Denies fever(s) and Denies weakness Eyes Eyes: Denies loss of vision Cardiovascular Cardiovascular: Denies dyspnea Respiratory Respiratory: Denies cough and Denies dyspnea Gastrointestinal Gastrointestinal: Denies abdominal pain, Denies nausea and Denies vomiting Neurologic Neurologic: Denies loss of vision and Denies weakness PFSH All Active Problems (Updated 02/20/22 @ 15:58 by Josue Taylor MD) Conjunctival hemorrhage, right eye (Acute) Generalized weakness (Acute) Chronic GERD (Acute) Fatty liver disease, nonalcoholic (Acute) Allergic rhinitis due to allergen (Acute) Smoker (Acute) Chronic cough (Acute) Medical History Abdominal pain Acne rosacea Actinic keratosis Aftercare following joint replacement surgery Bursitis of right shoulder cervical carcinoma Chemical gastritis Chronic maxillary sinusitis Chronic rhinitis Femoroacetabular impingement of right hip Fibromyalgia GERD (gastroesophageal reflux disease) 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 denies this Interstitial cystitis Left upper quadrant pain Loosening of prosthesis of left total knee replacement Low TSH level OAB (overactive bladder) Painful total knee replacement, left Pelvic pain Pelvic pain in female Peritonsillar cellulitis (12/03/15) Post-nasal drip Primary osteoarthritis of right knee (04/23/15) Primary osteoarthritis, right shoulder Recurrent UTI Right-sided chest wall pain Rotator cuff tear, right Superficial laceration of skin (10/31/20) left mccray Trochanteric bursitis, right hip DEPO MEDROL 09/23/21 Surgical History Abdominal hysterectomy Arthroplasty of knee Colonoscopy - IV Sedation History of total left knee replacement Hx of rotator cuff surgery Hx of tonsillectomy Oophrectomy, Left Replacement of total knee joint (01/20/16) LEFT/DR. PIERRE S/P laparoscopic cholecystectomy S/P total abdominal hysterectomy Status post arthroscopy of right shoulder (11/03/08) Debridement, PASTA repair, subacromial decompression with acromioplasty, distal clavicle resection, open subpectoral biceps tenodesis Status post cholecystectomy (~07/14/20) TOT (Incontinence sling) Social History Smoking/Tobacco Use Status: Current every day Tobacco Type: cigarettes Smoking risk assessment performed?: Yes Alcohol Intake: current Alcohol Intake frequency: holidays/special occasions only Alcohol type: wine Drug use: Occasionally Substance use type: marijuana Details: currently on a quit smoking program Current gender identity: female Do you feel safe at home: Yes Do you feel safe in your relationship?: Yes Exam Const General: no acute distress Orientation: alert HENMT Head: normal to inspection Ears: external ears normal General nose exam: external nose normal Mouth: moist mucous membranes Eyes Eyelids: eyelids normal Neck Neck: normal visual inspection Resp Effort & Inspection: normal respiratory effort and able to speak in complete sentences Cardio Rate: regular rate Skin General skin exam: no rashes or lesions noted Neuro General: patient alert and patient oriented x3 Extrem General: normal to inspection Psych Mental Status: mental status grossly normal Course Vital Signs Vital signs: Vital Signs Temperature 36.0 C L 02/20/22 15:14 Pulse 79 02/20/22 15:14 Respiratory Rate 18 02/20/22 15:14 Blood Pressure 143/88 H 02/20/22 15:14 Pulse Oximetry 98 02/20/22 15:14 Temperature 36.0 C L 02/20/22 15:14 Temperature Source Tympanic 02/20/22 15:14 Pulse 79 02/20/22 15:14 Respiratory Rate 18 02/20/22 15:14 Respiratory Effort 02/20/22 15:32 Blood Pressure 143/88 H 02/20/22 15:14 Blood Pressure Position Sitting 02/20/22 15:14 Pulse Oximetry 98 02/20/22 15:14 Oxygen Delivery Method Room Air 02/20/22 15:14 Oxygen Flow Rate 0 02/20/22 15:14 Pain Level 1 02/20/22 15:14
[2022-02-20] MEDS: Balanced Salt Solution 15 ML BTL OP (15:43)
[2022-02-20] MEDS: Fluorescein STRIPS 100/BOX 1 MG OP (15:43)
[2022-02-20] MEDS: Tetracaine 0.5% 4 ML BTL OP (15:44)
== END 2022-02-20 16:08 | disposition home or self-care (01) ==
PROVIDERS: Emergency Provider Emergency Medicine; PCP Family Medicine
DX: H11.31 Conjunctival hemorrhage, right eye (principal)
CPT/HCPCS: 99283

== ENCOUNTER 2022-03-29 16:48 | Outpatient (REF) | payer MEDICAID, SELFPAY ==
[2022-03-29 18:44] LABS: Bilirubin Negative (Negative); Blood Negative (Negative); Clarity Cloudy (Clear); Glucose Negative (Negative); Ketones Negative (Negative); Leukocyte Esterase Large (Negative); Nitrite Positive (Negative); Urobilinogen 0.2 EU/dL (Up TO 0.2)
[2022-03-29 18:57] LABS: Bacteria Many HPF (Negative); C & S Indicated? Yes; Casts Negative LPF (Negative); Crystals Negative HPF (Negative); Epithelial Cells Few HPF (Negative); Mucus Negative (Negative); RBC 0-2 HPF (0-2); WBC >50 HPF (0-5)
== END 2022-03-29 16:49 | disposition home or self-care (01) ==
LOC: NCHCN 16:48
PROVIDERS: PCP Family Medicine; Visit Provider Family Medicine
DX: R30.9 Painful micturition, unspecified (principal)
CPT/HCPCS: 87077; 81003; 81015; 87086; 87186

== ENCOUNTER 2022-04-05 13:15 | Outpatient (REF) | payer MEDICAID, SELFPAY ==
[2022-04-05 15:46] LABS: HCT 46.9 % (36.0-46.0); HGB 15.4 g/dL (11.2-15.7); MCH 29.3 pg (27.0-33.0); MCHC 32.8 % (32.0-36.0); MCV 89 fL (80-95); MPV 11.4 fL (8.0-11.0); Platelet Count 229 10^3/uL (130-400); RBC 5.26 10^6/uL (3.93-5.22); RDW 12.9 % (11.7-14.6); RDW-SD 42.3 fL; WBC 6.56 10^3/uL (4.4-10.8)
[2022-04-05 15:48] LABS: ESR 40 mm/hr (0-30)
[2022-04-05 16:24] LABS: C-Reactive Protein 0.34 mg/dL (0.0-0.3); Creatine Kinase 102 U/L (26-192)
== END 2022-04-05 13:16 | disposition home or self-care (01) ==
LOC: NCHCN 13:15
PROVIDERS: Visit Provider Family Medicine
DX: M79.10 Myalgia, unspecified site (principal)
CPT/HCPCS: 82550; 85027; 85652; 86140

== ENCOUNTER 2022-04-19 16:41 | Inpatient (IN) | payer MEDICAID, SELFPAY ==
[2022-04-19] VITALS (67 sets, daily range): BP systolic 133–151; BP diastolic 76–77; PULSE 74–88; RESP 4–24; TEMP 36.6–36.9; O2SAT 88–99
--- NOTE | 2022-04-19 16:00 | DI.CT_ITS ---
Exam(s) CT CHEST PE CTA EXAM: CT CHEST PE CTA CLINICAL HISTORY: concern for PE v pneumonia. TECHNIQUE: Imaging Protocol: Axial CT angiography was performed with multi-slice acquisition and mu lti-planar reconstructions as well as axial, coronal and sagittal MIP reconstructions. CONTRAST MATERIAL: Intravenous: Omnipaque 350 Contrast volume:68 mL COMPARISON: CT CT THORAX ABD/PEL CTA from 04/24/2021 FINDINGS: Pulmonary Arteries: No evidence of filling defect to suggest pulmonary emboli. Tracheobronchial tree: Patent where visualized. Mediastinum and Rossy: No dominant adenopathy or fluid collection. Pulmonary parenchyma: No consolidation or dominant measurable mass. Linear atelectasis versus scarrin g in the medial right middle lobe and lingula. Minimal atelectasis or scar scarring at the right tammie g base. Pleura: No effusion or pneumothorax. Heart: The heart is not dilated. No coronary artery calcifications are seen. Aorta: Thoracic aorta non-dilated. No aneurysm. No dissection. Upper abdomen: Unremarkable. Bones: Degenerative changes thoracolumbar junction. Tubes, Catheters, and Lines: IMPRESSION: No evidence of pulmonary embolism or other acute abnormality.. RADIATION DOSE DELIVERED: 473.8mGy.cm Total DLP DATA REPOSITORY: All CT scans at this facility are submitted to the National Radiology Data Registry (NRDR) Dose Index Registry (DIR) with the [employer] ([employer]). RADIATION OPTIMIZATION: All CT scans at this facility use at least one of these dose optimization te chniques: automated exposure control; mA and/or kV adjustment per patient size (includes targeted exa ms where dose is matched to clinical indication); or iterative reconstruction.
--- NOTE | 2022-04-19 16:00 | RT.EKG_ITS ---
APPROVED REPORT Exam: Resting ECG Reason for Exam: chest pain Patient Location: E HR:73 bpm ECG Measurements Heart Rate 73 AXIS IL 122 P -15 QRSd 73 QRS 58 QT 377 T 32 QTc 414 Conclusion Sinus rhythm...normal P axis, V-rate 60- 99 normal sinus rhythm, normal axis, normal intervals, non ischemic
[2022-04-19 17:03] LABS: Abs Immature Grans 0.03 10^3/uL (0.0-0.06); Absolute Basophil Count 0.04 10^3/uL (0.0-0.2); Absolute Lymphocyte Count 2.08 10^3/uL (1.2-3.4); Absolute Neutrophil Count 10.66 10^3/uL (1.2-6.7); Basophils % 0.3; Eosinophils % 0.4; HCT 46.7 % (36.0-46.0); HGB 15.4 g/dL (11.2-15.7); Immature Grans % 0.2; MCH 29.2 pg (27.0-33.0); MCV 89 fL (80-95); MPV 10.5 fL (8.0-11.0); Monocytes % 7.1; Platelet Count 246 10^3/uL (130-400); RBC 5.27 10^6/uL (3.93-5.22); RDW 13.1 % (11.7-14.6); RDW-SD 42.5 fL; WBC 13.85 10^3/uL (4.4-10.8)
[2022-04-19 17:04] LABS: Absolute Eosinophil Count 0.06 10^3/uL (0.0-0.7); Absolute Monocyte Count 0.98 10^3/uL (0.1-0.8)
--- NOTE | 2022-04-19 17:17 | W.ED.GENAD ---
Discharge Plan Disposition Patient Disposition: Admit to [facility] Condition: Good Discharge Details Chief Complaint: RespSymp Clinical Impression: COPD exacerbation, UTI (urinary tract infection) Primary Care Provider: Unknown,Unknown ED Provider: Joe Ragsdale Home Meds and New Rx's Prescriptions: No Action duloxetine [Cymbalta] 60 MG capsule,delayed release(DR/EC) 120 mg PO DAILY cholecalciferol (vitamin D3) 50 mcg (2,000 unit) capsule 50 mcg PO DAILY Hold Instructions: Until you meet with your mailing section clerk triamcinolone acetonide 0.1 % cream 1 applic topical BID PRN calcium carbonate [Tums] 200 MG tablet,chewable 2 tab PO PRN PRN Hold Instructions: Until you meet with your mailing section clerk Label Comments: not taking acetaminophen [Tylenol Extra Strength] 500 mg tablet 500 mg PO Q6H PRNQty: 90 0RF Hold Instructions: Due to your elevated liver function test please limit the amount of acetaminophen and you may do a small trial of ibuprofen/Motrin to see if this helps your pain and discomfort. lorazepam 1 mg tablet 1 mg PO TID PRNQty: 20 0RF levothyroxine [Euthyrox] 112 mcg tablet 125 mcg PO QDAY Label Comments: TAKE 1 TABLET BY MOUTH ONCE DAILY albuterol sulfate [Ventolin HFA] 90 mcg/actuation HFA aerosol inhaler 2 puff INHALATION Q4H PRN PRN Label Comments: INHALE 1 TO 2 PUFFS BY MOUTH EVERY 4 TO 6 HOURS NEEDED FOR WHEEZING AND FOR SHORTNESS OF BREATH levothyroxine 125 mcg tablet 1 tab PO QDAY cephalexin 250 mg capsule 2 cap PO TID loratadine 10 mg Tablet 10 mg PO QDAY ondansetron 4 mg tablet,disintegrating 4 mg PO TID PRN (Reason: nausea and vomiting) Qty: 6 0RF Medical Decision Making <Roberto Cheatham MD - Last Filed: 04/19/22 20:46> 66-year-old female recent trip to [facility], presents with productive cough for the past 2 to 3 days associated with subjective fevers chills and body aches, requiring supplemental oxygen as she was in the low 90s on room air, slightly dyspneic at rest, expiratory wheeze bilaterally left greater than right; mild edema to bilateral ankles. Afebrile hemodynamically stable. Concern for pulmonary infection such as viral pneumonia versus bacterial pneumonia must also consider PE given recent travel and new oxygen requirements patient also has a component of bilateral lower rib discomfort. Will obtain basic labs EKG CT chest, nebulized albuterol ipratropium, will hold dexamethasone as patient had a adverse reaction to prednisone. Disposition pending improvement of respiratory symptoms and imaging and lab findings. Will attempt to wean off nasal cannula currently 95% on 1 L 20: 46 patient resting comfortably feeling slightly better however still wheezing bilaterally and saturating 89% on room air. Labs and imaging largely unremarkable no evidence of PE or pneumonia likely reactive disease in the setting of viral illness versus environmental stimulus. Discussed steroids with patient she said she had had a bad reaction the past but has had since had steroids without issue. We will add dexamethasone, another neb close reassessment for disposition. <Joe Ragsdale, DO - Last Filed: 04/19/22 22:11> 66-year-old female recent trip to [facility], presents with productive cough for the past 2 to 3 days associated with subjective fevers chills and body aches, requiring supplemental oxygen as she was in the low 90s on room air, slightly dyspneic at rest, expiratory wheeze bilaterally left greater than right; mild edema to bilateral ankles. Afebrile hemodynamically stable. Concern for pulmonary infection such as viral pneumonia versus bacterial pneumonia must also consider PE given recent travel and new oxygen requirements patient also has a component of bilateral lower rib discomfort. Will obtain basic labs EKG CT chest, nebulized albuterol ipratropium, will hold dexamethasone as patient had a adverse reaction to prednisone. Disposition pending improvement of respiratory symptoms and imaging and lab findings. Will attempt to wean off nasal cannula currently 95% on 1 L 20: 46 patient resting comfortably feeling slightly better however still wheezing bilaterally and saturating 89% on room air. Labs and imaging largely unremarkable no evidence of PE or pneumonia likely reactive disease in the setting of viral illness versus environmental stimulus. Discussed steroids with patient she said she had had a bad reaction the past but has had since had steroids without issue. We will add dexamethasone, another neb close reassessment for disposition. Dr. Ragsdale's documentation 10:03 PM Patient was signed out pending reassessment after repeat breathing treatments. CTA negative for acute process. Laboratory work-up shows mild white count, she also has urinary tract infection, most recent cultures from a few weeks ago were negative for any resistance, they were positive for E. coli. Unfortunately even after steroids and 2-3 more breathing treatments the patient still has notable wheezes, oxygenation is around 88% on room air just with sitting, worse with ambulation. Wheezes are still present. I do feel that patient at this point likely requires admission with her lack of our hopeful turnaround. I do feel that a short stay for continued steroids nebulizers and monitoring over the next 12 hours would be reasonable and might be all that she needs. I discussed this with the hospitalist Dr. Steinberg, he agrees with the assessment and plan. I have extensively reviewed the treatment plan with the patient. I have addressed all patient concerns at this time. I have also discussed the plan with the admitting physician and they agree with the current assessment and plan and have agreed to assume responsibility for the patient. All parties demonstrate verbal understanding and agreement with our assessment and plan at this time. The documentation in this chart was dictated using [employer] dictation software. Please excuse any dictation errors. HPI <Roberto Cheatham MD - Last Filed: 04/19/22 20:46> General Date/Time Provider Initiated Documentation: 04/19/22 16:42. HPI Narrative: 66-year-old female recent trip to [facility] presents with 2 days of cough productive of brown sputum shortness of breath fevers chills. Denies leg pain or swelling. Denies exogenous estrogen use denies history of thromboembolic disease. Related Data Home Medications Medication Instructions Recorded Confirmed duloxetine 60 mg capsule,delayed 120 mg PO DAILY 09/14/12 04/19/22 release (Cymbalta) calcium carbonate 200 mg calcium 2 tab PO PRN PRN 07/28/14 04/19/22 (500 mg) chewable tablet (Tums) cholecalciferol (vitamin D3) 50 50 mcg PO DAILY 02/24/20 04/19/22 mcg (2,000 unit) capsule triamcinolone acetonide 0.1 % 1 applic topical BID PRN 02/24/20 04/19/22 topical cream acetaminophen 500 mg tablet 500 mg PO Q6H PRN #90 tabs 09/22/20 04/19/22 (Tylenol Extra Strength) ondansetron 4 mg disintegrating 4 mg PO TID PRN nausea and 04/24/21 04/19/22 tablet vomiting #6 tabs lorazepam 1 mg tablet 1 mg PO TID PRN #20 tabs 11/29/21 04/19/22 levothyroxine 112 mcg tablet 125 mcg PO QDAY 04/18/22 04/19/22 (Euthyrox) albuterol sulfate 90 mcg/actuation 2 puff inhalation Q4H PRN PRN 04/19/22 04/19/22 aerosol inhaler (Ventolin HFA) cephalexin 250 mg capsule 2 cap PO TID 04/19/22 04/19/22 levothyroxine 125 mcg tablet 1 tab PO QDAY 04/19/22 04/19/22 loratadine 10 mg tablet 10 mg PO QDAY 04/19/22 04/19/22 Previous Rx's Medication Instructions Recorded acetaminophen 500 mg tablet 500 mg PO Q6H PRN #90 tabs 09/22/20 (Tylenol Extra Strength) ondansetron 4 mg disintegrating 4 mg PO TID PRN nausea and 04/24/21 tablet vomiting #6 tabs lorazepam 1 mg tablet 1 mg PO TID PRN #20 tabs 11/29/21 Allergies Allergy/AdvReac Type Severity Reaction Status Date / Time morphine Allergy Severe Swelling/Ed Verified 04/19/22 17:07 lisa sulfamethoxazole Allergy Severe Hives Unverified 04/19/22 17:07 [From Bactrim] trimethoprim [From Bactrim] Allergy Severe Hives Unverified 04/19/22 17:07 amoxicillin [From Augmentin] Allergy Intermediate nausea, Unverified 04/19/22 17:07 hives clavulanic acid Allergy Intermediate nausea and Unverified 04/19/22 17:07 [From Augmentin] hives Sulfa (Sulfonamide Allergy Intermediate Hives Verified 04/19/22 17:07 Antibiotics) levofloxacin [From Levaquin] Allergy Unknown Other (See Unverified 04/19/22 17:07 Comment) fentanyl AdvReac Severe go crazy Verified 04/19/22 17:07 doxycycline AdvReac Intermediate headache Unverified 04/18/22 11:22 and vomiting nicotine [From Nicorette] AdvReac Intermediate Vomiting Verified 04/19/22 17:07 azithromycin AdvReac Unknown Nausea Verified 04/19/22 17:07 nitrofurantoin AdvReac Unknown Nausea Verified 04/19/22 17:07 [From Macrobid] bupropion HCl AdvReac Nausea, Verified 04/19/22 17:07 [From Wellbutrin] thought I was going crazy prednisone AdvReac Nausea, Verified 04/19/22 17:07 thought I was going crazy I get get General Stated Complaint: RespSymp CAROL: 3 Review of Systems <Roberto Cheatham MD - Last Filed: 04/19/22 20:46> Narrative: Review of Systems Constitutional: negative Eyes: negative ENT: negative Cardiovascular: negative Respiratory: Cough, shortness of breath Gastrointestinal: negative : negative Musculoskeletal: negative Skin: negative Neurologic: negative Psych: negative PFSH <Roberto Cheatham MD - Last Filed: 04/19/22 20:46> All Active Problems (Updated 04/19/22 @ 22:11 by Joe Ragsdale DO) COPD exacerbation (Acute) UTI (urinary tract infection) (Acute) Trochanteric bursitis, right hip (Acute) DEPO MEDROL: 04/18/2022; 09/23/2021 Generalized weakness (Acute) Chronic GERD (Acute) Fatty liver disease, nonalcoholic (Acute) Allergic rhinitis due to allergen (Acute) Smoker (Acute) Chronic cough (Acute) Medical History (Updated 04/19/22 @ 22:11 by Joe Ragsdale DO) Abdominal pain Acne rosacea Actinic keratosis Aftercare following joint replacement surgery Bursitis of right shoulder cervical carcinoma Chemical gastritis Chronic maxillary sinusitis Chronic rhinitis Femoroacetabular impingement of right hip Fibromyalgia GERD (gastroesophageal reflux disease) Hypertension pt. denies this Interstitial cystitis Left upper quadrant pain Loosening of prosthesis of left total knee replacement Low TSH level OAB (overactive bladder) Painful total knee replacement, left Pelvic pain Pelvic pain in female Peritonsillar cellulitis (12/03/15) Post-nasal drip Primary osteoarthritis of right knee (04/23/15) Primary osteoarthritis, right shoulder Recurrent UTI Right-sided chest wall pain Rotator cuff tear, right Superficial laceration of skin (10/31/20) left mccray Surgical History (Updated 04/18/22 @ 11:44 by MYRA Haider) Abdominal hysterectomy Arthroplasty of knee Colonoscopy - IV Sedation History of revision of total replacement of left knee joint (09/22/20) History of total left knee replacement (01/20/16) Hx of rotator cuff surgery Hx of tonsillectomy Oophrectomy, Left S/P laparoscopic cholecystectomy S/P total abdominal hysterectomy Status post arthroscopy of right shoulder (11/03/08) Debridement, PASTA repair, subacromial decompression with acromioplasty, distal clavicle resection, open subpectoral biceps tenodesis Status post cholecystectomy (~07/14/20) TOT (Incontinence sling) Social History Smoking/Tobacco Use Status: Current every day Tobacco Type: cigarettes Smoking risk assessment performed?: Yes Alcohol Intake: current Alcohol Intake frequency: holidays/special occasions only Alcohol type: wine Drug use: Occasionally Substance use type: marijuana Details: been over a year since shes smoked marijuana Current gender identity: female Do you feel safe at home: Yes Do you feel safe in your relationship?: Yes Exam <Roberto Cheatham MD - Last Filed: 04/19/22 20:46> Narrative Exam Narrative: Physical Examination General: alert, awake, cooperative, resting comfortably, no acute distress HEENT: normocephalic, atraumatic; PERRL, EOM intact, conjunctiva normal; no nasal discharge; moist mucous membranes, oral and pharyngeal mucosa normal, tolerating secretions Neck: supple, trachea midline; full ROM Chest: normal to inspection Respiratory: Slightly dyspneic when speaking, expiratory wheeze left greater than right Cardiac: regular rate, regular rhythm, S1S2 intact, no murmurs rubs or gallops GI: abdomen soft, non-tender, non-distended; no palpable mass or hepatosplenomegaly Skin: no lesions, rashes or trauma appreciated Neuro: AAOx3, normal speech, moving all extremities Extremities: Mild edema to bilateral ankles Psych: Appropriate mood and affect Course <Roberto Cheatham MD - Last Filed: 04/19/22 20:46> Vital Signs Vital signs: Vital Signs Temperature 36.9 C 04/19/22 15:32 Pulse 88 04/19/22 15:32 Respiratory Rate 20 04/19/22 15:32 Blood Pressure 133/77 04/19/22 15:32 Pulse Oximetry 92 04/19/22 15:32 Temperature 36.9 C 04/19/22 15:32 Temperature Source Oral 04/19/22 15:32 Pulse 88 04/19/22 15:32 Respiratory Rate 20 04/19/22 15:32 Respiratory Effort Non-Labored 04/19/22 17:00 Blood Pressure 133/77 04/19/22 15:32 Blood Pressure Position Sitting 04/19/22 15:32 Pulse Oximetry 92 04/19/22 15:32 Oxygen Delivery Method Room Air 04/19/22 15:32 Oxygen Flow Rate 0 04/19/22 15:32 Pain Level 0 04/19/22 15:32 Lab/Test Results Lab/Test Results: Laboratory Tests Range/Units 04/19/22 16:55 WBC (4.4-10.8) 10^3/uL 13.85 H RBC (3.93-5.22) 10^6/uL 5.27 H Hgb (11.2-15.7) g/dL 15.4 Hct (36.0-46.0) % 46.7 H MCV (80-95) fL 89 MCH (27.0-33.0) pg 29.2 MCHC (32.0-36.0) % 33.0 RDW (11.7-14.6) % 13.1 Plt Count (130-400) 10^3/uL 246 MPV (8.0-11.0) fL 10.5 Immature Gran % 0.2 Neutrophils % 77.0 Lymphocytes % 15.0 Monocytes % 7.1 Eosinophils % 0.4 Basophils % 0.3 Nucleated RBC % (0.0-0.3) % 0.0 Absolute Neutrophils (1.2-6.7) 10^3/uL 10.66 H Absolute Lymphocytes (1.2-3.4) 10^3/uL 2.08 Absolute Monocytes (0.1-0.8) 10^3/uL 0.98 H Absolute Eosinophils (0.0-0.7) 10^3/uL 0.06 Absolute Basophils (0.0-0.2) 10^3/uL 0.04 PAWSS <Roberto Cheatham MD - Last Filed: 04/19/22 20:46> Have you Been Recently Intoxicated or Drunk Within the Last 30 days?: No Have you Ever Experienced Previous Episodes of Alcohol Withdrawal?: No Have you ever Experienced Withdrawal Seizures?: No Have you ever Experienced Delirium Tremens(DT)s?: No Have you ever undergone Alcohol Rehabilitation Treatment (i.e, inpt ot outpatient treatment programs)?: No Have you ever Experienced Blackouts?: No Have you ever Combined Alcohol with other Downers within the last 90 days?: No Have you ever Combined Alcohol with any other Substance of Abuse during the last 90 days?: No Result: 0 <Joe Ragsdale DO - Last Filed: 04/19/22 22:11> Result: 0
[2022-04-19 17:18] LABS: PTT Activated 24.8 sec (21.0-27.5); Prothrombin Time 10.4 sec (9.3-11.0)
[2022-04-19] MEDS: Albuterol/Ipratropium 3 ML UPD VIAL 9 ML UPD (17:23)
[2022-04-19 17:30] LABS: ALT 21 U/L (14-59); AST 26 U/L (15-37); Alkaline Phosphatase 115 U/L (46-116); Anion Gap 9.3 mmol/L (3-11); BUN 33 mg/dL (7-18); Bilirubin, Total 0.2 mg/dL (0.2-1.0); CO2 26.7 mmol/L (21.0-32.0); CREATININE 0.8 mg/dL (0.55-1.02); Calcium 8.9 mg/dL (8.5-10.1); Chloride 102 mmol/L (98-107); Estimated GFR 82.23 (mL/min/1.73m2); Glucose 132 mg/dL (74-106); NT-proBNP 148 pg/mL (<300); Sodium 138 mmol/L (136-145); Total Protein 8.4 g/dL (6.4-8.2); Troponin I < 50 ng/L (<or=60)
[2022-04-19 18:24] LABS: Bilirubin Negative (Negative); Blood Negative (Negative); Clarity Sl Cloudy (Clear); Glucose Negative (Negative); Ketones Negative (Negative); Leukocyte Esterase Small (Negative); Nitrite Positive (Negative); Specific Gravity >= 1.030 (1.005-1.025); Urobilinogen 0.2 EU/dL (Up TO 0.2); pH 5.5 (5-8)
[2022-04-19 18:30] LABS: Bacteria Many HPF (Negative); C & S Indicated? Yes; Casts Negative LPF (Negative); Crystals Negative HPF (Negative); Epithelial Cells Few HPF (Negative); Mucus Negative (Negative); RBC Negative HPF (0-2); WBC 20-50 HPF (0-5)
[2022-04-19] MEDS: Omnipaque 350 MG/ML 100 ML BTL IJ (19:43)
[2022-04-19] MEDS: Normal Saline - Diluent 50 ML VIAL IJ (19:43)
--- NOTE | 2022-04-19 20:00 | DI.VRAD_ITS ---
PROCEDURE INFORMATION: Exam: CTA Chest With Contrast Exam date and time: 04/19/2022 7:38 PM Age: 66 years old Clinical indication: Shortness of breath TECHNIQUE: Imaging protocol: Computed tomographic angiography of the chest with contrast. 3D rendering (Not supervised by radiologist): MIP and/or 3D reconstructed images were created by the technologist. COMPARISON: CT THORAX ABD/PEL CTA 04/24/2021 6:36 PM FINDINGS: Mildly limited due to respiratory motion artifact Pulmonary arteries: No pulmonary emboli. Aorta: No aortic aneurysm. No aortic dissection. Lungs: Minimal subsegmental atelectasis versus scarring No consolidation. No masses. Pleural spaces: No pneumothorax. No pleural effusion. Heart: Mild cardiomegaly. No pericardial effusion. Lymph nodes: Unremarkable. No enlarged lymph nodes. Bones/joints: Unremarkable. No acute fracture. Soft tissues: Unremarkable. IMPRESSION: No pulmonary emboli observed Mild cardiomegaly Dictated and Authenticated by: Paul Soto MD. Ordering:CHECO Mejia MD
[2022-04-19 20:03] LABS: Troponin I < 50 ng/L (<or=60)
[2022-04-19] MEDS: LORazepam 0.5 MG TAB PO (20:10)
[2022-04-19 20:34] LABS: COVID-19 PCR Negative (Negative); Influenza A PCR Negative (Negative); Influenza B PCR Negative (Negative); RSV PCR Negative (Negative)
[2022-04-19 20:35] LABS: Source Nasopharynx
[2022-04-19] MEDS: Dexamethasone 10 MG/ML VIAL IVP (20:56)
[2022-04-19] MEDS: Albuterol 2.5 MG/3 ML INH SOLN VIAL UPD (20:56)
[2022-04-19] MEDS: Fosfomycin Tromethamine 3 GM PACKET PO (22:07)
--- NOTE | 2022-04-19 22:17 | HPE_ITS ---
Date of service: 04/19/22 Time of Service: 22:17 Assessment and Plan Assessment and plan (1) COPD exacerbation: Status: Acute Assessment and plan: COPD exacerbation in setting of probable viral illness. Will continue steroids and bronchodilators. Might consider oral antibiotics but patient has allergies to innumerable antibiotics and given that this is likely viral will hold for now. UTI would be adequately treated with single dose regimen of Fosfomycin, will await culture. 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 No fever, chills, CP. Here in ER findings of note for absence of fever, O2 sats high 80s on RA, diffuse wheeze, white count 13, CTA chest negative, and viral swabs negative flu, COVID and RSV. Given updrafts and steroids with some improvement but not back to normal, and continued oxygen requirement. Also has had recent dysuria, urine positive pyuria, and given dose of Fosfomycin. Note recent UTI with arias-sensitive E. coli, treated with unknown antibiotic. I was asked to evaluate for admission. Review of Systems Narrative: per HPI PFSH All Active Problems COPD exacerbation (Acute) UTI (urinary tract infection) (Acute) Trochanteric bursitis, right hip (Acute) DEPO MEDROL: 04/18/2022; 09/23/2021 Generalized weakness (Acute) Chronic GERD (Acute) Fatty liver disease, nonalcoholic (Acute) Allergic rhinitis due to allergen (Acute) Smoker (Acute) Chronic cough (Acute) Medical History Abdominal pain Acne rosacea Actinic keratosis Aftercare following joint replacement surgery Bursitis of right shoulder cervical carcinoma Chemical gastritis Chronic maxillary sinusitis Chronic rhinitis Femoroacetabular impingement of right hip Fibromyalgia GERD (gastroesophageal reflux disease) Hypertension pt. denies this Interstitial cystitis Left upper quadrant pain Loosening of prosthesis of left total knee replacement Low TSH level OAB (overactive bladder) Painful total knee replacement, left Pelvic pain Pelvic pain in female Peritonsillar cellulitis (12/03/15) Post-nasal drip Primary osteoarthritis of right knee (04/23/15) Primary osteoarthritis, right shoulder Recurrent UTI Right-sided chest wall pain Rotator cuff tear, right Superficial laceration of skin (10/31/20) left mccray Surgical History Abdominal hysterectomy Arthroplasty of knee Colonoscopy - IV Sedation History of revision of total replacement of left knee joint (09/22/20) History of total left knee replacement (01/20/16) Hx of rotator cuff surgery Hx of tonsillectomy Oophrectomy, Left S/P laparoscopic cholecystectomy S/P total abdominal hysterectomy Status post arthroscopy of right shoulder (11/03/08) Debridement, PASTA repair, subacromial decompression with acromioplasty, distal clavicle resection, open subpectoral biceps tenodesis Status post cholecystectomy (~07/14/20) TOT (Incontinence sling) Social History Smoking/Tobacco Use Status: Current every day Tobacco Type: cigarettes Smoking risk assessment performed?: Yes Alcohol Intake: current Alcohol Intake frequency: holidays/special occasions only Alcohol type: wine Drug use: Occasionally Substance use type: marijuana Details: been over a year since shes smoked marijuana Current gender identity: female Do you feel safe at home: Yes Do you feel safe in your relationship?: Yes Meds Allergies and Home Medications Allergies Allergy/AdvReac Type Severity Reaction Status Date / Time morphine Allergy Severe Swelling/Ed Verified 04/19/22 17:07 lisa sulfamethoxazole Allergy Severe Hives Unverified 04/19/22 17:07 [From Bactrim] trimethoprim [From Bactrim] Allergy Severe Hives Unverified 04/19/22 17:07 amoxicillin [From Augmentin] Allergy Intermediate nausea, Unverified 04/19/22 17:07 hives clavulanic acid Allergy Intermediate nausea and Unverified 04/19/22 17:07 [From Augmentin] hives Sulfa (Sulfonamide Allergy Intermediate Hives Verified 04/19/22 17:07 Antibiotics) levofloxacin [From Levaquin] Allergy Unknown Other (See Unverified 04/19/22 17:07 Comment) fentanyl AdvReac Severe go crazy Verified 04/19/22 17:07 doxycycline AdvReac Intermediate headache Unverified 04/18/22 11:22 and vomiting nicotine [From Nicorette] AdvReac Intermediate Vomiting Verified 04/19/22 17:07 azithromycin AdvReac Unknown Nausea Verified 04/19/22 17:07 nitrofurantoin AdvReac Unknown Nausea Verified 04/19/22 17:07 [From Macrobid] bupropion HCl AdvReac Nausea, Verified 04/19/22 17:07 [From Wellbutrin] thought I was going crazy prednisone AdvReac Nausea, Verified 04/19/22 17:07 thought I was going crazy I get get Home Medications Medication Instructions Recorded Confirmed Type duloxetine 60 mg capsule,delayed 120 mg PO DAILY 09/14/12 04/19/22 History release (Cymbalta) calcium carbonate 200 mg calcium 2 tab PO PRN PRN 07/28/14 04/19/22 History (500 mg) chewable tablet (Tums) cholecalciferol (vitamin D3) 50 50 mcg PO DAILY 02/24/20 04/19/22 History mcg (2,000 unit) capsule triamcinolone acetonide 0.1 % 1 applic topical BID PRN 02/24/20 04/19/22 History topical cream acetaminophen 500 mg tablet 500 mg PO Q6H PRN #90 tabs 09/22/20 04/19/22 Rx (Tylenol Extra Strength) ondansetron 4 mg disintegrating 4 mg PO TID PRN nausea and 04/24/21 04/19/22 Rx tablet vomiting #6 tabs lorazepam 1 mg tablet 1 mg PO TID PRN #20 tabs 11/29/21 04/19/22 Rx levothyroxine 112 mcg tablet 125 mcg PO QDAY 04/18/22 04/19/22 History (Euthyrox) albuterol sulfate 90 mcg/actuation 2 puff inhalation Q4H PRN PRN 04/19/22 04/19/22 History aerosol inhaler (Ventolin HFA) cephalexin 250 mg capsule 2 cap PO TID 04/19/22 04/19/22 History levothyroxine 125 mcg tablet 1 tab PO QDAY 04/19/22 04/19/22 History loratadine 10 mg tablet 10 mg PO QDAY 04/19/22 04/19/22 History Exam Narrative Exam Narrative: 133/77, 74, 36.9, 18, 94% 2L NC. HEENT atraumatic; neck supple; lungs diminished, faint wheeze; heart RRR; abdomen soft and NT; extremities w/o edema; neuro Ox3, lucid, moves all 4s Results Labs Result diagrams: 04/19/22 16:55 04/19/22 16:55 Labs: Laboratory Results - last 24 hr 04/19/22 04/19/22 04/19/22 16:55 16:55 16:55 WBC 13.85 H RBC 5.27 H Hgb 15.4 Hct 46.7 H MCV 89 MCH 29.2 MCHC 33.0 RDW 13.1 Plt Count 246 MPV 10.5 Immature Gran % 0.2 Neutrophils % 77.0 Lymphocytes % 15.0 Monocytes % 7.1 Eosinophils % 0.4 Basophils % 0.3 Nucleated RBC % 0.0 Absolute Neutrophils 10.66 H Absolute Lymphocytes 2.08 Absolute Monocytes 0.98 H Absolute Eosinophils 0.06 Absolute Basophils 0.04 PT 10.4 INR 1.0 APTT 24.8 Sodium 138 Potassium 4.0 Chloride 102 Carbon Dioxide 26.7 Anion Gap 9.3 BUN 33 H Creatinine 0.8 Est GFR (CKD-EPI 2020) 82.23 Glucose 132 H Calcium 8.9 Total Bilirubin 0.2 AST 26 ALT 21 Alkaline Phosphatase 115 Troponin I < 50 NT-Pro-B Natriuret Pep 148 Total Protein 8.4 H Albumin 4.0 Urine Color Urine Clarity Urine pH Ur Specific [place] Urine Protein Urine Ketones Urine Blood Urine Nitrite Urine Bilirubin Urine Urobilinogen Ur Leukocyte Esterase Urine RBC Urine WBC Ur Epithelial Cells Urine Crystals Urine Bacteria Urine Casts Urine Mucus Ur Culture Indicated? Urine Glucose COVID-19 Source SARS-CoV-2 (PCR) Influenza Type A (PCR) Influenza Type B (PCR) RSV (PCR) 04/19/22 04/19/22 04/19/22 18:08 18:57 19:23 WBC RBC Hgb Hct MCV MCH MCHC RDW Plt Count MPV Immature Gran % Neutrophils % Lymphocytes % Monocytes % Eosinophils % Basophils % Nucleated RBC % Absolute Neutrophils Absolute Lymphocytes Absolute Monocytes Absolute Eosinophils Absolute Basophils PT INR APTT Sodium Potassium Chloride Carbon Dioxide Anion Gap BUN Creatinine Est GFR (CKD-EPI 2020) Glucose Calcium Total Bilirubin AST ALT Alkaline Phosphatase Troponin I < 50 NT-Pro-B Natriuret Pep Total Protein Albumin Urine Color Yellow Urine Clarity Sl Cloudy Urine pH 5.5 Ur Specific [place] >= 1.030 H Urine Protein Negative Urine Ketones Negative Urine Blood Negative Urine Nitrite Positive H Urine Bilirubin Negative Urine Urobilinogen 0.2 Ur Leukocyte Esterase Small H Urine RBC Negative Urine WBC 20-50 H Ur Epithelial Cells Few Urine Crystals Negative Urine Bacteria Many Urine Casts Negative Urine Mucus Negative Ur Culture Indicated? Yes Urine Glucose Negative COVID-19 Source Nasopharynx SARS-CoV-2 (PCR) Negative Influenza Type A (PCR) Negative Influenza Type B (PCR) Negative RSV (PCR) Negative Last Vital Signs Temp 36.9 C 04/19/22 15:32 Pulse 74 04/19/22 17:23 Resp 18 04/19/22 17:23 BP 133/77 04/19/22 15:32 Pulse Ox 90 L 04/19/22 20:56 PAWSS Have you Been Recently Intoxicated or Drunk Within the Last 30 days?: No Have you Ever Experienced Previous Episodes of Alcohol Withdrawal?: No Have you ever Experienced Withdrawal Seizures?: No Have you ever Experienced Delirium Tremens(DT)s?: No Have you ever undergone Alcohol Rehabilitation Treatment (i.e, inpt ot outpatient treatment programs)?: No Have you ever Experienced Blackouts?: No Have you ever Combined Alcohol with other Downers within the last 90 days?: No Have you ever Combined Alcohol with any other Substance of Abuse during the last 90 days?: No Result: 0 Time Spent Time spent with Patient: <40 minutes Time was spent: preparing to see the patient(eg.review tests), obtaining and/or reviewing separately otained hiistory, ordering medications,tests, procedures and indepentently interpreting results
[2022-04-20] VITALS (12 sets, daily range): BP systolic 115–123; BP diastolic 72–79; PULSE 70–94; RESP 1–20; TEMP 36.5–37.3; O2SAT 91–98
[2022-04-20] MEDS: LORazepam 1 MG TAB PO ×3 (00:27→22:59)
[2022-04-20] MEDS: Albuterol/Ipratropium 3 ML UPD VIAL UPD ×5 (00:27→22:59)
[2022-04-20] MEDS: methylPREDNISolone SUCC 40 MG VIAL IVP (00:28)
[2022-04-20] MEDS: Levothyroxine 50 MCG TAB (05:17)
[2022-04-20] MEDS: Levothyroxine 75 MCG TAB (05:17)
[2022-04-20 08:15] LABS: Abs Immature Grans 0.03 10^3/uL (0.0-0.06); Absolute Basophil Count 0.01 10^3/uL (0.0-0.2); Absolute Lymphocyte Count 0.93 10^3/uL (1.2-3.4); Absolute Monocyte Count 0.24 10^3/uL (0.1-0.8); Absolute Neutrophil Count 7.82 10^3/uL (1.2-6.7); Basophils % 0.1; HCT 44.9 % (36.0-46.0); HGB 14.5 g/dL (11.2-15.7); Immature Grans % 0.3; Lymphocytes % 10.3; MCH 28.9 pg (27.0-33.0); MCHC 32.3 % (32.0-36.0); MCV 90 fL (80-95); MPV 10.5 fL (8.0-11.0); Monocytes % 2.7; Neutrophils % 86.6; Platelet Count 221 10^3/uL (130-400); RBC 5.01 10^6/uL (3.93-5.22); RDW 13.2 % (11.7-14.6); RDW-SD 43.2 fL; WBC 9.03 10^3/uL (4.4-10.8)
[2022-04-20 08:29] LABS: Anion Gap 8.6 mmol/L (3-11); BUN 29 mg/dL (7-18); CO2 27.4 mmol/L (21.0-32.0); CREATININE 0.9 mg/dL (0.55-1.02); Calcium 8.9 mg/dL (8.5-10.1); Chloride 99 mmol/L (98-107); Estimated GFR 71.39 (mL/min/1.73m2); Glucose 184 mg/dL (74-106); Magnesium 1.7 mg/dL (1.8-2.4); Potassium 3.8 mmol/L (3.5-5.1); Sodium 135 mmol/L (136-145)
[2022-04-20] MEDS: Pantoprazole 40 MG TABCR PO (08:31)
[2022-04-20] MEDS: guaiFENesin 600 MG TABCR PO ×2 (08:31→21:07)
[2022-04-20] MEDS: Dexamethasone 4 MG TAB 6 MG PO (08:31)
[2022-04-20] MEDS: Loratidine 10 MG TAB PO (08:31)
[2022-04-20] MEDS: Acetaminophen 325 MG TAB 650 MG PO (08:32)
[2022-04-20] MEDS: DULoxetine 30 MG CAP 120 MG PO (08:32)
[2022-04-20 08:55] LABS: Procalcitonin < 0.1 ng/mL
--- NOTE | 2022-04-20 10:04 | INITIAL_ITS ---
- If Service Date Differs Date of service: 04/20/22 Time of Service: 10:04 Care Management Initial Assess REASON FOR HOSPITALIZATION:: COPD PAST MEDICAL HISTORY/PAST SURGICAL HISTORY:: All Active Problems. COPD exacerbation (Acute). UTI (urinary tract infection) (Acute). Trochanteric bursitis, right hip (Acute). DEPO MEDROL: 04/18/2022; 09/23/2021. Generalized weakness (Acute). Chronic GERD (Acute). Fatty liver disease, nonalcoholic (Acute). Allergic rhinitis due to allergen (Acute). Smoker (Acute). Chronic cough (Acute). Medical History. Abdominal pain. Acne rosacea. Actinic keratosis. Aftercare following joint replacement surgery. Bursitis of right shoulder. cervical carcinoma. Chemical gastritis. Chronic maxillary sinusitis. Chronic rhinitis. Femoroacetabular impingement of right hip. Fibromyalgia. GERD (gastroesophageal reflux disease). Hypertension. pt. denies this. Interstitial cystitis. Left upper quadrant pain. Loosening of prosthesis of left total knee replacement. Low TSH level. OAB (overactive bladder). Painful total knee replacement, left. Pelvic pain. Pelvic pain in female. Peritonsillar cellulitis (12/03/15). Post-nasal drip. Primary osteoarthritis of right knee (04/23/15). Primary osteoarthritis, right shoulder. Recurrent UTI. Right-sided chest wall pain. Rotator cuff tear, right. Superficial laceration of skin (10/31/20). left mccray. Surgical History. Abdominal hysterectomy. Arthroplasty of knee. Colonoscopy - IV Sedation. 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 History of total left knee replacement (01/20/16). Hx of rotator cuff surgery. Hx of tonsillectomy. Oophrectomy, Left. S/P laparoscopic cholecystectomy. S/P total abdominal hysterectomy. Status post arthroscopy of right shoulder (11/03/08). Debridement, PASTA repair, subacromial decompression with acromioplasty, distal clavicle resection, open subpectoral biceps tenodesis. Status post cholecystectomy (~07/14/20). TOT (Incontinence sling) PREVIOUS FUNCTIONAL STATUS/SOCIAL/FAMILY SUPPORTS:: Dana lives in [place] with her , Johnny. 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 She is independent at baseline. CURRENT FUNCTIONAL STATUS:: Dana was sitting up in bed when CM met with her. She stated that she has not yet seen the MD, and is anxious to know her plan. She is hopeful that she will be able to return home today. She recently was taken off supplemental O2, which she does not have at baseline. She reported that everyone is very kind, but that she feels very alone in her room. She stated that her would be visiting later. CM received a call from Dana later in the afternoon, stating that she would like to leave AMA. CM discussed this with the MD, who reportedly would be checking in on her shortly. CM went to visit with Dana again, and her was present. Dana stated that she has a lot of anxiety, especially after having steroids. Her RN entered the room and heard her concerns as well, and was able to provide PRN medication to keep her stable. Dana decided to remain in the hospital overnight for continued monitoring. While CM was in the room, MD arrived to assess her. CM will continue to follow. ADVANCE DIRECTIVES:: Not on file. Has patient been provided with info about the portal/API?: Yes Did the patient sign up for the portal?: Yes (active) CODE STATUS:: Full Code INSURANCE COVERAGE / FINANCIAL ISSUES:: TAMY CURRENT HOME/COMMUNITY SERVICES/EQUIPMENT:: None PRIMARY CARE PHYSICIAN:: Juana Syed POTENTIAL DISCHARGE NEEDS:: Follow up appointments. PATIENT/FAMILY EDUCATION NEEDS:: Review discharge instructions and limitations, discussion of self care needs including ask me three. ANTICIPATED BARRIERS TO DISCHARGE:: None. TRANSPORTATION:: Via private vehicle by her . PLAN:: Anticipate Dana will return home when medically cleared. Her spouse will drive her home via private vehicle. She will follow up with her PCP and discharge plan of care. CM will continue to follow.
--- NOTE | 2022-04-20 14:36 | CHAPLAIN ---
Dana was resting in bed when I visited. I explained my role and offered support. She thanked me for visiting and asked if I could get her coffee, and I did.
[2022-04-20] MEDS: MAGNESIUM SULFATE 2 GM/50 ML BAG IVPB (15:11)
[2022-04-20] MEDS: Benzonatate 200 MG CAP PO ×2 (15:12→21:07)
[2022-04-20] MEDS: Ketorolac 15 MG/ML VIAL IVP (15:12)
--- NOTE | 2022-04-20 15:37 | W.PM.PROGNOT ---
Date of Service Date of service: 04/20/22 Time of Service: 15:37 Assessment and Plan Assessment and plan (1) COPD exacerbation: Status: Acute Assessment and plan: Procalcitonin negative -no indication for abx. At this point, a lot of bronchospasm has resolved. D/c steroids as they are resulting in anxiety. Continue scheduled + prn nebs. Off of O2 at this time - obtain exercise oximetry. Anticipate discharge home tomorrow. Encourage IS/acapella. (2) UTI (urinary tract infection): Status: Acute Assessment and plan: Due to E.Coli, present on admission. S/p fosfamycin in the ED. Do not anticipate retreatment. (3) Pleuritic chest pain: Status: Acute Assessment and plan: Tx with toradol and antitutssives. (4) Hypomagnesemia: Status: Acute Assessment and plan: Replete and recheck in am (5) Anxiety: Status: Chronic Assessment and plan: Continue prn ativan (6) DVT prophylaxis: Status: Acute (7) Discharge planning issues: Status: Acute Assessment and plan: Full code Anticipate discharge home tomorrow Subjective Subjective Interval history since last seen: Ms Muñiz states every time she gets steroids she feels very anxious which makes her breathing worse. Her cough has been productive of mostly clear sputum. Denies dizziness, endorses substernal chest pain, worse with inspiration, going all the way up into her neck. Denies nausea now, though had it earlier. Exam Narrative Exam Narrative: General: Very pleasant middle-aged female who is on RA, anxious, mildly dyspneic but this gets better while I am in the room, A&Ox3 HEENT: EOMI, MMM, very dilated pupils, no cervical or submandibular lymphadenopathy, no goiter or JVD Heart: RRR. Lungs: coarse respiratory sounds; expiratory wheezing which clears with coughing Abdomen: soft, nontender, nondistended Extremities: no edema BLEs. Objective Last Vital Signs Temp 36.5 C 04/20/22 07:33 Pulse 72 04/20/22 12:14 Resp 16 04/20/22 12:14 BP 120/75 04/20/22 07:33 Pulse Ox 98 04/20/22 12:14 Laboratory Results - last 24 hr 04/19/22 04/19/22 04/19/22 16:55 16:55 16:55 WBC 13.85 H RBC 5.27 H Hgb 15.4 Hct 46.7 H MCV 89 MCH 29.2 MCHC 33.0 RDW 13.1 Plt Count 246 MPV 10.5 Immature Gran % 0.2 Neutrophils % 77.0 Lymphocytes % 15.0 Monocytes % 7.1 Eosinophils % 0.4 Basophils % 0.3 Nucleated RBC % 0.0 Absolute Neutrophils 10.66 H Absolute Lymphocytes 2.08 Absolute Monocytes 0.98 H Absolute Eosinophils 0.06 Absolute Basophils 0.04 PT 10.4 INR 1.0 APTT 24.8 Sodium 138 Potassium 4.0 Chloride 102 Carbon Dioxide 26.7 Anion Gap 9.3 BUN 33 H Creatinine 0.8 Est GFR (CKD-EPI 2020) 82.23 Glucose 132 H Calcium 8.9 Magnesium Total Bilirubin 0.2 AST 26 ALT 21 Alkaline Phosphatase 115 Troponin I < 50 NT-Pro-B Natriuret Pep 148 Total Protein 8.4 H Albumin 4.0 Procalcitonin Urine Color Urine Clarity Urine pH Ur Specific [place] Urine Protein Urine Ketones Urine Blood Urine Nitrite Urine Bilirubin Urine Urobilinogen Ur Leukocyte Esterase Urine RBC Urine WBC Ur Epithelial Cells Urine Crystals Urine Bacteria Urine Casts Urine Mucus Ur Culture Indicated? Urine Glucose COVID-19 Source SARS-CoV-2 (PCR) Influenza Type A (PCR) Influenza Type B (PCR) RSV (PCR) 04/19/22 04/19/22 04/19/22 18:08 18:57 19:23 WBC RBC Hgb Hct MCV MCH MCHC RDW Plt Count MPV Immature Gran % Neutrophils % Lymphocytes % Monocytes % Eosinophils % Basophils % Nucleated RBC % Absolute Neutrophils Absolute Lymphocytes Absolute Monocytes Absolute Eosinophils Absolute Basophils PT INR APTT Sodium Potassium Chloride Carbon Dioxide Anion Gap BUN Creatinine Est GFR (CKD-EPI 2020) Glucose Calcium Magnesium Total Bilirubin AST ALT Alkaline Phosphatase Troponin I < 50 NT-Pro-B Natriuret Pep Total Protein Albumin Procalcitonin Urine Color Yellow Urine Clarity Sl Cloudy Urine pH 5.5 Ur Specific [place] >= 1.030 H Urine Protein Negative Urine Ketones Negative Urine Blood Negative Urine Nitrite Positive H Urine Bilirubin Negative Urine Urobilinogen 0.2 Ur Leukocyte Esterase Small H Urine RBC Negative Urine WBC 20-50 H Ur Epithelial Cells Few Urine Crystals Negative Urine Bacteria Many Urine Casts Negative Urine Mucus Negative Ur Culture Indicated? Yes Urine Glucose Negative COVID-19 Source Nasopharynx SARS-CoV-2 (PCR) Negative Influenza Type A (PCR) Negative Influenza Type B (PCR) Negative RSV (PCR) Negative 04/20/22 04/20/22 04/20/22 08:06 08:06 08:06 WBC 9.03 RBC 5.01 Hgb 14.5 Hct 44.9 MCV 90 MCH 28.9 MCHC 32.3 RDW 13.2 Plt Count 221 MPV 10.5 Immature Gran % 0.3 Neutrophils % 86.6 Lymphocytes % 10.3 Monocytes % 2.7 Eosinophils % 0.0 Basophils % 0.1 Nucleated RBC % 0.0 Absolute Neutrophils 7.82 H Absolute Lymphocytes 0.93 L Absolute Monocytes 0.24 Absolute Eosinophils 0.00 Absolute Basophils 0.01 PT INR APTT Sodium 135 L Potassium 3.8 Chloride 99 Carbon Dioxide 27.4 Anion Gap 8.6 BUN 29 H Creatinine 0.9 Est GFR (CKD-EPI 2020) 71.39 Glucose 184 H Calcium 8.9 Magnesium 1.7 L Total Bilirubin AST ALT Alkaline Phosphatase Troponin I NT-Pro-B Natriuret Pep Total Protein Albumin Procalcitonin < 0.1 Urine Color Urine Clarity Urine pH Ur Specific [place] Urine Protein Urine Ketones Urine Blood Urine Nitrite Urine Bilirubin Urine Urobilinogen Ur Leukocyte Esterase Urine RBC Urine WBC Ur Epithelial Cells Urine Crystals Urine Bacteria Urine Casts Urine Mucus Ur Culture Indicated? Urine Glucose COVID-19 Source SARS-CoV-2 (PCR) Influenza Type A (PCR) Influenza Type B (PCR) RSV (PCR) PAWSS Have you Been Recently Intoxicated or Drunk Within the Last 30 days?: No Have you Ever Experienced Previous Episodes of Alcohol Withdrawal?: No Have you ever Experienced Withdrawal Seizures?: No Have you ever Experienced Delirium Tremens(DT)s?: No Have you ever undergone Alcohol Rehabilitation Treatment (i.e, inpt ot outpatient treatment programs)?: No Have you ever Experienced Blackouts?: No Have you ever Combined Alcohol with other Downers within the last 90 days?: No Have you ever Combined Alcohol with any other Substance of Abuse during the last 90 days?: No Result: 0 Time Spent with Patient Time Spent with Patient: 25-34 minutes Time was spent: preparing to see the patient(eg.review tests), obtaining and/or reviewing separately [facility] hi[facility], ordering medications,tests, procedures, referring, communicating with other health child care centre director, indepentently interpreting results, counseling the patient and care coordination
[2022-04-21] VITALS (10 sets, daily range): BP systolic 110–128; BP diastolic 73–83; PULSE 62–81; RESP 1–18; TEMP 36.4–38.4; O2SAT 94–97
--- NOTE | 2022-04-21 | DI.RAD_ITS ---
Exam(s) XR CHEST 2V PA LATERAL EXAM: Chest 2V PA Lateral CLINICAL HISTORY: Fever TECHNIQUE: 2D digital imaging was performed of the chest. Two images were obtained. PA and lateral views were obtained. COMPARISON: CR XR CHEST 2V PA LATERAL from 07/30/2018 FINDINGS: MEDIASTINUM: Normal. HEART: Normal. PULMONARY VASCULATURE: Normal. LUNGS: Clear. PLEURAL SPACE: No pleural effusion or pneumothorax. BONE:Within normal limits for the patient's age. OTHER FINDINGS:Normal. IMPRESSION: No acute pulmonary findings. DATA REPOSITORY: RADIATION DOSE DELIVERED:
[2022-04-21] MEDS: Albuterol/Ipratropium 3 ML UPD VIAL UPD ×3 (04:40→22:19)
[2022-04-21] MEDS: Levothyroxine 125 MCG TAB PO (04:40)
[2022-04-21] MEDS: LORazepam 1 MG TAB PO ×2 (09:39→22:18)
[2022-04-21] MEDS: Pantoprazole 40 MG TABCR PO (09:39)
[2022-04-21] MEDS: DULoxetine 30 MG CAP 120 MG PO (09:39)
[2022-04-21] MEDS: guaiFENesin 600 MG TABCR PO ×2 (09:39→19:46)
[2022-04-21] MEDS: Enoxaparin 40 MG/0.4 ML SYR SC (09:40)
[2022-04-21] MEDS: Loratidine 10 MG TAB PO (09:40)
[2022-04-21] MEDS: Benzonatate 200 MG CAP PO ×3 (09:40→19:46)
[2022-04-21 10:06] LABS: Anion Gap 6.3 mmol/L (3-11); BUN 34 mg/dL (7-18); CO2 28.7 mmol/L (21.0-32.0); CREATININE 0.8 mg/dL (0.55-1.02); Calcium 8.1 mg/dL (8.5-10.1); Chloride 105 mmol/L (98-107); Estimated GFR 82.23 (mL/min/1.73m2); Glucose 97 mg/dL (74-106); Magnesium 2.2 mg/dL (1.8-2.4); Sodium 140 mmol/L (136-145)
[2022-04-21 10:35] LABS: HCT 42.5 % (36.0-46.0); HGB 13.6 g/dL (11.2-15.7); MCH 28.8 pg (27.0-33.0); MCV 90 fL (80-95); RBC 4.72 10^6/uL (3.93-5.22); RDW-SD 43.8 fL; WBC 10.32 10^3/uL (4.4-10.8)
[2022-04-21 10:36] LABS: Abs Immature Grans 0.03 10^3/uL (0.0-0.06); Absolute Basophil Count 0.03 10^3/uL (0.0-0.2); Absolute Eosinophil Count 0.02 10^3/uL (0.0-0.7); Absolute Lymphocyte Count 2.29 10^3/uL (1.2-3.4); Absolute Monocyte Count 0.73 10^3/uL (0.1-0.8); Absolute Neutrophil Count 7.22 10^3/uL (1.2-6.7); Basophils % 0.3; Eosinophils % 0.2; Immature Grans % 0.3; Lymphocytes % 22.2; MPV 10.9 fL (8.0-11.0); Monocytes % 7.1; Neutrophils % 69.9; Platelet Count 208 10^3/uL (130-400); RDW 13.3 % (11.7-14.6)
[2022-04-21] MEDS: Acetaminophen 325 MG TAB 650 MG PO (11:23)
[2022-04-21 12:07] LABS: Bilirubin Negative (Negative); Blood Negative (Negative); Clarity Clear (Clear); Glucose Negative (Negative); Ketones Negative (Negative); Leukocyte Esterase Negative (Negative); Nitrite Negative (Negative); Specific Gravity 1.025 (1.005-1.025); Urobilinogen 0.2 EU/dL (Up TO 0.2)
--- NOTE | 2022-04-21 14:17 | CMPROGNOTE_ITS ---
- If Service Date Differs Date of service: 04/21/22 Time of Service: 14:17 Care Management Progress Note S/O: Dana was lying in bed when CM met with her. She is awake, alert and easily engages in conversation. She is eating cheese-its and reportedly feels better than she did when she first woke up. Per pt, she plans to continue smoking cessation after discharge. She is on day 5 and motivated quit. CM provided patient with information for [id number] and also placed a referral to [facility]. CM will continue to follow. A: 66 year old female admitted to [facility] on 04/19/22 for COPD P: Dana will discharge home via private vehicle with when medically ready per provider. No new services are anticipated at this time. Dana will need a nebulizer if plan is to continue updrafts at home. She will follow up with community providers and discharge plan of care as prescribed.
[2022-04-21 15:37] LABS: COVID-19 PCR Negative (Negative); Influenza A PCR Negative (Negative); Influenza B PCR Negative (Negative); RSV PCR Negative (Negative)
[2022-04-21 15:49] LABS: Source Nasopharynx
--- NOTE | 2022-04-21 17:23 | PGE_ITS ---
Date of Service Date of service: 04/21/22 Time of Service: 17:24 Assessment and Plan Assessment and plan (1) Fever: Status: Acute Assessment and plan: no obvious source identified, oxygenating well on room air, respiratory status stable, negative cxr, neg fluvid negative urine blood cultures pending no abdominal pain, no rashes or lesions. will recheck labs in am and continue to monitor for source of infection. (2) COPD exacerbation: Status: Acute Assessment and plan: Procalcitonin negative -no indication for abx. At this point, a lot of bronchospasm has resolved. D/c steroids as they are resulting in anxiety. Continue scheduled + prn nebs. Off of O2 at this time - obtain exercise oximetry. Anticipate discharge home tomorrow if fever work up negative. Encourage IS/acapella. (3) UTI (urinary tract infection): Status: Acute Assessment and plan: Due to E.Coli, present on admission. S/p fosfamycin in the ED. urine recheck was negative (4) Pleuritic chest pain: Status: Acute Assessment and plan: Tx with toradol and antitutssives. (5) Hypomagnesemia: Status: Resolved Assessment and plan: Repleted (6) Anxiety: Status: Chronic Assessment and plan: Continue prn ativan (7) DVT prophylaxis: Status: Acute Assessment and plan: patient not bedridden, encourage ambulation teds and enoxaparin added now with status change to inpatient (8) Discharge planning issues: Status: Acute Assessment and plan: Full code Anticipate discharge home tomorrow discussed with DR Holm Subjective Subjective Patient reports: tolerating liquids well, tolerating a regular diet, voiding w/o difficulty and fever; denies nausea Exam Const General: cooperative, healthy appearing, comfortable and no acute distress Nutritional Appearance: average body habitus Orientation: alert, awake and oriented x3 HENMT Head: normal to inspection, normocephalic and atraumatic Mouth: oral mucosae normal Resp Effort & Inspection: normal respiratory effort Cardio Rate: regular rate Rhythm: regular rhythm GI Inspection: normal to inspection Palpation: soft Skin General skin exam: no rashes or lesions noted Neuro General: patient alert, patient awake, patient oriented x3 and no focal motor deficits Extrem General: normal to inspection, full ROM and no pedal edema Objective Last Vital Signs Temp 37.3 C 04/21/22 15:07 Pulse 81 04/21/22 15:07 Resp 16 04/21/22 15:07 BP 123/83 04/21/22 15:07 Pulse Ox 94 04/21/22 15:07 Laboratory Results - last 24 hr 04/21/22 04/21/22 04/21/22 06:10 06:10 11:43 WBC 10.32 RBC 4.72 Hgb 13.6 Hct 42.5 MCV 90 MCH 28.8 MCHC 32.0 RDW 13.3 Plt Count 208 MPV 10.9 Immature Gran % 0.3 Neutrophils % 69.9 Lymphocytes % 22.2 Monocytes % 7.1 Eosinophils % 0.2 Basophils % 0.3 Nucleated RBC % 0.0 Absolute Neutrophils 7.22 H Absolute Lymphocytes 2.29 Absolute Monocytes 0.73 Absolute Eosinophils 0.02 Absolute Basophils 0.03 Sodium 140 Potassium 4.0 Chloride 105 Carbon Dioxide 28.7 Anion Gap 6.3 BUN 34 H Creatinine 0.8 Est GFR (CKD-EPI 2020) 82.23 Glucose 97 Calcium 8.1 L Magnesium 2.2 Urine Color Yellow Urine Clarity Clear Urine pH 6.0 Ur Specific [place] 1.025 Urine Protein Negative Urine Ketones Negative Urine Blood Negative Urine Nitrite Negative Urine Bilirubin Negative Urine Urobilinogen 0.2 Ur Leukocyte Esterase Negative Urine Glucose Negative COVID-19 Source SARS-CoV-2 (PCR) Influenza Type A (PCR) Influenza Type B (PCR) RSV (PCR) 04/21/22 04/21/22 11:53 12:40 WBC RBC Hgb Hct MCV MCH MCHC RDW Plt Count MPV Immature Gran % Neutrophils % Lymphocytes % Monocytes % Eosinophils % Basophils % Nucleated RBC % Absolute Neutrophils Absolute Lymphocytes Absolute Monocytes Absolute Eosinophils Absolute Basophils Sodium Potassium Chloride Carbon Dioxide Anion Gap BUN Creatinine Est GFR (CKD-EPI 2020) Glucose Calcium Magnesium Urine Color Urine Clarity Urine pH Ur Specific [place] Urine Protein Urine Ketones Urine Blood Urine Nitrite Urine Bilirubin Urine Urobilinogen Ur Leukocyte Esterase Urine Glucose COVID-19 Source Cancelled Nasopharynx SARS-CoV-2 (PCR) Cancelled Negative Influenza Type A (PCR) Cancelled Negative Influenza Type B (PCR) Cancelled Negative RSV (PCR) Cancelled Negative PAWSS Have you Been Recently Intoxicated or Drunk Within the Last 30 days?: No Have you Ever Experienced Previous Episodes of Alcohol Withdrawal?: No Have you ever Experienced Withdrawal Seizures?: No Have you ever Experienced Delirium Tremens(DT)s?: No Have you ever undergone Alcohol Rehabilitation Treatment (i.e, inpt ot ou tpatient treatment programs)?: No Have you ever Experienced Blackouts?: No Have you ever Combined Alcohol with other Downers within the last 90 days?: No Have you ever Combined Alcohol with any other Substance of Abuse during the last 90 days?: No Result: 0 Time Spent with Patient Time Spent with Patient: 35-49 minutes Time was spent: preparing to see the patient(eg.review tests), obtaining and/or reviewing separately otained hiistory, ordering medications,tests, procedures, indepentently interpreting results and counseling the patient
[2022-04-22 05:07] VITALS: PULSE 61; RESP 18; RESP 4; O2SAT 99
[2022-04-22] MEDS: Albuterol/Ipratropium 3 ML UPD VIAL UPD (05:07)
[2022-04-22] MEDS: Levothyroxine 125 MCG TAB PO (05:25)
[2022-04-22 07:41] VITALS: BP 132/90; PULSE 65; RESP 16; TEMP 36.6; O2SAT 96
[2022-04-22] MEDS: Pantoprazole 40 MG TABCR PO (08:01)
[2022-04-22] MEDS: Loratidine 10 MG TAB PO (08:01)
[2022-04-22] MEDS: Benzonatate 200 MG CAP PO (08:01)
[2022-04-22] MEDS: guaiFENesin 600 MG TABCR PO (08:01)
[2022-04-22] MEDS: DULoxetine 30 MG CAP 120 MG PO (08:02)
[2022-04-22] MEDS: Enoxaparin 40 MG/0.4 ML SYR SC (08:02)
--- NOTE | 2022-04-22 12:19 | W.PM.DS.N ---
Date of service: 04/22/22 Time of Service: 12:19 DS: Diagnosis Discharge Diagnosis (1) Fever: Status: Acute (2) COPD exacerbation: Status: Acute (3) UTI (urinary tract infection): Status: Acute (4) Pleuritic chest pain: Status: Acute (5) Hypomagnesemia: Status: Resolved (6) Anxiety: Status: Chronic Discharge Plan Disposition Patient Disposition: Home Condition: Stable Discharge Details Reason For Visit: COPD Admit Date/Time: 04/21/22 15:39 Admit Provider: Cecilio Steinberg Attending Provider: Cecilio Steinberg Primary Care Provider: Unknown,Unknown Hospital Course Hospital Course: This is a 66 female smoker, 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 No fever, chills, CP. Workup in ED shows afebrile, O2 sats high 80s on RA, diffuse wheeze, white count 13, CTA chest negative, and viral swabs negative flu, COVID and RSV. Given updrafts and steroids with some improvement but not back to normal, and continued oxygen requirement. Also has had recent dysuria, urine positive pyuria, and given dose of Fosfomycin. Note recent UTI with arias-sensitive E. coli, treated with unknown antibiotic. She was admitted to the hospitalist services on oxygen which was weaned off. She was unable to tolerate the steroids so those were discontinued. She was not placed on antibiotics due to her multiple allergies. Her symptoms improved with scheduled DuoNeb updrafts. Respiratory therapy was following and will place paperwork for home nebulizer machine as this has improved her symptoms. She did have a fever on the day of potential discharge. She was recultured chest x-ray obtained and unremarkable. Her previous blood cultures had remained negative to date. A repeat urine showed no untreated urinary tract infection. She had no rashes or lesions with a negative abdominal exam. She was monitored 1 more night and remained a febrile. Hemodynamically she remained stable she was eating and drinking bowels and bladder functioning. Prescription has been given for DuoNeb updrafts for home use. She will obtain a nebulizer machine. She was requested to follow-up with her primary care provider for further outpatient follow-up. Discharge discussed with Dr. Holm Home Meds and New Rx's Prescriptions: New ipratropium-albuterol 0.5 mg-3 mg(2.5 mg base)/3 mL Solution For Nebulization 3 ml UPD Q6H Qty: 180 0RF Continued duloxetine [Cymbalta] 60 MG capsule,delayed release(DR/EC) 120 mg PO DAILY cholecalciferol (vitamin D3) 50 mcg (2,000 unit) capsule 50 mcg PO DAILY Hold Instructions: Until you meet with your patient financial advocate triamcinolone acetonide 0.1 % cream 1 applic topical BID PRN calcium carbonate [Tums] 200 MG tablet,chewable 2 tab PO PRN PRN Hold Instructions: Until you meet with your patient financial advocate Label Comments: not taking acetaminophen [Tylenol Extra Strength] 500 mg tablet 500 mg PO Q6H PRNQty: 90 0RF Hold Instructions: Due to your elevated liver function test please limit the amount of acetaminophen and you may do a small trial of ibuprofen/Motrin to see if this helps your pain and discomfort. lorazepam 1 mg tablet 1 mg PO TID PRNQty: 20 0RF levothyroxine [Euthyrox] 112 mcg tablet 125 mcg PO QDAY Label Comments: TAKE 1 TABLET BY MOUTH ONCE DAILY albuterol sulfate [Ventolin HFA] 90 mcg/actuation HFA aerosol inhaler 2 puff INHALATION Q4H PRN PRN Label Comments: INHALE 1 TO 2 PUFFS BY MOUTH EVERY 4 TO 6 HOURS NEEDED FOR WHEEZING AND FOR SHORTNESS OF BREATH levothyroxine 125 mcg tablet 1 tab PO QDAY loratadine 10 mg Tablet 10 mg PO QDAY ondansetron 4 mg tablet,disintegrating 4 mg PO TID PRN (Reason: nausea and vomiting) Qty: 6 0RF Discontinued cephalexin 250 mg capsule 2 cap PO TID Discharge Instructions Instructions: COPD (Chronic Obstructive Pulmonary Disease) (DC), Chronic Lung Disease and Infection Prevention (DC) Stand Alone Forms: Nursing Discharge Form Referrals: Juana Syed MD [ [facility] ST[facility]FF [facility]YSICIAN] - 05/06/22 11:30 am (Please keep your follow up appointment. ) Activity:: Activity as Tolerated Equipment/Supplies:: nebulizer machine Diet:: As Tolerated Discharge Orders Discharge Orders: Discharge Order (Routine); Ordered 04/22/22 Ordered By: Josi Dixon Discharge Data Discharge Date/Time-TO BE ENTERED AT DEPARTURE: 04/22/22 13:34 DS: Summary Time Spent with Patient providing and/or coordinating discharge services: Greater than 30 minutes Status at Discharge Functional status at discharge: independent ambulation Overall status at discharge: patient is progressing back to baseline Mental Status: mental status grossly normal Speech and Movement: speech and movement normal Mood: anxious mood Affect: anxious affect Exam Const General: cooperative, healthy appearing, comfortable and no acute distress Nutritional Appearance: average body habitus Orientation: alert, awake and oriented x3 HENMT Head: normal to inspection, normocephalic and atraumatic Mouth: oral mucosae normal Resp Effort & Inspection: normal respiratory effort Cardio Rate: regular rate Rhythm: regular rhythm GI Inspection: normal to inspection Palpation: soft Skin General skin exam: no rashes or lesions noted Neuro General: patient alert, patient awake, patient oriented x3 and no focal motor deficits Extrem General: normal to inspection, full ROM and no pedal edema Psych Mental Status: mental status grossly normal Speech and Movement: speech and movement normal Mood: anxious mood Affect: anxious affect DS: Data Vitals/I&O Vitals and I&O: Vital Signs Temperature 36.6 C 04/22/22 07:41 Temperature Source Tympanic 04/22/22 07:41 Pulse 65 04/22/22 07:41 Pulse Rhythm Regular 04/22/22 08:00 Respiratory Rate 16 04/22/22 07:41 Respiratory Effort Non-Labored 04/22/22 08:00 Respiratory Depth Normal 04/22/22 08:00 Respiratory Pattern Normal 04/22/22 08:00 Blood Pressure 132/90 04/22/22 07:41 Blood Pressure Position Sitting 04/19/22 15:32 Pulse Oximetry 96 04/22/22 07:41 Oxygen Delivery Method Room Air 04/22/22 07:41 Oxygen Flow Rate 0 04/22/22 07:41 Pain Level 0 04/22/22 07:41 Intake & Output 04/21/22 04/22/22 04/22/22 23:59 11:59 23:59 Intake Total 625 / 865 Balance 625 / 865 Intake: IV 5 / 5 Oral 620 / 860 Other: Urine Appearance Clear Clear Comment Patient voids independently in the toilet. Voiding Methods Toilet Toilet Data Completed and Pending Labs on day of discharge: Labs from last 24 hours 04/21/22 04/21/22 12:40 11:53 COVID-19 Source Nasopharynx Cancelled SARS-CoV-2 (PCR) Negative Cancelled Influenza Type A (PCR) Negative Cancelled Influenza Type B (PCR) Negative Cancelled RSV (PCR) Negative Cancelled 04/21/22 09:22 Sputum Sputum Culture - Pending 04/21/22 13:00 Blood Blood Culture - Pending 04/21/22 13:00 Blood Blood Culture - Pending Preliminary micro results at discharge 04/21/22 09:22 Sputum Culture - Pending Sputum 04/21/22 13:00 Blood Culture - Pending Blood 04/21/22 13:00 Blood Culture - Pending Blood PFSH All Active Problems (Updated 04/23/22 @ 00:00 by HECTOR CAAL) Fever (Acute) Anxiety (Chronic) Pleuritic chest pain (Acute) COPD exacerbation (Acute) UTI (urinary tract infection) (Acute) Trochanteric bursitis, right hip (Acute) DEPO MEDROL: 04/18/2022; 09/23/2021 Generalized weakness (Acute) Chronic GERD (Acute) Fatty liver disease, nonalcoholic (Acute) Allergic rhinitis due to allergen (Acute) Smoker (Acute) Chronic cough (Acute) Medical History Abdominal pain Acne rosacea Actinic keratosis Aftercare following joint replacement surgery Bursitis of right shoulder cervical carcinoma Chemical gastritis Chronic maxillary sinusitis Chronic rhinitis Femoroacetabular impingement of right hip Fibromyalgia GERD (gastroesophageal reflux disease) Hypertension pt. denies this Interstitial cystitis Left upper quadrant pain Loosening of prosthesis of left total knee replacement Low TSH level OAB (overactive bladder) Painful total knee replacement, left Pelvic pain Pelvic pain in female Peritonsillar cellulitis (12/03/15) Post-nasal drip Primary osteoarthritis of right knee (04/23/15) Primary osteoarthritis, right shoulder Recurrent UTI Right-sided chest wall pain Rotator cuff tear, right Superficial laceration of skin (10/31/20) left mccray Surgical History Abdominal hysterectomy Arthroplasty of knee Colonoscopy - IV Sedation History of revision of total replacement of left knee joint (09/22/20) History of total left knee replacement (01/20/16) Hx of rotator cuff surgery Hx of tonsillectomy Oophrectomy, Left S/P laparoscopic cholecystectomy S/P total abdominal hysterectomy Status post arthroscopy of right shoulder (11/03/08) Debridement, PASTA repair, subacromial decompression with acromioplasty, distal clavicle resection, open subpectoral biceps tenodesis Status post cholecystectomy (~07/14/20) TOT (Incontinence sling) Social History Smoking/Tobacco Use Status: Current every day Tobacco Type: cigarettes Smoking risk assessment performed?: Yes Alcohol Intake: current Alcohol Intake frequency: holidays/special occasions only Alcohol type: wine Drug use: Occasionally Substance use type: marijuana Details: currently on a quit smoking program Current gender identity: female Do you feel safe at home: Yes Do you feel safe in your relationship?: Yes Time Spent with Patient Time Spent with Patient: <45 minutes Time was spent: preparing to see the patient(eg.review tests), obtaining and/or reviewing separately otained hiistory, ordering medications,tests, procedures, referring, communicating with other health animal caretaker and counseling the patient
--- NOTE | 2022-04-22 17:03 | PDOC.CMDIS ---
- If Service Date Differs Date of service: 04/22/22 Time of Service: 17:03 LACE Index Scoring Tool - Questions: Length of Stay (in days): 3 Acuity (Admit via E.D.?): Yes Comorbidities: Chronic Pulmonary Disease, Any Tumor E.D. Visits: 7 - Answers: Total Score: 15 Risk of Readmission: High Risk Care Management Discharge Reason for Hospitalization: COPD Discharge Plan: Dana returned home today with no new services. Her drove her home via private vehicle. She will follow up with her PCP and discharge plan of care. She left prior to CM meeting with her, but she was previously really looking forward to returning home. Patient/Family Education Needs: Review discharge instructions and limitations, discussion of self care needs including ask me three.
== END 2022-04-22 13:34 | disposition home or self-care (01) | DRG 191 ==
LOC: ER 22:48 → MS 23:48
PROVIDERS: Emergency Medicine; Internal Medicine; Nurse Practitioner Acute Care; Admitting Provider General Practice; Emergency Provider Student in an Organized Health Care Education/Training Program; Visit Provider General Practice
DX: J44.1 Chronic obstructive pulmonary disease with (acute) exacerbation (principal); N39.0 Urinary tract infection, site not specified; R07.81 Pleurodynia; R50.9 Fever, unspecified; F17.210 Nicotine dependence, cigarettes, uncomplicated; M70.61 Trochanteric bursitis, right hip; R53.1 Weakness; K21.9 Gastro-esophageal reflux disease without esophagitis; K76.0 Fatty (change of) liver, not elsewhere classified; R05.3 Chronic cough; I10 Essential (primary) hypertension; N32.81 Overactive bladder; Z96.652 Presence of left artificial knee joint; E83.42 Hypomagnesemia; F41.9 Anxiety disorder, unspecified
CPT/HCPCS: 36410; 36415; 71275; 80048; 80053; 84145; 87040; 87077; 87637; 93005; 94618; 94640; 96374; 99285; J1650; 71046; 81003; 81015; 83735; 83880; 84484; 85025; 85610; 85730; 87070; 87086; 87186; 87205; 93010; 94667; 99222; 99232; 99233; 99239; J1100; J1885; J3490; J7613; J7620; J8540

== ENCOUNTER 2022-04-19 19:52 | Outpatient (REF) | payer MEDICAID, SELFPAY | END 2022-04-19 19:53 | disposition home or self-care (01) | LOC: NCHCN 19:52 | PROVIDERS: Visit Provider Family Medicine | DX: R30.0 Dysuria (principal) | CPT/HCPCS: 87077; 87086 ==

== ENCOUNTER 2022-05-06 12:35 | Outpatient (REF) | payer MEDICAID, SELFPAY ==
[2022-05-06 19:41] LABS: ESR 36 mm/hr (0-30)
[2022-05-06 19:42] LABS: Abs Immature Grans 0.02 10^3/uL (0.0-0.06); Absolute Eosinophil Count 0.46 10^3/uL (0.0-0.7); Absolute Lymphocyte Count 2.33 10^3/uL (1.2-3.4); Absolute Monocyte Count 0.45 10^3/uL (0.1-0.8); Absolute Neutrophil Count 3.95 10^3/uL (1.2-6.7); Basophils % 1.4; Eosinophils % 6.3; HCT 45.9 % (36.0-46.0); HGB 14.8 g/dL (11.2-15.7); Immature Grans % 0.3; Lymphocytes % 31.9; MCH 28.9 pg (27.0-33.0); MCHC 32.2 % (32.0-36.0); MCV 90 fL (80-95); MPV 11.7 fL (8.0-11.0); Monocytes % 6.2; Neutrophils % 53.9; Platelet Count 234 10^3/uL (130-400); RBC 5.12 10^6/uL (3.93-5.22); RDW 13.3 % (11.7-14.6); RDW-SD 43.9 fL; WBC 7.31 10^3/uL (4.4-10.8)
[2022-05-06 20:02] LABS: ALT 24 U/L (14-59); AST 31 U/L (15-37); Alkaline Phosphatase 94 U/L (46-116); Anion Gap 7.9 mmol/L (3-11); BUN 23 mg/dL (7-18); Bilirubin, Total 0.3 mg/dL (0.2-1.0); CO2 26.1 mmol/L (21.0-32.0); CREATININE 0.8 mg/dL (0.55-1.02); Chloride 104 mmol/L (98-107); Estimated GFR 82.23 (mL/min/1.73m2); Glucose 97 mg/dL (74-106); Magnesium 1.9 mg/dL (1.8-2.4); Potassium 4.2 mmol/L (3.5-5.1); Sodium 138 mmol/L (136-145); TSH (W/Ref FT4) 1.18 uIU/mL (0.36-3.74); Total Protein 7.6 g/dL (6.4-8.2)
[2022-05-06 20:03] LABS: C-Reactive Protein < 0.05 mg/dL (0.0-0.3)
== END 2022-05-06 12:36 | disposition home or self-care (01) ==
LOC: NCHCN 12:35
PROVIDERS: Visit Provider Family Medicine
DX: J02.9 Acute pharyngitis, unspecified (principal); N39.0 Urinary tract infection, site not specified; M79.18 Myalgia, other site; R70.0 Elevated erythrocyte sedimentation rate
CPT/HCPCS: 80053; 85652; 83735; 84443; 85025; 86140; 87070; 87086

== ENCOUNTER 2022-05-16 11:05 | Emergency (ER) | payer MEDICAID, SELFPAY ==
[2022-05-16 11:15] VITALS: BP 128/84; PULSE 74; RESP 24; TEMP 36.9; O2SAT 93
[2022-05-16 11:19] VITALS: RESP 28
[2022-05-16] MEDS: Albuterol/Ipratropium 3 ML UPD VIAL UPD (12:02)
--- NOTE | 2022-05-16 12:15 | DI.RAD_ITS ---
Exam(s) XR CHEST 2V PA LATERAL EXAM: XR CHEST 2V PA LATERAL CLINICAL HISTORY: cough, r/o pneumonia TECHNIQUE: 2D digital imaging was performed of the chest. Two images were obtained. PA and lateral views were obtained. COMPARISON: CR XR CHEST 2V PA LATERAL from 04/21/2022 FINDINGS: MEDIASTINUM: Normal. HEART: Normal. PULMONARY VASCULATURE: Normal. LUNGS: Clear. PLEURAL SPACE: No pleural effusion or pneumothorax. BONE:Within normal limits for the patient's age. OTHER FINDINGS:Normal. IMPRESSION: No acute pulmonary findings. DATA REPOSITORY: RADIATION DOSE DELIVERED:
--- NOTE | 2022-05-16 12:45 | ED.GENADUL_ITS ---
Discharge Plan Disposition Patient Disposition: Home Condition: Good Discharge Details Clinical Impression: Bronchitis, Asthma exacerbation Primary Care Provider: Juana Syed V ED Provider: Joe Ragsdale Home Meds and New Rx's Prescriptions: New azithromycin [Zithromax] 250 mg tablet 250 mg PO DAILY 4 Days Qty: 4 0RF Rx Instructions: start on day 2 of therapy prednisone 20 mg tablet 40 mg PO DAILY 5 Days Qty: 10 0RF lorazepam [Ativan] 0.5 mg tablet 0.5 mg PO DAILY PRNQty: 7 0RF Rx Instructions: Take only as need with steroid Continued duloxetine [Cymbalta] 60 MG capsule,delayed release(DR/EC) 120 mg PO DAILY cholecalciferol (vitamin D3) 50 mcg (2,000 unit) capsule 50 mcg PO DAILY Hold Instructions: 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 lorazepam 1 mg tablet 1 mg PO TID PRNQty: 20 0RF albuterol sulfate [Ventolin HFA] 90 mcg/actuation HFA aerosol inhaler 2 puff INHALATION Q4H PRN PRN Label Comments: INHALE 1 TO 2 PUFFS BY MOUTH EVERY 4 TO 6 HOURS NEEDED FOR WHEEZING AND FOR SHORTNESS OF BREATH levothyroxine 125 mcg tablet 1 tab PO QDAY loratadine 10 mg Tablet 10 mg PO QDAY ipratropium-albuterol 0.5 mg-3 mg(2.5 mg base)/3 mL Solution For Nebulization 3 ml UPD Q6H Qty: 180 0RF ondansetron 4 mg tablet,disintegrating 4 mg PO TID PRN (Reason: nausea and vomiting) Qty: 6 0RF Discharge Instructions Instructions: Asthma (ED), Acute Bronchitis (ED) Additional Instructions: At this time your symptoms appear consistent with bronchitis and potential early pneumonia worsened by your asthma. Please take your albuterol, 2 puffs every 6 hours. Please take your Symbicort, 2 puffs every 12 hours. Please take the antibiotic azithromycin as directed. If you do not see the improvement that you are looking for with your breathing after 3 to 4 days of this treatment, then an alternative option is to try to take the oral steroids. Please weigh the risks and benefits of the symptoms that it caused last time. I have sent you a prescription of the lowest dose of steroid that I think would be beneficial for your breathing. I have also sent a prescription for small dose of Ativan to help with any anxiety that develops because of the steroid. If you notice any worsening of your symptoms, or any new symptoms such as vomiting, diarrhea, fever, chills, shortness of breath, chest pain, numbness, weakness, or fainting , please return immediately to the emergency department for reevaluation. Please follow up with your primary care provider as soon as possible for reassessment and reevaluation. As always, it was a pleasure participating in your medical care today. Referrals: Juana Syed MD [Primary Care Provider] - Medical Decision Making 66-year-old female with a past medical history of COPD, GERD, overactive bladder, anxiety, previous ovarian cancer, depression, fibromyalgia, who presents today for evaluation of cough. Patient states that for the last 2 to 3 days she has had cough and mild wheezing with shortness of breath. Feels similar to her previous COPD exacerbations. She is out of her rescue inhaler and they were not able to refill it. She admits to mild productivity with a cough. She denies any significant chest pain. She does have mild achiness when she coughs, but no other pain otherwise. Patient was recently admitted on 04/22/2022, she had a thorough work-up including a CTA, negative COVID flu and RSV, but did have COPD exacerbation. She was admitted and started on steroids and breathing treatments. Unfortunately this steroids made her extremely agitated which she stated was quite a problem/challenge. She eventually improved and was discharged home. Patient denies any previous cardiac disease. No exertional chest pain. No other complaints at this time. No other modifying factors. Physical exam demonstrates evidence of notable wheeze throughout. No crackles that I can auscultate. Oxygenation is excellent at 95%. I do not feel that she necessarily needs admission. We will get a chest x-ray to evaluate for bacterial pneumonia. Symptoms inconsistent with ACS. No signs of fluid overload clinically. We will give breathing treatments, monitor closely and reassess. Patient has refused steroids at this time if at all possible. 1:52 PM Chest x-ray is read as negative per radiology. However the patient does have a small amount of crackle in the left lower lung field that I can auscultate now as the wheezes have improved. And concern for early pneumonia. Patient feels better after breathing treatments, oxygenation remains excellent. No indication for admission at this time based on exam and findings. Symptoms consistent with mild bacterial pneumonia in conjunction with asthma exacerbation. Will give albuterol inhaler for home use, Symbicort inhaler for home use, and recommend azithromycin treatment for home. Patient is notably hesitant to trial steroids again as how it made her feel very anxious last time. We will recommend the 2 inhalers and azithromycin for the next 4 to 5 days, and if she has no improvement then she may need a steroid trial. We will utilize lowest dose of 40 mg for a 5-day burst. We will give a few pills of Ativan to use as needed. Discussed red flags for which to return. I have extensively reviewed the treatment plan and discharge instructions with the patient. I have addressed all patient concerns at this time. The patient was made aware of what symptoms to monitor for that would warrant a return to the emergency department. Discussed the plan with the patient, they demonstrate verbal understanding and agreement with our assessment and plan at this time. The documentation in this chart was dictated using [employer] dictation software. Please excuse any dictation errors. FINDINGS: MEDIASTINUM: Normal. HEART: Normal. PULMONARY VASCULATURE: Normal. LUNGS: Clear. PLEURAL SPACE: No pleural effusion or pneumothorax. BONE:Within normal limits for the patient's age. OTHER FINDINGS:Normal. IMPRESSION: No acute pulmonary findings. HPI General Date/Time Provider Initiated Documentation: 05/16/22 11:25 . HPI Narrative: 66-year-old female with a past medical history of COPD, GERD, overactive bladder, anxiety, previous ovarian cancer, depression, fibromyalgia, who presents today for evaluation of cough. Patient states that for the last 2 to 3 days she has had cough and mild wheezing with shortness of breath. Feels similar to her previous COPD exacerbations. She is out of her rescue inhaler and they were not able to refill it. She admits to mild productivity with a cough. She denies any significant chest pain. She does have mild achiness when she coughs, but no other pain otherwise. Patient was recently admitted on 04/22/2022, she had a thorough work-up including a CTA, negative COVID flu and RSV, but did have COPD exacerbation. She was admitted and started on steroids and breathing treatments. Unfortunately this steroids made her extremely agitated which she stated was quite a problem/challenge. She eventually improved and was discharged home. Patient denies any previous cardiac disease. No exertional chest pain. No other complaints at this time. No other modifying factors. Related Data Home Medications Medication Instructions Recorded Confirmed duloxetine 60 mg capsule,delayed 120 mg PO DAILY 09/14/12 05/16/22 release (Cymbalta) calcium carbonate 200 mg calcium 2 tab PO PRN PRN 07/28/14 05/16/22 (500 mg) chewable tablet (Tums) cholecalciferol (vitamin D3) 50 50 mcg PO DAILY 02/24/20 05/16/22 mcg (2,000 unit) capsule triamcinolone acetonide 0.1 % 1 applic topical BID PRN 02/24/20 05/16/22 topical cream acetaminophen 500 mg tablet 500 mg PO Q6H PRN #90 tabs 09/22/20 05/16/22 (Tylenol Extra Strength) ondansetron 4 mg disintegrating 4 mg PO TID PRN nausea and 04/24/21 05/16/22 tablet vomiting #6 tabs lorazepam 1 mg tablet 1 mg PO TID PRN #20 tabs 11/29/21 05/16/22 albuterol sulfate 90 mcg/actuation 2 puff inhalation Q4H PRN PRN 04/19/22 05/16/22 aerosol inhaler (Ventolin HFA) levothyroxine 125 mcg tablet 1 tab PO QDAY 04/19/22 05/16/22 loratadine 10 mg tablet 10 mg PO QDAY 04/19/22 05/16/22 ipratropium 0.5 mg-albuterol 3 mg 3 ml UPD Q6H #180 mL 04/22/22 05/16/22 (2.5 mg base)/3 mL nebulization soln azithromycin 250 mg tablet 250 mg PO DAILY 4 days #4 tabs 05/16/22 (Zithromax) lorazepam 0.5 mg tablet (Ativan) 0.5 mg PO DAILY PRN #7 tabs 05/16/22 prednisone 20 mg tablet 40 mg PO DAILY 5 days #10 tabs 05/16/22 Previous Rx's Medication Instructions Recorded acetaminophen 500 mg tablet 500 mg PO Q6H PRN #90 tabs 09/22/20 (Tylenol Extra Strength) ondansetron 4 mg disintegrating 4 mg PO TID PRN nausea and 04/24/21 tablet vomiting #6 tabs lorazepam 1 mg tablet 1 mg PO TID PRN #20 tabs 11/29/21 ipratropium 0.5 mg-albuterol 3 mg 3 ml UPD Q6H #180 mL 04/22/22 (2.5 mg base)/3 mL nebulization soln azithromycin 250 mg tablet 250 mg PO DAILY 4 days #4 tabs 05/16/22 (Zithromax) lorazepam 0.5 mg tablet (Ativan) 0.5 mg PO DAILY PRN #7 tabs 05/16/22 prednisone 20 mg tablet 40 mg PO DAILY 5 days #10 tabs 05/16/22 Allergies Allergy/AdvReac Type Severity Reaction Status Date / Time morphine Allergy Severe Swelling/Ed Verified 05/16/22 11:19 lisa sulfamethoxazole Allergy Severe Hives Unverified 05/16/22 11:19 [From Bactrim] trimethoprim [From Bactrim] Allergy Severe Hives Unverified 05/16/22 11:19 amoxicillin [From Augmentin] Allergy Intermediate nausea, Unverified 05/16/22 11:19 hives clavulanic acid Allergy Intermediate nausea and Unverified 05/16/22 11:19 [From Augmentin] hives Sulfa (Sulfonamide Allergy Intermediate Hives Verified 05/16/22 11:19 Antibiotics) levofloxacin [From Levaquin] Allergy Unknown Other (See Unverified 05/16/22 11:19 Comment) fentanyl AdvReac Severe go crazy Verified 05/16/22 11:19 doxycycline AdvReac Intermediate headache Unverified 05/16/22 11:19 and vomiting nicotine [From Nicorette] AdvReac Intermediate Vomiting Verified 05/16/22 11:19 azithromycin AdvReac Unknown Nausea Verified 05/16/22 11:19 nitrofurantoin AdvReac Unknown Nausea Verified 05/16/22 11:19 [From Macrobid] bupropion HCl AdvReac Nausea, Verified 05/16/22 11:19 [From Wellbutrin] thought I was going crazy prednisone AdvReac Nausea, Verified 05/16/22 11:19 thought I was going crazy I get get General Stated Complaint: SOB CAROL: 3 Review of Systems All systems reviewed & are unremarkable except as noted in HPI and below PFSH All Active Problems (Updated 05/16/22 @ 13:43 by Joe Ragsdale DO) Bronchitis (Acute) Asthma exacerbation (Acute) Fever (Acute) Anxiety (Chronic) Pleuritic chest pain (Acute) COPD exacerbation (Acute) UTI (urinary tract infection) (Acute) Trochanteric bursitis, right hip (Acute) DEPO MEDROL: 04/18/2022; 09/23/2021 Generalized weakness (Acute) Chronic GERD (Acute) Fatty liver disease, nonalcoholic (Acute) Allergic rhinitis due to allergen (Acute) Smoker (Acute) Chronic cough (Acute) Medical History Abdominal pain Acne rosacea Actinic keratosis Aftercare following joint replacement surgery Bursitis of right shoulder cervical carcinoma Chemical gastritis Chronic maxillary sinusitis Chronic rhinitis Femoroacetabular impingement of right hip Fibromyalgia GERD (gastroesophageal reflux disease) Hypertension pt. denies this Interstitial cystitis Left upper quadrant pain Loosening of prosthesis of left total knee replacement Low TSH level OAB (overactive bladder) Painful total knee replacement, left Pelvic pain Pelvic pain in female Peritonsillar cellulitis (12/03/15) Post-nasal drip Primary osteoarthritis of right knee (04/23/15) Primary osteoarthritis, right shoulder Recurrent UTI Right-sided chest wall pain Rotator cuff tear, right Superficial laceration of skin (10/31/20) left mccray Surgical History Abdominal hysterectomy Arthroplasty of knee Colonoscopy - IV Sedation History of revision of total replacement of left knee joint (09/22/20) History of total left knee replacement (01/20/16) Hx of rotator cuff surgery Hx of tonsillectomy Oophrectomy, Left S/P laparoscopic cholecystectomy S/P total abdominal hysterectomy Status post arthroscopy of right shoulder (11/03/08) Debridement, PASTA repair, subacromial decompression with acromioplasty, distal clavicle resection, open subpectoral biceps tenodesis Status post cholecystectomy (~07/14/20) TOT (Incontinence sling) Social History Smoking/Tobacco Use Status: Current every day Tobacco Type: cigarettes Smoking risk assessment performed?: Yes Alcohol Intake: current Alcohol Intake frequency: holidays/special occasions only Alcohol type: wine Drug use: Occasionally Substance use type: marijuana Details: currently on a quit smoking program Current gender identity: female Do you feel safe at home: Yes Do you feel safe in your relationship?: Yes Exam Narrative Exam Narrative: 1.Const: Well-nourished, Well-developed, appearing stated age 2.Eyes: PERRL, no conjunctival injection, and symmetrical lids. 3.ENT: Atraumatic external nose and ears. Moist MM. Neck: Symmetric, trachea midline, No thyromegaly. 4.CVS: +S1/S2, No murmurs or gallops. Peripheral pulses 2+ and equal in all extremities. Brisk capillary refill in all extremities. 5.RESP: Unlabored respiratory effort. notable wheeze, no crackles 6.GI: Soft, Nontender/Nondistended, No hepatosplenomegaly. No guarding or rebound. 7.MSK: Normocephalic/Atraumatic, Extremities w/o deformity or ttp No cyanosis or clubbing, Normal movement of all extremities 8.Skin: Warm, Dry. No rashes or lesions. 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 Sensation grossly intact, no focal neurologic deficits. 10.Psych: (AAO) x3. Appropriate mood and affect Course Vital Signs Vital signs: Vital Signs Temperature 36.9 C 05/16/22 11:15 Pulse 74 05/16/22 11:15 Respiratory Rate 24 05/16/22 11:15 Blood Pressure 128/84 05/16/22 11:15 Pulse Oximetry 93 05/16/22 11:15 Temperature 36.9 C 05/16/22 11:15 Temperature Source Temporal Artery Scan 05/16/22 11:15 Pulse 74 05/16/22 11:15 Respiratory Rate 28 H 05/16/22 11:19 Respiratory Effort Labored 05/16/22 11:22 Respiratory Depth Shallow 05/16/22 11:19 Respiratory Pattern Tachypnea 05/16/22 11:19 Blood Pressure 128/84 05/16/22 11:15 Blood Pressure Position Sitting 05/16/22 11:15 Pulse Oximetry 93 05/16/22 11:15 Oxygen Delivery Method Room Air 05/16/22 11:15 Oxygen Flow Rate 0 05/16/22 11:15 Pain Level 0 05/16/22 11:15
[2022-05-16 12:49] VITALS: BP 146/93; PULSE 90; RESP 20; TEMP 36.4; O2SAT 95
[2022-05-16] MEDS: Albuterol/Ipratropium 3 ML UPD VIAL 6 ML UPD (13:00)
[2022-05-16] MEDS: Albuterol HFA 8 GM 60 PUFF INH IH (13:59)
[2022-05-16] MEDS: Azithromycin 250 MG TAB 500 MG PO (14:02)
[2022-05-16] MEDS: Budesonide/Formoterol 160/4.5 6 GM 60 PUFF INH IH (14:02)
== END 2022-05-16 14:09 | disposition home or self-care (01) ==
PROVIDERS: Emergency Provider Student in an Organized Health Care Education/Training Program; PCP Family Medicine
DX: J45.901 Unspecified asthma with (acute) exacerbation (principal); J40 Bronchitis, not specified as acute or chronic; M79.7 Fibromyalgia; J44.1 Chronic obstructive pulmonary disease with (acute) exacerbation; I10 Essential (primary) hypertension; Z85.43 Personal history of malignant neoplasm of ovary
CPT/HCPCS: 99284; 71046; J7620

== ENCOUNTER 2022-05-27 00:44 | Outpatient (CLI) | payer MEDICAID, SELFPAY ==
--- NOTE | 2022-05-27 | DI.CT_ITS ---
Exam(s) CT CHEST PE CTA EXAM: CT CHEST PE CTA CLINICAL HISTORY: ACUTE COUGH,R05.1,HYPOXIA,R09.02,? PE. TECHNIQUE: Imaging Protocol: Axial CT angiography was performed with multi-slice acquisition and mu lti-planar reconstructions as well as axial, coronal and sagittal MIP reconstructions. CONTRAST MATERIAL: Intravenous: Omnipaque 350 Contrast volume:80 ml COMPARISON: CT CT CHEST PE CTA from 04/19/2022 CR XR CHEST 2V PA LATERAL from 04/21/2022 CR XR CHEST 2V PA LATERAL from 05/16/2022 FINDINGS: Pulmonary Arteries: No evidence of filling defect to suggest pulmonary emboli. Tracheobronchial tree: No mucous plugging or bronchiectasis. No bronchial thickening. Mediastinum and Rossy: No dominant adenopathy or fluid collection. Pulmonary parenchyma: No consolidation or dominant measurable mass. Mild scarring or atelectasis see n at the medial aspect of the lingula and right middle lobe, directly adjacent to the heart. No sign ificant emphysematous changes of ground-glass opacities. No significant interstitial changes. Minim al linear scarring at the right lung base. Pleura: No effusion or pneumothorax. Heart: The heart is not dilated. No coronary artery calcifications are seen. Aorta: Thoracic aorta non-dilated. No aneurysm. No dissection. No significant atherosclerotic ch anges. Upper abdomen: Unremarkable. Status post cholecystectomy. Bones: Unremarkable for age. Tubes, Catheters, and Lines: None IMPRESSION: No evidence of pulmonary embolism. No acute pulmonary abnormality. RADIATION DOSE DELIVERED: 464.35mGy.cm Total DLP DATA REPOSITORY: All CT scans at this facility are submitted to the National Radiology Data Registry (NRDR) Dose Index Registry (DIR) with the [employer] (ACR). RADIATION OPTIMIZATION: All CT scans at this facility use at least one of these dose optimization te chniques: automated exposure control; mA and/or kV adjustment per patient size (includes targeted exa ms where dose is matched to clinical indication); or iterative reconstruction.
== END 2022-05-27 01:04 ==
LOC: DI 00:45
PROVIDERS: PCP Family Medicine; Visit Provider Nurse Practitioner Family
DX: R05.1 Acute cough (principal); R09.02 Hypoxemia
CPT/HCPCS: 71275

== ENCOUNTER 2022-07-05 16:16 | Outpatient (REF) | payer MEDICAID, SELFPAY ==
[2022-07-05 16:29] LABS: Hemoglobin A1C 5.5 % (<5.7)
[2022-07-05 17:46] LABS: Anion Gap 8.9 mmol/L (3-11); BUN 32 mg/dL (7-18); C-Reactive Protein 0.15 mg/dL (0.0-0.3); CO2 27.1 mmol/L (21.0-32.0); CREATININE 0.9 mg/dL (0.55-1.02); Calcium 9.7 mg/dL (8.5-10.1); Chloride 106 mmol/L (98-107); Creatine Kinase 119 U/L (26-192); Estimated GFR 71.39 (mL/min/1.73m2); Glucose 103 mg/dL (74-106); Potassium 4.4 mmol/L (3.5-5.1); Sodium 142 mmol/L (136-145)
[2022-07-05 18:01] LABS: Calculated LDL 128 mg/dL (<100); Cholesterol 237 mg/dL (<200); HDL Cholesterol 83 mg/dL (40-60); Triglyceride 130 mg/dL (<150)
[2022-07-05 22:05] LABS: Rheumatoid Factor <8.6 IU/mL (<12.0)
[2022-07-06 15:28] LABS: ANA Interpretation Positive (Negative); ANA Titer Pattern 1:80 Speckled
== END 2022-07-05 16:17 | disposition home or self-care (01) ==
LOC: NCHCN 16:16
PROVIDERS: PCP Family Medicine; Visit Provider Family Medicine
DX: M79.18 Myalgia, other site (principal); M70.61 Trochanteric bursitis, right hip; R73.03 Prediabetes; J44.1 Chronic obstructive pulmonary disease with (acute) exacerbation; Z01.84 Encounter for antibody response examination; R79.89 Other specified abnormal findings of blood chemistry; I10 Essential (primary) hypertension; Z00.00 Encounter for general adult medical examination without abnormal findings
CPT/HCPCS: 80048; 80061; 82550; 83036; 86038; 86140; 86431

== ENCOUNTER 2022-08-08 14:22 | Outpatient (CLI) | payer MEDICAID, SELFPAY ==
--- NOTE | 2022-08-08 14:15 | DI.RAD_ITS ---
Exam(s) XR HIP RT COMPLETE AP PELVIS EXAM: XR HIP RT COMPLETE AP PELVIS CLINICAL HISTORY: right hip pain. TECHNIQUE: 2D digital imaging was performed of the right hip. Two images were obtained. AP pelvis a nd lateral right hip views were obtained. COMPARISON: CR XR HIP RT COMPLETE AP PELVIS from 01/02/2020 FINDINGS: BONES: No acute fracture is present. No bony destructive lesion is seen. JOINTS: No dislocation present. There are stable mild degenerative changes of the right and left hips . SOFT TISSUE: Vascular clips are seen in the pelvis again. IMPRESSION: Stable degenerative changes of the right hip. DATA REPOSITORY: RADIATION DOSE DELIVERED:
== END 2022-08-08 14:23 | disposition home or self-care (01) ==
LOC: DIORS 14:22
PROVIDERS: PCP Family Medicine; Visit Provider Student in an Organized Health Care Education/Training Program
DX: M70.61 Trochanteric bursitis, right hip (principal); M25.851 Other specified joint disorders, right hip
CPT/HCPCS: 73502

== ENCOUNTER 2022-08-30 01:28 | Outpatient (CLI) | payer MEDICAID, SELFPAY ==
--- NOTE | 2022-08-30 07:45 | DI.MRI_ITS ---
Exam(s) MR LOWER JOINT RT WO EXAM: MR LOWER JOINT RT WO CLINICAL HISTORY: PAIN,trochanteric bursitis rt hip,femoroacetabular impingement,m25.851 TECHNIQUE: Multiplanar multisequence MRI of right hip was performed COMPARISON: CR XR HIP RT COMPLETE AP PELVIS from 08/08/2022 FINDINGS: Bones: There is no evidence of a fracture or avascular necrosis. There is hypertrophy of the right acetabular roof extending laterally and causing narrowing of the distance to the femoral head. The f indings are suspicious for femoroacetabular impingement. Small subchondral cysts are seen in the charles tabular roof. No significant joint effusion or labral injury is present. There is mild marrow edema seen at the lateral aspect of the greater trochanter. There is small to moderate amount of fluid adj acent to the greater trochanter laterally. The SI joints and symphysis pubis are well maintained. Musculotendinous structures: Musculotendinous structures demonstrate no abnormality. There is divert iculosis of the colon. There are metallic artifacts consistent with the patient's vascular clips in the pelvis. IMPRESSION: 1. Findings most suggestive of right trochanteric bursitis. 2. Findings suspicious for pincer type ADWOA. 3. Colonic diverticulosis. DATA REPOSITORY:
== END 2022-08-30 01:48 ==
LOC: DI 01:28
PROVIDERS: PCP Family Medicine; Visit Provider Student in an Organized Health Care Education/Training Program
DX: M25.851 Other specified joint disorders, right hip (principal); M70.61 Trochanteric bursitis, right hip; K57.93 Diverticulitis of intestine, part unspecified, without perforation or abscess with bleeding
CPT/HCPCS: 73721

== ENCOUNTER 2022-10-07 15:48 | Outpatient (REF) | payer MEDICAID, SELFPAY | END 2022-10-07 15:49 | disposition home or self-care (01) | LOC: NCHCN 15:48 | PROVIDERS: PCP Family Medicine; Visit Provider Family Medicine | DX: N39.0 Urinary tract infection, site not specified (principal) | CPT/HCPCS: 87086 ==

== ENCOUNTER 2022-10-14 06:13 | Day surgery (SDC) | payer MEDICAID, SELFPAY ==
[2022-10-14] VITALS (10 sets, daily range): BP systolic 99–130; BP diastolic 55–80; PULSE 49–68; RESP 12–18; TEMP 36–36.6; O2SAT 89–97; BMI 31.9
--- NOTE | 2022-10-14 06:53 | ANES.PREOP_ITS ---
General Info Date of Service Date Performed: 10/14/22 Height: 5 ft 1.5 in Weight: 77.9 kg Body Mass Index (BMI): 31.9 Surgical Procedure: Operation Date: 10/14/22 07:50 Proposed Procedure Side Surgeon p Endoscopic Iliotibial Band Release w/Trochanteric Bursectomy & Gluteal Tendon Repair Right Zak Paez MD Meds Allergies and Home Medications Allergies Allergy/AdvReac Type Severity Reaction Status Date / Time morphine Allergy Severe Swelling/Ed Verified 10/14/22 06:25 lisa sulfamethoxazole Allergy Severe Hives Verified 10/14/22 06:25 [From Bactrim] trimethoprim [From Bactrim] Allergy Severe Hives Verified 10/14/22 06:25 amoxicillin [From Augmentin] Allergy Intermediate nausea, Verified 10/14/22 06:25 hives clavulanic acid Allergy Intermediate nausea and Verified 10/14/22 06:25 [From Augmentin] hives Sulfa (Sulfonamide Allergy Intermediate Hives Verified 10/14/22 06:25 Antibiotics) levofloxacin [From Levaquin] Allergy Unknown Other (See Verified 10/14/22 06:25 Comment) fentanyl AdvReac Severe go crazy Verified 10/14/22 06:25 doxycycline AdvReac Intermediate headache Verified 10/14/22 06:25 and vomiting nicotine [From Nicorette] AdvReac Intermediate Vomiting Verified 10/14/22 06:25 azithromycin AdvReac Unknown Nausea Verified 10/14/22 06:25 nitrofurantoin AdvReac Unknown Nausea Verified 10/14/22 06:25 [From Macrobid] bupropion HCl AdvReac Nausea, Verified 10/14/22 06:25 [From Wellbutrin] thought I was going crazy prednisone AdvReac Nausea, Verified 10/14/22 06:25 thought I was going crazy I get get Home Medication Medication Instructions Recorded duloxetine 60 mg capsule,delayed 120 mg PO DAILY 09/14/12 release (Cymbalta) calcium carbonate 200 mg calcium 2 tab PO PRN PRN 07/28/14 (500 mg) chewable tablet (Tums) cholecalciferol (vitamin D3) 50 50 mcg PO DAILY 02/24/20 mcg (2,000 unit) capsule triamcinolone acetonide 0.1 % 1 applic topical BID PRN 02/24/20 topical cream acetaminophen 500 mg tablet 500 mg PO Q6H PRN #90 tabs 09/22/20 (Tylenol Extra Strength) ondansetron 4 mg disintegrating 4 mg PO TID PRN nausea and 04/24/21 tablet vomiting #6 tabs levothyroxine 125 mcg tablet 1 tab PO QDAY 04/19/22 loratadine 10 mg tablet 10 mg PO QDAY 04/19/22 lorazepam 0.5 mg tablet (Ativan) 0.5 mg PO DAILY PRN #7 tabs 05/16/22 budesonide-formoterol HFA 160 1 puff inhalation BID 07/12/22 mcg-4.5 mcg/actuation aerosol inhaler (Symbicort) topiramate 25 mg capsule,extended 25 mg PO DAILY 07/12/22 release 24 hr vit C 250 mg-vit E 90 mg-zinc 40 1 tab PO BID 07/12/22 mg-copper 1 [id number] capsule (PreserVision AREDS-2) aspirin 81 mg capsule 81 mg PO DAILY prevent blood clot 10/14/22 14 days #14 caps levothyroxine 125 mcg tablet 125 mcg PO DAILY 10/14/22 naproxen 250 mg tablet 250 - 500 mg PO BID PRN moderate 10/14/22 pain and swelling #20 tabs tramadol 50 mg tablet 50 mg PO Q8H PRN severe pain #9 10/14/22 tabs Current Visit Medications: Current Medications Generic Name Dose Route Start Last Admin Trade Name Freq PRN Reason Stop Dose Admin Ringer's Solution 1,000 mls @ 30 mls/hr 10/14/22 06:00 IV 10/14/22 16:00 INFUSION JUAN Cefazolin Sodium/Dextrose 2 gm in 50 mls @ 100 mls/hr 10/14/22 06:00 Ancef Duplex IVPB 10/14/22 23:59 PREOP JUAN IV Miscellaneous Supplies 1 each 10/14/22 06:00 Iv Access IV 10/14/22 23:59 DIRECTED JUAN Sodium Chloride 0 ml 10/14/22 06:00 Normal Saline Flush 10 Ml Syr IV 10/14/22 23:59 PRN PRN Sodium Chloride 0 ml 10/14/22 06:00 Normal Saline 10 Ml Vial IJ 10/14/22 23:59 DIRECTED PRN Sterile Water 0 ml 10/14/22 06:00 Water,Injection,Sterile 10 Ml Vial IJ 10/14/22 23:59 DIRECTED PRN PFSH Active Problems Active Problems: Problem Status Onset Code Trochanteric bursitis, right hip M70.61 Chronic cough R05 Smoker F17.200 Allergic rhinitis due to allergen J30.9 Fatty liver disease, nonalcoholic K76.0 Chronic GERD K21.9 Generalized weakness R53.1 COPD exacerbation J44.1 UTI (urinary tract infection) N39.0 Pleuritic chest pain R07.81 Hypomagnesemia E83.42 Anxiety F41.9 Fever R50.9 NICANOR positive R76.8 Tear of right gluteus medius tendon S76.011A Iliotibial band syndrome of right side M76.31 Medical History Medical History Abdominal pain Acne rosacea Actinic keratosis Aftercare following joint replacement surgery Bursitis of right shoulder cervical carcinoma Chemical gastritis Chronic maxillary sinusitis Chronic rhinitis Femoroacetabular impingement of right hip Fibromyalgia GERD (gastroesophageal reflux disease) Hypertension pt. denies this Interstitial cystitis Left upper quadrant pain Loosening of prosthesis of left total knee replacement Low TSH level OAB (overactive bladder) Painful total knee replacement, left Pelvic pain Pelvic pain in female Peritonsillar cellulitis (12/03/15) Post-nasal drip Primary osteoarthritis of right knee (04/23/15) Primary osteoarthritis, right shoulder Recurrent UTI Right-sided chest wall pain Pt. denies Rotator cuff tear, right Superficial laceration of skin (10/31/20) left mccray Medical History Comments:: Pt. states that after anesthesia she states she is wide awake for 2 days straight post-operatively Surgical History Surgical History (Updated 10/14/22 @ 06:24 by Roman Valenzuela) Abdominal hysterectomy Arthroplasty of knee Colonoscopy - IV Sedation History of revision of total replacement of left knee joint (09/22/20) History of total left knee replacement (01/20/16) Hx of appendectomy Hx of rotator cuff surgery Hx of thyroidectomy Hx of tonsillectomy Oophrectomy, Left S/P laparoscopic cholecystectomy S/P total abdominal hysterectomy Status post arthroscopy of right shoulder (11/03/08) Debridement, PASTA repair, subacromial decompression with acromioplasty, distal clavicle resection, open subpectoral biceps tenodesis Status post cholecystectomy (~07/14/20) TOT (Incontinence sling) Tobacco Smoking/Tobacco Use Status: Current every day Tobacco Type: cigarettes Smoking cigarettes per day: 10 Alcohol Alcohol Intake: current Alcohol intake frequency: holidays/special occasions only Alcohol type: wine Substance Use Substance use: Occasionally Substance use type: marijuana Vital Signs and Lab Results Vital Signs Most Recent Vital Signs in EMR: Most Recent Vital Signs Temp Pulse Resp BP Pulse Ox 36.2 C L 68 16 127/69 97 10/14/22 06:28 10/14/22 06:28 10/14/22 06:28 10/14/22 06:28 10/14/22 06:28 Lab Results Blood Type / Crossmatch: No Data to Display Complete Blood Count: No Data to Display Complete Metabolic Panel: No Data to Display Liver Function Panel: No Data to Display Coagulation Panel: No Data to Display Cardiac Panel: No Data to Display Arterial Blood Gas: No Data to Display Venous Blood Gas: No Data to Display Pancreas Panel: No Data to Display Thyroid Panel: No Data to Display Infectious Disease: No Data to Display Blood Cultures: No Data to Display Toxicology Panel: No Data to Display Imaging and Studies Imaging and Studies Study information below may be from another EMR and interpreted by another provider. Please see original notes in EMR for more complete details. EKG Summary: EKG PATIENT NAME: Dana Muñiz #: [id number] ORDERING PROVIDER: Roberto Cheatham M.D. PRIMARY CARE PROVIDER:UNKNOWN,UNKNOWN DATE/TIME OF SERVICE: 04/19/22 1647 : 1955PERFORMING LOCATION: [place] APPROVED REPORT Exam: Resting ECG Reason for Exam: chest pain Patient Location: E HR:73 bpm ECG Measurements Heart Rate 73 AXIS AK 122 P -15 QRSd 73 QRS 58 QT 377 T32 QTc 414 Conclusion Sinus rhythm...normal P axis, V-rate 60- 99 normal sinus rhythm, normal axis, normal intervals, non ischemic <Electronically signed by Roberto Cheatham M.D. in [place]> E-Sign Date: 04/20/22 E-Sign Time: 1547 ADDENDUM APPROVED REPORT Exam: Resting ECG Reason for Exam: chest pain Patient Location: E HR:73 bpm ECG Measurements Heart Rate 73 AXIS AK 122 P -15 QRSd 73 QRS 58 QT 377 T32 QTc 414 Conclusion Sinus rhythm...normal P axis, V-rate 60- 99 normal sinus rhythm, normal axis, normal intervals, non ischemic I have reviewed and I agree with the emergency room physician's ECG interpretation. Electronically signed by: <Electronically signed by Leona Barrios M.D. in [place]> 04/21/22 0806 Cosigned by: Anesthesia Assessment and Plan Anesthesia History Personal History: PONV Family History: No Family History of Anesthesia Complications Exercise Tolerance Exercise Tolerance: Metabolic Equivalents>4 Pertinent Negatives Pertinent Negatives: No Symptoms of GERD (well controlled), No Major Cardiovascular Symptoms or Complaints, No Major Pulmonary Symptoms or Complaints and No History of CVA/TIA Cardiac & Pulmonary Exam Cardiac Exam: Normal S1/S2 Heart Sounds Pulmonary Exam: Clear Bilateral Breath Sounds Implantable Cardiac Device Does patient have a Pacemaker or an ICD?: No Airway Exam Known Difficult Airway: No Mallampati Class: 2 Mouth Opening: Normal (> 3cm) Thyromental Distance: Greater than 3 cm Neck Range of Motion: Full ROM Neck Circumference: Normal Teeth Condition: Normal Dentition ASA Classification ASA Score: ASA 3 Emergency Case?: No NPO Status NPO Status: NPO Clears >2 hours, Solids >8 hours Anesthesia Plan Resuscitation Status: Full Code Anesthesia Technique: General Anesthesia Airway Planned: LMA Monitors Used: Standard Monitors
[2022-10-14] MEDS: Lactated Ringers 1,000 ML 30 ML IV (07:02)
--- NOTE | 2022-10-14 07:02 | PDOC.DSDIS_ITS ---
Date of service: 10/14/22 Time of Service: 11:00 Discharge Plan Disposition Patient Disposition: Home Condition: Stable Discharge Details Attending Provider: Zak Paez Primary Care Provider: Juana Syed V Home Meds and New Rx's Prescriptions: New aspirin 81 mg capsule 81 mg PO DAILY 14 Days Qty: 14 0RF tramadol 50 mg tablet 50 mg PO Q8H PRN (Reason: severe pain) Qty: 9 0RF naproxen 250 mg tablet 250 - 500 mg PO BID PRN (Reason: moderate pain and swelling) Qty: 20 0RF Rx Instructions: take with a meal Continued duloxetine [Cymbalta] 60 MG capsule,delayed release(DR/EC) 120 mg PO DAILY cholecalciferol (vitamin D3) 50 mcg (2,000 unit) capsule 50 mcg PO DAILY Hold Instructions: Until you meet with your sales analytics manager triamcinolone acetonide 0.1 % cream 1 applic topical BID PRN PreserVision AREDS-2 250-90-40-1 mg capsule 1 tab PO BID budesonide-formoterol [Symbicort] 160-4.5 mcg/actuation HFA aerosol inhaler 1 puff inhalation BID topiramate 25 mg capsule,extended release 24hr 25 mg PO DAILY calcium carbonate [Tums] 200 MG tablet,chewable 2 tab PO PRN PRN Hold Instructions: Until you meet with your sales analytics manager Patient Comments: not taking acetaminophen [Tylenol Extra Strength] 500 mg tablet 500 mg PO Q6H PRNQty: 90 0RF Hold Instructions: Due to your elevated liver function test please limit the amount of acetaminophen and you may do a small trial of ibuprofen/Motrin to see if this helps your pain and discomfort. levothyroxine 125 mcg tablet 1 tab PO QDAY loratadine 10 mg Tablet 10 mg PO QDAY ondansetron 4 mg tablet,disintegrating 4 mg PO TID PRN (Reason: nausea and vomiting) Qty: 6 0RF lorazepam [Ativan] 0.5 mg tablet 0.5 mg PO DAILY PRNQty: 7 0RF Rx Instructions: Take only as need with steroid levothyroxine 125 mcg Tablet 125 mcg PO DAILY Discharge Instructions Additional Instructions: Surgery: Right hip endoscopy with iliotibial band release, trochanteric bursectomy, and gluteal tendon repair Activity: Protected weightbearing with a walker for 6 weeks. Gentle hip range of motion. No strengthening for 3 months. A physical therapy prescription will be sent electronically to begin in about 3 weeks. Prescriptions: Aspirin 81 mg take 1 daily to prevent a blood clot for 2 weeks Naproxen 250 mg take 1-2 every 12 hours with a meal as needed for moderate pain Tramadol 50 mg take 1 every 8 hours as needed for severe pain You may use peir-fhw-fzisdwd Tylenol (acetaminophen) as needed for mild pain. These pain medications may be taken all at once or in different combinations as needed. Also, recommend Colace (docusate) as a stool softener as surgery and pain medicine cause constipation. You may try lxjz-nay-[id number] diphenhydramine (Benadryl) 25-50 mg nightly as a sleep aid Dressings: Leave dressing in place for 3 days. May then remove and leave open to air or cover incisions with Band-Aids. Leave the sticky Steri-Strips in place until they fall off or remove them after you shower. May shower after 5 days. Follow-up: 10-[address] Paez You may take off the leg compression stockings this evening at home. You may also leave them on a few days longer if you have a history of leg swelling or edema. Let us know right away if you develop any redness, drainage, fevers, chest pain, or trouble breathing. Do not drink alcohol or drive for at least 24 hours after anesthesia. Please call the office during business hours with any questions or concerns. Stand Alone Forms: Anesthesia Discharge InstAdria Gonzalez ([facility]) Referrals: Zak Paez MD [ [facility] STAFF PHYSICIAN] - 10/25/22 2:00 pm Diet:: As Tolerated Discharge Orders Discharge Orders: Discharge Order (Routine); Ordered 10/14/22 Ordered By: Zak Paez DS: Diagnosis Discharge Diagnosis (1) Trochanteric bursitis, right hip: Status: Acute (2) Iliotibial band syndrome of right side: Status: Acute (3) Tear of right gluteus medius tendon: Status: Acute
--- NOTE | 2022-10-14 07:10 | ROE_ITS ---
Date of service: 10/14/22 Time of Service: 07:30 Operative Note Operative Note DATE OF PROCEDURE: 10/14/22 PRE-OP DIAGNOSIS: Right hip 1. Iliotibial band syndrome 2. Trochanteric bursitis 3. Gluteal tendon tear POST-OP DIAGNOSIS: same PROCEDURE: Right hip endoscopic 1. Iiliotibial band release, CPT# 61889 2. Trochanteric bursectomy, CPT# 07753 3. Gluteal tendon repair, CPT# 36334 SURGEON: Zak Paez MULTI CARE TECHNICIAN: Wendy Mcwilliams ANESTHESIA TYPE: Local By Surgeon and General LMA/ETT Refer to Anesthesia Record ESTIMATED BLOOD LOSS: 5 COMPLICATIONS: None Patient was transported to: PACU Patient's condition: stable Implants: Arthrex 5.5mm SwiveLock biocomposite Indications: Please see complete medical record for details. Findings: Inflamed iliotibial band. Abundant inflammatory trochanteric bursitis. Moderate?sized anterior gluteus medius, between medius and minimus, with adjacent anterior gluteus minimus partial tendon tearing. Procedure Description: In the operating room, general anesthesia was induced. The patient was positioned supine on the [facility] operating room table. All bony prominences were well-padded. Preoperative antibiotics were administered. The right hip was p repped and draped in the usual sterile fashion. The correct patient, procedure, and side of the procedure were all verified prior to incision. 30 cc of 0.25% bupivacaine containing epinephrine was infiltrated about the subcutaneous tissues for the planned anterior lateral and distal anterolateral portals as well as deeply over the greater trochanter. A knife was used to incise the skin for the anterior lateral and distal anterolateral portals followed by blunt dissection subcutaneously. Under fluoroscopic guidance, a switching stick and arthroscope were inserted localizing the iliotibial band over the greater trochanter. Blunt dissection and the mechanical shaver were used to resect fat and overlying tissue about the center of the iliotibial band and carefully expose the anterior and posterior margins. Once there was adequate exposure of the IT band, the greater trochanter was again localized under fluoroscopic guidance with a spinal needle inserted through the skin down to bone. This central area was marked using the radiofrequency ablator. A Nisula blade was brought in and used to create a 2 cm longitudinal incision in line with the IT band fibers as well as extending it in a cruciate fashion with 2 cm incisions anteriorly and posteriorly. The radiofrequency ablator was used to achieve hemostasis. The mechanical shaver was then used to debride the IT band released edges exposing the trochanteric bursa. The mechanical shaver was then used to excise the trochanteric bursa taking care to protect musculature about the margins of the greater trochanter as well as neurovascular structures especially posteriorly. There was excellent visualization of the vastus lateralis as well as gluteus medius confirming appropriate bursa excision. The hip was brought through range of motion including internal and external rotation and there was no impinging iliotibial band tissue or remaining pathologic bursa. The viewing and working portals were switched and appropriate IT band release, trochanteric bursa excision, and hemostasis confirmed. The partial gluteal tendon tearing was thoroughly inspected, hip rotation positioned to optimize reduction and repair, and the greater trochanter bone prepared to optimize bone and tendon healing under the tendon defect and about the site of repair. The scorpion was used to pass an inverted horizontal mattress FiberTape repair suture in the detached gluteus medius, appropriate excursion and reduction confirmed from proximal to distal to the prepared trochanter. An additional suture tape FiberLink was placed more anteriorly incorporating the gluteus minimus tearing. An additional more posterior third portal had been made for best suture anchor trajectory. The undersized punch was used followed by an oversized anchor with appropriate tension placed on all 3 repair sutures. There was excellent gluteus minimus and medius repair and secured to the greater trochanter. Repair demonstrated good stability and fixation strength through range of motion and testing. Suction was used to remove fluid from the endoscopic space. The portals were closed using 3-0 Monocryl in a buried fashion. Steri-Strips were applied over the incisions followed by Xeroform, 4 x 4 gauze, an ABD pad, and secured with tape. The patient awoke from anesthesia without complication and was transferred to the recovery room in a stable condition.
[2022-10-14] MEDS: ceFAZolin 2 GM/50 ML BAG IVPB (07:39)
[2022-10-14] MEDS: EPINEPHrine 30 MG/30 ML VIAL (09:05)
--- NOTE | 2022-10-14 09:15 | DI.RAD_ITS ---
Exam(s) XR HIP RT IN OR EXAM: XR HIP RT IN OR CLINICAL HISTORY: R TROCHANTERIC BURSTITIS/ILIOTIBIAL BAND SYNDROME. TECHNIQUE: 2D and realtime digital imaging was performed. COMPARISON: CR XR HIP RT COMPLETE AP PELVIS from 08/08/2022 FINDINGS: Please see procedure note for details. Fluoro time: 8.7seconds RADIATION DOSE DELIVERED: Ka,r=1.03 mGy
[2022-10-14] MEDS: Normal Saline 10 ML VIAL IJ (09:38)
[2022-10-14] MEDS: HYDROmorphone 2 MG/ML SYR IVP ×2 (09:38→10:10)
[2022-10-14] MEDS: LORazepam 2 MG/ML VIAL 0.5 MG IVP (09:55)
--- NOTE | 2022-10-14 12:10 | W.ANESPOSTOP ---
Postoperative Evaluation Date, Time and Location Date Performed: 10/14/22 Time Performed: 12:11 Patient Location: Day Surgery Unit Vital Signs Most Recent Imported Vital Signs: Most Recent Vital Signs Temp Pulse Resp BP Pulse Ox 36 C L 61 16 103/64 94 10/14/22 11:40 10/14/22 11:40 10/14/22 11:40 10/14/22 11:40 10/14/22 11:40 Pain Score Most Recent Pain Score: Most Recent Pain Score Pain Level 0 10/14/22 11:40 Assessment Mental Status: Awake (Alert & Oriented to Patient Baseline) Airway and Respiratory Function: Patent airway with normal (patient baseline) respiratory exam Cardiovascular Function: Hemodynamically Stable Hydration Status: Adequately Hydrated Nausea & Vomiting: No Nausea or Vomiting Pain: Pain is tolerable per patient Peripheral Nerve Block: Patient did not receive a nerve block
== END 2022-10-14 12:15 | disposition home or self-care (01) ==
PROVIDERS: PCP Family Medicine; Visit Provider Student in an Organized Health Care Education/Training Program
PROC: (CPT 29863; principal; 2022-10-14 07:30)
DX: M70.61 Trochanteric bursitis, right hip (principal); M76.31 Iliotibial band syndrome, right leg; S76.011A Strain of muscle, fascia and tendon of right hip, initial encounter; F17.210 Nicotine dependence, cigarettes, uncomplicated; X58.XXXA Exposure to other specified factors, initial encounter
CPT/HCPCS: 27062; 27006; 27305; 73501; J0690; J1100; J1170; J2060; J2250; J2405; J2704

== ENCOUNTER → 2022-12-06 13:24 | Outpatient (BNVA) | payer MEDICARE, MEDICAID, SELFPAY | PROVIDERS: PCP Family Medicine; Referring Provider Family Medicine; Visit Provider Student in an Organized Health Care Education/Training Program | DX: Z47.89 Encounter for other orthopedic aftercare (principal); M70.61 Trochanteric bursitis, right hip; M76.31 Iliotibial band syndrome, right leg ==

== ENCOUNTER 2023-01-18 20:13 | Outpatient (REF) | payer MEDICARE, SELFPAY ==
[2023-01-18 20:32] LABS: Abs Immature Grans 0.01 10^3/uL (0.0-0.06); Absolute Basophil Count 0.08 10^3/uL (0.0-0.2); Absolute Eosinophil Count 0.43 10^3/uL (0.0-0.7); Absolute Monocyte Count 0.41 10^3/uL (0.1-0.8); Absolute Neutrophil Count 3.83 10^3/uL (1.2-6.7); Basophils % 1.2; Eosinophils % 6.7; HCT 47.8 % (36.0-46.0); HGB 15.5 g/dL (11.2-15.7); Immature Grans % 0.2; Lymphocytes % 26.3; MCH 28.3 pg (27.0-33.0); MCHC 32.4 % (32.0-36.0); MCV 87 fL (80-95); MPV 11.9 fL (8.0-11.0); Monocytes % 6.3; Neutrophils % 59.3; Platelet Count 232 10^3/uL (130-400); RBC 5.47 10^6/uL (3.93-5.22); RDW 12.7 % (11.7-14.6); RDW-SD 40.5 fL; WBC 6.46 10^3/uL (4.4-10.8)
[2023-01-18 21:10] LABS: ALT 26 U/L (14-59); AST 32 U/L (15-37); Albumin 3.9 g/dL (3.4-5.0); Alkaline Phosphatase 101 U/L (46-116); Anion Gap 9.8 mmol/L (3-11); BUN 22 mg/dL (7-18); Bilirubin, Total 0.3 mg/dL (0.2-1.0); CO2 23.2 mmol/L (21.0-32.0); CREATININE 0.8 mg/dL (0.55-1.02); Calcium 9.7 mg/dL (8.5-10.1); Chloride 105 mmol/L (98-107); Estimated GFR 81.72 (mL/min/1.73m2); Glucose 101 mg/dL (74-106); Potassium 3.9 mmol/L (3.5-5.1); Sodium 138 mmol/L (136-145); Total Protein 7.8 g/dL (6.4-8.2)
[2023-01-19 12:04] LABS: ESR (LRH) 45 mm/hr
== END 2023-01-18 20:14 | disposition home or self-care (01) ==
LOC: NCHCN 20:13
PROVIDERS: PCP Family Medicine; Visit Provider Physician Assistant Medical
DX: R19.7 Diarrhea, unspecified (principal)
CPT/HCPCS: 80053; 85652; 83735; 85025

== ENCOUNTER 2023-01-19 13:37 | Outpatient (REF) | payer MEDICARE, SELFPAY ==
[2023-01-19 18:04] LABS: C Diff PCR Negative (Negative)
[2023-01-20 10:58] LABS: Campylobacter PCR Negative (Negative); Salmonella PCR Negative (Negative); Shiga Toxin PCR Negative (Negative); Shigella/Enteroinvasive Ecoli Negative (Negative)
[2023-01-26 16:16] LABS: Helicobacter pylori Ag, Feces Negative (Negative)
== END 2023-01-19 13:38 | disposition home or self-care (01) ==
LOC: NCHCN 13:37
PROVIDERS: PCP Family Medicine; Visit Provider Physician Assistant Medical
DX: R19.7 Diarrhea, unspecified (principal)
CPT/HCPCS: 87329; 87338; 87493; 87505; 83630

== ENCOUNTER → 2023-02-01 13:25 | Outpatient (BNVA) | payer MEDICARE, SELFPAY | PROVIDERS: PCP Family Medicine; Visit Provider Student in an Organized Health Care Education/Training Program | DX: M70.61 Trochanteric bursitis, right hip (principal); M76.31 Iliotibial band syndrome, right leg; S76.011D Strain of muscle, fascia and tendon of right hip, subsequent encounter; X58.XXXD Exposure to other specified factors, subsequent encounter | CPT/HCPCS: 99213 ==

== ENCOUNTER 2023-04-20 16:13 | Outpatient (REF) | payer MEDICARE, SELFPAY, MEDICAID ==
[2023-04-20 19:39] LABS: Hemoglobin A1C 5.4 % (<5.7)
[2023-04-20 19:43] LABS: Anion Gap 9.7 mmol/L (3-11); BUN 22 mg/dL (7-18); CO2 25.3 mmol/L (21.0-32.0); CREATININE 0.8 mg/dL (0.55-1.02); Calcium 9.2 mg/dL (8.5-10.1); Chloride 105 mmol/L (98-107); Estimated GFR 81.72 (mL/min/1.73m2); Glucose 94 mg/dL (74-106); Magnesium 1.9 mg/dL (1.8-2.4); Sodium 140 mmol/L (136-145); TSH (W/Ref FT4) 0.52 uIU/mL (0.36-3.74)
== END 2023-04-20 16:14 | disposition home or self-care (01) ==
LOC: NCHCN 16:13
PROVIDERS: PCP Family Medicine; Visit Provider Family Medicine
DX: E03.9 Hypothyroidism, unspecified (principal); R73.03 Prediabetes; R82.998 Other abnormal findings in urine
CPT/HCPCS: 80048; 83036; 83735; 84443; 87086

== ENCOUNTER → 2023-04-26 12:48 | Outpatient (BNVA) | payer MEDICARE, SELFPAY | PROVIDERS: PCP Family Medicine; Visit Provider Student in an Organized Health Care Education/Training Program | DX: M70.61 Trochanteric bursitis, right hip (principal); M76.31 Iliotibial band syndrome, right leg; S76.011D Strain of muscle, fascia and tendon of right hip, subsequent encounter; X58.XXXD Exposure to other specified factors, subsequent encounter | CPT/HCPCS: 99213 ==

== ENCOUNTER 2023-07-15 12:27 | Emergency (ER) | payer MEDICARE, SELFPAY ==
[2023-07-15 12:34] VITALS: BP 157/89; PULSE 90; RESP 16; TEMP 37.1; O2SAT 98
--- NOTE | 2023-07-15 12:56 | ED.GENADUL_ITS ---
Discharge Plan Disposition Patient Disposition: Home Condition: Stable Discharge Details Clinical Impression: Abdominal wall cellulitis Primary Care Provider: Juana Syed V ED Provider: Paris Sanchez Home Meds and New Rx's Prescriptions: New cephalexin 500 mg tablet 500 mg PO BID 7 Days Qty: 14 0RF No Action duloxetine [Cymbalta] 60 MG capsule,delayed release(DR/EC) 120 mg PO DAILY PreserVision AREDS-2 250-90-40-1 mg capsule 1 tab PO BID budesonide-formoterol [Symbicort] 160-4.5 mcg/actuation HFA aerosol inhaler 1 puff inhalation BID topiramate 25 mg capsule,extended release 24hr 25 mg PO DAILY calcium carbonate [Tums] 200 MG tablet,chewable 2 tab PO PRN PRN Hold Instructions: Until you meet with your 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 loratadine 10 mg Tablet 10 mg PO QDAY fluconazole 150 mg tablet 150 mg PO Q72H levothyroxine 125 mcg Tablet 125 mcg PO DAILY Discharge Instructions Instructions: Cellulitis (ED) Additional Instructions: Apply the antibiotic ointment daily for the next 7 days. Use the dressing as instructed. Change daily. Take the antibiotic as prescribed with yogurt or probiotic. You should notice an improvement in the next few days. Please return to the ER be seen sooner for any worsening redness, swelling drainage red streaks or feeling sicker at any time. Follow up with primary care provider in 3-5 days. Return to ED sooner if any worsening or concerns. Please take Tylenol or Ibuprofen with food every 4-6 hours as needed for pain and swelling. Referrals: Juana Syed MD [Primary Care Provider] - 3 days HPI General Mode of arrival: ambulatory . Date/Time Provider Initiated Documentation: 07/15/23 12:37 . Limitations to Documentation: no limitations . Information obtained by: patient, RN notes reviewed and old records reviewed . HPI Narrative: 67 year old female presents to the ED with cc of lower abdominal incision infection. She has had a fungal infection to the area for the last 2 to 3 months. She reports increased redness and bleeding and drainage noted to the central area of her previous hysterectomy incision. She does have multiple drug allergies. Most recently on cefpodoxime 2 weeks ago for a sinus infection. She does have a history of an appendectomy thyroidectomy, cholecystectomy, oophorectomy, abdominal hysterectomy, recurrent UTIs, hypothyroidism, hypertension GERD, interstitial cystitis. Related Data Home Medications Medication Instructions Recorded Confirmed duloxetine 60 mg capsule,delayed 120 mg PO DAILY 09/14/12 07/15/23 release (Cymbalta) calcium carbonate 200 mg calcium 2 tab PO PRN PRN 07/28/14 07/15/23 (500 mg) chewable tablet (Tums) acetaminophen 500 mg tablet 500 mg PO Q6H PRN #90 tabs 09/22/20 07/15/23 (Tylenol Extra Strength) loratadine 10 mg tablet 10 mg PO QDAY 04/19/22 07/15/23 budesonide-formoterol HFA 160 1 puff inhalation BID 07/12/22 07/15/23 mcg-4.5 mcg/actuation aerosol inhaler (Symbicort) topiramate 25 mg capsule,extended 25 mg PO DAILY 07/12/22 07/15/23 release 24 hr vit C 250 mg-vit E 90 mg-zinc 40 1 tab PO BID 07/12/22 07/15/23 mg-copper 1 [id number] capsule (PreserVision AREDS-2) levothyroxine 125 mcg tablet 125 mcg PO DAILY 10/14/22 07/15/23 cephalexin 500 mg tablet 500 mg PO BID 7 days #14 tabs 07/15/23 fluconazole 150 mg tablet 150 mg PO Q72H 07/15/23 07/15/23 Previous Rx's Medication Instructions Recorded acetaminophen 500 mg tablet 500 mg PO Q6H PRN #90 tabs 09/22/20 (Tylenol Extra Strength) cephalexin 500 mg tablet 500 mg PO BID 7 days #14 tabs 07/15/23 Allergies Allergy/AdvReac Type Severity Reaction Status Date / Time morphine Allergy Severe Swelling/Ed Verified 07/15/23 12:37 lisa sulfamethoxazole Allergy Severe Hives Verified 07/15/23 12:37 [From Bactrim] trimethoprim [From Bactrim] Allergy Severe Hives Verified 07/15/23 12:37 amoxicillin [From Augmentin] Allergy Intermediate nausea, Verified 07/15/23 12:37 hives clavulanic acid Allergy Intermediate nausea and Verified 07/15/23 12:37 [From Augmentin] hives Sulfa (Sulfonamide Allergy Intermediate Hives Verified 07/15/23 12:37 Antibiotics) levofloxacin [From Levaquin] Allergy Unknown Other (See Verified 07/15/23 12:37 Comment) fentanyl AdvReac Severe go crazy Verified 07/15/23 12:37 doxycycline AdvReac Intermediate headache Verified 07/15/23 12:37 and vomiting nicotine [From Nicorette] AdvReac Intermediate Vomiting Verified 07/15/23 12:37 azithromycin AdvReac Unknown Nausea Verified 07/15/23 12:37 nitrofurantoin AdvReac Unknown Nausea Verified 07/15/23 12:37 [From Macrobid] bupropion HCl AdvReac Nausea, Verified 07/15/23 12:37 [From Wellbutrin] thought I was going crazy prednisone AdvReac Nausea, Verified 07/15/23 12:37 thought I was going crazy I get get General Stated Complaint: RashLesion CAROL: 4 Review of Systems All systems reviewed & are unremarkable except as noted in HPI and below Integumentary/Breasts Skin/Breast: Reports as per HPI, Reports erythema, Reports skin pain, Reports skin swelling and Reports sores Exam GI Inspection: incision, obesity, scar and other (See diagram below) Abdomen image: 2 1. Incision 2. Erythema, purulent area in central approx 1 cm Course Vital Signs Vital signs: Vital Signs Temperature 37.1 C 07/15/23 12:34 Pulse 90 07/15/23 12:34 Respiratory Rate 16 07/15/23 12:34 Blood Pressure 157/89 H 07/15/23 12:34 Pulse Oximetry 98 07/15/23 12:34 Temperature 37.1 C 07/15/23 12:34 Temperature Source Skin 07/15/23 12:34 Pulse 90 07/15/23 12:34 Respiratory Rate 16 07/15/23 12:34 Respiratory Effort Normal, Non-Labored 07/15/23 12:36 Blood Pressure 157/89 H 07/15/23 12:34 Blood Pressure Position Sitting 07/15/23 12:34 Pulse Oximetry 98 07/15/23 12:34 Oxygen Delivery Method Room Air 07/15/23 12:34 Oxygen Flow Rate 0 07/15/23 12:34 Pain Level 2 07/15/23 12:34 Medical Decision Making 67 year old female presents to the ED with cc of lower abdominal incision infection. She has had a fungal infection to the area for the last 2 to 3 months. She reports increased redness and bleeding and drainage noted to the central area of her previous hysterectomy incision. She does have multiple drug allergies. Most recently on cefpodoxime 2 weeks ago for a sinus infection. She does have a history of an appendectomy thyroidectomy, cholecystectomy, oophorectomy, abdominal hysterectomy, recurrent UTIs, hypothyroidism, hypertension GERD, interstitial cystitis. Will perform wound care and apply dressing by medical staff manager, Mupirocin ointment ordered and Cephalexin 500 mg ordered. Patient appears non-toxic, A&O x 4. This text was generated using [employer] system, please disregard any oddities of phrase or misspellings. Quality:SDOH Health Related Social Needs: 2 No Data to Display PFSH All Active Problems (Updated 07/15/23 @ 13:06 by Paris Sanchez, KAVYA) Abdominal wall cellulitis (Acute) Trochanteric bursitis, right hip (Acute) DEPO MEDROL: 04/18/2022; 09/23/2021 Chronic cough (Acute) Smoker (Acute) Allergic rhinitis due to allergen (Acute) Fatty liver disease, nonalcoholic (Acute) Chronic GERD (Acute) Generalized weakness (Acute) COPD exacerbation (Acute) UTI (urinary tract infection) (Acute) Pleuritic chest pain (Acute) Anxiety (Chronic) Fever (Acute) NICANOR positive (Acute) Tear of right gluteus medius tendon (Acute) Iliotibial band syndrome of right side (Acute) Medical History Rotator cuff tear, right Chemical gastritis Bursitis of right shoulder Primary osteoarthritis, right shoulder Superficial laceration of skin (10/31/20) left mccray Fibromyalgia Right-sided chest wall pain Pt. denies Hypertension pt. denies this GERD (gastroesophageal reflux disease) Low TSH level Left upper quadrant pain Pelvic pain Abdominal pain OAB (overactive bladder) Chronic maxillary sinusitis Acne rosacea Recurrent UTI Loosening of prosthesis of left total knee replacement Actinic keratosis Painful total knee replacement, left Post-nasal drip Chronic rhinitis Femoroacetabular impingement of right hip Interstitial cystitis Pelvic pain in female Aftercare following joint replacement surgery Peritonsillar cellulitis (12/03/15) Primary osteoarthritis of right knee (04/23/15) cervical carcinoma Surgical History Hx of appendectomy Hx of thyroidectomy Status post arthroscopy of right shoulder (11/03/08) Debridement, PASTA repair, subacromial decompression with acromioplasty, distal clavicle resection, open subpectoral biceps tenodesis History of revision of total replacement of left knee joint (09/22/20) History of total left knee replacement (01/20/16) Status post cholecystectomy (~07/14/20) S/P laparoscopic cholecystectomy S/P total abdominal hysterectomy Hx of tonsillectomy Hx of rotator cuff surgery TOT (Incontinence sling) Oophrectomy, Left Abdominal hysterectomy Colonoscopy - IV Sedation Arthroplasty of knee Social History Smoking/Tobacco Use Status: Current every day Tobacco Type: cigarettes Smoking risk assessment performed?: Yes Alcohol Intake: current Alcohol Intake frequency: holidays/special occasions only Alcohol type: wine Drug use: Occasionally Substance use type: marijuana Housing: house Current gender identity: female Do you feel safe at home: Yes Do you feel safe in your relationship?: Yes
[2023-07-15] MEDS: Cephalexin 500 MG CAP PO (13:08)
[2023-07-15] MEDS: Mupirocin 2% Oint. 22 GM TUBE TP (13:09)
== END 2023-07-15 13:24 | disposition home or self-care (01) ==
LOC: ER 13:10
PROVIDERS: Emergency Provider Registered Nurse Emergency; PCP Family Medicine
DX: L03.311 Cellulitis of abdominal wall (principal)
CPT/HCPCS: 99283

== ENCOUNTER 2023-11-17 08:18 | Outpatient (CLI) | payer MEDICARE, SELFPAY ==
--- NOTE | 2023-11-17 08:13 | DI.RAD_ITS ---
Exam(s) XR KNEE LT 3V AP,LAT,OSWALDO EXAM: XR KNEE LT 3V AP,LAT,OSWALDO CLINICAL HISTORY: LEFT KNEE PAIN S/P REVISION. TECHNIQUE: 2D digital imaging was performed. COMPARISON: CR XR KNEE LT 2V AP,LAT from 09/23/2021 FINDINGS: 3 views Position alignment of the components of the revised prosthesis remain stable. There are no fractures . No evidence of loosening tibial component. There is a thin well-defined zone of lucency surrounding the entire stem of the femoral component, mo re so than previous and may indicate loosening. IMPRESSION: Possible loosening of the femoral component. DATA REPOSITORY: RADIATION DOSE DELIVERED:
== END 2023-11-17 08:19 | disposition home or self-care (01) ==
LOC: DIORS 08:19
PROVIDERS: PCP Family Medicine; Referring Provider Family Medicine; Visit Provider Physician Assistant
DX: Z47.1 Aftercare following joint replacement surgery (principal); T84.84XA Pain due to internal orthopedic prosthetic devices, implants and grafts, initial encounter; Z96.652 Presence of left artificial knee joint
CPT/HCPCS: 73562; 99214

== ENCOUNTER 2023-12-06 01:58 | Outpatient (CLI) | payer MEDICARE, SELFPAY ==
--- NOTE | 2023-12-06 07:15 | DI.CT_ITS ---
Exam(s) CT LOWER EXTREMITY LT WO EXAM: CT LOWER EXTREMITY LT WO CLINICAL HISTORY: PAIN,?LOOSENING,[id number]. TECHNIQUE: Imaging Protocol: Axial computed tomography images with coronal and sagittal reformatted images were created and reviewed. CONTRAST MATERIAL: Noncontrast COMPARISON: CR XR KNEE LT 2V AP,LAT from 09/23/2021 CR XR KNEE LT 3V AP,LAT,OSWALDO from 11/17/2023 NM NM BONE SCAN 3 PHASE from 12/06/2023 FINDINGS: Bones: There is no evidence of fracture. Revised is total knee prosthesis again noted. This creates mild artifact rectally adjacent to the prosthesis. No findings to suggest loosening. No cellulitic or osteomyelitic changes are identified. No lytic or sclerotic lesions are identified. Joints: No joint effusion is visible. Soft Tissues: Normal. IMPRESSION: No CT findings to suggest loosening of the revised knee prosthesis given degree of artifact. RADIATION DOSE DELIVERED: Total DLP DATA REPOSITORY: All CT scans at this facility are submitted to the National Radiology Data Registry (NRDR) Dose Index Registry (DIR) with the [employer] ([employer]). RADIATION OPTIMIZATION: All CT scans at this facility use at least one of these dose optimization te chniques: automated exposure control; mA and/or kV adjustment per patient size (includes targeted exa ms where dose is matched to clinical indication); or iterative reconstruction.
--- NOTE | 2023-12-06 07:15 | DI.NM_ITS ---
Exam(s) NM BONE SCAN 3 PHASE EXAM: NM BONE SCAN 3 PHASE CLINICAL HISTORY: PAIN, ?LOOSENING,[id number]. TECHNIQUE: Injected Dose: 25 mCi Tc-99m MDP COMPARISON: CR XR KNEE LT 2V AP,LAT from 09/23/2021 CR XR KNEE LT 3V AP,LAT,OSWALDO from 11/17/[address] LOWER EXTREMITY LT WO from 12/06/2023 FINDINGS: Perfusion images: No fusion asymmetry demonstrated Blood Pool images: No significant findings Delayed images: Photopenic zone in the distal left femur and proximal left tibia noted consistent wit h the prosthesis. There is some increased uptake around the stem of the tibial component evident; mo re so antral laterally. Less so around the femoral component. There is some mild focal uptake aroun d the lateral aspect of the postero-lateral aspect of the femoral condyle component. Some uptake is also seen at the tibial plateau level subjacent to medial and lateral aspects of the tibial component of the knee prosthesis. IMPRESSION: 1. As above. Findings are discordant with the plain films findings. There is no skin abnormal uptak e around the femoral stem component which was the area of possible concern on the recent plain films of 11/17/2023. 2. The most significant uptake is on the delayed images is around the tibial component of the prosth esis. Aseptic loosening usually demonstrates somewhat localized findings on the flow and blood pool phases. This does not appear to be the case here. DATA REPOSITORY:
[2023-12-06 10:27] LABS: ESR 22 mm/hr (0-30)
[2023-12-06 11:23] LABS: C-Reactive Protein < 0.50 mg/dL (<or=0.5)
== END 2023-12-06 02:18 ==
LOC: DI 01:58
PROVIDERS: PCP Family Medicine; Visit Provider Student in an Organized Health Care Education/Training Program
DX: T84.84XA Pain due to internal orthopedic prosthetic devices, implants and grafts, initial encounter (principal); Z96.652 Presence of left artificial knee joint
CPT/HCPCS: 36415; 85652; 73700; 78315; 86140

== ENCOUNTER → 2023-12-18 13:51 | Outpatient (BNVA) | payer MEDICARE, SELFPAY | PROVIDERS: PCP Family Medicine; Referring Provider Family Medicine; Visit Provider Student in an Organized Health Care Education/Training Program | DX: M65.9 Synovitis and tenosynovitis, unspecified (principal); T84.84XA Pain due to internal orthopedic prosthetic devices, implants and grafts, initial encounter; Z96.652 Presence of left artificial knee joint | CPT/HCPCS: 99215 ==

== ENCOUNTER 2024-01-12 12:08 | Outpatient (REF) | payer MEDICARE, SELFPAY ==
[2024-01-12 16:20] LABS: Anion Gap 6.9 mmol/L (3-11); BUN 23 mg/dL (7-18); CO2 26.1 mmol/L (21.0-32.0); CREATININE 0.8 mg/dL (0.55-1.02); Calcium 9.1 mg/dL (8.5-10.1); Calculated LDL 120 mg/dL (<100); Chloride 106 mmol/L (98-107); Cholesterol 233 mg/dL (<200); Estimated GFR 81.21 (mL/min/1.73m2); Glucose 101 mg/dL (74-106); HDL Cholesterol 84 mg/dL (40-60); Potassium 3.8 mmol/L (3.5-5.1); Sodium 139 mmol/L (136-145); TSH (W/Ref FT4) 1.45 uIU/mL (0.36-3.74); Triglyceride 145 mg/dL (<150)
== END 2024-01-12 12:09 | disposition home or self-care (01) ==
LOC: NCHCN 12:08
PROVIDERS: PCP Family Medicine; Visit Provider Family Medicine
DX: E03.9 Hypothyroidism, unspecified (principal)
CPT/HCPCS: 80048; 80061; 84443